=== PATIENT | female | born 1965 | race Caucasian/White ===

== ENCOUNTER 2018-12-17 00:48 | Inpatient (IN) | payer MEDICARE ==
[2018-12-17] MEDS ORDERED: LORazepam 2 MG/ML INJ IV STA (01:14)
[2018-12-17] MEDS ORDERED: SODIUM CHLORIDE 0.9% 500 ML 500 ML IV STA (01:14)
--- NOTE | 2018-12-17 01:30 | ED ---
Nausea/Vomiting/Diarrhea HPI - General Source: EMS Mode of arrival: EMS Limitations: no limitations <Miladis Herrera - Last Filed: 12/17/18 02:39> <Jocelyn Choudhury - Last Filed: 12/17/18 05:53> - General Chief complaint: Nausea/Vomiting/Diarrhea Stated complaint: vomiting Time Seen by Provider: 12/17/18 00:51 - History of Present Illness Initial comments: 52-year-old female patient with past medical history significant for epilepsy, Jimmy-Danlos syndrome - vascular type, hypertension presents to the emergency department for evaluation of vomiting, abdominal pain, chest pain, and progressive weakness. Patient states that she had extensive vascular grafting at the beginning of October. States that she felt quite well for a short time, then started to decline. Patient states that she has been feeling weak. States she has been having pain and chest in her abdomen for the last couple of weeks. States today she is unable to stop vomiting. States it has been more than 15 episodes. She denies any hematochezia, melena, or hematemesis. She states she has been clammy and chilled. Denies any shortness of breath. Patient denies any recent rash, shortness breath, back pain, numbness, tingling, dizziness, w eakness, hematuria, dysuria, urinary urgency, urinary frequency, headache, visual changes, or any other complaints. (Miladis Herrera) - Related Data Allergies Allergy/AdvReac Type Severity Reaction Status Date / Time No Known Allergies Allergy Verified 12/17/18 01:02 Review of Systems ROS Other: All systems not noted in ROS Statement are negative. <Miladis Herrera - Last Filed: 12/17/18 02:39> ROS Other: All systems not noted in ROS Statement are negative. <Jocelyn Choudhury - Last Filed: 12/17/18 05:53> ROS Statement: Those systems with pertinent positive or pertinent negative responses have been documented in the HPI. Past Medical History Past Medical History: Hypertension, Seizure Disorder Additional Past Medical History / Comment(s): adrenal insufficiency; Jimmy Danlos Syndrome - Vascular Type History of Any Multi-Drug Resistant Organisms: None Reported Additional Past Surgical History / Comment(s): abdominal sugery; Aortic grafting Past Psychological History: No Psychological Hx Reported Smoking Status: Current every day smoker Past Alcohol Use History: None Reported Past Drug Use History: Marijuana <Miladis Herrera M - Last Filed: 12/17/18 02:39> General Exam Limitations: no limitations General appearance: alert, in no apparent distress, other (This is a well-develo ped, well-nourished adult female patient in no acute distress. Vital signs upon presentation are temperature 98.9F, pulse 91, respirations 20, blood pressure 175/120, pulse ox 96% on room air.) Eye exam: Present: normal appearance, PERRL, EOMI. Absent: scleral icterus, co njunctival injection, periorbital swelling ENT exam: Present: normal exam, normal oropharynx, mucous membranes moist Respiratory exam: Present: normal lung sounds bilaterally. Absent: respiratory distress, wheezes, rales, rhonchi, stridor Cardiovascular Exam: Present: regular rate, normal rhythm, normal heart sounds. Absent: systolic murmur, diastolic murmur, rubs, gallop, clicks GI/Abdominal exam: Present: soft, tenderness (Epigastric), normal bowel sounds. Absent: distended, guarding, rebound, rigid Neurological exam: Present: alert, oriented X3, CN II-XII intact Psychiatric exam: Present: normal affect, normal mood Skin exam: Present: warm, dry, intact, normal color. Absent: rash <Miladis Herrera M - Last Filed: 12/17/18 02:39> Course Vital Signs 12/17/18 12/17/18 12/17/18 00:58 02:38 03:10 Temperature 98.9 F Pulse Rate 91 86 96 Respiratory 20 20 24 Rate Blood Pressure 175/120 177/117 175/113 O2 Sat by Pulse 96 90 L 81 L Oximetry 12/17/18 12/17/18 12/17/18 03:21 04:10 04:22 Temperature Pulse Rate 101 H 101 H Respiratory 26 H 28 H Rate Blood Pressure 157/100 160/107 O2 Sat by Pulse 94 L 98 98 Oximetry 12/17/18 04:50 Temperature Pulse Rate 96 Respiratory 26 H Rate Blood Pressure 154/97 O2 Sat by Pulse 98 Oximetry Medical Decision Making - Lab Data Result diagrams: 12/17/18 01:30 12/17/18 01:30 - EKG Data -: EKG Interpreted by Me - Radiology Data Radiology results: report reviewed, image reviewed <Miladis Herrera - Last Filed: 12/17/18 02:39> - Lab Data Result diagrams: 12/17/18 01:30 12/17/18 01:30 <Jocelyn Choudhury - Last Filed: 12/17/18 05:53> - Medical Decision Making 52-year-old female patient presents to the emergency department today for evalua tion of progressive weakness, vomiting, chest pain, and abdominal pain. Physical examination does reveal generalized abdominal tenderness. Pressure is elevated. Labs reviewed and did reveal hemoglobin 10.8, BUN 25, creatinine 1.63. Troponin 0.368. Patient's EKG shows normal sinus rhythm with no evidence for ST elevation or depression. CT chest, abdomen, pelvis was obtained without contrast which showed a 5 cm thoracic aortic aneurysm which has been stented. There is also low density lesion on her pancreas. I did discuss findings and results with the patient. I discussed case with Dr. Choudhury. We will start heparin, perform serial troponins, and admit to Dr. Rondon. (Miladis Herrera) I personally saw and evaluated the patient who is having moderate respiratory distress, CXR concerning for pulmonary edema, patient also hypertensive and hypoxic declining BiPap. Decision was made to place patient on Nitro gtt fro BP management and treatment of apparent heart failure. Admitting physician at bedside agrees with plans for admission, requests upgrade to ICU. Patient care discussed with Dr. Lamas who agrees with admission to ICU. (Jocelyn Choudhury) - Lab Data Lab Results 12/17/18 12/17/18 12/17/18 Range/Units 01:30 01:30 01:30 WBC 12.6 H (3.8-10.6) k/uL RBC 3.68 L (3.80-5.40) m/uL Hgb 10.8 L (11.4-16.0) gm/dL Hct 35.2 (34.0-46.0) % MCV 95.6 (80.0-100.0) fL MCH 29.4 (25.0-35.0) pg MCHC 30.7 L (31.0-37.0) g/dL RDW 18.0 H (11.5-15.5) % Plt Count 442 (150-450) k/uL Neutrophils % 68 % Lymphocytes % 26 % Monocytes % 4 % Eosinophils % 1 % Basophils % 1 % Neutrophils # 8.6 H (1.3-7.7) k/uL Lymphocytes # 3.2 (1.0-4.8) k/uL Monocytes # 0.5 (0-1.0) k/uL Eosinophils # 0.1 (0-0.7) k/uL Basophils # 0.1 (0-0.2) k/uL Hypochromasia Slight Anisocytosis Slight Macrocytosis Slight PT (9.0-12.0) sec INR (<1.2) APTT (22.0-30.0) sec Sodium 138 (137-145) mmol/L Potassium 3.6 (3.5-5.1) mmol/L Chloride 102 (98-107) mmol/L Carbon Dioxide 26 (22-30) mmol/L Anion Gap 10 mmol/L BUN 25 H (7-17) mg/dL Creatinine 1.63 H (0.52-1.04) mg/dL Est GFR (CKD-EPI)AfAm 41 (>60 ml/min/1.73 sqM) Est GFR (CKD-EPI)NonAf 36 (>60 ml/min/1.73 sqM) Glucose 115 H (74-99) mg/dL Calcium 9.8 (8.4-10.2) mg/dL Magnesium (1.6-2.3) mg/dL Total Bilirubin 0.3 (0.2-1.3) mg/dL AST 17 (14-36) U/L ALT 6 L (9-52) U/L Alkaline Phosphatase 147 H (38-126) U/L Troponin I 0.368 H* (0.000-0.034) ng/mL NT-Pro-B Natriuret Pep pg/mL Total Protein 6.6 (6.3-8.2) g/dL Albumin 3.3 L (3.5-5.0) g/dL Amylase 84 (30-110) U/L Lipase 52 (23-300) U/L 12/17/18 12/17/18 12/17/18 Range/Units 01:30 01:30 01:30 WBC (3.8-10.6) k/uL RBC (3.80-5.40) m/uL Hgb (11.4-16.0) gm/dL Hct (34.0-46.0) % MCV (80.0-100.0) fL MCH (25.0-35.0) pg MCHC (31.0-37.0) g/dL RDW (11.5-15.5) % Plt Count (150-450) k/uL Neutrophils % % Lymphocytes % % Monocytes % % Eosinophils % % Basophils % % Neutrophils # (1.3-7.7) k/uL Lymphocytes # (1.0-4.8) k/uL Monocytes # (0-1.0) k/uL Eosinophils # (0-0.7) k/uL Basophils # (0-0.2) k/uL Hypochromasia Anisocytosis Macrocytosis PT 9.9 (9.0-12.0) sec INR 0.9 (<1.2) APTT 25.5 (22.0-30.0) sec Sodium (137-145) mmol/L Potassium (3.5-5.1) mmol/L Chloride (98-107) mmol/L Carbon Dioxide (22-30) mmol/L Anion Gap mmol/L BUN (7-17) mg/dL Creatinine (0.52-1.04) mg/dL Est GFR (CKD-EPI)AfAm (>60 ml/min/1.73 sqM) Est GFR (CKD-EPI)NonAf (>60 ml/min/1.73 sqM) Glucose (74-99) mg/dL Calcium (8.4-10.2) mg/dL Magnesium 2.1 (1.6-2.3) mg/dL Total Bilirubin (0.2-1.3) mg/dL AST (14-36) U/L ALT (9-52) U/L Alkaline Phosphatase (38-126) U/L Troponin I (0.000-0.034) ng/mL NT-Pro-B Natriuret Pep 85774 pg/mL Total Protein (6.3-8.2) g/dL Albumin (3.5-5.0) g/dL Amylase (30-110) U/L Lipase (23-300) U/L - EKG Data EKG Comments: EKG obtained at 0124 shows normal sinus rhythm with a ventricular rate of 87, LA interval 144, QRS duration 86, QT 368, QTC 442. No evidence of ST elevation or depression. (Miladis Herrera) - Radiology Data CT chest, abdomen, pelvis was obtained without contrast. Report was reviewed in its entirety. Impression by Dr. Hernandez shows thoracic aortic aneurysm with underlying stent. 4.9 cm pancreatic tail low density mass. Left kidney demonstrates tiny high density lesions possibly proteinaceous/hemorrhagic cyst, incompletely characterized without contrast. No aortic aneurysm or intramural hematoma. (Miladis Herrera) Critical Care Time Critical Care Time: Yes Total Critical Care Time: 45 <Jocelyn Choudhury - Last Filed: 12/17/18 05:53> Critical Care Time: Critical Care Time Critical care time was exclusive of separately billable procedures and treating other patients and teaching time. Critical care was necessary to treat or prevent imminent or life-threatening deterioration. Given the critical condition in which the patient arrived, the patient was immediately assessed by myself and the nurse, and cardiac monitoring initiated due to the potential for rapid decompensation of the patient's clinical condition. During the course of the patients stay, I spent a considerable amount of time at the bedside performing serial re-evaluations of the patient's hemodynamic and clinical status because of the recognized potential threat to life or limb in this condition. I then had a chance to review not only all of the available current laboratory and radiographic studies obtained today, but I also reviewed old records available to me at the time. Additionally, any ancillary information available including comparative sociology professor records were reviewed. Sequential vital signs were obtained. (Jocelyn Choudhury) Disposition Decision to Admit Reason: Admit from EC Decision Date: 12/17/18 Decision Time: 02:42 <Miladis Herrera - Last Filed: 12/17/18 02:39> <Jocelyn Choudhury - Last Filed: 12/17/18 05:53> Clinical Impression: Chest pain, Abdominal pain, Vomiting Disposition: ADMITTED IP TO THIS [facility] Condition: Serious
[2018-12-17 01:36] LABS: Anisocytosis Slight; Basophils # (A) 0.1 k/uL (0-0.2); Basophils % (A) 1 %; Eosinophils # (A) 0.1 k/uL (0-0.7); Eosinophils % (A) 1 %; HCT 35.2 % (34.0-46.0); HGB 10.8 gm/dL (11.4-16.0); Hypochromasia Slight; Lymphocytes # (A) 3.2 k/uL (1.0-4.8); Lymphocytes % (A) 26 %; MCH 29.4 pg (25.0-35.0); MCHC 30.7 g/dL (31.0-37.0); MCV 95.6 fL (80.0-100.0); Macrocytosis Slight; Mean Platelet Volume 7.2; Monocytes # (A) 0.5 k/uL (0-1.0); Monocytes % (A) 4 %; Neutrophils # (A) 8.6 k/uL (1.3-7.7); Neutrophils % (A) 68 %; Platelet Count 442 k/uL (150-450); RBC 3.68 m/uL (3.80-5.40); WBC 12.6 k/uL (3.8-10.6)
[2018-12-17 01:45] LABS: Albumin 3.3 g/dL (3.5-5.0); Calcium 9.8 mg/dL (8.4-10.2); Potassium 3.6 mmol/L (3.5-5.1); Total Bilirubin 0.3 mg/dL (0.2-1.3); Total Protein 6.6 g/dL (6.3-8.2)
--- NOTE | 2018-12-17 02:29 | CT ---
EXAM: CT Chest Without Intravenous Contrast CLINICAL HISTORY: ITS.REASON CT Reason: Chest/abdomen pain hx of elher's danlos - vascular TECHNIQUE: Axial computed tomography images of the chest without intravenous contrast. CTDI is 7 mGy and DLP is 502 mGy-cm. This CT exam was performed using one or more of the following dose reduction techniques: automated exposure control, adjustment of the mA and/or kV according to patient size, and/or use of iterative reconstruction technique. COMPARISON: No relevant prior studies available. FINDINGS: Lungs: No mass. Interlobular septal thickening and some areas of groundglass opacities. Pleural space: No pneumothorax. Mild left greater than right pleural effusions. Heart: Enlarged heart size. No pericardial effusion. Bones/joints: No acute fracture. Chronic 80% height loss wedging of T7 with mild kyphotic deformity. Soft tissues: Unremarkable. Vasculature: Thoracic aortic aneurysm measuring approximately 5 cm in the descending portion. No intramural hematoma is identified. Lymph nodes: No enlarged lymph nodes. Upper abdomen: Unremarkable. IMPRESSION: 1. Thoracic aortic aneurysm with underlying stent. 2. Cardiomegaly, mild pleural effusions, and mild pulmonary edema. EXAM: CT Abdomen and Pelvis Without Intravenous Contrast CLINICAL HISTORY: ITS.REASON CT Reason: Chest/abdomen pain hx of elher's danlos - vascular TECHNIQUE: Axial computed tomography images of the abdomen and pelvis without intravenous contrast. CTDI is 7 mGy and DLP is 502 mGy-cm. This CT exam was performed using one or more of the following dose reduction techniques: automated exposure control, adjustment of the mA and/or kV according to patient size, and/or use of iterative reconstruction technique. COMPARISON: No relevant prior studies available. FINDINGS: Lung bases: No mass. No consolidation. ABDOMEN: Liver: Unremarkable. Gallbladder and bile ducts: Unremarkable. Pancreas: 4.9 cm low-density mass in the pancreatic tail. Spleen: Unremarkable. Adrenals: Unremarkable. Kidneys and ureters: No obstructing stones. No hydronephrosis. Atrophic right kidney. Left kidney demonstrates tiny high-density lesions. Stomach and bowel: No bowel obstruction. No bowel wall thickening. PELVIS: Appendix: No evidence of appendicitis. Bladder: No stones. Reproductive: Unremarkable. ABDOMEN and PELVIS: Intraperitoneal space: Unremarkable. Bones/joints: No acute fractures. Soft tissues: Unremarkable. Vasculature: No abdominal aortic aneurysm. Lymph nodes: No enlarged lymph nodes. IMPRESSION: 4.9 cm pancreatic tail low-density mass. Recommend pancreatic CT or MRI for further characterization. Left kidney demonstrates tiny high-density lesions possibly proteinaceous/hemorrhagic cysts, incompletely characterized without contrast. No aortic aneurysm or intramural hematoma.
[2018-12-17] MEDS ORDERED: NALOXONE 0.4 MG/ML 1 ML VIAL IV PRN (02:34)
[2018-12-17] MEDS ORDERED: HEPARIN SODIUM,PORCINE 5,000 UNIT/ML 1 ML VIAL IV ONE (02:38)
[2018-12-17] MEDS ORDERED: HEPARIN SODIUM,PORCINE 5,000 UNIT/ML 1 ML VIAL IV PRN (02:38)
[2018-12-17] MEDS ORDERED: SODIUM CHLORIDE 0.9% 1,000 ML IV SCH (02:45)
[2018-12-17] MEDS ORDERED: HEPARIN SOD,PORK IN 0.45% NACL 25,000 UNIT in 0.45% NACL 1 250ML.BAG IV SCH (02:45)
[2018-12-17] MEDS: ONDANSETRON 4 MG/2 ML VIAL IVP PRN (02:47)
[2018-12-17] MEDS: MORPHINE SULFATE 4 MG/ML SYRINGE IV PRN ×2 (02:48→06:50)
[2018-12-17] MEDS: NITROGLYCERIN SL TABS 0.4 MG TAB SUBLINGUAL PRN ×2 (03:06→03:18)
[2018-12-17] MEDS ORDERED: hydrALAZINE HCL 20 MG/ML 1 ML VIAL IVP STA (03:32)
[2018-12-17] MEDS ORDERED: NITROGLYCERIN-D5W PMX 50 MG in DEXTROSE/WATER 1 250ML.BAG IV STA (03:50)
[2018-12-17 03:55] LABS: Glucose,Whole Blood 130 mg/dL (75-99)
[2018-12-17] MEDS: LORazepam 2 MG/ML INJ IV PRN (04:06)
[2018-12-17] MEDS ORDERED: ACETAMINOPHEN TAB 325 MG TAB PO STA (04:12)
[2018-12-17 04:16] LABS: INR 0.9 (<1.2); Partial Thromboplastin Time 25.5 sec (22.0-30.0); Prothrombin Time 9.9 sec (9.0-12.0)
[2018-12-17 04:23] LABS: ABG Base Excess 0.1 mmol/L; ABG HCO3 25 mmol/L (21-25); ABG Oxygen Saturation 96.9 % (94-97); ABG PCO2 43 mmHg (35-45); ABG PH 7.37 (7.35-7.45); ABG PO2 118 mmHg (83-108); ABG TCO2 27 mmol/L (19-24); Allen Test Performed? Yes
[2018-12-17] MEDS ORDERED: FUROSEMIDE 10 MG/ML 4 ML VIAL IV STA (04:23)
--- NOTE | 2018-12-17 04:33 | XR ---
EXAM: XR Chest, 1 View CLINICAL HISTORY: ITS.REASON XR Reason: Shortness of breath TECHNIQUE: Frontal view of the chest. COMPARISON: No relevant prior studies available. IMPRESSION: Cardiomegaly. Pulmonary edema. Mild left pleural effusion. Dilated aorta with stent.
[2018-12-17 05:05] LABS: Appearance,Urine Clear (Clear); Bilirubin,Urine Negative (Negative); Blood,Urine Negative (Negative); Color,Urine Yellow; Glucose,Urine (UA) Negative (Negative); Hyaline Casts,Urine 3 /lpf (0-2); Ketones,Urine Negative (Negative); Leukocyte Esterase,Urine Trace (Negative); Mucus,Urine Rare /hpf; Nitrite,Urine Negative (Negative); Protein,Urine 1+ (Negative); RBC,Urine 2 /hpf (0-5); Specific Gravity,Urine 1.015 (1.001-1.035); Squamous Epithelial Cell,Urine <1 /hpf (0-4); Urobilinogen,Urine <2.0 mg/dL (<2.0); WBC,Urine 11 /hpf (0-5)
[2018-12-17 05:23] LABS: Glucose,Whole Blood 131 mg/dL (75-99)
[2018-12-17] MEDS ORDERED: MELATONIN 3 MG TABLET PO PRN (05:56)
[2018-12-17 06:02] LABS: Anisocytosis Slight; Basophils # (A) 0.1 k/uL (0-0.2); Basophils % (A) 0 %; Eosinophils # (A) 0.1 k/uL (0-0.7); Eosinophils % (A) 1 %; HCT 36.6 % (34.0-46.0); HGB 11.3 gm/dL (11.4-16.0); Hypochromasia Slight; Lymphocytes # (A) 2.2 k/uL (1.0-4.8); Lymphocytes % (A) 14 %; MCHC 30.9 g/dL (31.0-37.0); MCV 97.2 fL (80.0-100.0); Macrocytosis Slight; Mean Platelet Volume 7.1; Monocytes # (A) 0.5 k/uL (0-1.0); Monocytes % (A) 3 %; Neutrophils # (A) 12.8 k/uL (1.3-7.7); Neutrophils % (A) 81 %; Platelet Count 497 k/uL (150-450); RBC 3.77 m/uL (3.80-5.40); RDW 18.3 % (11.5-15.5); WBC 15.8 k/uL (3.8-10.6)
--- NOTE | 2018-12-17 06:20 | P.HPIM ---
History of Present Illness H&P Date: 12/17/18 Chief Complaint: nausea or vomiting 52-year-old female with past medical history of Ehler Danlos syndrome vascular type, history of seizures, hypertension, adrenal insufficiency, pituitary neoplasm, coronary artery disease. Patient presented initially for evaluation of abdominal discomfort and vomiting with overall getting progressively weak.patient does have history of adrenal insufficiency and on hydrocortisone. She reports history of pituitary neoplasm which resulted in hypothyroidism and adrenal insufficiency. She also reports that 2 months ago she had some kind of surgery involving her aorta where she had to have open heart surgery at [facility] she reports that she got discharged from the hospital around 6 weeks ago and was sent home. She felt okay initially and then she started to get progressively weak and tired. Then patient admitted that she was having chest pain for the last week along with abdominal pain, patient is not going over thorough details as she was having some trouble breathing during the time of interview due to respiratory distress. However she did mention some repeated vomiting multiple episodes today which made her come to the hospital she denies being on any blood thinners denies any GI bleeding or hematemesis or melena. While in the ED she became hypoxic diaphoretic and clammy shortness of breath got worse for which she was placed on high flow oxygen nasal cannula as she was not tolerating BiPAP. ABG was done and reviewed while on the supplemental oxygen showed pH of 7.37. O2 of 118 and pCO2 in the 40s. Her hemoglobin on the ABG was 11.2. Patient had CT of the chest and abdomen without contrast due to elevated creatinine. Chest x-ray showed diffuse pulmonary edema with some pleural effusions and enla rged heart. Patient was given medications to lower blood pressure without much improvement eventually she was started on nitro drip. Review of Systems patient was unable to provide full review of systems due to respiratory distress at time of interview Past Medical History Past Medical History: Hypertension, Seizure Disorder Additional Past Medical History / Comment(s): adrenal insufficiency; Jimmy Danl os Syndrome - Vascular Type History of Any Multi-Drug Resistant Organisms: None Reported Additional Past Surgical History / Comment(s): abdominal sugery; Aortic grafting Past Psychological History: No Psychological Hx Reported Smoking Status: Current every day smoker Past Alcohol Use History: None Reported Past Drug Use History: Marijuana - Past Family History family Family Medical History: Unable to Obtain Medications and Allergies Home Medications Medication Instructions Recorded Confirmed Type Acetaminophen [Tylenol] 650 mg PO Q6H PRN 12/17/18 12/17/18 History Amiodarone HCl [Pacerone] 200 mg PO DAILY 12/17/18 12/17/18 History Carvedilol [Coreg] 3.125 mg PO BID 12/17/18 12/17/18 History Cholecalciferol (Vitamin D3) 10,000 unit PO 12/17/18 History [Vitamin D3] Hydrocortisone 5 mg PO DAILY 12/17/18 12/17/18 History Hydrocortisone 10 mg PO DAILY 12/17/18 12/17/18 History Levothyroxine Sodium 150 mg PO DAILY 12/17/18 12/17/18 History Melatonin 3 mg PO HS PRN 12/17/18 12/17/18 History PARoxetine HCL 20 mg PO DAILY 12/17/18 12/17/18 History Simethicone [Gas-X] 125 mg PO PRN 12/17/18 History Allergies Allergy/AdvReac Type Severity Reaction Status Date / Time No Known Allergies Allergy Verified 12/17/18 01:02 Physical Exam Vitals: Vital Signs Temp Pulse Resp BP Pulse Ox 12/17/18 04:50 96 26 H 154/97 98 12/17/18 04:22 101 H 28 H 160/107 98 12/17/18 04:10 101 H 26 H 157/100 98 12/17/18 03:21 94 L 12/17/18 03:10 96 24 175/113 81 L 12/17/18 02:38 86 20 177/117 90 L 12/17/18 00:58 98.9 F 91 20 175/120 96 Intake and Output 12/16/18 12/16/18 12/17/18 14:59 22:59 06:59 Intake Total 0.725 Output Total 400 Balance -399.275 Intake: Intake, IV Titration 0.725 Amount Nitroglycerin-D5w Pmx 50 0.725 mg In Dextrose/Water 1 250ml.bag @ 5 MCG/MIN 1.5 mls/hr IV .Q24H STA Rx#: [id number] Output: Urine 400 Uretheral (Monzon) 400 Other: Voiding Method Toilet Weight 61.689 kg Constitutional: patient is currently in respiratory distress using accessory muscles of respiration currently on high flow nasal cannula Eyes: Anicteric sclerae, moist conjunctiva, Pupils equal round reactive to light ENMT: NC/AT Oropharynx clear, no erythema, exudates Neck: Supple, FROM, no masses, or JVD No carotid bruits No thyromegaly Lungs: decreased breath sounds throughout with basal rales Clear to percussion accessory muscles of respiration Cardiovascular: Heart tachycardic No murmurs, gallops, or rubs No peripheral edema Abdominal: Soft Nontender, no guarding, rebound or rigidity Abdomen moving with respiration Normoactive bowel sounds No hepatomegaly, No splenomegaly No palpable mass No abdominal wall hernia noted Skin: open-heart surgery scar is healing well no drainage no open wounds Normal temperature, tone, texture, turgor No induration No subcutaneous nodules No rash, lesions No ulcers Extremities: No digital cyanosis No clubbing Pedal pulses intact and symmetrical Radial pulses intact and symmetrical No calf tenderness Psychiatric: Alert and oriented to person, place and time Patient looks anxious fair judgment Neuro Muscles Strength 4/5 in all 4 extremities Sensation to light touch grossly present throughout Cranial nerves II-XII grossly intact No focal sensory deficits Lymphatics: no palpable cervical or supraclavicular , or inguinal lymph nodes Results CBC & Chem 7: 12/17/18 01:30 12/17/18 01:30 Labs: Abnormal Lab Results - Last 24 Hours (Table) 12/17/18 12/17/18 12/17/18 Range/Units 01:30 01:30 01:30 WBC 12.6 H (3.8-10.6) k/uL RBC 3.68 L (3.80-5.40) m/uL Hgb 10.8 L (11.4-16.0) gm/dL MCHC 30.7 L (31.0-37.0) g/dL RDW 18.0 H (11.5-15.5) % Neutrophils # 8.6 H (1.3-7.7) k/uL ABG pO2 (83-108) mmHg ABG Total CO2 (19-24) mmol/L BUN 25 H (7-17) mg/dL Creatinine 1.63 H (0.52-1.04) mg/dL Glucose 115 H (74-99) mg/dL POC Glucose (mg/dL) (75-99) mg/dL ALT 6 L (9-52) U/L Alkaline Phosphatase 147 H (38-126) U/L Troponin I 0.368 H* (0.000-0.034) ng/mL Albumin 3.3 L (3.5-5.0) g/dL Urine Protein (Negative) Ur Leukocyte Esterase (Negative) Urine WBC (0-5) /hpf Hyaline Casts (0-2) /lpf Urine Mucus (None) /hpf 12/17/18 12/17/18 12/17/18 Range/Units 03:44 04:20 04:45 WBC (3.8-10.6) k/uL RBC (3.80-5.40) m/uL Hgb (11.4-16.0) gm/dL MCHC (31.0-37.0) g/dL RDW (11.5-15.5) % Neutrophils # (1.3-7.7) k/uL ABG pO2 118 H (83-108) mmHg ABG Total CO2 27 H (19-24) mmol/L BUN (7-17) mg/dL Creatinine (0.52-1.04) mg/dL Glucose (74-99) mg/dL POC Glucose (mg/dL) 130 H (75-99) mg/dL ALT (9-52) U/L Alkaline Phosphatase (38-126) U/L Troponin I (0.000-0.034) ng/mL Albumin (3.5-5.0) g/dL Urine Protein 1+ H (Negative) Ur Leukocyte Esterase Trace H (Negative) Urine WBC 11 H (0-5) /hpf Hyaline Casts 3 H (0-2) /lpf Urine Mucus Rare H (None) /hpf 12/17/18 Range/Units 05:20 WBC (3.8-10.6) k/uL RBC (3.80-5.40) m/uL Hgb (11.4-16.0) gm/dL MCHC (31.0-37.0) g/dL RDW (11.5-15.5) % Neutrophils # (1.3-7.7) k/uL ABG pO2 (83-108) mmHg ABG Total CO2 (19-24) mmol/L BUN (7-17) mg/dL Creatinine (0.52-1.04) mg/dL Glucose (74-99) mg/dL POC Glucose (mg/dL) 131 H (75-99) mg/dL ALT (9-52) U/L Alkaline Phosphatase (38-126) U/L Troponin I (0.000-0.034) ng/mL Albumin (3.5-5.0) g/dL Urine Protein (Negative) Ur Leukocyte Esterase (Negative) Urine WBC (0-5) /hpf Hyaline Casts (0-2) /lpf Urine Mucus (None) /hpf Assessment and Plan Assessment: 52-year-old female with past medical history of Ehler Danlos syndrome vascular type, history of seizures, hypertension, adrenal insufficiency, pituitary neoplasm, coronary artery disease.admitted as inpatient with anticipated length of stay more than 2 midnight due to malignant hypertension with acute flash pulmonary edema and acute hypoxic respiratory failure. Patient will be admitted to the ICU currently on nitro drip. computed tomography scan of the abdomen and chest was done showed thoracic a ortic aneurysm 5 cm which was stented also low-density pancreatic tail lesion left kidney also showed possible proteinaceous/hemorrhagic cyst Plan: acute hypoxic respiratory failure with respiratory distress Flash pulmonary edema Malignant hypertension elevated troponins and chest pain Patient was started on nitro drip, supplemental oxygen, will be admitted to the ICU IV Lasix X-rays showed pulmonary edema with pleural effusion Computed tomography scan showed thoracic aortic aneurysm 5 cm which was stented Patient was started on heparin drip due to elevated troponins and chest pain Check echocardiogram Cardiology consult ICU care EKG showed no acute ST changes Adrenal insufficiency Patient will be started on stress dose of hydrocortisone History of pituitary neoplasm History of epilepsy Resume home meds pancreatic tail lesion low-density of 4.9 cm left kidney also showed possible proteinaceous/hemorrhagic cyst recent hospitalization at [facility] where she had open heart surgery for stenting of her thoracic aortic aneurysm patient does not know details about what exactly was done CODE STATUS:full code Discussed with: Patient, ER, RN Anticipated length of stay more than [address]: pending clinical course A total of 70 minutes was spent on the care of this complex patient more than 50% of the time was spent in counseling and care coordination.
[2018-12-17 06:32] VITALS: BMI 22.1
[2018-12-17] MEDS: HYDROCORTISONE SUCCINATE 100 MG/2 ML VIAL IV SCH ×3 (07:19→17:43)
[2018-12-17] MEDS: LEVOTHYROXINE 50 MCG TAB PO SCH (07:23)
[2018-12-17] MEDS ORDERED: CARVEDILOL 3.125 MG TAB PO SCH (07:30)
[2018-12-17] MEDS ORDERED: HYDROCORTISONE 10 MG TAB PO SCH ×2 (09:00→12:00)
[2018-12-17] MEDS ORDERED: FUROSEMIDE 10 MG/ML 4 ML VIAL IV SCH (09:00)
[2018-12-17] MEDS: FUROSEMIDE 100 MG in SODIUM CHLORIDE 0.9% 90 ML IV SCH (09:10)
[2018-12-17] MEDS: HYDROmorphone 0.5 MG/0.5 ML SYRINGE IVP PRN ×4 (09:49→21:50)
[2018-12-17] MEDS: PARoxetine 20 MG TAB PO SCH (09:50)
[2018-12-17] MEDS: ALPRAZolam 0.5 MG TAB PO SCH ×2 (09:50→17:52)
[2018-12-17] MEDS: PANTOPRAZOLE 40 MG TABLET PO SCH (09:50)
[2018-12-17] MEDS: AMIODARONE 200 MG TAB PO SCH (09:50)
[2018-12-17 10:14] LABS: Calcium 9.4 mg/dL (8.4-10.2); Potassium 3.6 mmol/L (3.5-5.1)
[2018-12-17 10:20] LABS: INR 0.9 (<1.2); Partial Thromboplastin Time 31.9 sec (22.0-30.0); Prothrombin Time 9.7 sec (9.0-12.0)
--- NOTE | 2018-12-17 10:23 | CONS ---
CONSULTATION Mrs. Mcneil is a 52-year-old female who is seen for the cardiac evaluation. Patient's emergency room records were reviewed. This patient has a past history of epilepsy as well as Ehler-Danlos syndrome and history of hypertension. Patient had probably a leak or dissection of thoracic aortic aneurysm when she was in the [facility] in October and subsequently patient was transferred to [facility] where she underwent a stent placement. Patient was doing well for some time, then she started to decline. She is progressively feeling weak and patient has been having some chest pain in the left upper part of the abdomen and lower part of the chest. Apparently patient did not have any coronary artery bypass surgery and I presume that probably patient did not have any significant coronary artery disease when she had surgery. Patient usually says that her blood pressure runs low because of adrenal insufficiency. Patient had several episodes of vomiting yesterday 10-15 episodes associated with some headaches. She did not have any nausea, vomiting, or sweating and she did not have any blood in the stool or hematemesis. PAST MEDICAL HISTORY: Includes history of hypertension, seizure disorder, adrenal insufficiency, Jimmy- Danlos syndrome and history of stent placement. Patient's home medications included Tylenol, hydrocortisone, amiodarone 200 mg daily, Coreg 3.125 mg b.i.d. and Synthroid 150 mcg daily. In the emergency room, patient's blood pressure was significantly elevated in the range of 175/120 mmHg. The patient was started on nitroglycerin drip and got some treatment and now her blood pressure is down to 145/93 mmHg. Patient was in heart failure. Chest x-ray was suggestive of heart failure. HEENT: Examination is negative. Neck: Supple. There is no increase in jugular venous pressure. Both the carotid pulses are felt, there is no bruit. CHEST: Symmetrical. HEART: The PMI is not felt. First and second heart sounds are normal. There is a grade 2/6 ejection systolic murmur noted at the aortic area. LUNGS: Reveal bilateral few basal rales. ABDOMEN: Soft. There is a tenderness present in the left upper quadrant. EXTREMITIES: Peripheral pulsations are 2+. Patient's EKG shows normal sinus rhythm without any acute ischemic changes. Patient's hemoglobin is 11.3. Arterial blood gases shows pH of 7.37, pCO2 was 43, PO2 is 118. The patient's 2 sets of troponins are 0.368 and 0.395. FINAL IMPRESSION: 1. This patient is admitted with hypertensive urgency. Her blood pressure was severely elevated in the emergency room. It is getting under control. Exact etiology of patient's nausea or vomiting is unclear. However, any kind of intracranial pathology also of needs to be ruled out. 2. Patient's chest pains are atypical. The EKG does not show any acute ischemic changes. Two sets of troponin are almost identical without any significant rise and fall and it is not suggestive of acute coronary syndrome. EKG does not show any acute ischemic changes. Patient's CT scan of the abdomen and chest shows thoracic aortic aneurysm with underlying stent. Patient has a cardiomegaly with a mild pleural effusion. Chest x-ray is suggestive of congestive cardiac failure. RECOMMENDATIONS: In view of this patient's persistent headache, will wean her off the nitroglycerin drip, increase the Coreg to 6.25 mg b.i.d. and will give her 1 dose of amlodipine 5 mg daily. At present, patient is getting the Lasix drip, she diuresed about 1900 mL of the urine. We will repeat the chest x-ray and review the patient's echocardiogram. MMODL / IJN: [id number] /
--- NOTE | 2018-12-17 10:30 | ECHOF ---
Referral Reason:flash pulmonary edema MEASUREMENTS -------- HEIGHT: 172.7 cm WEIGHT: 61.7 kg BP: 154/97 RVIDd: 3.8 cm (< 3.3) IVSd: 1.3 cm (0.6 - 1.1) LVIDd: 4.0 cm (3.9 - 5.3) LVPWd: 1.3 cm (0.6 - 1.1) IVSs: 1.3 cm LVIDs: 3.5 cm LVPWs: 1.9 cm LAESV Index (A-L): 48.60 ml/m Ao Diam: 3.2 cm (2.0 - 3.7) AV Cusp: 1.7 cm (1.5 - 2.6) LA Diam: 3.1 cm (2.7 - 3.8) MV E Arian: 0.66 m/s MV DecT: 165 ms MV A Arian: 1.08 m/s MV E/A Ratio: 0.61 AR PHT: 715 ms RAP: 5.00 mmHg RVSP: 22.46 mmHg FINDINGS -------- Sinus rhythm. The left ventricular size is normal. There is mild concentric left ventricular hypertrophy. Overa ll left ventricular systolic function is moderately impaired with, an EF between 35 - 40 %. Mitral Doppler inflow pattern suggests diastolic filling abnormality. Septal wall motion is delayed and co nsistent with prior cardiac surgery. Basal inferoseptal LV wall motion is hypokinetic. Mid infer oseptal LV wall motion is hypokinetic. The right ventricle is moderately enlarged. Left atrium is severely dilated by volume. The right atrium is mildly enlarged. Interatrial and interventricular septum intact. The aortic valve was not well visualized. There is mild aortic regurgitation. There is no evidenc e of aortic stenosis. Mild mitral annular calcification present. [id number] mitral regurgitation is present. Mild tricuspid regurgitation present. There is no evidence of pulmonary hypertension. The right v entricular systolic pressure, as measured by Doppler, is 22.46mmHg. There is no pulmonic regurgitation present. The aortic root size is normal. Possible atherosclerotic plaque(s) located in the descending aorta V s. possible dissection seen in subcostal views. The inferior vena cava was not well visualized. There is no pericardial effusion. CONCLUSIONS -------- 1. Sinus rhythm. 2. The left ventricular size is normal. 3. There is mild concentric left ventricular hypertrophy. 4. Overall left ventricular systolic function is moderately impaired with, an EF between 35 - 40 %. 5. Mitral Doppler inflow pattern suggests diastolic filling abnormality. 6. Septal wall motion is delayed and consistent with prior cardiac surgery. 7. Basal inferoseptal LV wall motion is hypokinetic. 8. Mid inferoseptal LV wall motion is hypokinetic. 9. The right ventricle is moderately enlarged. 10. Left atrium is severely dilated by volume. 11. The right atrium is mildly enlarged. 12. Interatrial and interventricular septum intact. 13. The aortic valve was not well visualized. 14. There is mild aortic regurgitation. 15. There is no evidence of aortic stenosis. 16. Mild mitral annular calcification present. 17. Rorp-gc-oxwbgqcy mitral regurgitation is present. 18. Mild tricuspid regurgitation present. 19. There is no evidence of pulmonary hypertension. 20. The right ventricular systolic pressure, as measured by Doppler, is 22.46mmHg. 21. There is no pulmonic regurgitation present. 22. The aortic root size is normal. 23. Possible atherosclerotic plaque(s) located in the descending aorta vs possible dissection. 24. The inferior vena cava was not well visualized. 25. There is no pericardial effusion. FISH STRAIGHTENER: Kaylee Rojas RDCS
--- NOTE | 2018-12-17 10:46 | CT ---
EXAMINATION TYPE: CT brain wo con DATE OF EXAM: 12/17/2018 HISTORY: hypertensive emergency on heparin, seizure, bleed CT DLP: 1087.4 mGycm. Automated Exposure Control for Dose Reduction was Utilized. TECHNIQUE: CT scan of the head is performed without contrast. COMPARISON: MRI brain May 27, 2012. FINDINGS: There is no acute intracranial hemorrhage or midline shift identified. There is diffuse v entricular and sulcal prominence consistent over bilateral frontal lobes consistent with mild atrophy . Montague-white matter differentiation is fairly well preserved. The globes are intact and the visualiz ed sinuses are clear. IMPRESSION: No acute intracranial hemorrhage or midline shift. There is symmetric mild bilateral fr ontal lobe atrophy redemonstrated.
[2018-12-17] MEDS ORDERED: Potassium Replacement Protocol 1 EACH MISC MISCELLANE PRN (10:51)
--- NOTE | 2018-12-17 11:10 | P.CNPUL ---
History of Present Illness Consult date: 12/17/18 Requesting physician: Estela Rondon Reason for consult: dyspnea (Critical care management) Chief complaint: Chest pain, abdominal pain, weakness History of present illness: This is a very pleasant 52-year-old female patient who is currently being followed by visiting physicians. She has a history of hypertension, epilepsy, adrenal insufficiency, chronic and ongoing tobacco dependence, marijuana use, Jimmy-Danlos syndrome, vascular type. She had recently been at the [facility] subsequently transferred to [facility] and had undergone surgery for aortic aneurysm with stent placement and stomach surgery and had lost a kidney. This was performed on 10/04/2018. She had a prolonged recovery and was recently doing fairly well at home. However the past week she had developed increasing weakness and difficulty walking chest discomfort and abdominal pain. She presented here to the emergency room yesterday for the same. She was found to be in hypertensive emergency with pulmonary edema and acute hypoxic respiratory failure. Computed tomography scan of the chest abdomen pelvis revealed a thoracic aneurysm with underlying stent, no megaly with mild pleural effusions and mild pulmonary edema, there is a 4.9 cm pancreatic tail low density mass. There is tiny high density lesions possibly proteinaceous/hemorrhagic cysts of the left kidney. No aortic aneurysm or intramural hematoma. Arterial blood gases revealed a pO2 of 118, pCO2 43, pH of 7.37 on 60% FiO2. Initial troponin 0.395. Creatinine 1.43. Weight count 15.8. Hemoglobin 11.3. Echocardiogram reveals moderately impaired left ventricular systolic function with ejection fraction 35-40%. There is inferoseptal hypokinesia. Right ventricle is moderately enlarged. Left atrium is severely dilated. Cardiology is consulted. She is currently on a nitroglycerin drip at 5 mcg/m. Heparin drip. Lasix drip at 5 mg per hour. Her Solu-Cortef has been resumed. She is currently on AirVo high flow oxygen device at 50 L and 40% FiO2 and oxygen saturation in the 90s. The patient had questionable seizure activity this computed tomography scan of the brain and neuro consultation has been placed. Review of Systems REVIEW OF SYSTEMS: CONSTITUTIONAL: Positive for recent weight loss. EYES: Denies change in vision. EARS, NOSE, MOUTH, THROAT: Denies headaches, denies sore throat. CARDIOVASCULAR: Positive for pain, no palpitations or syncopal episodes. RESPIRATORY: Positive for shortness of breath, cough, congestion no hemoptysis. GASTROINTESTINAL: Abdominal pain and poor appetite GENITOURINARY: Denies hematuria, denies infections. MUSKULOSKELETAL: Denies pain, denies swelling. INTEGUMENTARY: Denies rash, denies eczema. NEUROLOGICAL: Denies recent memory loss, history of epilepsy. PSYCHIATRIC: A sitter for significant anxiety. HEMATOLOGIC/LYMPHATIC: Denies anemia, denies enlarged lymph nodes. Past Medical History Past Medical History: Hypertension, Seizure Disorder Additional Past Medical History / Comment(s): adrenal insufficiency; Jimmy Danlos Syndrome - Vascular Type History of Any Multi-Drug Resistant Organisms: None Reported Additional Past Surgical History / Comment(s): abdominal sugery; Aortic grafting Past Anesthesia/Blood Transfusion Reactions: No Reported Reaction Past Psychological History: No Psychological Hx Reported Smoking Status: Current every day smoker Past Alcohol Use History: None Reported Past Drug Use History: Marijuana - Past Family History Brother(s) Additional Family Medical History / Comment(s): She does have a brother with a history of aneurysm as well. History of skin cancer. Medications and Allergies Home Medications Medication Instructions Recorded Confirmed Type Acetaminophen [Tylenol] 650 mg PO Q6H PRN 12/17/18 12/17/18 History Amiodarone HCl [Pacerone] 200 mg PO DAILY 12/17/18 12/17/18 History Carvedilol [Coreg] 3.125 mg PO BID 12/17/18 12/17/18 History Cholecalciferol (Vitamin D3) 10,000 unit PO DAILY 12/17/18 12/17/18 History [Vitamin D3] Hydrocortisone 5 mg PO PC-LUNCH 12/17/18 12/17/18 History Hydrocortisone 10 mg PO QAM 12/17/18 12/17/18 History Levothyroxine Sodium 150 mg PO DAILY 12/17/18 12/17/18 History Melatonin 3 mg PO HS PRN 12/17/18 12/17/18 History PARoxetine HCL 20 mg PO DAILY 12/17/18 12/17/18 History Simethicone [Gas-X] 125 mg PO DAILY PRN 12/17/18 12/17/18 History Allergies Allergy/AdvReac Type Severity Reaction Status Date / Time No Known Allergies Allergy Verified 12/17/18 10:04 Physical Exam Vitals: Vital Signs Temp Pulse Resp BP Pulse Ox 12/17/18 10:00 73 24 144/82 98 12/17/18 09:09 98 12/17/18 09:00 79 12 145/93 98 12/17/18 08:00 97.8 F 84 27 H 136/101 96 12/17/18 07:44 99 12/17/18 07:00 88 18 150/93 97 12/17/18 06:00 89 14 150/97 98 12/17/18 05:50 98.7 F 12/17/18 05:00 98.7 F 92 18 154/97 98 12/17/18 04:50 96 26 H 154/97 98 12/17/18 04:22 101 H 28 H 160/107 98 12/17/18 04:10 101 H 26 H 157/100 98 12/17/18 03:21 94 L 12/17/18 03:10 96 24 175/113 81 L 12/17/18 02:38 86 20 177/117 90 L 12/17/18 01:00 175/120 93 L 12/17/18 00:58 98.9 F 91 20 175/120 96 12/17/18 00:55 175/120 95 Intake and Output 12/16/18 12/17/18 12/17/18 22:59 06:59 14:59 Intake Total 0.725 26.2 Output Total 1900 800 Balance -1899.275 -773.8 Intake: Intake, IV Titration 0.725 26.2 Amount Furosemide 100 mg In 10 Sodium Chloride 0.9% 90 ml @ 5 MG/HR 5 mls/hr IV .Q20H JORDAN Rx#:[id number] Nitroglycerin-D5w Pmx 50 0.725 16.2 mg In Dextrose/Water 1 250ml.bag @ 5 MCG/MIN 1.5 mls/hr IV .Q24H STA Rx#: [id number] Output: Urine 1900 800 Uretheral ([place]) 400 Other: Voiding Method Indwelling Catheter Weight 62.1 kg GENERAL EXAM: Alert, 52-year-old female patient, anxious, currently with abdominal discomfort. Dyspnea requiring AirVo high flow oxygen at 50 L and 40% FiO2. HEAD: Normocephalic. EYES: Normal reaction of pupils, equal size. NOSE: Clear with pink turbinates. THROAT: No erythema or exudates. NECK: No masses, no JVD. CHEST: No chest wall deformity. Surgical incision well-healed. LUNGS: Equal air entry with bilateral scattered rhonchi with crackles in the bases. CVS: S1 and S2 normal with an audible murmur, regular rhythm. ABDOMEN: No hepatosplenomegaly, normal bowel sounds, no guarding or rigidity. SPINE: No scoliosis or deformity SKIN: No rashes CENTRAL NERVOUS SYSTEM: No focal deficits, tone is normal in all 4 extremities. EXTREMITIES: There is no peripheral edema. No clubbing, no cyanosis. Peripher al pulses are intact. Results - Laboratory Findings CBC and BMP: 12/17/18 05:32 12/17/18 09:36 ABG ABG pH 7.37 (7.35-7.45) 12/17/18 04:20 ABG pCO2 43 mmHg (35-45) 12/17/18 04:20 ABG pO2 118 mmHg (83-108) H 12/17/18 04:20 ABG O2 Saturation 96.9 % (94-97) 12/17/18 04:20 PT/INR, D-dimer PT 9.7 sec (9.0-12.0) 12/17/18 09:36 INR 0.9 (<1.2) 12/17/18 09:36 Abnormal lab findings: Abnormal Labs 12/17/18 12/17/18 12/17/18 01:30 01:30 01:30 WBC 12.6 H RBC 3.68 L Hgb 10.8 L MCHC 30.7 L RDW 18.0 H Plt Count Neutrophils # 8.6 H APTT ABG pO2 ABG Total CO2 BUN 25 H Creatinine 1.63 H Glucose 115 H POC Glucose (mg/dL) ALT 6 L Alkaline Phosphatase 147 H Troponin I 0.368 H* Albumin 3.3 L Urine Protein Ur Leukocyte Esterase Urine WBC Hyaline Casts Urine Mucus 12/17/18 12/17/18 12/17/18 03:44 04:20 04:45 WBC RBC Hgb MCHC RDW Plt Count Neutrophils # APTT ABG pO2 118 H ABG Total CO2 27 H BUN Creatinine Glucose POC Glucose (mg/dL) 130 H ALT Alkaline Phosphatase Troponin I Albumin Urine Protein 1+ H Ur Leukocyte Esterase Trace H Urine WBC 11 H Hyaline Casts 3 H Urine Mucus Rare H 09/12/17/18 12/17/18 05:20 05:32 05:32 WBC 15.8 H RBC 3.77 L Hgb 11.3 L MCHC 30.9 L RDW 18.3 H Plt Count 497 H Neutrophils # 12.8 H APTT ABG pO2 ABG Total CO2 BUN Creatinine Glucose POC Glucose (mg/dL) 131 H ALT Alkaline Phosphatase Troponin I 0.395 H* Albumin Urine Protein Ur Leukocyte Esterase Urine WBC Hyaline Casts Urine Mucus 12/17/18 12/17/18 09:36 09:36 WBC RBC Hgb MCHC RDW Plt Count Neutrophils # APTT 31.9 H ABG pO2 ABG Total CO2 BUN 21 H Creatinine 1.43 H Glucose 125 H POC Glucose (mg/dL) ALT Alkaline Phosphatase Troponin I Albumin Urine Protein Ur Leukocyte Esterase Urine WBC Hyaline Casts Urine Mucus - Diagnostic Findings Chest x-ray: image reviewed CT scan - chest: image reviewed Assessment and Plan Assessment: Impression: #1 Hypertensive urgency, currently on nitroglycerin drip. #2 Nausea vomiting weakness of unclear etiology. #3 Chest pain without evidence of acute coronary syndrome. #4 Acute hypoxic respiratory failure secondary to limited edema and mild bilateral pleural effusions. #5 Recent thoracic aneurysm repair and stenting. The patient states she also had a stomach rupture and loss of her right kidney. Details are unavailable. #6 Jimmy-Danlos syndromevascular type. #7 History of epilepsy. #8 History of hypertension. #9 Acute renal insufficiency. 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 #11 Chronic and ongoing tobacco dependence. #12 Poor overall functional performance based on the above-mentioned multiple comorbidities. Plan: The patient was seen and evaluated by Dr. Pathak. Chest x-ray, CAT scan ABGs reviewed. She remains on the AirVo high flow oxygen device at 50 L and 40% FiO2 which will continue to titrate down. Initiated a Lasix drip at 5 mg per hour. Remains on nitroglycerin drip at 5 mcg/m. Continue close monitoring of the blood pressure. Computed tomography scan of the brain and neurologic consult for possible seizure activity. Cardiology is consulted as well. Her overall prognosis remains quite guarded. We'll continue to follow and make further recommendations based on her clinical status. The patient has been offered transfer back to a tertiary care center which she declines to do at this time. I, the cosigning physician, performed a history & physical examination of the patient. Lungs sounds with scattered rhonchi, crackles in the posterior bases. Maintaining good O2 saturations in the 90s on 40% FiO2 and 50 L on the AirVo device.. I discussed the assessment and plan of care with my nurse practitioner, Coco Lux. I attest to the above consultation as dictated by her. Time with Patient: Greater than 30
[2018-12-17] MEDS: amLODIPine 5 MG TAB PO SCH (11:35)
--- NOTE | 2018-12-17 13:24 | P.CNNES ---
History of Present Illness Consult date: 12/17/18 Reason for Consult: Increased seizure frequency Chief complaint: Chest pain History of Present Illness: REFERRING PHYSICIAN: Dr. Pathak HISTORY OF PRESENT ILLNESS: Thank you for allowing me to evaluate Mrs. Douglas Mcneil. Ms. 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 Patient states that for the last couple of weeks, she has been having issues with vomiting and decreased appetite, which has caused significant generalized weakness. During this eval, patient became very emotional, stating that other doctors have "given up" on her because she is a hassle. Patient states that her family also has told that she stop complaining and has provided good support. She became very teary, denies any homicidal suicidal ideation. Patient states that she was first diagnosed with seizures and Jimmy Danlos syndrome about 7-8 years ago. She has started having seizures also and was also told that patient may have had TIAs at the time where her L arm became weak and her L face became droopy. Patient reports that about 2 months ago, patient was bleeding into her stomach due to vascular reasons, where she open-heart surgery at [facility]. At that time, patient was told that she cannot live alone, she will need help with activities of daily living. Patient states that she had been on multiple seizure medications, which patient cannot remember, and none of them really worked for her. Patient knows that Xanax never helps her. Her seizures came under better control when she was started on Keppra, but patient was found with adrenal insufficiency, which point the decision was made to discontinue Keppra. Patient has been on CBD oil for many years, but she hasn't been able to get the supply and she's been off for the last 5 weeks. She states that since then, she has been having seizures about 3-4 times a day. PAST MEDICAL HISTORY: Hypertension, seizure disorder, adrenal insufficiency, Jimmy Danlos syndrome, hypothyroidism PAST SURGICAL HISTORY: Abdominal surgery, aortic grafting HOME MEDICATIONS: Levothyroxine, Coreg, amiodarone, paroxetine, hydrocortisone, melatonin, vitamin D ALLERGIES: No known ALLERGIES SOCIAL HISTORY: Current every day smoker. Endorses marijuana use FAMILY HISTORY: Brother with Jimmy-Danlos syndrome PHYSICAL EXAMINATION: VITAL SIGNS: T 90 7.8HR 84 RR 27 blood pressure 136/101 O2 saturation 96% on high flow cannula at 50% FiO2 GEN.: NAD, emotional but cooperative HEENT: NCAT, sclera without icterus NECK: Supple SKIN AND EXTREMITIES: Warm to touch, no edema NEURO: MENTAL STATUS: Patient alert and oriented to self, place, time. Able to name the current president. Speech fluent, able to name and repeat, following all commands readily. No right and left disorientation, neglect. CRANIAL NERVES II THROUGH XII: II: Pupils are equal and reactive to light symmetrically. No afferent pupillary defect. Left peripheral vision decreased III, IV, : No ptosis. Extraocular movements full. No nystagmus. V: Facial sensation intact from V1-3. VII. No clear facial asymmetry. VIII: Hearing intact to finger rub bilaterally. IX, X: Symmetric palate elevation. XI: Shoulder shrug intact. XII: Tongue midline without fasciculation or atrophy. MOTOR: Normal bulk/tone. No pronator drift or tremor. Strength is 4-/5 in all 4 extremities SENSORY: Intact to light touch in all 4 extremities. REFLEXES: 2+ throughout. Left toe upgoing COORDINATION: Finger to nose intact very slow due to weakness in bilateral upper extremities. No dysmetria. GAIT: Deferred DIAGNOSTIC TESTING: LABORATORY: WBC 15.8 hemoglobin 11.3 platelet 497 PT 9.7 INR 0.9 APTT 31.9 sodium 138 potassium 3.6 chloride 100 bicarb 25 BUN 21 creatinine 1.43 glucose 125 troponin 0.395 urinalysis trace leuk esterase 11 WBC IMAGING: CT head without contrast 12/17/2018: No acute intracranial hemorrhage or midline shift. There is symmetric mild bilateral frontal lobe atrophy redemonstrated (compared to MRI brain from 05/27/2012) Transthoracic echocardiogram 12/17/2018: Sinus rhythm. LV size is normal. EF between 35-40%. RV is moderately enlarged. LA is severely dilated by volume. RA is mildly enlarged. EKG 12/17/2018: Sinus rhythm. ASSESSMENT: Ms. Mcneil is a 51-year-old woman with past medical history of Hypertension, seizure disorder, adrenal insufficiency, Jimmy Danlos syndrome complicated by v ascular compromise for which patient was in [place] recently for surgery, hypothyroidism, presenting to [facility] for evaluation of abdominal discomfort and vomiting, consulting neurology for her episodes seizures while inpatient. It's difficult to get accurate history from patient about her history of seizure medication use, but what worked was Keppra. Patient mentions that Keppra was discontinued because she was found with adrenal insufficiency and since discontinuing Keppra, patient has been taking CBD oil which has helped her significantly. Unfortunately, she ran out of CBD oil about 5 weeks ago and she has not been getting any seizure treatment. I did some literature search a bout adrenal insufficiency and Keppra, and there is no paper or case report I can find about it. We can start with very low dose of Keppra 250mg qday for several days for any adverse effect as patient having multiple seizure episodes everyday and needs treatment for it. RECOMMENDATIONS: 1. Will start Keppra 250mg qday dosing. However, would like for the launderette attendant to be aware before we place the order. 2. Ativan 2mg IV PRN for seizures lasting more than 3-4 minutes 3. Consult Social Work. Patient with children who she trusts. Discussed with patient about the possibility of asking her children to get her supply of CBD oil 4. Feel free to Perfect[employer] message me over the weekend if you have any questions or concerns. Neurology will continue to follow. Past Medical History Past Medical History: Hypertension, Seizure Disorder Additional Past Medical History / Comment(s): adrenal insufficiency; Jimmy Danlos Syndrome - Vascular Type History of Any Multi-Drug Resistant Organisms: None Reported Additional Past Surgical History / Comment(s): abdominal sugery; Aortic grafting Past Anesthesia/Blood Transfusion Reactions: No Reported Reaction Past Psychological History: No Psychological Hx Reported Smoking Status: Current every day smoker Past Alcohol Use History: None Reported Past Drug Use History: Marijuana - Past Family History family Family Medical History: Unable to Obtain Brother(s) Additional Family Medical History / Comment(s): She does have a brother with a history of aneurysm as well. History of skin cancer. Medications and Allergies Home Medications Medication Instructions Recorded Confirmed Type Acetaminophen [Tylenol] 650 mg PO Q6H PRN 12/17/18 12/17/18 History Amiodarone HCl [Pacerone] 200 mg PO DAILY 12/17/18 12/17/18 History Carvedilol [Coreg] 3.125 mg PO BID 12/17/18 12/17/18 History Cholecalciferol (Vitamin D3) 10,000 unit PO DAILY 12/17/18 12/17/18 History [Vitamin D3] Hydrocortisone 5 mg PO PC-LUNCH 12/17/18 12/17/18 History Hydrocortisone 10 mg PO QAM 12/17/18 12/17/18 History Levothyroxine Sodium 150 mg PO DAILY 12/17/18 12/17/18 History Melatonin 3 mg PO HS PRN 12/17/18 12/17/18 History PARoxetine HCL 20 mg PO DAILY 12/17/18 12/17/18 History Simethicone [Gas-X] 125 mg PO DAILY PRN 12/17/18 12/17/18 History Allergies Allergy/AdvReac Type Severity Reaction Status Date / Time No Known Allergies Allergy Verified 12/17/18 10:04 Physical Examination - Vital Signs Vital Signs: Vital Signs Temp Pulse Resp BP Pulse Ox 12/17/18 10:00 73 24 144/82 98 12/17/18 09:09 98 12/17/18 09:00 79 12 145/93 98 12/17/18 08:00 97.8 F 84 27 H 136/101 96 12/17/18 07:44 99 12/17/18 07:00 88 18 150/93 97 12/17/18 06:00 89 14 150/97 98 12/17/18 05:50 98.7 F 12/17/18 05:00 98.7 F 92 18 154/97 98 12/17/18 04:50 96 26 H 154/97 98 12/17/18 04:22 101 H 28 H 160/107 98 12/17/18 04:10 101 H 26 H 157/100 98 12/17/18 03:21 94 L 12/17/18 03:10 96 24 175/113 81 L 12/17/18 02:38 86 20 177/117 90 L 12/17/18 01:00 175/120 93 L 12/17/18 00:58 98.9 F 91 20 175/120 96 12/17/18 00:55 175/120 95 Intake and Output 12/16/18 12/17/18 12/17/18 22:59 06:59 14:59 Intake Total 0.725 26.2 Output Total 1900 800 Balance -1899.275 -773.8 Intake: Intake, IV Titration 0.725 26.2 Amount Furosemide 100 mg In 10 Sodium Chloride 0.9% 90 ml @ 5 MG/HR 5 mls/hr IV .Q20H [facility] Rx#:[id number] Nitroglycerin-D5w Pmx 50 0.725 16.2 mg In Dextrose/Water 1 250ml.bag @ 5 MCG/MIN 1.5 mls/hr IV .Q24H [facility] Rx#: [id number] Output: Urine 1900 800 Uretheral (Monzon) 400 Other: Voiding Method Indwelling Catheter Weight 62.1 kg Results - Laboratory Findings CBC and BMP: 12/17/18 05:32 12/17/18 09:36 Abnormal Lab Findings: Abnormal Labs 12/17/18 12/17/18 12/17/18 01:30 01:30 01:30 WBC 12.6 H RBC 3.68 L Hgb 10.8 L MCHC 30.7 L RDW 18.0 H Plt Count Neutrophils # 8.6 H APTT ABG pO2 ABG Total CO2 BUN 25 H Creatinine 1.63 H Glucose 115 H POC Glucose (mg/dL) ALT 6 L Alkaline Phosphatase 147 H Troponin I 0.368 H* Albumin 3.3 L Urine Protein Ur Leukocyte Esterase Urine WBC Hyaline Casts Urine Mucus 12/17/18 12/17/18 12/17/18 03:44 04:20 04:45 WBC RBC Hgb MCHC RDW Plt Count Neutrophils # APTT ABG pO2 118 H ABG Total CO2 27 H BUN Creatinine Glucose POC Glucose (mg/dL) 130 H ALT Alkaline Phosphatase Troponin I Albumin Urine Protein 1+ H Ur Leukocyte Esterase Trace H Urine WBC 11 H Hyaline Casts 3 H Urine Mucus Rare H 12/17/18 12/17/18 12/17/18 05:20 05:32 05:32 WBC 15.8 H RBC 3.77 L Hgb 11.3 L MCHC 30.9 L RDW 18.3 H Plt Count 497 H Neutrophils # 12.8 H APTT ABG pO2 ABG Total CO2 BUN Creatinine Glucose POC Glucose (mg/dL) 131 H ALT Alkaline Phosphatase Troponin I 0.395 H* Albumin Urine Protein Ur Leukocyte Esterase Urine WBC Hyaline Casts Urine Mucus 12/17/18 12/17/18 09:36 09:36 WBC RBC Hgb MCHC RDW Plt Count Neutrophils # APTT 31.9 H ABG pO2 ABG Total CO2 BUN 21 H Creatinine 1.43 H Glucose 125 H POC Glucose (mg/dL) ALT Alkaline Phosphatase Troponin I Albumin Urine Protein Ur Leukocyte Esterase Urine WBC Hyaline Casts Urine Mucus
[2018-12-17] MEDS: CARVEDILOL 6.25 MG TAB PO SCH (17:43)
[2018-12-17] MEDS ORDERED: POTASSIUM CHLORIDE ER 20 MEQ TAB.ER PO SCH (21:00)
[2018-12-17] MEDS: levETIRAcetam 250 MG TAB PO SCH (21:47)
[2018-12-18] MEDS: FUROSEMIDE 100 MG in SODIUM CHLORIDE 0.9% 90 ML IV SCH ×2
[2018-12-18] MEDS: HYDROCORTISONE SUCCINATE 100 MG/2 ML VIAL IV SCH ×3 (00:49→16:29)
[2018-12-18] MEDS: HYDROmorphone 0.5 MG/0.5 ML SYRINGE IVP PRN ×4 (03:24→21:47)
[2018-12-18] MEDS: ALPRAZolam 0.5 MG TAB PO SCH (03:25)
[2018-12-18 05:38] LABS: Anisocytosis Slight; Basophils % (A) 0 %; Eosinophils # (A) 0.1 k/uL (0-0.7); Eosinophils % (A) 1 %; HCT 31.9 % (34.0-46.0); HGB 9.9 gm/dL (11.4-16.0); Hypochromasia Slight; Lymphocytes # (A) 1.3 k/uL (1.0-4.8); Lymphocytes % (A) 11 %; MCH 29.9 pg (25.0-35.0); MCHC 31.2 g/dL (31.0-37.0); Macrocytosis Slight; Mean Platelet Volume 7.6; Monocytes # (A) 0.6 k/uL (0-1.0); Monocytes % (A) 5 %; Neutrophils # (A) 10.1 k/uL (1.3-7.7); Neutrophils % (A) 83 %; Platelet Count 328 k/uL (150-450); RBC 3.32 m/uL (3.80-5.40); RDW 17.7 % (11.5-15.5); WBC 12.2 k/uL (3.8-10.6)
[2018-12-18 05:41] LABS: Calcium 9.3 mg/dL (8.4-10.2); Potassium 3.9 mmol/L (3.5-5.1)
[2018-12-18] MEDS: PANTOPRAZOLE 40 MG TABLET PO SCH (06:48)
[2018-12-18] MEDS: CARVEDILOL 6.25 MG TAB PO SCH ×2 (06:48→17:55)
[2018-12-18] MEDS: LEVOTHYROXINE 50 MCG TAB PO SCH (06:48)
[2018-12-18] MEDS ORDERED: POTASSIUM CHLORIDE ER 20 MEQ TAB.ER PO SCH (07:00)
--- NOTE | 2018-12-18 07:59 | XR ---
EXAMINATION TYPE: XR chest 1V portable DATE OF EXAM: 12/18/2018 HISTORY: eval of fluid overload. REFERENCE: Previous study dated 12/17/2018. FINDINGS: There has been a midline sternotomy. There has been placement of an aortic stent graft. The re are surgical sutures projecting over the right upper lobe. The heart is mildly enlarged. There is left basilar airspace disease. There is a small left effusion. IMPRESSION: 1. LEFT BASILAR AIRSPACE DISEASE. 2. SMALL LEFT EFFUSION. 3. POSTSURGICAL CHANGE.
[2018-12-18] MEDS: AMIODARONE 200 MG TAB PO SCH (08:21)
[2018-12-18] MEDS: PARoxetine 20 MG TAB PO SCH (08:21)
[2018-12-18] MEDS: levETIRAcetam 250 MG TAB PO SCH (08:21)
[2018-12-18] MEDS: amLODIPine 5 MG TAB PO SCH (10:06)
--- NOTE | 2018-12-18 10:11 | P.PN ---
Subjective Progress Note Date: 12/18/18 52-year-old female with PMH of her atenolol syndrome vascular type, history of seizures, hypertension, adrenal insufficiency, pituitary neoplasm and coronary artery disease initially presented to the ED for abdominal discomfort, nausea and vomiting and progressive weakness. She also reported surgery for aortic aneurysm with stent placement 2 months prior that [facility] and [facility]. She was discharged 6 weeks ago and has since then progressively started to feel weak and tired. Patient also reported having chest pain in the ED. CT chest abdomen and pelvis was performed which showed a 4.9 cm pancreatic tail low-density mass and thoracic aneurysm with stent. While in the ED, patient became acutely hypoxic and diaphoretic along with shortness of breath for which she was placed on high flow nasal cannula as she was not able to tolerate BiPAP. Chest x-ray showed acute pulmonary edema. Her blood pressure in the ED was 175/120. ABG was done which showed pH 7.37, pCO2 43, pO2 118 and HCO3 of 25. Patient was given a dose of Lasix and placed on a nitro drip for blood pressure management and admitted to ICU for further management and treatment. Patient was seen and examined. No acute events overnight. Patient appears extremely emotional, complaining about issues going on with the relationship of her and sons. She also complains of left-sided back pain, 8-9 out of 10 in severity. Pain is worsened with movement. Pain occasionally radiates from the left side at the back to the left upper quadrant. Patient also reports dysuria prior to admission. Complains of nausea but no vomiting. She denies any chest pain. Complains of extreme anxiety and palpitations, previously controlled with Valium. Objective - Vital Signs Vital signs: Vital Signs Temp 98 F 12/18/18 08:00 Pulse 55 L 12/18/18 09:00 Resp 12 12/18/18 09:00 BP 134/74 12/18/18 09:00 Pulse Ox 96 12/18/18 09:00 Intake & Output 12/17/18 12/18/18 12/18/18 18:59 06:59 18:59 Intake Total 884.308 144.167 20 Output Total 1455 710 390 Balance -570.692 -565.833 -370 Weight 66.2 kg Intake: IV 45 65 20 .9 45 65 10 Furosemide 100 mg In 10 Sodium Chloride 0.9% 90 ml @ 5 MG/HR 5 mls/hr IV .Q20H [facility] Rx#:[id number] Intake, IV Titration 119.308 79.167 Amount Furosemide 100 mg In 50 79.167 Sodium Chloride 0.9% 90 ml @ 5 MG/HR 5 mls/hr IV .Q20H [facility] Rx#:[id number] Heparin Sod,Pork in 0.45% 48.983 NaCl 25,000 unit In 0.45 % NaCl 1 250ml.bag @ 12 UNITS/KG/HR 7.403 mls/hr IV .Q24H [facility] Rx#: [id number] Nitroglycerin-D5w Pmx 50 20.325 mg In Dextrose/Water 1 250ml.bag @ 5 MCG/MIN 1.5 mls/hr IV .Q24H [facility] Rx#: [id number] Oral 720 Output: Urine 1455 710 390 Other: Voiding Method Indwelling Catheter Indwelling Catheter - Exam General: [non toxic], [on high flow NC], [appears at stated age] Derm: [warm], [dry] Head: [atraumatic], [normocephalic], [symmetric] Eyes: [EOMI], [no lid lag], [anicteric sclera] Mouth: [no lip lesion], [mucus membranes moist] Cardiovascular: [S1S2 reg], [no murmur], [positive DP pulse bilateral] Lungs: [Decreased breath sounds bilateral], [no rhonchi, no rales] , [no accessory muscle use] Abdominal: [soft], [ nontender to palpation], [no guarding], [no appreciable organomegaly] Ext: [no gross muscle atrophy], [no edema], [no contractures], [positive left CVA tenderness] Neuro: , [no focal neuro deficits] Psych: [Alert], [oriented], [emotionally labile, tearful] - Labs CBC & Chem 7: 12/18/18 04:48 12/18/18 04:48 Labs: Abnormal Lab Results - Last 24 Hours (Table) 12/17/18 12/17/18 12/17/18 Range/Units 09:36 09:36 09:36 WBC (3.8-10.6) k/uL RBC (3.80-5.40) m/uL Hgb (11.4-16.0) gm/dL Hct (34.0-46.0) % RDW (11.5-15.5) % Neutrophils # (1.3-7.7) k/uL APTT 31.9 H (22.0-30.0) sec Sodium (137-145) mmol/L Chloride (98-107) mmol/L BUN 21 H (7-17) mg/dL Creatinine 1.43 H (0.52-1.04) mg/dL Glucose 125 H (74-99) mg/dL Troponin I 0.398 H* (0.000-0.034) ng/mL 12/18/18 12/18/18 Range/Units 04:48 04:48 WBC 12.2 H (3.8-10.6) k/uL RBC 3.32 L (3.80-5.40) m/uL Hgb 9.9 L (11.4-16.0) gm/dL Hct 31.9 L (34.0-46.0) % RDW 17.7 H (11.5-15.5) % Neutrophils # 10.1 H (1.3-7.7) k/uL APTT (22.0-30.0) sec Sodium 136 L (137-145) mmol/L Chloride 96 L (98-107) mmol/L BUN 24 H (7-17) mg/dL Creatinine 1.61 H (0.52-1.04) mg/dL Glucose (74-99) mg/dL Troponin I (0.000-0.034) ng/mL Assessment and Plan Assessment: Acute hypoxic respiratory failure from flash pulmonary edema from malignant hypertension and systolic CHF exacerbation Hypertensive urgency, improved Acute on chronic systolic and diastolic CHF exacerbation with EF between 35 and 40% Troponin elevation likely demand from hypertensive urgency Left-sided flank pain Anxiety and sadness Acute kidney injury on possible chronic kidney disease? Anemia, normocytic Leukocytosis Adrenal insufficiency History of seizures Hypothyroidism Pancreatic mass Kidney cyst, proteinaceous/hemorrhagic Chest x-ray showing flash pulmonary edema. ABG was within normal limits, pH 7.37, pCO2 43, HCO3 25. BP was 175/120 on admission. Plans: Improved. Diuresis with Lasix drip. Blood pressure control per cardiology recommendations. O2 per high flow NC to maintain O2 saturation greater than 92%. Follow pulmonology recommendations. BP 134/74. Nitroglycerin drip discontinued. Plans: Continue amlodipine and Coreg. Monitor vitals, adjust medications as necessary. BNP 61,100. Echocardiogram shows EF 35-40% with mild concentric LVH. Plans: Diuresis with Lasix drip. Resume beta oneal. Would benefit from PETTY inhibitor when renal function improves. Strict intake and output. Daily weights. Telemetry monitoring. Follow cardiology recommendations. Troponin 0.368, 0.395, 0.398 with EKG showing normal sinus rhythm and nonspecific T-wave changes. Likely demand from hypertensive urgency and CHF exacerbation. Plans: ACS ruled out. Heparin drip discontinued. Follow cardiology recommendations. Appears musculoskeletal. Patient with urinary symptoms with trace leukocyte esterase on UA. Plans: Obtain renal ultrasound. Follow urine culture. Start Rocephin 1 g IV daily. Start Percocet to complement Dilaudid as needed. Patient is quite emotional during the encounter. Plans: Start Valium and discontinue Xanax for anxiety. Follow psychiatry consultation. Creatinine worsening from 1.43-1.61. Likely due to forced diuresis. Plans: Avoid nephrotoxins. Monitor urine output. Daily BMP. Hemoglobin 10.8 to 11.3-9.9. Likely dilutional. CT chest abdomen and pelvis showing no signs of bleeding. Plans: Daily CBC. Transfuse if hemoglobin less than 7. Leukocytosis of 12.6-15.8-12.2. Unknown etiology. Patient afebrile with no signs of infection. Urinalysis was positive leukocyte esterase but patient asymptomatic. Plans: Daily CBC. Continue to monitor. Blood pressure is stable, electrolytes within normal limits. Plans: Continue hydrocortisone 100 mg IV every 8 hours. Continue to monitor. Plans: Ativan as needed for seizures. Seizure precautions. Evaluated by neurology, resume Keppra 250 mg by mouth daily. Plans: Resume Synthroid. Plans: We'll need adequate outpatient follow-up. Plans: We'll need adequate outpatient follow-up. Follow kidney ultrasound. [Patient admitted for hypertensive urgency and flash pulmonary edema, CHF exacerbation. She is on Lasix drip pending clinical improvement. Prognosis is guarded.]
[2018-12-18] MEDS: DIAZEPAM 5 MG TAB PO PRN ×2 (11:14→20:53)
[2018-12-18] MEDS ORDERED: amLODIPine 5 MG TAB PO STA (11:39)
--- NOTE | 2018-12-18 12:01 | US ---
EXAMINATION TYPE: US kidneys/renal and bladder DATE OF EXAM: 12/18/2018 COMPARISON: NONE CLINICAL HISTORY: flank pain dysuria. Flank pain CKD right kidney not functioning per patient. EXAM MEASUREMENTS: Right Kidney: 6.5 x 3.0 x 2.2 cm Left Kidney: 10.7 x 5.2 x 4.6 cm Right Kidney: Atrophic Left Kidney: Hypoechoic area mid pole measuring 1.5 x 1.3 x 1.8cm. Bladder: Catheter in place. Bilateral Jets seen: No Both kidneys are small in size. There is a left middle pole cyst. There is a Monzon catheter within th e bladder. IMPRESSION: NO EVIDENCE OF HYDRONEPHROSIS AT THIS TIME.
--- NOTE | 2018-12-18 12:54 | P.PN ---
Subjective Progress Note Date: 12/18/18 Principal diagnosis: Acute hypoxic respiratory failure secondary to acute and LV dysfunction systolic congestive heart failure This is a very pleasant 52-year-old female patient who is currently being followed by visiting physicians. She has a history of hypertension, epilepsy, adrenal insufficiency, chronic and ongoing tobacco dependence, marijuana use, Jimmy-Danlos syndrome, vascular type. She had recently been at the [facility] subsequently transferred to [facility] and had undergone surgery for aortic aneurysm with stent placement and stomach surgery and had lost a kidney. This was performed on 10/04/2018. She had a prolonged recovery and was recently doing fairly well at home. However the past week she had developed increasing weakness and difficulty walking chest discomfort and abdominal pain. She presented here to the emergency room yesterday for the same. She was found to be in hypertensive emergency with pulmonary edema and acute hypoxic respiratory failure. Computed tomography scan of the chest abdomen pelvis revealed a thoracic aneurysm with underlying stent, no megaly with mild pleural effusions and mild pulmonary edema, there is a 4.9 cm pancreatic tail low density mass. There is tiny high density lesions possibly p roteinaceous/hemorrhagic cysts of the left kidney. No aortic aneurysm or intramural hematoma. Arterial blood gases revealed a pO2 of 118, pCO2 43, pH of 7.37 on 60% FiO2. Initial troponin 0.395. Creatinine 1.43. Weight count 15.8. Hemoglobin 11.3. Echocardiogram reveals moderately impaired left ventricular systolic function with ejection fraction 35-40%. There is inferoseptal hypokinesia. Right ventricle is moderately enlarged. Left atrium is severely dilated. Cardiology is consulted. She is currently on a nitroglycerin drip at 5 mcg/m. Heparin drip. Lasix drip at 5 mg per hour. Her Solu-Cortef has been resumed. She is currently on AirVo high flow oxygen device at 50 L and 40% FiO2 and oxygen saturation in the 90s. The patient had questionable seizure activity this computed tomography scan of the brain and neuro consultation has been placed. Patient was reevaluated today on 12/18/2018, patient is feeling much better today, she responded extremely well to the Lasix drip which was given at 5 mg per hour, and significant urine output and negative balance was noted. Patient is now over 3 L negative in the last 24 hours, hence I will discontinue her Lasix drip, and recommend oral Lasix. She'll be placed on 40 mg by mouth twice a day. Her echocardiogram did show evidence of LV dysfunction with ejection fraction in the 35 40% range. Chest x-ray is significantly improved, continues to have some left retrocardiac opacity could be atelectasis or pneumonia or could be related to her residual pulmonary edema. Clinically the patient is better. And we have been titrating her FiO2 down, I plan to switch her to a high flow nasal cannula this morning. Her WBC count is down to 12.2 hemoglobin is 9.9 electrolytes are normal BUN is 24 creatinine is 1.61, it was 1.63 on admission. Troponins are noted to be elevated being addressed by cardiology on the case. Nitroglycerin drip has been discontinued. Solu-Cortef will resume however the dose will be lowered. Objective - Vital Signs Vital signs: Vital Signs Temp 98.3 F 12/18/18 12:00 Pulse 76 12/18/18 12:00 Resp 12 12/18/18 12:00 BP 144/122 12/18/18 12:00 Pulse Ox 99 12/18/18 12:00 Intake & Output 12/17/18 12/18/18 12/18/18 18:59 06:59 18:59 Intake Total 884.308 144.167 520 Output Total 1455 710 790 Balance -570.692 -565.833 -270 Weight 66.2 kg Intake: IV 45 65 40 .9 45 65 20 Furosemide 100 mg In 20 Sodium Chloride 0.9% 90 ml @ 5 MG/HR 5 mls/hr IV .Q20H [facility] Rx#:[id number] Intake, IV Titration 119.308 79.167 Amount Furosemide 100 mg In 50 79.167 Sodium Chloride 0.9% 90 ml @ 5 MG/HR 5 mls/hr IV .Q20H [facility] Rx#:[id number] Heparin Sod,Pork in 0.45% 48.983 NaCl 25,000 unit In 0.45 % NaCl 1 250ml.bag @ 12 UNITS/KG/HR 7.403 mls/hr IV .Q24H [facility] Rx#: [id number] Nitroglycerin-D5w Pmx 50 20.325 mg In Dextrose/Water 1 250ml.bag @ 5 MCG/MIN 1.5 mls/hr IV .Q24H [facility] Rx#: [id number] Oral 720 480 Output: Urine 1455 710 790 Other: Voiding Method Indwelling Catheter Indwelling Catheter - Exam GENERAL EXAM: Alert, 52-year-old female patient, in no distress at present flor ins on airvo, high flow. HEENT: PERRLA, EOMI, moist mucous membranes. No neck masses, no JVD. Lungs: Symmetrical chest expansion, diminished breath sounds at the bases no crackles or rhonchi or wheezes more diminished at the left base. Cardiac: Normal S1 and S2 normal wi2/6 systolic murmur thought the precordium. Abdomen: Soft nontender no megaly no rebound no guarding positive bowel sounds. SPINE: No scoliosis or deformity SKIN: No rashes CENTRAL NERVOUS SYSTEM: No focal deficits, tone is normal in all 4 extremities. EXTREMITIES: There is no peripheral edema. No clubbing, no cyanosis. P eripheral pulses are intact. Lymphatics: No lymphadenopathy. psychiatric: Anxious mood, blunt affect, normal mental status. - Labs CBC & Chem 7: 12/18/18 04:48 12/18/18 04:48 Labs: Abnormal Lab Results - Last 24 Hours (Table) 12/18/18 12/18/18 Range/Units 04:48 04:48 WBC 12.2 H (3.8-10.6) k/uL RBC 3.32 L (3.80-5.40) m/uL Hgb 9.9 L (11.4-16.0) gm/dL Hct 31.9 L (34.0-46.0) % RDW 17.7 H (11.5-15.5) % Neutrophils # 10.1 H (1.3-7.7) k/uL Sodium 136 L (137-145) mmol/L Chloride 96 L (98-107) mmol/L BUN 24 H (7-17) mg/dL Creatinine 1.61 H (0.52-1.04) mg/dL Assessment and Plan Assessment: #1 acute congestive heart failure secondary to systolic dysfunction and hypertensive urgency. Requiring nitroglycerin drip initially on admission and Lasix drip. #2 Nausea vomiting weakness of unclear etiology. #3 Chest pain without evidence of acute coronary syndrome. #4 Acute hypoxic respiratory failure secondary to acute systolic congestive heart failure and LV dysfunction as noted on the echocardiogram. #5 Recent thoracic aneurysm repair and stenting. The patient states she also had a stomach rupture and loss of her right kidney. Details are unavailable. #6 Jimmy-Danlos syndromevascular type. #7 History of epilepsy. #8 History of hypertension. #9 Acute renal insufficiency. 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 #11 Chronic and ongoing tobacco dependence. #12 Poor overall functional performance based on the above-mentioned multiple comorbidities. Recommendation: Continue present medications including high flow O2, patient could be switched to a high flow nasal cannula, continue pain meds, continue Las ix but orally instead of IV drip, continue to control blood pressure closely, continue seizure medications as ordered by neurology on the case, patient's echocardiogram was reviewed, I plan to transfer the patient today to a monitor bed on the cardiac floor. Will follow. Long-term prognosis remains extremely poor and guarded considering her multiple comorbidities. Time with Patient: Less than 30
[2018-12-18] MEDS: oxyCODONE-APAP 5-325MG 1 EACH TAB PO PRN (16:28)
[2018-12-18] MEDS: FUROSEMIDE 40 MG TAB PO SCH (16:29)
--- NOTE | 2018-12-18 18:22 | PN ---
PROGRESS NOTE Malena Mcneil is a 52-year-old lady that has recently undergone surgery for dissecting aortic aneurysm at [facility] and subsequently had a stent at [facility]. Came in yesterday complaining of feeling weak and shortness of breath. Cardiology had been consulted because of hypertensive urgency and pulmonary edema. She was treated with Lasix drip with resolution of her pulmonary edema and this morning her blood pressure is poorly controlled, but otherwise she is doing better. On exam, heart rate is 70 beats per minute, blood pressure is 156/98, respiratory rate is 18. Chest exam reveals good air entry bilaterally. I do not hear any crackles or rhonchi. Heart exam reveals first and second heart sounds. No gallop. Has an ejection systolic murmur in the aortic area. Exam of extremities did not reveal any edema. Peripheral pulses are felt. She is on Coreg 6.25 b.i.d., Lasix 40 b.i.d. and Norvasc 10 mg daily along with amiodarone 200 mg daily. The patient was on amlodipine 5 mg and I increased the dose to 10 and give her a dose of amlodipine this morning. ASSESSMENT: 1. Acute pulmonary edema secondary to severe uncontrolled hypertension. 2. Ischemic cardiomyopathy with moderate to severe left ventricular systolic dysfunction. 3. Uncontrolled hypertension. PLAN: We will increase the dose of Norvasc and will adjust therapies as needed. MMODL / IJN: [id number] /
[2018-12-18 20:44] LABS: Glucose,Whole Blood 191 mg/dL (75-99)
[2018-12-19] MEDS: HYDROCORTISONE SUCCINATE 100 MG/2 ML VIAL IV SCH ×3 (00:24→16:13)
[2018-12-19] MEDS: oxyCODONE-APAP 5-325MG 1 EACH TAB PO PRN ×4 (00:24→21:42)
[2018-12-19] MEDS: HYDROmorphone 0.5 MG/0.5 ML SYRINGE IVP PRN ×5 (00:27→20:14)
[2018-12-19 05:48] LABS: Anisocytosis Slight; Basophils % (A) 0 %; Eosinophils % (A) 0 %; HCT 29.9 % (34.0-46.0); HGB 9.4 gm/dL (11.4-16.0); Hypochromasia Slight; Lymphocytes # (A) 1.2 k/uL (1.0-4.8); Lymphocytes % (A) 10 %; MCH 30.1 pg (25.0-35.0); MCHC 31.4 g/dL (31.0-37.0); MCV 95.8 fL (80.0-100.0); Macrocytosis Slight; Mean Platelet Volume 7.5; Monocytes # (A) 0.5 k/uL (0-1.0); Monocytes % (A) 4 %; Neutrophils # (A) 9.7 k/uL (1.3-7.7); Neutrophils % (A) 84 %; Platelet Count 345 k/uL (150-450); RBC 3.12 m/uL (3.80-5.40); RDW 17.8 % (11.5-15.5); WBC 11.5 k/uL (3.8-10.6)
[2018-12-19 06:04] LABS: Calcium 9.5 mg/dL (8.4-10.2); Potassium 3.7 mmol/L (3.5-5.1)
[2018-12-19] MEDS: CARVEDILOL 6.25 MG TAB PO SCH ×2 (06:40→17:12)
[2018-12-19] MEDS: PANTOPRAZOLE 40 MG TABLET PO SCH (06:40)
[2018-12-19] MEDS: LEVOTHYROXINE 50 MCG TAB PO SCH (06:40)
[2018-12-19] MEDS ORDERED: POTASSIUM CHLORIDE ER 20 MEQ TAB.ER PO SCH (08:00)
[2018-12-19] MEDS: AMIODARONE 200 MG TAB PO SCH (08:54)
[2018-12-19] MEDS: FUROSEMIDE 40 MG TAB PO SCH ×2 (08:54→16:13)
[2018-12-19] MEDS: amLODIPine 10 MG TAB PO SCH (08:54)
[2018-12-19] MEDS: PARoxetine 20 MG TAB PO SCH (08:54)
[2018-12-19] MEDS: DIAZEPAM 5 MG TAB PO PRN ×2 (08:55→20:13)
[2018-12-19] MEDS: levETIRAcetam 250 MG TAB PO SCH ×2 (08:56→20:13)
--- NOTE | 2018-12-19 10:53 | P.PN ---
Subjective Progress Note Date: 12/19/18 Principal diagnosis: Acute hypoxic respiratory failure secondary to acute and LV dysfunction systolic congestive heart failure This is a very pleasant 52-year-old female patient who is currently being followed by visiting physicians. She has a history of hypertension, epilepsy, adrenal insufficiency, chronic and ongoing tobacco dependence, marijuana use, Jimmy-Danlos syndrome, vascular type. She had recently been at the [facility] subsequently transferred to [facility] and had undergone surgery for aortic aneurysm with stent placement and stomach surgery and had lost a kidney. This was performed on 10/04/2018. She had a prolonged recovery and was recently doing fairly well at home. However the past week she had developed increasing weakness and difficulty walking chest discomfort and abdominal pain. She presented here to the emergency room yesterday for the same. She was found to be in hypertensive emergency with pulmonary edema and acute hypoxic respiratory failure. Computed tomography scan of the chest abdomen pelvis revealed a thoracic aneurysm with underlying stent, no megaly with mild pleural effusions and mild pulmonary edema, there is a 4.9 cm pancreatic tail low density mass. There is tiny high density lesions possibly p roteinaceous/hemorrhagic cysts of the left kidney. No aortic aneurysm or intramural hematoma. Arterial blood gases revealed a pO2 of 118, pCO2 43, pH of 7.37 on 60% FiO2. Initial troponin 0.395. Creatinine 1.43. Weight count 15.8. Hemoglobin 11.3. Echocardiogram reveals moderately impaired left ventricular systolic function with ejection fraction 35-40%. There is inferoseptal hypokinesia. Right ventricle is moderately enlarged. Left atrium is severely dilated. Cardiology is consulted. She is currently on a nitroglycerin drip at 5 mcg/m. Heparin drip. Lasix drip at 5 mg per hour. Her Solu-Cortef has been resumed. She is currently on AirVo high flow oxygen device at 50 L and 40% FiO2 and oxygen saturation in the 90s. The patient had questionable seizure activity this computed tomography scan of the brain and neuro consultation has been placed. Patient was reevaluated today on 12/18/2018, patient is feeling much better today, she responded extremely well to the Lasix drip which was given at 5 mg per hour, and significant urine output and negative balance was noted. Patient is now over 3 L negative in the last 24 hours, hence I will discontinue her Lasix drip, and recommend oral Lasix. She'll be placed on 40 mg by mouth twice a day. Her echocardiogram did show evidence of LV dysfunction with ejection fraction in the 35 40% range. Chest x-ray is significantly improved, continues to have some left retrocardiac opacity could be atelectasis or pneumonia or could be related to her residual pulmonary edema. Clinically the patient is better. And we have been titrating her FiO2 down, I plan to switch her to a high flow nasal cannula this morning. Her WBC count is down to 12.2 hemoglobin is 9.9 electrolytes are normal BUN is 24 creatinine is 1.61, it was 1.63 on admission. Troponins are noted to be elevated being addressed by cardiology on the case. Nitroglycerin drip has been discontinued. Solu-Cortef will resume however the dose will be lowered. Reevaluated today on 12/19/2018, patient remains in the ICU as an overflow, feeling much better, breathing a lot easier, she is presently on oral Lasix, and the Lasix drip has been discontinued. Her pulmonary status is significantly improved, she is presently on room air, asymptomatic. Continues to have her usual aches and pains. No chest x-ray was done, but we'll recommend having one tomorrow. CBC is relatively normal electrolytes are normal BUN is 29 creatinine is improving 1.52 today compared to 1.61 yesterday. Her last troponin was 0.398, patient is being followed by cardiology. Objective - Vital Signs Vital signs: Vital Signs Temp 98 F 12/19/18 08:00 Pulse 73 12/19/18 08:00 Resp 16 12/19/18 08:00 BP 128/99 12/19/18 08:00 Pulse Ox 97 12/19/18 08:00 Intake & Output 12/18/18 12/19/18 12/19/18 18:59 06:59 18:59 Intake Total 1050 480 Output Total 1010 480 225 Balance 40 -480 255 Weight 67.1 kg Intake: IV 90 .9 20 Furosemide 100 mg In 20 Sodium Chloride 0.9% 90 ml @ 5 MG/HR 5 mls/hr IV .Q20H [facility] Rx#:[id number] cefTRIAXone 1 gm In 50 Sodium Chloride 0.9% 50 ml @ 100 mls/hr IVPB Q24HR [facility] Rx#:[id number] Oral 960 480 Output: Urine 1010 480 225 Other: Voiding Method Indwelling Catheter Indwelling Catheter - Exam GENERAL EXAM: Alert, 52-year-old female patient, on room air. HEENT: PERRLA, EOMI, moist mucous membranes. No neck masses, no JVD. Lungs: Symmetrical chest expansion, diminished breath sounds at the bases no crackles or rhonchi or wheezes Cardiac: Normal S1 and S2 normal wi2/6 systolic murmur thought the precordium. Abdomen: Soft nontender no megaly no rebound no guarding positive bowel sounds. SPINE: No scoliosis or deformity SKIN: No rashes CENTRAL NERVOUS SYSTEM: No focal deficits, tone is normal in all 4 extremities. EXTREMITIES: There is no peripheral edema. No clubbing, no cyanosis. Peripheral pulses are intact. Lymphatics: No lymphadenopathy. psychiatric: Normal mood, blunt affect, normal mental status. - Labs CBC & Chem 7: 12/19/18 05:03 12/19/18 05:03 Labs: Abnormal Lab Results - Last 24 Hours (Table) 12/18/18 12/19/18 12/19/18 Range/Units 20:42 05:03 05:03 WBC 11.5 H (3.8-10.6) k/uL RBC 3.12 L (3.80-5.40) m/uL Hgb 9.4 L (11.4-16.0) gm/dL Hct 29.9 L (34.0-46.0) % RDW 17.8 H (11.5-15.5) % Neutrophils # 9.7 H (1.3-7.7) k/uL Sodium 136 L (137-145) mmol/L Chloride 96 L (98-107) mmol/L Carbon Dioxide 34 H (22-30) mmol/L BUN 29 H (7-17) mg/dL Creatinine 1.52 H (0.52-1.04) mg/dL Glucose 120 H (74-99) mg/dL POC Glucose (mg/dL) 191 H (75-99) mg/dL Microbiology - Last 24 Hours (Table) 12/18/18 11:25 Urine Culture - Preliminary Urine,Catheterized Assessment and Plan Assessment: #1 acute congestive heart failure secondary to systolic dysfunction and hypertensive urgency. Requiring nitroglycerin drip initially on admission and Lasix drip. Significant improvement noted within 24 hours especially with the Lasix drip and better control of her blood pressure. #2 Nausea vomiting weakness of unclear etiology. #3 Chest pain without evidence of acute coronary syndrome. Positive troponins, being addressed by cardiology. #4 Acute hypoxic respiratory failure secondary to acute systolic congestive heart failure and LV dysfunction as noted on the echocardiogram. #5 Recent thoracic aneurysm repair and stenting. The patient states she also had a stomach rupture and loss of her right kidney. Details are unavailable. #6 Jimmy-Danlos syndromevascular type. #7 History of epilepsy. #8 History of hypertension. #9 Acute renal insufficiency. 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 #11 Chronic and ongoing tobacco dependence. #12 Poor overall functional performance based on the above-mentioned multiple comorbidities. Recommendation: Continue Lasix orally Continue pain meds Continue tight control of her blood pressure Continue seizure medications/Keppra as per neurology recommendation. Continue GI and DVT prophylaxis Plan to transfer the patient today to a monitor bed on selective. We'll continue to follow. Prognosis remains guarded. Time with Patient: Less than 30
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
--- NOTE | 2018-12-19 19:25 | PN ---
PROGRESS NOTE Malena is a 52-year-old patient who underwent surgery for dissecting aortic aneurysm, had also had a stent; admitted to hospital with hypertensive emergency and pulmonary edema due to inability to take medications. Her blood pressure is very well controlled this morning and her symptoms have resolved. EXAM: Comfortable at rest. Vital signs are stable. Chest exam reveals good air entry bilaterally. Heart exam reveals first and second heart sounds. Grade 4/6 ejection systolic murmur. Exam of the extremities did not reveal any edema. Peripheral pulses are felt. ASSESSMENT: Acute pulmonary edema secondary to uncontrolled hypertension. Blood pressures are well controlled. Stable for transfer out of ICU. MMODL / IJN: [id number] /
--- NOTE | 2018-12-19 20:02 | P.PN ---
Subjective Progress Note Date: 12/19/18 Principal diagnosis: Seizure disorder Anxiety Adrenal insufficiency c/o SOB that is new. According to patient earlier today she "froze" for several seconds that she characterizes as a "silent seizure." Per [employer] she has not had seizures for at least 2 days. Her typical seizure would involve some type of post-ictal phase, which was not observed today. Patient states she once took "around 900mg of Keppra a day" and that the main reason she stopped the medicine was because she has to pay for her meds [id number] and she did not have transportation to even go to the pharmacy. Objective - Vital Signs Vital signs: Vital Signs Temp 97.9 F 12/19/18 16:00 Pulse 64 12/19/18 16:00 Resp 14 12/19/18 16:00 BP 142/80 12/19/18 16:00 Pulse Ox 93 L 12/19/18 16:00 Intake & Output 12/19/18 12/19/18 12/20/18 06:59 18:59 06:59 Intake Total 1490 Output Total 480 625 Balance -480 865 Weight 67.1 kg Intake: IV 50 cefTRIAXone 1 gm In 50 Sodium Chloride 0.9% 50 ml @ 100 mls/hr IVPB Q24HR [facility] Rx#:[id number] Oral 1440 Output: Urine 480 625 Other: Voiding Method Indwelling Catheter Indwelling Catheter - Exam Gen Anxious o/w NAD MS A+Ox4 Normal fluency and comprehension CN II-XII grossly intact no nystagmus Motor Normal bulk/tone No tremors CRUM x4 Sens Intact to LT x4 Coord/DTRs Not tested Gait Deferred - Labs CBC & Chem 7: 12/19/18 05:03 12/19/18 05:03 Labs: Abnormal Lab Results - Last 24 Hours (Table) 12/18/18 12/19/18 12/19/18 Range/Units 20:42 05:03 05:03 WBC 11.5 H (3.8-10.6) k/uL RBC 3.12 L (3.80-5.40) m/uL Hgb 9.4 L (11.4-16.0) gm/dL Hct 29.9 L (34.0-46.0) % RDW 17.8 H (11.5-15.5) % Neutrophils # 9.7 H (1.3-7.7) k/uL Sodium 136 L (137-145) mmol/L Chloride 96 L (98-107) mmol/L Carbon Dioxide 34 H (22-30) mmol/L BUN 29 H (7-17) mg/dL Creatinine 1.52 H (0.52-1.04) mg/dL Glucose 120 H (74-99) mg/dL POC Glucose (mg/dL) 191 H (75-99) mg/dL Microbiology - Last 24 Hours (Table) 12/18/18 11:25 Urine Culture - Final Urine,Catheterized Assessment and Plan Assessment: Seizure disorder- event described today sounds more like anxiety Adrenal insufficiency Plan: -Based on her CrCl that is 45 today, she should have room to go up on her Keppra up to max of 750mg po bid. -So, I am increasing her dose to 250mg po q12h to give her better coverage -After discussion with patient, she agrees to the dose increase -Follow CrCl -Seizure precautions -Treat anxiety -SW to improve medication compliance. Discussed GoodRx program with patient -Please call with ? Thank you again for this consultation. Time with Patient: Less than 30 (Time spent in direct patient care, greater than 50% of which was spent in [id number] counseling and coordination of care: 25 minutes)
--- NOTE | 2018-12-19 21:04 | CONS ---
CONSULTATION DATE OF SERVICE: 12/19/2018 IDENTIFYING DATA: This patient is a 52-year-old female who was admitted to the medical floor in respiratory distress with flash pulmonary edema. We are asked to consult regarding depression, anxiety symptoms. HISTORY OF PRESENT ILLNESS: The patient states that she does not have a history of major depressive episodes, but her mood has been sad. She states that 2 weeks ago her and her significant other split after 9 years due to a deterioration in the relationship. She found that he was on the Internet trying to establish relationships with other women. She states that she then started residing with her son Kehinde and that has been very uncomfortable as they do not get along. She states that he has been verbally aggressive and she would like to find alternative housing. She has been overwhelmed with physical comorbidities as well. She presented to the hospital with acute respiratory failure secondary to pulmonary edema with malignant hypertension as part of a systolic congestive heart failure exacerbation. She is feeling better physically today. Breathing is better. She recently was hospitalized at [facility] and underwent repair of a thoracic aortic aneurysm this past October. She states that she lost her kidney due to complications. She described a variety of endocrinologic disorders as well. She states that primarily she is more anxious. She endorses a known history of generalized anxiety disorder. She finds that she has excessive anxiety on a regular basis. She endorses tearfulness and feelings of sadness, but endorses no episode where she had significant mood symptoms for 2 weeks or more. She is reporting no suicidal ideation, intent, or plan. No homicidal ideation, intent, or plan. She reports no auditory or visual hallucinations or any specific delusions. She reports feelings that her son Kehinde could get mad enough to hurt her, but describes that he spent 12 years in the service, suffered many losses and likely has PTSD. She reports no actual acts of violence from him against her. She endorses no history of hypomanic or manic episodes. She will experience panic attacks at times, but they are not usually frequent. PAST PSYCHIATRIC HISTORY: One prior inpatient psychiatric admission 15 years ago. No history of suicide attempts. Most recently, she is prescribed Paxil 20 mg daily. She had been placed on Valium 5 mg up to 3 times daily as needed. Previously she has been on Prozac, Effexor, Zoloft, Celexa, Lexapro, and other psychotropics. She does not currently work with an outpatient therapist. She has been part of [facility] in the past when she was in [place]. PAST MEDICAL HISTORY: As noted above. ALLERGIES: No known drug allergies. CHEMICAL DEPENDENCY HISTORY: She reports no use of alcohol or illicit drugs. She states that she will use marijuana for seizure control and sometimes pain when it is available, but this is not a daily occurrence. She has never been placed in residential treatment for chemical dependency reasons. FAMILY PSYCHIATRIC HISTORY: She states that several individuals in the family have bipolar disorder and anxiety. No suicides in the family. LEGAL HISTORY: None. SOCIAL HISTORY: The patient is 52 years old. She is . She had been with her boyfriend for 9 years. They broke up 2 weeks ago. She has 2 sons and a daughter. She is residing with her 2 sons and their families. She is no longer working. She is on disability income. She was previously employed doing customs work for 9 years. No history of service. She graduated high school and earned an Associate's Degree. MENTAL STATUS EXAM: The patient is a female appearing older than her stated age. She has short graying hair. Eye contact is appropriate. She is dressed in hospital gowns. She reports her mood is depressed and anxious. She focuses primarily on anxiety. She reports no acute suicidal ideation, intent, or plan. No homicidal ideation, intent, or plan. She is endorsing no auditory or visual hallucinations or any specific delusions. There is no observed evidence of psychosis. She can be circumstantial at times, but for the most part was linear. She demonstrates no tangential thinking, loose associations or flight of ideas. She does not appear hypomanic or manic. She was easily directed during the session. She remained cooperative and pleasant throughout the interaction. She demonstrates no verbal or physical aggressiveness, no involuntary or repetitive movements. She indicates she was experiencing tremor of her hands before but since using the Valium that has improved. She is oriented to person, place, and date. She is able to name the days of the week backwards. IMPRESSIONS: 1. Depression, unspecified, rule out major depressive disorder, generalized anxiety disorder. 2. Several significant contributing medical comorbidities. 3. Relationship discord in the home, recent loss of relationship with boyfriend. PLAN OF TREATMENT: The patient will be continued on the Paxil. We will titrate this to 30 mg daily. She may continue using the Valium as needed for acute anxiety. Caution should be exercised in using that with any opiate analgesics. She has felt that the Paxil has provided some benefit since she has been on it for the last 2 months. She does feel that her anxiety and mood symptoms are significantly exacerbated by her most recent medical condition, discord with her son and the recent termination of relationship with her boyfriend of 9 years. She does not require inpatient psychiatric hospitalization. She would benefit from individual psychotherapy once discharged. She is concerned about where she will reside upon discharge from the hospital. If medically appropriate, she would benefit from the planned physical rehabilitation for few weeks which would also allow her time to establish another residence possibly with her other son. We will continue to follow her while medically admitted. PAUL / MARIAN: [id number] /
[2018-12-20] MEDS: HYDROCORTISONE SUCCINATE 100 MG/2 ML VIAL IV SCH ×4 (00:16→23:23)
[2018-12-20] MEDS: HYDROmorphone 0.5 MG/0.5 ML SYRINGE IVP PRN ×4 (00:17→21:41)
[2018-12-20] MEDS: oxyCODONE-APAP 5-325MG 1 EACH TAB PO PRN ×4 (03:23→23:23)
[2018-12-20 04:41] LABS: Anisocytosis Slight; Basophils # (A) 0.1 k/uL (0-0.2); Basophils % (A) 1 %; Eosinophils # (A) 0.2 k/uL (0-0.7); Eosinophils % (A) 1 %; HCT 34.6 % (34.0-46.0); HGB 10.9 gm/dL (11.4-16.0); Hypochromasia Slight; Lymphocytes # (A) 1.2 k/uL (1.0-4.8); Lymphocytes % (A) 8 %; MCH 29.9 pg (25.0-35.0); MCHC 31.4 g/dL (31.0-37.0); MCV 95.3 fL (80.0-100.0); Macrocytosis Slight; Mean Platelet Volume 7.3; Monocytes # (A) 0.6 k/uL (0-1.0); Monocytes % (A) 4 %; Neutrophils # (A) 12.9 k/uL (1.3-7.7); Neutrophils % (A) 85 %; Platelet Count 383 k/uL (150-450); RBC 3.63 m/uL (3.80-5.40); RDW 17.8 % (11.5-15.5); WBC 15.1 k/uL (3.8-10.6)
[2018-12-20 04:48] LABS: Calcium 9.6 mg/dL (8.4-10.2); Potassium 3.3 mmol/L (3.5-5.1)
[2018-12-20] MEDS: POTASSIUM CHLORIDE ER 20 MEQ TAB.ER PO SCH ×2 (06:06→08:12)
[2018-12-20] MEDS: PANTOPRAZOLE 40 MG TABLET PO SCH (06:06)
[2018-12-20] MEDS: CARVEDILOL 6.25 MG TAB PO SCH ×2 (06:06→17:25)
[2018-12-20] MEDS: LEVOTHYROXINE 50 MCG TAB PO SCH (06:06)
--- NOTE | 2018-12-20 08:00 | XR ---
EXAMINATION TYPE: XR chest 1V portable DATE OF EXAM: 12/20/2018 COMPARISON: Prior chest x-ray 12/18/2018 HISTORY: Fluid overload, abnormal chest x-ray TECHNIQUE: Single frontal view of the chest is obtained. FINDINGS: Patient is post median sternotomy. There is an aortic stent graft present. Thoracic aortic aneurysm changes are again seen. No evident pneumothorax. Surgical clips over the right upper chest. Patchy basilar density noted on the left. Heart is enlarged. Postop changes noted to the aortic root . IMPRESSION: Thoracic aortic aneurysm. Left lower lobe atelectasis versus pneumonia versus atelectasi s and associated effusion, postop changes.
[2018-12-20] MEDS: PARoxetine 10 MG TAB PO SCH (08:12)
[2018-12-20] MEDS: AMIODARONE 200 MG TAB PO SCH (08:12)
[2018-12-20] MEDS: levETIRAcetam 250 MG TAB PO SCH ×2 (08:12→21:40)
[2018-12-20] MEDS: amLODIPine 10 MG TAB PO SCH (08:12)
[2018-12-20] MEDS: FUROSEMIDE 40 MG TAB PO SCH ×2 (08:12→17:25)
[2018-12-20] MEDS: DIAZEPAM 5 MG TAB PO PRN (08:25)
--- NOTE | 2018-12-20 09:22 | P.PN ---
Subjective Progress Note Date: 12/20/18 This is a 51-year-old female with history of thoracic aortic aneurysm for which she had stent placement, was admitted to the hospital with abdominal pain and also uncontrolled hypertension. Patient also has some psychiatric issues and seen by psychiatrist. Patient is complaining of left lower abdominal pain which is well localized. Patient had computed tomography scan and also ultrasound of the abdomen. At the time of my examination, patient was comfortable. She denies any chest pain, shortness of breath. Doesn't appear to be any significant shortness of breath or orthopnea. Chest x-ray showed some atelectasis and pleural effusion. Overall patient clinical status from Cardec standpoint seemed to be stable. The abdominal pain is being investigated Objective - Vital Signs Vital signs: Vital Signs Temp 97.9 F 12/20/18 08:00 Pulse 58 L 12/20/18 08:00 Resp 16 12/20/18 08:00 BP 135/81 12/20/18 08:00 Pulse Ox 95 12/20/18 08:00 Intake & Output 12/19/18 12/20/18 12/20/18 18:59 06:59 18:59 Intake Total 1490 275 Output Total 625 935 Balance 865 -660 Weight 63.2 kg Intake: IV 50 cefTRIAXone 1 gm In 50 Sodium Chloride 0.9% 50 ml @ 100 mls/hr IVPB Q24HR [facility] Rx#:[id number] Oral 1440 275 Output: Urine 625 935 Other: Voiding Method Indwelling Catheter Indwelling Catheter - Exam GENERAL EXAM: Patient is alert and oriented and doesn't appear to be in any acute distress HEENT: Normocephalic. Normal reaction of pupils, equal size, normal range of extraocular motion. No erythema or exudates in the throat. NECK: No masses, no nuchal rigidity. CHEST: No chest wall deformity. LUNGS: Diminished breath sounds at bases HEART: S1 and S2 normal w ABDOMEN: Soft CENTRAL NERVOUS SYSTEM: No focal deficits. EXTREMITIES: No cyanosis, clubbing or edema. - Labs CBC & Chem 7: 12/20/18 04:22 12/20/18 04:26 Labs: Abnormal Lab Results - Last 24 Hours (Table) 12/20/18 12/20/18 Range/Units 04:22 04:26 WBC 15.1 H (3.8-10.6) k/uL RBC 3.63 L (3.80-5.40) m/uL Hgb 10.9 L (11.4-16.0) gm/dL RDW 17.8 H (11.5-15.5) % Neutrophils # 12.9 H (1.3-7.7) k/uL Potassium 3.3 L (3.5-5.1) mmol/L Chloride 93 L (98-107) mmol/L Carbon Dioxide 36 H (22-30) mmol/L BUN 28 H (7-17) mg/dL Creatinine 1.40 H (0.52-1.04) mg/dL Glucose 127 H (74-99) mg/dL Microbiology - Last 24 Hours (Table) 12/18/18 11:25 Urine Culture - Final Urine,Catheterized Assessment and Plan (1) History of thoracic aortic aneurysm repair Current Visit: Yes Status: Acute Code(s): Z98.890 - OTHER SPECIFIED POSTPROCEDURAL STATES; Z86.79 - PERSONAL HISTORY OF OTHER DISEASES OF THE CIRCULATORY SYSTEM SNOMED Code(s): 082580721102696 (2) Abdominal pain Current Visit: Yes Status: Acute Code(s): R10.9 - UNSPECIFIED ABDOMINAL PAIN SNOMED Code(s): 87700340 (3) Chest pain Current Visit: Yes Status: Acute Code(s): R07.9 - CHEST PAIN, UNSPECIFIED SNOMED Code(s): 65014475 Plan: Continue current medical therapy. Blood pressure is well controlled. Abdominal pain is being investigated
--- NOTE | 2018-12-20 11:53 | CT ---
EXAMINATION TYPE: CT pancreas biphase DATE OF EXAM: 12/20/2018 HISTORY: abnormal prior ct. epigastric pain CT DLP: 536.6mGycm Automated Exposure Control for Dose Reduction was Utilized. CONTRAST: CT scan of the abdomen is performed without oral but with IV Contrast, patient injected with 80 mL of Isovue 300. COMPARISON: Prior CT without contrast 3 days earlier FINDINGS: LUNG BASES: Persistent small left pleural effusion is slightly larger versus prior with adjacent comp ressive atelectasis.Partial visualization of overlying sternal wires. LIVER/GB: Reflux of contrast into IVC and hepatic veins suggesting degree of right heart failure. PANCREAS: Heterogeneous lobulated hypodense mass in the pancreatic tail measuring 5.8 x 5.3 cm and wh ich primary neoplasm cannot be excluded. There is some encasement of smaller arterial branch vessels felt Present. SPLEEN: New periSplenic ascites left aspect. ADRENALS: Stable slight thickening to left adrenal gland. KIDNEYS: Asymmetric atrophy to right kidney. BOWEL: Debris-filled stomach. No suspicious small or large bowel dilatation. Focal narrowing suspecte d spasm proximal to mid transverse colon axial image 81 as is new from prior recent CT. LYMPH NODES: No greater than 1cm abdominal lymph nodes are appreciated. OSSEOUS STRUCTURES: Postsurgical change with posterior screws lumbosacral junction is present. OTHER: There is partial visualization of aortic dissection with large false lumen occupying majority of the aorta above the diaphragm, there is filling of the celiac artery, SMA, left renal artery throu gh the true lumen and filling of the right renal artery through the false lumen. Patent ANA through t he lumen is seen. Dissection extends into bilateral common iliac arteries. IMPRESSION: 1. Redemonstration of suspicious lobulated probable mass pancreatic tail in which neoplasm cannot be excluded. 2. There is partial visualization of aortic dissection from visualized portion of descending thoracic aorta extending into common iliac arteries bilaterally. Results of aortic dissection discussed with patient's ICU nurse at time of dictation. Dissection is k nown.
--- NOTE | 2018-12-20 12:05 | PN ---
PROGRESS NOTE DATE OF SERVICE: December 20, 2018 This is a 52-year-old female who was admitted back on December 17 with weakness, shortness of breath, and chest pain. She also was complaining of abdominal discomfort. She came in with a diagnosis of acute congestive heart failure, secondary to systolic dysfunction and hypertensive urgency. She was initially placed on IV nitroglycerin as well as an IV Lasix drip. She improved dramatically in the first 24 hours. In addition, she complains of nausea, vomiting, weakness and abdominal pain, chest pain, without evidence of acute coronary syndrome, acute hypoxemic respiratory failure, recent thoracic aneurysm repair and stenting, Jimmy-Danlos syndrome, epilepsy, hypertension, adrenal insufficiency, pituitary neoplasm, ongoing tobacco dependence, and general medical debility. Currently, the patient is not receiving any supplemental oxygen. She is not receiving IV fluids. She is sort of an overflow patient. A previous a CT scan of the abdomen and pelvis revealed a pancreatic mass. We will go ahead and order a pancreatic CT as recommended by Radiology. She currently is on Keppra for her apparent seizure issue. She has been seen by Neurology. She is clinically stable. Hemodynamically, there are no issues. Respiratory status is stable and she is not requiring any supplemental oxygen. Her major complaint is the abdominal discomfort at this time. The patient did have a chest x-ray on the , which showed the thoracic aortic aneurysm. It also showed some left lower lobe atelectasis versus small effusion. PHYSICAL EXAMINATION: VITAL SIGNS: Current vital signs include a temperature 97.9, heart rate 58, respiratory rate 16, blood pressure 135/81, mean 99, room air saturation 95%. GENERAL: She appears in no distress. HEENT: Examination is grossly unremarkable. NECK: Supple. Full range of motion. No adenopathy. Neck veins are flat. CARDIOVASCULAR: Examination reveals regular rhythm and rate. S1, S2 normal. No S3, S4, or murmur. LUNGS: Are clear. Breath sounds are equal. ABDOMEN: Soft. EXTREMITIES: Are intact. No cyanosis, clubbing, or edema. SKIN: Without rash. NEUROLOGIC: Examination is nonfocal. LABS: Labs are reviewed. White count 15.1, hemoglobin 10.9, hematocrit 34.6, platelet count 383 1000. Sodium 138, potassium 3.3, chloride 93, CO2 of 36. Anion gap is 9. BUN and creatinine were 28 and 1.40. Microbiologic studies are negative. X-ray has been reviewed. MEDICATIONS: Medications are reviewed. Her medications appear to be appropriate. She is currently on Cordarone, amlodipine, Coreg, Valium, Lasix, Solu-Cortef, Dilaudid, Keppra, Synthroid, Ativan, melatonin, morphine sulfate p.r.n., Narcan, nitroglycerin, Zofran, Percocet, Protonix, Paxil, potassium replacement, and Bactrim. ASSESSMENT: 1. Acute congestive heart failure, secondary to systolic dysfunction and hypertensive urgency, formally on nitroglycerin drip and IV Lasix. 2. Nausea, vomiting, weakness and abdominal discomfort of unclear etiology, may be related to the patient's history of adrenal insufficiency. 3. Acute hypoxemic respiratory failure, improved. 4. Status post recent thoracic aneurysm repair and stenting. 5. Jimmy-Danlos syndrome. 6. History of epilepsy. 7. History of hypertension. 8. Pituitary neoplasm. 9. Chronic and ongoing tobacco dependence. 10.General medical debility. 11.History of anxiety. PLAN: Medications are reviewed. They can be pared down. Her antibiotic has been switched to oral Bactrim. Will discontinue the IV ceftriaxone. No additional recommendations are made. The patient could be transferred out to the general medical floor. We did order the CT of the pancreas as recommended by Radiology to evaluate a possible mass in the tail of the pancreas. MMCAROL / IJN: [id number] /
--- NOTE | 2018-12-20 12:26 | P.PN ---
Subjective Progress Note Date: 12/20/18 Principal diagnosis: Seizure disorder Anxiety Adrenal insufficiency No clinical seizure. c/o "lots of auras" and pain that can cause her to go into a seizure, but she has not been observed to have any actual clinical seizures for days. Her Keppra was increased from 250mg po qd to 250mg po bid. No side effects. No other neuro c/o. Objective - Vital Signs Vital signs: Vital Signs Temp 97.9 F 12/20/18 08:00 Pulse 58 L 12/20/18 08:00 Resp 16 12/20/18 08:00 BP 135/81 12/20/18 08:00 Pulse Ox 95 12/20/18 08:00 Intake & Output 12/19/18 12/20/18 12/20/18 18:59 06:59 18:59 Intake Total 1490 275 50 Output Total 625 935 90 Balance 865 -660 -40 Weight 63.2 kg Intake: IV 50 cefTRIAXone 1 gm In 50 Sodium Chloride 0.9% 50 ml @ 100 mls/hr IVPB Q24HR [facility] Rx#:[id number] Intake, IV Titration 50 Amount cefTRIAXone 1 gm In 50 Sodium Chloride 0.9% 50 ml @ 100 mls/hr IVPB Q24HR [facility] Rx#:[id number] Oral 1440 275 Output: Urine 625 935 90 Other: Voiding Method Indwelling Catheter Indwelling Catheter Indwelling Catheter - Exam Gen NAD pleasant and cooperative MS A+Ox4 Normal fluency and comprehension CN II-XII grossly intact no nystagmus Motor Normal bulk/tone No tremors CRUM x4 Sens Intact to LT x4 Coord Not tested DTRs 2+/4 sym throughout Gait Deferred - Labs CBC & Chem 7: 12/20/18 04:22 12/20/18 10:44 Labs: Abnormal Lab Results - Last 24 Hours (Table) 12/20/18 12/20/18 Range/Units 04:22 04:26 WBC 15.1 H (3.8-10.6) k/uL RBC 3.63 L (3.80-5.40) m/uL Hgb 10.9 L (11.4-16.0) gm/dL RDW 17.8 H (11.5-15.5) % Neutrophils # 12.9 H (1.3-7.7) k/uL Potassium 3.3 L (3.5-5.1) mmol/L Chloride 93 L (98-107) mmol/L Carbon Dioxide 36 H (22-30) mmol/L BUN 28 H (7-17) mg/dL Creatinine 1.40 H (0.52-1.04) mg/dL Glucose 127 H (74-99) mg/dL Microbiology - Last 24 Hours (Table) 12/18/18 11:25 Urine Culture - Final Urine,Catheterized Assessment and Plan Assessment: Seizure disorder- stable Adrenal insufficiency Plan: -Her CrCl is stable in the 40s, typical recommended dosing range of Keppra is 250-750mg po q12h -Continue Keppra 250mg po q12h -Follow renal functions -Seizure precautions -Treat anxiety; I do think a lot of what describes as "seizure" has significant psych overlay -No further inpatient neuro recs at this time. Will revisit patient prn. Please call with any ?. Thank you again for this consultation. Time with Patient: Less than 30 (Time spent in direct patient care, greater than 50% of which was spent in [id number] counseling and coordination of care: 25 minutes)
[2018-12-20] MEDS ORDERED: LABETALOL 200 MG in SODIUM CHLORIDE 0.9% 160 ML IV SCH (17:00)
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
[2018-12-20] MEDS: CLEVIDIPINE BUTYRATE 25 MG in EMPTY BAG 1 BAG IV SCH ×2 (18:11→23:29)
[2018-12-20] MEDS ORDERED: SULFAMETHOX-TMP 800-160MG 1 EACH TAB PO SCH (21:00)
[2018-12-20] MEDS: ONDANSETRON 4 MG/2 ML VIAL IVP PRN (21:47)
[2018-12-20] MEDS: LORazepam 2 MG/ML INJ IV PRN (22:26)
--- NOTE | 2018-12-20 23:59 | CONS ---
CONSULTATION DATE OF DICTATION: December 20, 2018. REQUESTING PHYSICIAN: . REASON FOR CONSULTATION: Pancreatic tail mass. HISTORY OF PRESENT ILLNESS: The patient is a 52-year-old pleasant white female with history of syndrome, who was admitted to hospital with lower abdominal pain associated with nausea, vomiting, and progressively getting weak for the last several days duration. She was admitted to [facility] first week of October. She underwent surgery for aortic aneurysm and according the patient, she was hospitalized for almost 3 weeks. She was discharged home towards end of October and she states that she was gradually recovering at home. Three days ago she started developing severe lower abdominal pain associated with some nausea, vomiting, and some shortness of breath. She came to the emergency room and had a CT of the abdomen and pelvis done that showed thoracic aortic aneurysm with underlying stent and there was a mention of about 4.9 cm pancreatic tail low-density mass and hence we are consulted in regard to this issue. The patient denies any history of pancreatitis in the past. No history of alcohol abuse. She does not recall ever being told about the pancreatic lesion while she was at [facility]. She however does complain of left-sided abdominal pain since this hospitalization. She denies any fever, chills, or night sweats. PAST MEDICAL HISTORY: Significant for hypertension, seizure disorder, syndrome, adrenal insufficiency. PAST SURGICAL HISTORY: Thoracic aneurysm status post aortic grafting. SOCIAL HISTORY: Chronic smoker. No alcohol use. FAMILY HISTORY: Unremarkable. MEDICATIONS: At home include paroxetine, melatonin, levothyroxine, hydrocortisone, cholecalciferol, Coreg, Pacerone, and Tylenol. ALLERGIES: None. REVIEW OF SYSTEMS: Cardiopulmonary: No chest pain, shortness of breath. : No dysuria or hematuria. Musculoskeletal unremarkable. Skin unremarkable. Endocrine unremarkable. Psychiatric unremarkable. Neurology unremarkable. ENT/vision unremarkable. CONSTITUTIONAL: Weight loss of 10 pounds. No fevers, chills or night sweats. PHYSICAL EXAMINATION: Blood pressure 154/83, pulse rate 71, temperature 97.9. HEENT examination unremarkable. Conjunctivae pink. Sclerae anicteric. Oral cavity no lesions. NECK: No JVD or lymph node enlargement. CHEST: Clear to auscultation. HEART: Regular rate and rhythm. ABDOMEN: Soft. There is mild tenderness in the left lower quadrant area, left upper quadrant area as well as in the epigastric area. At this time, the abdomen had mild diffuse tenderness. No rebound or rigidity. EXTREMITIES: No pedal edema. SKIN: No rashes. NEUROLOGIC: Alert and oriented x3. No focal deficits. LABS: WBC 15.1, hemoglobin 10.9, platelets normal. Basic metabolic panel showed a BUN of 28, creatinine 1.4. Rest of the labs are within normal limits. CT of the abdomen that was done at the time of admission to the hospital on December 17 showed a 4.9, pancreatic tail low-density mass and a CT or MRI was recommended to further characterize the mass. IMPRESSION: 1. Abdominal pain, left-sided abdominal pain for the last [address] of the abdomen showed a 4.9 cm hyperdense mass in the tail of the pancreas. The patient never had a prior history of chronic pancreatitis. No history of alcohol abuse. 2. History of thoracic aortic aneurysm repair at [facility] 2 months ago. 3. Chest pain, shortness of breath/congestive heart failure. Cardiology following the patient closely. RECOMMENDATIONS: We will review the CT of the abdomen and pelvis findings with the radiologist. In the meantime, I have also requested for all her records from [facility] during her past hospitalization 3 months ago. We will compare the CT scan findings from the previous studies and also review if she had any workup done for the pancreatic lesion at [facility]. Further recommendations will follow. Thank you for this consultation. MMODL / GREGORION: [id number] /
[2018-12-21] MEDS: HYDROmorphone 0.5 MG/0.5 ML SYRINGE IVP PRN ×2 (01:22→14:36)
[2018-12-21] MEDS: LORazepam 2 MG/ML INJ IV PRN ×2 (02:34→06:33)
[2018-12-21 04:41] LABS: Anisocytosis Slight; Basophils # (A) 0.1 k/uL (0-0.2); Basophils % (A) 1 %; Eosinophils # (A) 0.1 k/uL (0-0.7); Eosinophils % (A) 0 %; HCT 36.4 % (34.0-46.0); HGB 11.4 gm/dL (11.4-16.0); Hypochromasia Moderate; Lymphocytes # (A) 1.2 k/uL (1.0-4.8); Lymphocytes % (A) 8 %; MCH 30.1 pg (25.0-35.0); MCHC 31.3 g/dL (31.0-37.0); MCV 96.1 fL (80.0-100.0); Macrocytosis Slight; Mean Platelet Volume 7.5; Monocytes # (A) 0.6 k/uL (0-1.0); Monocytes % (A) 4 %; Neutrophils # (A) 12.7 k/uL (1.3-7.7); Neutrophils % (A) 86 %; Platelet Count 421 k/uL (150-450); RBC 3.79 m/uL (3.80-5.40); RDW 17.9 % (11.5-15.5); WBC 14.7 k/uL (3.8-10.6)
[2018-12-21 04:52] LABS: Calcium 10.1 mg/dL (8.4-10.2); Potassium 3.6 mmol/L (3.5-5.1)
[2018-12-21] MEDS: oxyCODONE-APAP 5-325MG 1 EACH TAB PO PRN ×2 (05:34→17:56)
[2018-12-21] MEDS: LEVOTHYROXINE 50 MCG TAB PO SCH (05:34)
[2018-12-21] MEDS: CLEVIDIPINE BUTYRATE 25 MG in EMPTY BAG 1 BAG IV SCH ×7 (05:36→17:55)
[2018-12-21] MEDS: PANTOPRAZOLE 40 MG TABLET PO SCH (06:34)
[2018-12-21] MEDS: CARVEDILOL 6.25 MG TAB PO SCH ×2 (06:34→17:05)
[2018-12-21] MEDS: PARoxetine 10 MG TAB PO SCH (07:40)
[2018-12-21] MEDS: HYDROCORTISONE SUCCINATE 100 MG/2 ML VIAL IV SCH ×2 (07:40→17:05)
[2018-12-21] MEDS: levETIRAcetam 250 MG TAB PO SCH (07:41)
[2018-12-21] MEDS: AMIODARONE 200 MG TAB PO SCH (07:41)
[2018-12-21] MEDS: FUROSEMIDE 40 MG TAB PO SCH ×2 (07:41→17:05)
[2018-12-21] MEDS ORDERED: POTASSIUM CHLORIDE ER 20 MEQ TAB.ER PO SCH (08:00)
--- NOTE | 2018-12-21 08:16 | XR ---
EXAMINATION TYPE: XR chest 1V portable DATE OF EXAM: 12/21/2018 Comparison: 12/20/2018 Clinical History: 52-year-old female ICU management Findings: Median sternotomy wires and upper descending aortic endovascular stent graft are redemonstrated. Wors ening aeration at the left base with retrocardiac opacity and now small left effusion. Heart remains mildly enlarged. Impression: 1. Stable mild cardiomegaly. 2. Worsening aeration at the left base now with a small left effusion and prominent left basilar/retr ocardiac atelectasis and/or consolidation. 3. Ectatic/aneurysmal thoracic aorta with upper descending thoracic aortic endovascular stent graft r edemonstrated.
[2018-12-21] MEDS ORDERED: amLODIPine 5 MG TAB PO SCH (09:00)
--- NOTE | 2018-12-21 09:18 | P.PN ---
Subjective Progress Note Date: 12/21/18 This is a 51-year-old female with history of thoracic aortic aneurysm for which she had stent placement, was admitted to the hospital with abdominal pain and also uncontrolled hypertension. Patient also has some psychiatric issues and seen by psychiatrist. Patient is complaining of left lower abdominal pain which is well localized. Patient had computed tomography scan and also ultrasound of the abdomen. At the time of my examination, patient was comfortable. She denies any chest pain, shortness of breath. Doesn't appear to be any significant shortness of breath or orthopnea. Chest x-ray showed some atelectasis and pleural effusion. Overall patient clinical status from Cardec standpoint seemed to be stable. The abdominal pain is being investigated. 12/21/2018: The patient has still complaints of abdominal pain and seemed to be shaky. Her blood pressure went up last night and patient was started on cleveflex. I'm going to start her back on by mouth amiodarone. CT scan of the abdomen showed evidence of possible mass in the pancreas. This is being evaluated by GI department. She denies any chest pain. We'll continue current medical therapy except adding amiodarone and adjusting the dose. Further recommendations depend upon clinical course Objective - Vital Signs Vital signs: Vital Signs Temp 98.1 F 12/21/18 08:00 Pulse 66 12/21/18 09:00 Resp 16 12/21/18 09:00 BP 137/116 12/21/18 09:00 Pulse Ox 97 12/21/18 09:00 Intake & Output 12/20/18 12/21/18 12/21/18 18:59 06:59 18:59 Intake Total 68.800 342.566 87.0 Output Total 1190 535 55 Balance -1121.200 -192.434 32.0 Weight 68.855 kg Intake: IV 10 120 30 .9 10 120 30 Intake, IV Titration 58.800 112.566 57.0 Amount Clevidipine Butyrate 25 8.800 112.566 57.0 mg In Empty Bag 1 bag @ 1 MG/HR 2 mls/hr IV .Q24H [facility] Rx#:[id number] cefTRIAXone 1 gm In 50 Sodium Chloride 0.9% 50 ml @ 100 mls/hr IVPB Q24HR [facility] Rx#:[id number] Oral 110 Output: Urine 1190 535 55 Other: Voiding Method Indwelling Catheter Indwelling Catheter Indwelling Catheter - Exam GENERAL EXAM: Patient is alert and oriented and doesn't appear to be in any acute distress HEENT: Normocephalic. Normal reaction of pupils, equal size, normal range of extraocular motion. No erythema or exudates in the throat. NECK: No masses, no nuchal rigidity. CHEST: No chest wall deformity. LUNGS: Diminished breath sounds at bases HEART: S1 and S2 normal w ABDOMEN: Soft CENTRAL NERVOUS SYSTEM: No focal deficits. EXTREMITIES: No cyanosis, clubbing or edema. - Labs CBC & Chem 7: 12/21/18 04:16 12/21/18 04:11 Labs: Abnormal Lab Results - Last 24 Hours (Table) 12/21/18 12/21/18 Range/Units 04:11 04:16 WBC 14.7 H (3.8-10.6) k/uL RBC 3.79 L (3.80-5.40) m/uL RDW 17.9 H (11.5-15.5) % Neutrophils # 12.7 H (1.3-7.7) k/uL Chloride 92 L (98-107) mmol/L Carbon Dioxide 34 H (22-30) mmol/L BUN 28 H (7-17) mg/dL Creatinine 1.45 H (0.52-1.04) mg/dL Glucose 174 H (74-99) mg/dL Assessment and Plan (1) History of thoracic aortic aneurysm repair Current Visit: Yes Status: Acute Code(s): Z98.890 - OTHER SPECIFIED POSTPROCEDURAL STATES; Z86.79 - PERSONAL HISTORY OF OTHER DISEASES OF THE CIRCULATORY SYSTEM SNOMED Code(s): 286544963993566 (2) Abdominal pain Current Visit: Yes Status: Acute Code(s): R10.9 - UNSPECIFIED ABDOMINAL PAIN SNOMED Code(s): 06273290 (3) Chest pain Current Visit: Yes Status: Acute Code(s): R07.9 - CHEST PAIN, UNSPECIFIED SNOMED Code(s): 38892415 Plan: Add Norvasc for blood pressure control. Further recommendations depend upon clinical course
[2018-12-21] MEDS ORDERED: DIAZEPAM 5 MG TAB PO PRN (10:00)
[2018-12-21] MEDS ORDERED: LISINOPRIL 10 MG TAB PO SCH (10:43)
--- NOTE | 2018-12-21 10:53 | CDI ---
Documentation Clarification Form Date: 12/21/2018 10:41:51 AM From: Liliam ChGermainOBEY, CCDS Admit Date: 12/17/2018 3:04:00 AM Patient Name: Malena Mcneil Visit Number: [id number] Discharge Date: ATTENTION: The Clinical Documentation Specialists (CDI) and [facility] Coding Staff appreciate your assistance in clarifying documentation. Please respond to the clarification below the line at the bottom and electronically sign. The CDI & [facility] Coding staff will review the response and follow-up if needed. Please note: Queries are made part of the Legal Health Record. If you have any questions, please contact the author of this message via ITS. Dr. Valente Ardon: Per the attending progress notes: "Troponin 0.368, 0.395, 0.398 with EKG showing normal sinus rhythm and nonspecific T-wave changes. Likely demand from hypertensive urgency and CHF exacerbation. Plans: ACS ruled out. Heparin drip discontinued. Follow cardiology recommendations." Patient presented with left flank pain & abdominal pain with nausea & vomiting. Recently hospitalized at [facility] for vascular grafting. Admitted with Acute hypoxic respiratory failure with flash pulmonary edema, malignant hypertension, elevated troponins & chest pain. Per Cardiology: admitted with hypertensive urgency, BP severely elevated in ER. Chest pains are atypical, no acute ischemic changes, no ACS. History/Risk Factors: Ehler Danos syndrome vascular type, Seizures, Hypertension, Adrenal insufficiency, Pituitary neoplasm, CAD and current smoker. In your professional opinion, please clarify the specificity of the demand ischemia from hypertensive urgency: Type 2 CA (due to demand ischemia or secondary to ischemic imbalance) Other type of CA, (please clarify): Other, (please specify) Unknown Clinically unable to determine (Last Revision: January 2017) type 2 MTDD
--- NOTE | 2018-12-21 11:03 | PN ---
PROGRESS NOTE DATE OF SERVICE: 12/21/2018 This is a 52-year-old female who was admitted back on December 17 with weakness, shortness of breath, chest pain. She has been complaining also of abdominal discomfort. She has a diagnosis of acute congestive heart failure, secondary to systolic dysfunction and hypertensive urgency. Initially, she was placed on IV nitroglycerin as well as IV Lasix drip. She has improved dramatically. In addition, she complains of nausea, vomiting, weakness and abdominal pain. She has a history of acute coronary syndrome, hypoxemic respiratory failure, recent thoracic aneurysm repair, Jimmy-Danlos syndrome, epilepsy, hypertension, adrenal insufficiency, pituitary neoplasm, ongoing tobacco dependence, general medical debility, and chronic severe anxiety. She apparently takes diazepam or Valium 5 mg 2-3 times a day at home. Currently, she is on 2 L nasal cannula. Her IV is 0.9 at 10 mL an hour. She is getting Cleviprex at 14 mg an hour. We will have Cardiology see her about the giving her additional blood pressure medications will be to wean her off the Cleviprex. Finally, we will find out whether not she was truly on Valium 5 mg 3 times a day and if so, replace it for her. She is somewhat angry this morning. She has no complaints today. Finally, a CT scan of the abdomen did reveal a mass in the tail of the pancreas, which will have to be worked up. Current vital signs are reviewed, temperature is 98.1, heart rate 66, respiratory rate 16, blood pressure 137/84 mean 95, saturations are 97% on a couple L. Appears in no acute distress/ HEENT examination is grossly unremarkable. Nasal O2 noted. No oral lesions. Mucous membranes are moist. NECK: Supple. Full range of motion. No adenopathy, thyromegaly or neck vein distention. CARDIOVASCULAR: Examination reveals regular rhythm and rate. Heart rate 66. S1, S2 normal. No S3, S4, or murmur. LUNGS: Reveal mostly clear breath sounds. A few scattered rhonchi and crackles are appreciated. No wheezes. Breath sounds equal bilaterally. ABDOMEN: Soft bowel sounds are heard. EXTREMITIES: Intact. No cyanosis, clubbing, or edema. SKIN: Without rash. NEUROLOGIC: Examination is brief but nonfocal. LABS: Reviewed. White count 14.7, hemoglobin 11.4, hematocrit 36.4, platelet count 441,000. Sodium 137, potassium 3.6, chloride 92 CO2 34 anion gap is 11, BUN and creatinine were 28 and 1.45. A chest x-ray done today shows evidence of mild cardiomegaly. There is worsening aeration at the left lung base. There is a small left-sided pleural effusion and/or atelectasis. Microbiology is thus far negative. Medications are reviewed. ASSESSMENT: 1. Acute congestive heart failure, secondary to systolic dysfunction and hypertensive urgency, previously on nitroglycerin drip and IV Lasix, improved. 2. Nausea, vomiting, weakness and abdominal discomfort, of unclear etiology. This may relate to the patient's history of adrenal insufficiency, this is improved also. 3. Acute hypoxemic respiratory failure, resolved. 4. Status post recent thoracic aneurysm repair and stenting. 5. History of Jimmy-Danlos syndrome. 6. History of seizure disorder. 7. History of hypertension. 8. Pituitary neoplasm. 9. Chronic and ongoing tobacco dependence. 10.General medical debility. 11.History of chronic anxiety. PLAN: The patient's Cleviprex will hopefully be weaned off today. Additional of supple supplemental blood pressure medications. The patient will have her Valium added back to 5 mg 3 times a day. Additional recommendations and suggestions forthcoming. Prognosis is guarded. The patient could be transferred out to the general medical floor. She will have to have the pancreatic tail mass evaluated at some point. Additional recommendations and suggestions are forthcoming. Prognosis is guarded. MMODL / IJN: [id number] /
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
--- NOTE | 2018-12-21 14:06 | P.PN ---
Subjective Progress Note Date: 12/21/18 Principal diagnosis: L sided abdominal pain Patient was seen and examined. No acute events overnight. Patient reports considerable improvement in breathing since admission. She continues to complain of left flank pain and discomfort where her bladder is, along with left lower quadrant pain. Pain medication was discontinued yesterday, and she rates the pain 10/10 in severity. She denies any chest pain, shortness of breath or palpitations. No nausea or vomiting. No fever or chills. Objective - Vital Signs Vital signs: Vital Signs Temp 98.1 F 12/21/18 08:00 Pulse 64 12/21/18 10:30 Resp 16 12/21/18 10:30 BP 141/74 12/21/18 10:30 Pulse Ox 94 L 12/21/18 10:30 Intake & Output 12/20/18 12/21/18 12/21/18 18:59 06:59 18:59 Intake Total 68.800 342.566 157.0 Output Total 1190 535 105 Balance -1121.200 -192.434 52.0 Weight 68.855 kg Intake: IV 10 120 50 .9 10 120 50 Intake, IV Titration 58.800 112.566 107.0 Amount Clevidipine Butyrate 25 8.800 112.566 107.0 mg In Empty Bag 1 bag @ 1 MG/HR 2 mls/hr IV .Q24H JORDAN Rx#:[id number] cefTRIAXone 1 gm In 50 Sodium Chloride 0.9% 50 ml @ 100 mls/hr IVPB Q24HR JORDAN Rx#:[id number] Oral 110 Output: Urine 1190 535 105 Other: Voiding Method Indwelling Catheter Indwelling Catheter Indwelling Catheter - Exam General: [non toxic], [94% on room air], [appears at stated age] Derm: [warm], [dry] Head: [atraumatic], [normocephalic], [symmetric] Eyes: [EOMI], [no lid lag], [anicteric sclera] Mouth: [no lip lesion], [mucus membranes moist] Cardiovascular: [S1S2 reg], [systolic murmur], [positive DP pulse bilateral] Lungs: [Clear to auscultation bilateral], [no rhonchi, no rales] , [no accessory muscle use] Abdominal: [soft], [ nontender to palpation], [no guarding], [no appreciable organomegaly], [suprapubic tenderness] Ext: [no gross muscle atrophy], [no edema], [no contractures], [positive left CVA tenderness] Neuro: , [no focal neuro deficits] Psych: [Alert], [oriented], [improved mood] - Labs CBC & Chem 7: 12/21/18 04:16 12/21/18 04:11 Labs: Abnormal Lab Results - Last 24 Hours (Table) 12/21/18 12/21/18 Range/Units 04:11 04:16 WBC 14.7 H (3.8-10.6) k/uL RBC 3.79 L (3.80-5.40) m/uL RDW 17.9 H (11.5-15.5) % Neutrophils # 12.7 H (1.3-7.7) k/uL Chloride 92 L (98-107) mmol/L Carbon Dioxide 34 H (22-30) mmol/L BUN 28 H (7-17) mg/dL Creatinine 1.45 H (0.52-1.04) mg/dL Glucose 174 H (74-99) mg/dL Assessment and Plan Assessment: Aortic dissection Hypertension Acute on chronic systolic and diastolic CHF exacerbation with EF between 35 and 40% Troponin elevation likely demand from hypertensive urgency Left-sided flank pain Anxiety and sadness Acute kidney injury on possible chronic kidney disease? Leukocytosis Adrenal insufficiency History of seizures Hypothyroidism Pancreatic mass Kidney cyst, proteinaceous/hemorrhagic Resolved: Acute hypoxic respiratory failure, pulmonary edema, hypertensive urgency, anemia As seen on CT chest. Plans: Started on clevidipine drip to maintain SBP < 130. Follow Vascular Surgery recommendations. BP 141/74. Nitroglycerin drip discontinued. Plans: Continue amlodipine and Coreg. Continue clevidipine drip. Monitor vitals, adjust medications as necessary. BNP 61,100. Echocardiogram shows EF 35-40% with mild concentric LVH. Plans: Diuresis with Lasix by mouth. Resume beta oneal. Would benefit from PETTY inhibitor when renal function improves. Strict intake and output. Daily weights. Telemetry monitoring. Follow cardiology recommendations. Troponin 0.368, 0.395, 0.398 with EKG showing normal sinus rhythm and nonspecific T-wave changes. Likely demand from hypertensive urgency and CHF exacerbation. Plans: ACS ruled out. Heparin drip discontinued. Follow cardiology recommendations. Patient with urinary symptoms with trace leukocyte esterase on UA. Kidney ultrasound shows no hydronephrosis. Urine culture negative. Possibly related to aortic dissection or pancreatic mass? Plans: Patient received 3 days of Rocephin, treatment completed. Restart Percocet to complement Dilaudid as needed. Patient is quite emotional during the encounter. Plans: Continue Valium for anxiety. Follow psychiatry consultation. Creatinine improving from 1.43 on admission to 1.45. Likely due to forced diuresis. Plans: Avoid nephrotoxins. Monitor urine output. Daily BMP. Leukocytosis of 14.7. Patient is on steroids. Patient afebrile with no signs of infection. Urinalysis was positive leukocyte esterase, urine culture negative, complete a course of Rocephin. Plans: Daily CBC. Continue to monitor. Blood pressure is stable, electrolytes within normal limits. Plans: Continue hydrocortisone but decrease from 100 to 50 mg IV every 8 hours. Continue to monitor. Plans: Ativan as needed for seizures. Seizure precautions. Evaluated by neurology, Keppra increased to 250 mg by mouth twice a day. Plans: Resume Synthroid. CT shows suspicious lobulated probable mass in the pancreatic tail, neoplasm cannot be excluded. Plans: Discussed with Dr. Yates, needs endoscopic US in the outpatient setting. Recommends getting records from [facility]. Follow GI recommendations. Plans: We'll need adequate outpatient follow-up. [Patient's breathing is considerably improved since admission. Lasix transitioned from drip to oral. GI consulted for pancreatic mass, need to ob tain records from [facility]. 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 ]
[2018-12-21 14:10] VITALS: TEMP 98.5
--- NOTE | 2018-12-21 15:49 | P.GSCN ---
History of Present Illness Consult date: 12/21/18 History of present illness: The patient is a 52-year-old female with a recent history of a thoracoabdominal dissection requiring treatment at [facility]. Upon further discussion with the patient she relates that during the stent placement procedure they did end up needing to open her chest for an additional portion of the procedure. That was done in late September, early October. She states she went home from that episode to her sister's house. Since then she's been having more chest and abdominal pain. This is been going on for the past week or more with worsening. She was unable to make her follow-up appointment at [facility]. Upon my evaluation in the ICU, she is curled over in pain although does somewhat ease with distraction. It is hard to get a true history from her though at this point Review of Systems ROS unobtainable: due to mental status Past Medical History Past Medical History: Atrial Fibrillation, Hypertension, Seizure Disorder Additional Past Medical History / Comment(s): adrenal insufficiency; Jimmy Danlos Syndrome - Vascular Type, recent afib 2019, shingles History of Any Multi-Drug Resistant Organisms: None Reported Additional Past Surgical History / Comment(s): abdominal sugery; Aortic grafting Past Anesthesia/Blood Transfusion Reactions: No Reported Reaction Past Psychological History: No Psychological Hx Reported Additional Psychological History / Comment(s): Generalized anxiety disorder Smoking Status: Current every day smoker Past Alcohol Use History: None Reported Past Drug Use History: Marijuana - Past Family History Brother(s) Additional Family Medical History / Comment(s): She does have a brother with a history of aneurysm as well. History of skin cancer. family Family Medical History: Unable to Obtain Medications and Allergies Home Medications Medication Instructions Recorded Confirmed Type Acetaminophen [Tylenol] 650 mg PO Q6H PRN 12/17/18 12/17/18 History Amiodarone HCl [Pacerone] 200 mg PO DAILY 12/17/18 12/17/18 History Carvedilol [Coreg] 3.125 mg PO BID 12/17/18 12/17/18 History Cholecalciferol (Vitamin D3) 10,000 unit PO DAILY 12/17/18 12/17/18 History [Vitamin D3] Hydrocortisone 5 mg PO PC-LUNCH 12/17/18 12/17/18 History Hydrocortisone 10 mg PO QAM 12/17/18 12/17/18 History Levothyroxine Sodium 150 mg PO DAILY 12/17/18 12/17/18 History Melatonin 3 mg PO HS PRN 12/17/18 12/17/18 History PARoxetine HCL 20 mg PO DAILY 12/17/18 12/17/18 History Simethicone [Gas-X] 125 mg PO DAILY PRN 12/17/18 12/17/18 History Allergies Allergy/AdvReac Type Severity Reaction Status Date / Time No Known Allergies Allergy Verified 12/17/18 10:04 Surgical - Exam Vital Signs BP Pulse Ox 175/120 95 12/17/18 00:55 12/17/18 00:55 Patient is laying in bed, curled over complaining of severe pain in her abdomen. Upon further evaluation and discussion she does relax somewhat. She is alert and oriented. HEENT is no cephalic, atraumatic, excellent motion intact. Heart is regular with a grade 4 systolic ejection murmur. Lungs with decreased breath sounds bilaterally. Abdomen, after patient is somewhat more relaxed and legs were straightened is soft, nontender. No involuntary guarding or rebound during conversational exam. Palpable radial, femoral and dorsalis pedis pulses bilaterally. Abnormal, flattened affect. Skin no rashes. Results - Labs 12/21/18 04:16 12/21/18 04:11 Abnormal Lab Results - Last 24 Hours (Table) 12/21/18 12/21/18 Range/Units 04:11 04:16 WBC 14.7 H (3.8-10.6) k/uL RBC 3.79 L (3.80-5.40) m/uL RDW 17.9 H (11.5-15.5) % Neutrophils # 12.7 H (1.3-7.7) k/uL Chloride 92 L (98-107) mmol/L Carbon Dioxide 34 H (22-30) mmol/L BUN 28 H (7-17) mg/dL Creatinine 1.45 H (0.52-1.04) mg/dL Glucose 174 H (74-99) mg/dL Diabetes panel 12/21/18 Range/Units 04:11 Sodium 137 (137-145) mmol/L Potassium 3.6 (3.5-5.1) mmol/L Chloride 92 L (98-107) mmol/L Carbon Dioxide 34 H (22-30) mmol/L BUN 28 H (7-17) mg/dL Creatinine 1.45 H (0.52-1.04) mg/dL Glucose 174 H (74-99) mg/dL Calcium 10.1 (8.4-10.2) mg/dL Calcium panel 12/21/18 Range/Units 04:11 Calcium 10.1 (8.4-10.2) mg/dL Pituitary panel 12/21/18 Range/Units 04:11 Sodium 137 (137-145) mmol/L Potassium 3.6 (3.5-5.1) mmol/L Chloride 92 L (98-107) mmol/L Carbon Dioxide 34 H (22-30) mmol/L BUN 28 H (7-17) mg/dL Creatinine 1.45 H (0.52-1.04) mg/dL Glucose 174 H (74-99) mg/dL Calcium 10.1 (8.4-10.2) mg/dL Adrenal panel 12/21/18 Range/Units 04:11 Sodium 137 (137-145) mmol/L Potassium 3.6 (3.5-5.1) mmol/L Chloride 92 L (98-107) mmol/L Carbon Dioxide 34 H (22-30) mmol/L BUN 28 H (7-17) mg/dL Creatinine 1.45 H (0.52-1.04) mg/dL Glucose 174 H (74-99) mg/dL Calcium 10.1 (8.4-10.2) mg/dL Assessment and Plan Assessment: Chest and abdominal pain, worsened Hypertension Recent type a aortic dissection repair with sternotomy and endovascular stent graft Patient noncompliance and failure to keep postoperative appointment Plan: At this point given the patient's exam findings, it is uncertain whether this is acute worsening of her previous dissection given her hypertension. She is very difficult to get a true exam from due to her anxiety and psychiatric component. She is recent from a sternotomy and type a aortic dissection repair with an endovascular stent graft. Given the complexity of her dissection, we would recommend transfer back to [facility] for evaluation and treatment. At this time should have an elevated white count and acute kidney injury although no evidence of bowel ischemia. She maintains palpable pedal pulses. Continue type blood pressure control. Arrange transfer.
--- NOTE | 2018-12-21 16:43 | P.DS ---
Providers Date of admission: 12/17/18 03:04 Expected date of discharge: 12/21/18 Attending physician: Estela Rondon MD Consults: 12/17/18 03:24 Consult Physician Stat Consulting Provider: [facility] Consult Reason/Comments: Chest Pain; SOB; Elevated trop Do you want consulting provider notified?: Yes 12/17/18 04:12 Consult Physician Stat Consulting Provider: Alphonso Pathak Consult Reason/Comments: Critical Care management Do you want consulting provider notified?: Already Contacted 12/17/18 10:16 Consult Physician Stat Consulting Provider: Michelle Funez Consult Reason/Comments: epilepsy, increase in seizures, depression Do you want consulting provider notified?: Yes 12/18/18 10:09 Consult Physician Stat Consulting Provider: Vamsi Holly Consult Reason/Comments: Anxiety and depression Do you want consulting provider notified?: Already Contacted 12/20/18 12:06 Consult Physician Routine Consulting Provider: Hong Solitario Consult Reason/Comments: thoracic aneurysm Do you want consulting provider notified?: Yes 12/20/18 12:28 Consult Physician Stat Consulting Provider: Aliya Yates Consult Reason/Comments: Pancreatic mass Do you want consulting provider notified?: Yes Primary care physician: Physician Nonstaff Hospital Course: 52-year-old female with PMH of her atenolol syndrome vascular type, history of seizures, hypertension, adrenal insufficiency, pituitary neoplasm and coronary artery disease initially presented to the ED for abdominal discomfort, nausea and vomiting and progressive weakness. She also reported surgery for aortic aneurysm with stent placement 2 months prior that [facility] and [facility]. She was discharged 6 weeks ago and has since then progressively started to feel weak and tired. Patient also reported having chest pain in the ED. CT chest abdomen and pelvis was performed which showed a 4.9 cm pancreatic tail low-density mass and thoracic aneurysm with stent. While in the ED, patient became acutely hypoxic and diaphoretic along with shortness of breath for which she was placed on high flow nasal cannula as she was not able to tolerate BiPAP. Chest x-ray showed acute pulmonary edema. Her blood pressure in the ED was 175/120. ABG was done which showed pH 7.37, pCO2 43, pO2 118 and HCO3 of 25. Patient was given a dose of Lasix and placed on a nitro drip for blood pressure management and admitted to ICU for further management and treatment. With regard to her acute hypoxic respiratory failure, this was thought to be secondary to flash pulmonary edema from hypertensive urgency and systolic CHF exacerbation. Nitroglycerin drip was discontinued and patient was started on a Lasix drip as per cardiology recommendations. Her BNP was 61,100. Echocardiogram was ordered which showed EF 35-40% with mild concentric LVH. Her pulmonary edema progressively improved and she was transitioned to Lasix by mouth on 12/18/2018. She was also resumed on carvedilol for her CHF. Patient was noted to have elevated troponins of 0.368, 0.395, 0.398 with EKG showing normal sinus rhythm and nonspecific T-wave changes. Patient was initially started on heparin drip. This was thought to be demand ischemia from hypertensive urgency and CHF exacerbation. Acute coronary syndrome was ruled out and heparin drip was discontinued. Patient complained of excruciating left-sided abdominal pain, flank pain since admission. Urinalysis was ordered which showed trace leukocyte esterase. Renal ultrasound was obtained which was within normal limits. She was started on Roce phin 1 g IV daily for presumptive UTI. Urine cultures were negative and patient completed a 3 day course of Rocephin. She was given Percocet and Dilaudid for pain control. Initially, there was thought that her abdominal pain could be related to pancreatic mass. Gastroenterology was consulted for this mass and recommended obtaining records from [facility]. GI also recommended that patient would require an outpatient workup with endoscopic ultrasound. When her pain did not improve, CT of the pancreas was done. CT of the pancreas redemonstrated the mass at the tail of the pancreas with neoplasm cannot be excluded. There was also visualization of the aortic dissection of the descending thoracic aorta extending into the common iliac arteries bilaterally. With the findings on CT, patient was started on clevidipine drip and vascular surgery was consulted. Vascular surgery recommended that patient be transferred to [facility] where she had her surgery for type a aortic dissection 8 weeks prior. I was able to call the transfer center and discussed the case with the transfer team. Dr. Palacios was contacted by the transfer team and agreed to transfer the patient to [facility] pending bed availability. Vascular surgery was notified of this phone call. Patient was agreeable to the transfer. Otherwise, patient was given hydrocortisone IV for her history of adrenal insufficiency. There is also some concerns that she may have had a seizure, though questionable. Her home medication of Keppra 250 mg by mouth daily was resumed and neurology was consulted, recommended increasing her Keppra to twice a day dosing. CT of the head was also obtained which was within normal limits. Psychiatry was consulted because the patient appeared emotional. Psychiatry recommended restarting the patient on Paxil 30 mg by mouth daily. Aortic dissection Hypertension Acute on chronic systolic and diastolic CHF exacerbation with EF between 35 and 40% Troponin elevation likely demand from hypertensive urgency Left-sided flank pain Anxiety and sadness Acute kidney injury on possible chronic kidney disease? Leukocytosis Adrenal insufficiency History of seizures Hypothyroidism Pancreatic mass Kidney cyst, proteinaceous/hemorrhagic Resolved: Acute hypoxic respiratory failure, pulmonary edema, hypertensive urgency, anemia This complex discharge took about 1 hour to complete. Pertinent Studies: CT chest abdomen and pelvis, chest x-ray, echocardiogram, brain CT, ultrasound of the abdomen and bladder, pancreatic CT Patient Condition at Discharge: Stable Plan - Discharge Summary Discharge Rx Participant: Yes New Discharge Prescriptions: No Action Levothyroxine Sodium 150 mg PO DAILY Carvedilol [Coreg] 3.125 mg PO BID Amiodarone HCl [Pacerone] 200 mg PO DAILY PARoxetine HCL 20 mg PO DAILY Hydrocortisone 10 mg PO QAM Acetaminophen [Tylenol] 650 mg PO Q6H PRN PRN Reason: Pain Melatonin 3 mg PO HS PRN PRN Reason: Insomnia Hydrocortisone 5 mg PO PC-LUNCH Cholecalciferol (Vitamin D3) [Vitamin D3] 10,000 unit PO DAILY Simethicone [Gas-X] 125 mg PO DAILY PRN PRN Reason: gas Discharge Medication List Acetaminophen [Tylenol] 650 mg PO Q6H PRN 12/17/18 [History] Amiodarone HCl [Pacerone] 200 mg PO DAILY 12/17/18 [History] Carvedilol [Coreg] 3.125 mg PO BID 12/17/18 [History] Cholecalciferol (Vitamin D3) [Vitamin D3] 10,000 unit PO DAILY 12/17/18 [History] Hydrocortisone 5 mg PO PC-LUNCH 12/17/18 [History] Hydrocortisone 10 mg PO QAM 12/17/18 [History] Levothyroxine Sodium 150 mg PO DAILY 12/17/18 [History] Melatonin 3 mg PO HS PRN 12/17/18 [History] PARoxetine HCL 20 mg PO DAILY 12/17/18 [History] Simethicone [Gas-X] 125 mg PO DAILY PRN 12/17/18 [History] Follow up Appointment(s)/Referral(s): Nonstaff,Physician [Primary Care Provider] - 1-2 days
[2018-12-21 17:04] VITALS: BP 143/81; PULSE 66; RESP 13
--- NOTE | 2018-12-21 18:42 | PN ---
PROGRESS NOTE DATE OF DICTATION: December 21, 2018 The patient is a 52-year-old pleasant white female with history of Jimmy-Danlos syndrome who recently underwent surgery for thoracoabdominal dissection at [facility] 2 months ago at which time she had a graft procedure followed by open surgery. She was recuperating at home after a prolonged hospitalization of almost 3 weeks. She came to the emergency room complaining of chest pain, diffuse abdominal pain associated with nausea, vomiting. She had a CT of the abdomen and pelvis done here with a 4 cm lesion in the tail of the pancreas and hence we are consulted in regard to this issue. The patient has no prior history of pancreatitis. Does not recall ever having any pancreatic lesion on prior imaging studies. She continues to complain of diffuse abdominal pain. She was evaluated by thoracic surgery and had recommended transfer to [facility] and arrangements are being made. PHYSICAL EXAMINATION: She appears comfortable, in some distress because of the pain. VITAL SIGNS: Stable. Blood pressure is 129/78, pulse rate 63, temperature 98.1. HEENT examination unremarkable. Conjunctivae pink. Sclerae anicteric. Oral cavity no lesions. NECK: No JVD or lymph node enlargement. CHEST: Clear to auscultation. HEART: Regular rate and rhythm. ABDOMEN is diffusely tender, more predominant in the left upper quadrant area in the epigastric area. EXTREMITIES: No pedal edema. SKIN no rashes. NEUROLOGIC: Alert and oriented x3. No focal deficits. LABS: Done today WBC is 14.7, hemoglobin 11.7, platelets normal. BUN 28, creatinine 1.45. IMPRESSION: 1. Thoracoabdominal aortic aneurysm/dissection being followed by vascular surgery. The patient is status post vascular graft surgery at [facility] 2 months ago. 2. 5 cm lesion in the tail of the pancreas which is lobulated, heterogeneous and hypodense and possibility of pancreatic neoplasm could not be excluded. No imaging studies from the last 2 months available for comparison. The patient is unclear whether she had any workup done for the pancreatic lesion. RECOMMENDATIONS: The patient is being transferred to [facility] today or tomorrow. At this time, we will recommend further management and decisions regarding the endoscopic ultrasound of the pancreas by the Gastroenterology team at [facility]. Thank you for this consultation. MMODL / IJN: [id number] /
== END 2018-12-21 18:00 | disposition short-term general hospital (02) | DRG 280 ==
LOC: EC 00:48 → 3SCARD 03:04 → OBSVTOIN 03:04 → 2SICU 04:14
PROVIDERS: ADMIT Internal Medicine; ATTEND Internal Medicine
PROC: 5A09357 Assistance with Respiratory Ventilation, Less than 24 Consecutive Hours, Continuous Positive Airway Pressure (ICD-10-PCS; principal; 2018-12-17)
DX: I13.0 Hypertensive heart and chronic kidney disease with heart failure and stage 1 through stage 4 chronic kidney disease, or unspecified chronic kidney disease (principal); I50.43 Acute on chronic combined systolic (congestive) and diastolic (congestive) heart failure; I21.A1 Myocardial infarction type 2; J96.01 Acute respiratory failure with hypoxia; I71.01 Dissection of thoracic aorta; N17.9 Acute kidney failure, unspecified; E27.40 Unspecified adrenocortical insufficiency; Q79.6 Ehlers-Danlos syndromes; I16.1 Hypertensive emergency; N39.0 Urinary tract infection, site not specified; N28.1 Cyst of kidney, acquired; I16.0 Hypertensive urgency; N18.9 Chronic kidney disease, unspecified; D49.7 Neoplasm of unspecified behavior of endocrine glands and other parts of nervous system; D64.9 Anemia, unspecified; E03.9 Hypothyroidism, unspecified; F17.200 Nicotine dependence, unspecified, uncomplicated; F32.9 Major depressive disorder, single episode, unspecified; F41.0 Panic disorder [episodic paroxysmal anxiety]; F41.1 Generalized anxiety disorder; F43.10 Post-traumatic stress disorder, unspecified; G40.909 Epilepsy, unspecified, not intractable, without status epilepticus; G89.29 Other chronic pain; I25.10 Atherosclerotic heart disease of native coronary artery without angina pectoris; I25.5 Ischemic cardiomyopathy; I48.91 Unspecified atrial fibrillation; K86.9 Disease of pancreas, unspecified; M54.5 Low back pain; R01.1 Cardiac murmur, unspecified; M54.9 Dorsalgia, unspecified; R11.2 Nausea with vomiting, unspecified; Z79.890 Hormone replacement therapy; Z79.899 Other long term (current) drug therapy; Z86.79 Personal history of other diseases of the circulatory system; Z91.19 Patient's noncompliance with other medical treatment and regimen; Z81.8 Family history of other mental and behavioral disorders; Z84.89 Family history of other specified conditions
CPT/HCPCS: 36415; 36600; 51702; 70450; 71045; 71250; 74160; 74176; 76770; 80048; 80053; 81001; 82150; 82805; 83690; 83735; 83880; 84132; 84484; 85025; 85610; 85730; 87086; 93005; 93306; 96365; 96366; 96368; 96375; 96376; 99291

== ENCOUNTER 2019-10-03 19:19 | Inpatient (IN) | payer MEDICARE ==
[2019-10-03] MEDS ORDERED: ONDANSETRON 4 MG/2 ML VIAL IVP STA (19:40)
[2019-10-03] MEDS ORDERED: SODIUM CHLORIDE 0.9% 1,000 ML IV STA (19:40)
[2019-10-03] MEDS ORDERED: LORazepam 2 MG/ML INJ IV STA (19:41)
--- NOTE | 2019-10-03 19:48 | ED ---
General Adult HPI - General Source: patient, RN notes reviewed, old records reviewed <Abhijit Cano - Last Filed: 10/03/19 19:48> <Juancarlos Welsh - Last Filed: 10/03/19 23:42> - General Chief complaint: Nausea/Vomiting/Diarrhea Stated complaint: Abdominal Pain Time Seen by Provider: 10/03/19 19:30 - History of Present Illness Initial comments: This a 53-year-old female with a past medical history significant for aortic dissection with repair. 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 Patient comes in today because she is experiencing right-sided abdominal pain and a little epigastric abdominal pain. Patient states she's been vomiting for a month and she cannot stop. Patient denies any bloody emesis. Patient denies any black or bloody stool. Patient denies any lower abdominal pain. Patient denies chest pain difficulty breathing or shortness of breath. Patient denies any radiation of the pain to the back. Patient denies any dysuria hematuria urinary frequency. Patient denies any lightheadedness or dizziness. Patient also states she has some sort of pancreatic mass and when she was at [facility] for the aortic dissection surgery she states they never told her what was going on with a mass in her pancreas. (Abhijit Cano) - Related Data Home Medications Medication Instructions Recorded Confirmed Acetaminophen [Tylenol] 650 mg PO Q6H PRN 12/17/18 12/17/18 Amiodarone HCl [Pacerone] 200 mg PO DAILY 12/17/18 12/17/18 Carvedilol [Coreg] 3.125 mg PO BID 12/17/18 12/17/18 Cholecalciferol (Vitamin D3) 10,000 unit PO DAILY 12/17/18 12/17/18 [Vitamin D3] Hydrocortisone 5 mg PO PC-LUNCH 12/17/18 12/17/18 Hydrocortisone 10 mg PO QAM 12/17/18 12/17/18 Levothyroxine Sodium 150 mg PO DAILY 12/17/18 12/17/18 Melatonin 3 mg PO HS PRN 12/17/18 12/17/18 PARoxetine HCL 20 mg PO DAILY 12/17/18 12/17/18 Simethicone [Gas-X] 125 mg PO DAILY PRN 12/17/18 12/17/18 Allergies Allergy/AdvReac Type Severity Reaction Status Date / Time No Known Allergies Allergy Verified 10/03/19 23:28 Review of Systems ROS Other: All systems not noted in ROS Statement are negative. <Abhijit Cano - Last Filed: 10/03/19 19:48> ROS Other: All systems not noted in ROS Statement are negative. <Juancarlos Welsh - Last Filed: 10/03/19 23:42> ROS Statement: Those systems with pertinent positive or pertinent negative responses have been documented in the HPI. Past Medical History Past Medical History: Atrial Fibrillation, Hypertension, Seizure Disorder Additional Past Medical History / Comment(s): adrenal insufficiency; Jimmy Danlos Syndrome - Vascular Type, recent afib 2019, shingles History of Any Multi-Drug Resistant Organisms: None Reported Additional Past Surgical History / Comment(s): abdominal sugery; Aortic grafting, pt stated she was told she had a mass on her pancreas Past Anesthesia/Blood Transfusion Reactions: No Reported Reaction Past Psychological History: Anxiety, Panic Disorder Smoking Status: Current every day smoker Past Alcohol Use History: None Reported Past Drug Use History: Marijuana - Past Family History Brother(s) Additional Family Medical History / Comment(s): She does have a brother with a history of aneurysm as well. History of skin cancer. family Family Medical History: Unable to Obtain <Abhijit Cano - Last Filed: 10/03/19 19:48> General Exam <Abhijit Cano - Last Filed: 10/03/19 19:48> - General Exam Comments Initial Comments: GENERAL: Patient is well-developed and well-nourished. Patient is nontoxic and well- hydrated and is in mild distress. ENT: Neck is soft and supple. No significant lymphadenopathy is noted. Oropharynx is clear. Moist mucous membranes. Neck has full range of motion without eliciting any pain. EYES: The sclera were anicteric and conjunctiva were pink and moist. Extraocular movements were intact and pupils were equal round and reactive to light. Eyelids were unremarkable. PULMONARY: Unlabored respirations. Good breath sounds bilaterally. No audible rales rhonchi or wheezing was noted. CARDIOVASCULAR: There is a regular rate and rhythm without any murmurs gallops or rubs. ABDOMEN: Slight epigastric abdominal pain SKIN: Skin is clear with no lesions or rashes and otherwise unremarkable. NEUROLOGIC: Patient is alert and oriented x3. Cranial nerves II through XII are grossly intact. Motor and sensory are also intact. Normal speech, volume and content. Symmetrical smile. MUSCULOSKELETAL: Normal extremities with adequate strength and full range of motion. LYMPHATICS: No significant lymphadenopathy is noted PSYCHIATRIC: Patient is very anxious. (Abhijit Cano) Course <Juancarlos Welsh - Last Filed: 10/03/19 23:42> Vital Signs 10/03/19 10/03/19 10/03/19 19:27 20:19 23:00 Temperature 97.8 F 98.6 F Pulse Rate 71 96 95 Respiratory 18 17 17 Rate Blood Pressure 167/98 170/91 178/90 O2 Sat by Pulse 97 97 96 Oximetry - Reevaluation(s) Reevaluation #1: 10/03/19 23:41 Patient was endorsed me at our shift change pending labs patient did have a CAT scan the abdomen pelvis also done showing no definite evidence of acute findings. Patient still has a lot of abdominal pain below her vomiting is s omewhat better. Discussed the case with Dr. Silvestre patient will be admitted with consultation by GI (Juancarlos Weslh) Medical Decision Making <Abhijit Cano - Last Filed: 10/03/19 19:48> - Lab Data Result diagrams: 10/03/19 20:24 10/03/19 19:41 - Radiology Data Radiology results: report reviewed (I did review the imaging and report no apparent acute findings please see the complete report), image reviewed <Juancarlos Welsh - Last Filed: 10/03/19 23:42> - Medical Decision Making EKG shows normal sinus rhythm at 96 bpm [place] interval is 134 QRS is 78 QT interval 362 QTC is 457. Patient's EKG shows no ST segment elevation or depression. Dr. Welsh be taking over the care of this patient at 8:00 (Abhijit Cano) - Lab Data Lab Results 10/03/19 10/03/19 10/03/19 Range/Units 19:41 19:41 19:41 WBC (3.8-10.6) k/uL RBC (3.80-5.40) m/uL Hgb (11.4-16.0) gm/dL Hct (34.0-46.0) % MCV (80.0-100.0) fL MCH (25.0-35.0) pg MCHC (31.0-37.0) g/dL RDW (11.5-15.5) % Plt Count (150-450) k/uL Neutrophils % % Lymphocytes % % Monocytes % % Eosinophils % % Basophils % % Neutrophils # (1.3-7.7) k/uL Lymphocytes # (1.0-4.8) k/uL Monocytes # (0-1.0) k/uL Eosinophils # (0-0.7) k/uL Basophils # (0-0.2) k/uL Hypochromasia Sodium 139 (137-145) mmol/L Potassium 4.0 (3.5-5.1) mmol/L Chloride 109 H (98-107) mmol/L Carbon Dioxide 22 (22-30) mmol/L Anion Gap 8 mmol/L BUN 18 H (7-17) mg/dL Creatinine 1.09 H (0.52-1.04) mg/dL Est GFR (CKD-EPI)AfAm 67 (>60 ml/min/1.73 sqM) Est GFR (CKD-EPI)NonAf 58 (>60 ml/min/1.73 sqM) Glucose 100 H (74-99) mg/dL Plasma Lactic Acid Kennedy 0.8 (0.7-2.0) mmol/L Calcium 9.8 (8.4-10.2) mg/dL Total Bilirubin 0.4 (0.2-1.3) mg/dL AST 19 (14-36) U/L ALT 9 (4-34) U/L Alkaline Phosphatase 147 H (38-126) U/L Troponin I (0.000-0.034) ng/mL Total Protein 6.7 (6.3-8.2) g/dL Albumin 3.5 (3.5-5.0) g/dL Amylase 48 (30-110) U/L Lipase 53 (23-300) U/L Urine Color Yellow Urine Appearance Clear (Clear) Urine pH 6.0 (5.0-8.0) Ur Specific [place] 1.027 (1.001-1.035) Urine Protein 1+ H (Negative) Urine Glucose (UA) Negative (Negative) Urine Ketones Trace H (Negative) Urine Blood Negative (Negative) Urine Nitrite Negative (Negative) Urine Bilirubin Negative (Negative) Urine Urobilinogen 2.0 (<2.0) mg/dL Ur Leukocyte Esterase Trace H (Negative) Urine RBC 12 H (0-5) /hpf Urine WBC 3 (0-5) /hpf Ur Squamous Epith Cells 2 (0-4) /hpf Hyaline Casts 4 H (0-2) /lpf Urine Mucus Few H (None) /hpf 10/03/19 10/03/19 Range/Units 19:41 20:24 WBC 10.6 (3.8-10.6) k/uL RBC 3.83 (3.80-5.40) m/uL Hgb 11.9 (11.4-16.0) gm/dL Hct 37.5 (34.0-46.0) % MCV 97.9 (80.0-100.0) fL MCH 31.1 (25.0-35.0) pg MCHC 31.8 (31.0-37.0) g/dL RDW 14.1 (11.5-15.5) % Plt Count 325 (150-450) k/uL Neutrophils % 74 % Lymphocytes % 15 % Monocytes % 8 % Eosinophils % 1 % Basophils % 0 % Neutrophils # 7.9 H (1.3-7.7) k/uL Lymphocytes # 1.6 (1.0-4.8) k/uL Monocytes # 0.9 (0-1.0) k/uL Eosinophils # 0.1 (0-0.7) k/uL Basophils # 0.0 (0-0.2) k/uL Hypochromasia Moderate Sodium (137-145) mmol/L Potassium (3.5-5.1) mmol/L Chloride (98-107) mmol/L Carbon Dioxide (22-30) mmol/L Anion Gap mmol/L BUN (7-17) mg/dL Creatinine (0.52-1.04) mg/dL Est GFR (CKD-EPI)AfAm (>60 ml/min/1.73 sqM) Est GFR (CKD-EPI)NonAf (>60 ml/min/1.73 sqM) Glucose (74-99) mg/dL Plasma Lactic Acid Kennedy (0.7-2.0) mmol/L Calcium (8.4-10.2) mg/dL Total Bilirubin (0.2-1.3) mg/dL AST (14-36) U/L ALT (4-34) U/L Alkaline Phosphatase (38-126) U/L Troponin I 0.018 (0.000-0.034) ng/mL Total Protein (6.3-8.2) g/dL Albumin (3.5-5.0) g/dL Amylase (30-110) U/L Lipase (23-300) U/L Urine Color Urine Appearance (Clear) Urine pH (5.0-8.0) Ur Specific [place] (1.001-1.035) Urine Protein (Negative) Urine Glucose (UA) (Negative) Urine Ketones (Negative) Urine Blood (Negative) Urine Nitrite (Negative) Urine Bilirubin (Negative) Urine Urobilinogen (<2.0) mg/dL Ur Leukocyte Esterase (Negative) Urine RBC (0-5) /hpf Urine WBC (0-5) /hpf Ur Squamous Epith Cells (0-4) /hpf Hyaline Casts (0-2) /lpf Urine Mucus (None) /hpf Disposition <Abhijit Cano - Last Filed: 10/03/19 19:48> <Juancarlos Welsh - Last Filed: 10/03/19 23:42> Clinical Impression: Abdominal pain, Vomiting Disposition: ADMITTED IP TO THIS HOSP Condition: Fair Referrals: Delmer Lott MD [Primary Care Provider] - 1-2 days
[2019-10-03 20:49] LABS: Albumin 3.5 g/dL (3.5-5.0); Calcium 9.8 mg/dL (8.4-10.2); Total Bilirubin 0.4 mg/dL (0.2-1.3); Total Protein 6.7 g/dL (6.3-8.2)
[2019-10-03 20:53] LABS: Basophils % (A) 0 %; Eosinophils # (A) 0.1 k/uL (0-0.7); Eosinophils % (A) 1 %; HCT 37.5 % (34.0-46.0); HGB 11.9 gm/dL (11.4-16.0); Hypochromasia Moderate; Lymphocytes # (A) 1.6 k/uL (1.0-4.8); Lymphocytes % (A) 15 %; MCH 31.1 pg (25.0-35.0); MCHC 31.8 g/dL (31.0-37.0); MCV 97.9 fL (80.0-100.0); Mean Platelet Volume 7.4; Monocytes # (A) 0.9 k/uL (0-1.0); Monocytes % (A) 8 %; Neutrophils # (A) 7.9 k/uL (1.3-7.7); Neutrophils % (A) 74 %; Platelet Count 325 k/uL (150-450); RBC 3.83 m/uL (3.80-5.40); RDW 14.1 % (11.5-15.5); WBC 10.6 k/uL (3.8-10.6)
[2019-10-03 20:53] LABS: Appearance,Urine Clear (Clear); Bilirubin,Urine Negative (Negative); Blood,Urine Negative (Negative); Color,Urine Yellow; Glucose,Urine (UA) Negative (Negative); Hyaline Casts,Urine 4 /lpf (0-2); Ketones,Urine Trace (Negative); Leukocyte Esterase,Urine Trace (Negative); Mucus,Urine Few /hpf; Nitrite,Urine Negative (Negative); Protein,Urine 1+ (Negative); RBC,Urine 12 /hpf (0-5); Specific Gravity,Urine 1.027 (1.001-1.035); Squamous Epithelial Cell,Urine 2 /hpf (0-4); WBC,Urine 3 /hpf (0-5)
[2019-10-03] MEDS ORDERED: fentaNYL (PF) 50 MCG/ML 2 ML AMP IV STA (22:30)
--- NOTE | 2019-10-03 23:11 | CT ---
EXAMINATION TYPE: CT abdomen pelvis w con DATE OF EXAM: 10/03/2019 COMPARISON: 12/17/2018 HISTORY: RLQ pain, flank pain CT DLP: 572.8 mGycm Automated exposure control for dose reduction was used. CONTRAST: Performed with IV Contrast, patient injected with 100 mL of Isovue 300. Images were obtained from the diaphragm to the floor the pelvis with IV contrast. Lung bases are clear of consolidation. There is no pleural effusion. There is no pericardial effusion . 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 Aneurysm measures up to 4 cm. T here is aortic dissection extending into the common iliac arteries. There is equal enhancement of the true lumen and false lumen of the lower abdominal aorta. There is patency of the celiac artery and s uperior mesenteric artery. There is patency of the renal arteries and the iliac and femoral arteries. I see no evidence of hemodynamic stenosis. I see no contrast extravasation. Liver is intact. Gallbladder appears normal. Spleen is intact. There are multiple cysts at the tail o f the pancreas that measure up to 2.5 cm. The body and head of the pancreas appear normal. There is no adrenal mass. There is small right kidney and compensatory hypertrophy of the left kidney . There is no hydronephrosis. Ureters are not dilated. There is no retroperitoneal adenopathy. Bladde r distends smoothly. There is no inguinal hernia. There is no evidence of a bowel obstruction. There is no mesenteric edema. There is no ascites or free air. Appendix is not seen with certainty. There i s no sign of thickened appendix. The bony pelvis appears intact. There is L4 15% compression fracture that appears old. IMPRESSION: There is chronic thoracic and abdominal aortic dissection also demonstrated on CT scan of 12/20/2018. 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 There is multiple cysts at the tail of the pancreas that would be consistent with pseudocysts and marcelle ear much improved compared to 12/20/2018 CT scan. There is clearing of the left pleural effusion and p erisplenic fluid compared to old exam. There is 3 cm cystic area superior and anterior to the spleen also consistent with a pseudocyst. There is right renal atrophy that has progressed compared to old exam. This is suggestive of chronic ischemia. No hydronephrosis. No evidence of a bowel obstruction.
[2019-10-03] MEDS ORDERED: HYDROmorphone 1 MG/ML 1 ML SYRINGE IVP STA (23:40)
[2019-10-03] MEDS ORDERED: NALOXONE 0.4 MG/ML 1 ML VIAL IV PRN (23:42)
[2019-10-03] MEDS ORDERED: MELATONIN 3 MG TABLET PO PRN (23:44)
[2019-10-03] MEDS ORDERED: SIMETHICONE 80 MG CHEWABLE PO PRN (23:44)
[2019-10-03] MEDS ORDERED: SODIUM CHLORIDE 0.9% 500 ML 500 ML IV ONE (23:59)
[2019-10-04] MEDS ORDERED: hydrALAZINE HCL 20 MG/ML 1 ML VIAL IVP STA
[2019-10-04] MEDS: SODIUM CHLORIDE 0.9% 1,000 ML IV SCH ×3 (00:05→22:39)
[2019-10-04] MEDS: HYDROmorphone 1 MG/ML 1 ML SYRINGE IVP PRN ×6 (03:00→22:39)
[2019-10-04] MEDS ORDERED: cloNIDine 0.1 MG/24HR PATCH TRANSDERM SCH (03:30)
[2019-10-04] MEDS: diazePAM 5 MG TAB PO PRN ×3 (03:32→21:03)
[2019-10-04] MEDS: ONDANSETRON 4 MG/2 ML VIAL IVP PRN ×2 (03:43→20:07)
[2019-10-04] MEDS ORDERED: LEVOTHYROXINE 100 MCG TAB PO SCH ×2 (06:30)
[2019-10-04] MEDS ORDERED: carvediloL 6.25 MG TAB PO SCH (07:30)
[2019-10-04] MEDS ORDERED: METOCLOPRAMIDE 5 MG/ML 2 ML VIAL IVP STA (07:35)
[2019-10-04] MEDS: PANTOPRAZOLE 40 MG/10 ML VIAL IV SCH (08:56)
[2019-10-04] MEDS: hydrALAZINE HCL 50 MG TAB PO SCH ×3 (08:56→21:03)
[2019-10-04] MEDS: ASPIRIN 81 MG PO SCH (08:56)
[2019-10-04] MEDS: lisinopriL 20 MG TAB PO SCH (08:56)
[2019-10-04] MEDS: PARoxetine 20 MG TAB PO SCH (08:56)
[2019-10-04] MEDS ORDERED: carvediloL 3.125 MG TAB PO SCH (09:00)
[2019-10-04] MEDS ORDERED: AMIODARONE 200 MG TAB PO SCH (09:00)
[2019-10-04] MEDS: CHOLECALCIFEROL 1,000 UNIT TAB PO SCH (09:21)
[2019-10-04] MEDS ORDERED: ACETAMINOPHEN TAB 325 MG TAB PO PRN ×2 (09:28→09:46)
[2019-10-04 10:42] LABS: Basophils % (A) 0 %; Eosinophils # (A) 0.1 k/uL (0-0.7); Eosinophils % (A) 1 %; HCT 33.3 % (34.0-46.0); HGB 10.3 gm/dL (11.4-16.0); Hypochromasia Marked; Lymphocytes # (A) 1.7 k/uL (1.0-4.8); Lymphocytes % (A) 19 %; MCH 30.7 pg (25.0-35.0); MCHC 30.9 g/dL (31.0-37.0); MCV 99.1 fL (80.0-100.0); Mean Platelet Volume 7.5; Monocytes % (A) 11 %; Neutrophils # (A) 5.9 k/uL (1.3-7.7); Neutrophils % (A) 66 %; Platelet Count 251 k/uL (150-450); RBC 3.36 m/uL (3.80-5.40); RDW 14.4 % (11.5-15.5); WBC 9.1 k/uL (3.8-10.6)
[2019-10-04 10:49] LABS: Calcium 9.3 mg/dL (8.4-10.2); Potassium 4.1 mmol/L (3.5-5.1); Total Bilirubin 0.3 mg/dL (0.2-1.3); Total Protein 5.9 g/dL (6.3-8.2)
--- NOTE | 2019-10-04 12:23 | P.GSCN ---
History of Present Illness Consult date: 10/04/19 Reason for Consult: Abdominal pain History of present illness: This 53-year-old female who is admitted through the emergency room with complain t of abdominal pain. Patient states her pain is mainly right-sided. Patient states that she doesn't the gallbladder. Her CAT scan is reviewed she doesn't evidence of pancreas pseudocyst. Patient denies drinking. Past Medical History Past Medical History: Atrial Fibrillation, Hypertension, Seizure Disorder Additional Past Medical History / Comment(s): adrenal insufficiency; Jimmy Danlos Syndrome - Vascular Type, recent afib 2018, shingles november 2018, blood clots october 2018, seizure current- left temporal lobe seizure, atonic seizures. Has some left sided weakness from surgery last october. History of Any Multi-Drug Resistant Organisms: None Reported Past Surgical History: Hysterectomy Additional Past Surgical History / Comment(s): abdominal sugery; Aortic grafting, pt stated she was told she had a mass on her pancreas, ets ventrical repair- october 2018, 7 arm surgeries for cysts carpal tunnel, broken bones. Past Anesthesia/Blood Transfusion Reactions: No Reported Reaction Past Psychological History: Anxiety, Panic Disorder Additional Psychological History / Comment(s): Generalized anxiety disorder Smoking Status: Current every day smoker Past Alcohol Use History: None Reported Past Drug Use History: Marijuana Additional Drug Use History / Comment(s): Smokes marijuana nightly, smoke 1-2 cigarrettes a day. - Past Family History Brother(s) Additional Family Medical History / Comment(s): She does have a brother with a history of aneurysm as well. History of skin cancer. family Family Medical History: Unable to Obtain Medications and Allergies Home Medications Medication Instructions Recorded Confirmed Type Acetaminophen [Tylenol] 650 mg PO Q6H PRN 12/17/18 10/04/19 History Cholecalciferol (Vitamin D3) 10,000 unit PO DAILY 12/17/18 10/04/19 History [Vitamin D3] Melatonin 3 mg PO HS PRN 12/17/18 10/04/19 History PARoxetine HCL 20 mg PO HS 12/17/18 10/04/19 History Aspirin [Adult Low Dose Aspirin EC] 81 mg PO DAILY 10/04/19 10/04/19 History Atorvastatin Calcium [Lipitor] 20 mg PO HS 10/04/19 10/04/19 History Carvedilol [Coreg] 25 mg PO BID 10/04/19 10/04/19 History Diazepam [Valium] 5 mg PO TID PRN 10/04/19 10/04/19 History Levothyroxine Sodium [Synthroid] 66.7 mcg PO DAILY 10/04/19 10/04/19 History Lisinopril 20 mg PO DAILY 10/04/19 10/04/19 History Ondansetron HCl [Zofran] 4 mg PO Q8H PRN 10/04/19 10/04/19 History hydrALAZINE HCL [Apresoline] 100 mg PO TID 10/04/19 10/04/19 History Allergies Allergy/AdvReac Type Severity Reaction Status Date / Time adhesive Allergy Itching Verified 10/04/19 02:34 Surgical - Exam Vital Signs Temp Pulse Resp BP Pulse Ox 97.8 F 71 18 167/98 97 10/03/19 19:27 10/03/19 19:27 10/03/19 19:27 10/03/19 19:27 10/03/19 19:27 - General well developed, no distress - Eyes PERRL - ENT normal pinna - Neck no masses - Respiratory normal expansion - Cardiovascular Rhythm: regular - Abdomen Mild right-sided tenderness Abdomen: soft Results - Labs 10/04/19 10:05 10/04/19 10:05 Abnormal Lab Results - Last 24 Hours (Table) 10/03/19 10/03/19 10/03/19 Range/Units 19:41 19:41 20:24 RBC (3.80-5.40) m/uL Hgb (11.4-16.0) gm/dL Hct (34.0-46.0) % MCHC (31.0-37.0) g/dL Neutrophils # 7.9 H (1.3-7.7) k/uL Sodium (137-145) mmol/L Chloride 109 H (98-107) mmol/L BUN 18 H (7-17) mg/dL Creatinine 1.09 H (0.52-1.04) mg/dL Glucose 100 H (74-99) mg/dL Alkaline Phosphatase 147 H (38-126) U/L Total Protein (6.3-8.2) g/dL Albumin (3.5-5.0) g/dL Urine Protein 1+ H (Negative) Urine Ketones Trace H (Negative) Ur Leukocyte Esterase Trace H (Negative) Urine RBC 12 H (0-5) /hpf Hyaline Casts 4 H (0-2) /lpf Urine Mucus Few H (None) /hpf 10/04/19 10/04/19 Range/Units 10:05 10:05 RBC 3.36 L (3.80-5.40) m/uL Hgb 10.3 L (11.4-16.0) gm/dL Hct 33.3 L (34.0-46.0) % MCHC 30.9 L (31.0-37.0) g/dL Neutrophils # (1.3-7.7) k/uL Sodium 135 L (137-145) mmol/L Chloride (98-107) mmol/L BUN (7-17) mg/dL Creatinine (0.52-1.04) mg/dL Glucose 108 H (74-99) mg/dL Alkaline Phosphatase (38-126) U/L Total Protein 5.9 L (6.3-8.2) g/dL Albumin 3.0 L (3.5-5.0) g/dL Urine Protein (Negative) Urine Ketones (Negative) Ur Leukocyte Esterase (Negative) Urine RBC (0-5) /hpf Hyaline Casts (0-2) /lpf Urine Mucus (None) /hpf Diabetes panel 10/03/19 10/04/19 Range/Units 19:41 10:05 Sodium 139 135 L (137-145) mmol/L Potassium 4.0 4.1 (3.5-5.1) mmol/L Chloride 109 H 106 (98-107) mmol/L Carbon Dioxide 22 22 (22-30) mmol/L BUN 18 H 14 (7-17) mg/dL Creatinine 1.09 H 0.99 (0.52-1.04) mg/dL Glucose 100 H 108 H (74-99) mg/dL Calcium 9.8 9.3 (8.4-10.2) mg/dL AST 19 17 (14-36) U/L ALT 9 7 (4-34) U/L Alkaline Phosphatase 147 H 122 (38-126) U/L Total Protein 6.7 5.9 L (6.3-8.2) g/dL Albumin 3.5 3.0 L (3.5-5.0) g/dL Calcium panel 10/03/19 10/04/19 Range/Units 19:41 10:05 Calcium 9.8 9.3 (8.4-10.2) mg/dL Albumin 3.5 3.0 L (3.5-5.0) g/dL Pituitary panel 10/03/19 10/04/19 Range/Units 19:41 10:05 Sodium 139 135 L (137-145) mmol/L Potassium 4.0 4.1 (3.5-5.1) mmol/L Chloride 109 H 106 (98-107) mmol/L Carbon Dioxide 22 22 (22-30) mmol/L BUN 18 H 14 (7-17) mg/dL Creatinine 1.09 H 0.99 (0.52-1.04) mg/dL Glucose 100 H 108 H (74-99) mg/dL Calcium 9.8 9.3 (8.4-10.2) mg/dL Adrenal panel 10/03/19 10/04/19 Range/Units 19:41 10:05 Sodium 139 135 L (137-145) mmol/L Potassium 4.0 4.1 (3.5-5.1) mmol/L Chloride 109 H 106 (98-107) mmol/L Carbon Dioxide 22 22 (22-30) mmol/L BUN 18 H 14 (7-17) mg/dL Creatinine 1.09 H 0.99 (0.52-1.04) mg/dL Glucose 100 H 108 H (74-99) mg/dL Calcium 9.8 9.3 (8.4-10.2) mg/dL Total Bilirubin 0.4 0.3 (0.2-1.3) mg/dL AST 19 17 (14-36) U/L ALT 9 7 (4-34) U/L Alkaline Phosphatase 147 H 122 (38-126) U/L Total Protein 6.7 5.9 L (6.3-8.2) g/dL Albumin 3.5 3.0 L (3.5-5.0) g/dL - Imaging CT scan - abdomen: report reviewed (Multiple pancreatic pseudocyst with a 3 cm pseudocyst near the spleen.) Assessment and Plan Assessment: Abdominal pain History of pancreatic pseudocyst Patient's pain is mainly right-sided. She is scheduled for ultrasound of the abdomen today. We will evaluate her gallbladder after the ultrasound performed.
[2019-10-04 12:25] VITALS: BMI 20.1
[2019-10-04] MEDS: ENOXAPARIN 40 MG/0.4 ML SYRINGE SQ SCH (13:20)
--- NOTE | 2019-10-04 16:54 | US ---
EXAMINATION TYPE: US abdomen complete DATE OF EXAM: 10/04/2019 COMPARISON: NONE CLINICAL HISTORY: upper/RUQ acute pain with fever. EXAM MEASUREMENTS: Liver Length: 17.6 cm Gallbladder Wall: 0.4 cm CBD: 0.6 cm Spleen: 9.3 cm Right Kidney: 6.7 x 2.2 x 2.0 cm Left Kidney: 10.5 x 5.6 x 4.9 cm Midline bowel gas obscuring midline structures. Pancreas: Partially obscured by bowel gas, pseudocysts seen on CT not visualized Liver: 2 hyperechoic areas seen anterior to portal vein measuring 1.3 x 1.1 x 1.9 cm and 1.3 x 1.1 x 1.4cm, upper limits of normal in size Gallbladder: wnl Evidence for sonographic Bui's sign: no CBD: wnl Spleen: wnl Right Kidney: atrophied Left Kidney: wnl Upper IVC: wnl Abd Aorta: dissection seen on CT seen proximally on today's ultrasound, distal and bifurcation obscu red by overlying bowel gas IMPRESSION: Small hyperechoic liver foci are probably hemangiomas. No gallstones or dilated ducts. No free fluid.
[2019-10-04] MEDS: carvediloL 12.5 MG TAB PO SCH (21:03)
[2019-10-04] MEDS ORDERED: PIPERACILLIN-TAZOBACTAM 3.375 GM in SODIUM CHLORIDE 0.9% 100 ML IVPB SCH (22:51)
--- NOTE | 2019-10-04 22:51 | P.HPIM ---
History of Present Illness H&P Date: 10/04/19 Chief Complaint: Abdominal pain History of presenting complaint: This is a pleasant 53-year-old patient who follows with visiting physicians Dr. Lott. Chronic stable medical conditions include atrial fibrillation, hypertension, seizure disorder, adrenal insufficiency off medications, other than the syndrome, vascular type, blood clots in October 2018, left temporal lobe seizure, denies anxiety disorder. Patient presents with multiple episodes of vomiting since yesterday. No blood in the same. Having increasing upper abdominal and right upper quadrant pain. Also some fever. Patient only to baseline is has about 4 bowel movements a day somewhat mushy. Noted to have some low-grade fever here. Patient is very anxious. Review of systems: GEN.: Tired EYES: None HEENT: None NECK: None RESPIRATORY: None CARDIOVASCULAR: None GASTROINTESTINAL: As above GENITOURINARY: None MUSCULOSKELETAL: None LYMPHATICS: None HEMATOLOGICAL: None PSYCHIATRY: [Very anxious NEUROLOGICAL: None Past medical history to include: A total hip revision, hypertension, adrenal insufficiency normal medications, other than the syndrome, vascular type, shingles, blood clots in 2019, left temporal lobe seizure, atonic seizure, anxiety disorder and panic disorder Social history: Smokes occasionally. Lives with her son and grandson. Smokes marijuana at night. No alcohol. Physical examination: VITAL SIGNS: 101.5, 90, 16, 160-76, 97% on 1 L GENERAL: BMI 20.1, laying in bed, slightly uncomfortable. EYES: Pupils equal. Conjunctiva normal. HEENT: External appearance of nose and ears normal, oral cavity grossly normal. NECK: JVD not raised; masses not palpable. HEART: First and second heart sounds are normal; no edema. LUNGS: Respiratory rate normal; clear to auscultation. ABDOMEN: Soft, upper abdominal tenderness, no obvious guarding or rigidity, liver spleen not palpable, no masses palpable. PSYCH: Alert and oriented x3; mood and affect very anxiousl. NEUROLOGICAL: Cranial nerves grossly intact; no facial asymmetry, power and sensation grossly intact. LYMPHATICS: No lymph nodes palpable in the axilla and neck INVESTIGATIONS, reviewed in the clinical context: White count 10.6 hemoglobin 11.9 potassium 4 bun 18 and creatinine 1.0 UA positive for trace leukoesterase, 12 RBC, COVID 19 ECF-not detected Computed tomography scan of the abdomen and pelvis shows chronic thoracic and abdominal aortic dissection also shoulder 2019, 4 cm aneurysm of the lower thoracic aorta, multiple cyst in the tail of the pancreas, right renal atrophy Assessment: -Patient presents with acute abdominal pain of one-day duration with some fever and nausea vomiting. 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 After discussing at length she's agreed to the same. Given IV fluids. Initially blood pressure was running high hence was given a Catapres patch. We will put the patient empirically grossly on Zosyn. Care was discussed in length with the patient. Questions were answered. Home medications resumed. Past Medical History Past Medical History: Atrial Fibrillation, Hypertension, Seizure Disorder Additional Past Medical History / Comment(s): adrenal insufficiency; Jimmy Danlos Syndrome - Vascular Type, recent afib 2018, shingles november 2018, blood clots october 2018, seizure current- left temporal lobe seizure, atonic seizures. Has some left sided weakness from surgery last october. History of Any Multi-Drug Resistant Organisms: None Reported Past Surgical History: Hysterectomy Additional Past Surgical History / Comment(s): abdominal sugery; Aortic grafting, pt stated she was told she had a mass on her pancreas, ets ventrical repair- october 2018, 7 arm surgeries for cysts carpal tunnel, broken bones. Past Anesthesia/Blood Transfusion Reactions: No Reported Reaction Past Psychological History: Anxiety, Panic Disorder Additional Psychological History / Comment(s): Generalized anxiety disorder Smoking Status: Current every day smoker Past Alcohol Use History: None Reported Past Drug Use History: Marijuana Additional Drug Use History / Comment(s): Smokes marijuana nightly, smoke 1-2 cigarrettes a day. - Past Family History Brother(s) Additional Family Medical History / Comment(s): She does have a brother with a history of aneurysm as well. History of skin cancer. family Family Medical History: Unable to Obtain Medications and Allergies Home Medications Medication Instructions Recorded Confirmed Type Acetaminophen [Tylenol] 650 mg PO Q6H PRN 12/17/18 10/04/19 History Cholecalciferol (Vitamin D3) 10,000 unit PO DAILY 12/17/18 10/04/19 History [Vitamin D3] Melatonin 3 mg PO HS PRN 12/17/18 10/04/19 History PARoxetine HCL 20 mg PO HS 12/17/18 10/04/19 History Aspirin [Adult Low Dose Aspirin EC] 81 mg PO DAILY 10/04/19 10/04/19 History Atorvastatin Calcium [Lipitor] 20 mg PO HS 10/04/19 10/04/19 History Carvedilol [Coreg] 25 mg PO BID 10/04/19 10/04/19 History Diazepam [Valium] 5 mg PO TID PRN 10/04/19 10/04/19 History Levothyroxine Sodium [Synthroid] 150 mcg PO DAILY 10/04/19 10/04/19 History Lisinopril 20 mg PO DAILY 10/04/19 10/04/19 History Ondansetron HCl [Zofran] 4 mg PO Q8H PRN 10/04/19 10/04/19 History hydrALAZINE HCL [Apresoline] 100 mg PO TID 10/04/19 10/04/19 History Allergies Allergy/AdvReac Type Severity Reaction Status Date / Time adhesive Allergy Itching Verified 10/04/19 02:34 Physical Exam Vitals: Vital Signs Temp Pulse Pulse Resp BP BP Pulse Ox 10/04/19 08:09 101.5 F H 90 16 162/76 97 10/04/19 08:00 20 10/04/19 06:00 155/78 10/04/19 05:30 181/94 10/04/19 05:00 178/90 10/04/19 04:30 161/81 10/04/19 03:45 20 167/75 94 L 10/04/19 03:09 107 H 20 189/101 94 L 10/04/19 03:06 189/101 10/04/19 02:55 182/97 10/04/19 02:45 177/96 10/04/19 02:25 183/94 10/04/19 02:10 99 199/97 10/04/19 01:55 212/109 10/04/19 01:50 202/94 10/04/19 01:45 107 H 189/84 10/04/19 01:40 197/94 10/04/19 01:30 98.8 F 105 H 20 188/87 97 10/04/19 01:02 85 16 175/96 97 10/03/19 23:00 98.6 F 95 17 178/90 96 10/03/19 20:19 96 17 170/91 97 10/03/19 19:27 97.8 F 71 18 167/98 97 Intake and Output 10/03/19 10/04/19 10/04/19 22:59 06:59 14:59 Intake Total 820 Balance 820 Intake: Oral 820 Other: # Voids 1 # Emeses 1 Weight 63.503 kg 63.503 kg Results CBC & Chem 7: 10/04/19 10:05 10/04/19 10:05 Labs: Abnormal Lab Results - Last 24 Hours (Table) 10/03/19 10/03/19 10/03/19 Range/Units 19:41 19:41 20:24 Neutrophils # 7.9 H (1.3-7.7) k/uL Chloride 109 H (98-107) mmol/L BUN 18 H (7-17) mg/dL Creatinine 1.09 H (0.52-1.04) mg/dL Glucose 100 H (74-99) mg/dL Alkaline Phosphatase 147 H (38-126) U/L Urine Protein 1+ H (Negative) Urine Ketones Trace H (Negative) Ur Leukocyte Esterase Trace H (Negative) Urine RBC 12 H (0-5) /hpf Hyaline Casts 4 H (0-2) /lpf Urine Mucus Few H (None) /hpf Thrombosis Risk Factor Assmnt - Choose All That Apply Any of the Below Risk Factors Present?: Yes Each Factor Represents 1 point: Age 41-60 years Other Risk Factors: No Other congenital or acquired thrombophilia - If yes, enter type in comment: Yes Thrombosis Risk Factor Assessment Total Risk Factor Score: 1 Thrombosis Risk Factor Assessment Level: Low Risk
[2019-10-05] MEDS: HYDROmorphone 1 MG/ML 1 ML SYRINGE IVP PRN ×5 (01:48→20:36)
--- NOTE | 2019-10-05 03:40 | P.CONS ---
History of Present Illness - Reason for Consult Consult date: 10/04/19 Abdominal pain, nausea, vomiting, diarrhea Requesting physician: Mckinley Silvestre - Chief Complaint Abdominal pain, nausea, vomiting, diarrhea - History of Present Illness 53-year-old female with multiple medical comorbidities including adrenal insufficiency, seizure disorder, anxiety disorder, atrial fibrillation and hypertension who presented to the hospital with reports of abdominal pain, nausea and vomiting and some loose bowel movements. The patient reports that raudel whittaker was in contact with her grandson who had similar symptoms. She reports multiple episodes of loose nonbloody bowel movements. She also reports associated nausea and vomiting without any evidence of coffee-ground emesis. Patient was previously noted to have multiple pancreatic cysts on computed t omography scan of the abdomen with recommendation for endoscopic ultrasound which she refused. Currently she is seen lying in bed reporting symptoms have improved including lower abdominal cramping which was present prior to presentation. Laboratory evaluation significant for amylase 48, lipase 53, WBC 9.1, hemoglobin 10.3, platelet count 251,000, total bilirubin 0.4, alkaline phosphatase 247, AST 19 and ALT 9. Ultrasound abdomen negative for any abnormal hepatobiliary pathology. Computed tomography scan of the abdomen showed improved pancreatic cysts and other findings. . Review of Systems REVIEW OF SYSTEMS: CONSTITUTIONAL: Denies any fevers, chills, weight change or fatigue. CARDIOVASCULAR: Denies any chest pain, palpitations high or low blood pressures RESPIRATORY: Denies any shortness of breath, hemoptysis or cough. GENITOURINARY: No dysuria or hematuria. MUSCULOSKELETAL: No weakness reported. SKIN: Denies any new rashes or lesions, jaundice or pallor. PSYCHIATRIC: Denies any depression or anxiety. NEUROLOGY: Denies headache, denies any new focal deficits. EARS/NOSE/THROAT: No recent hearing change, congestion, nasal discharge or sore throat. EYES: No pain in eyes, discharge or change in vision. GASTROINTESTINAL: As per HPI. Past Medical History Past Medical History: Atrial Fibrillation, Hypertension, Seizure Disorder Additional Past Medical History / Comment(s): adrenal insufficiency; Jimmy Danlos Syndrome - Vascular Type, recent afib 2018, shingles november 2018, blood clots october 2018, seizure current- left temporal lobe seizure, atonic seizures. Has some left sided weakness from surgery last october. History of Any Multi-Drug Resistant Organisms: None Reported Past Surgical History: Hysterectomy Additional Past Surgical History / Comment(s): abdominal sugery; Aortic grafting, pt stated she was told she had a mass on her pancreas, ets ventrical repair- october 2018, 7 arm surgeries for cysts carpal tunnel, broken bones. Past Anesthesia/Blood Transfusion Reactions: No Reported Reaction Past Psychological History: Anxiety, Panic Disorder Additional Psychological History / Comment(s): Generalized anxiety disorder Smoking Status: Current every day smoker Past Alcohol Use History: None Reported Past Drug Use History: Marijuana Additional Drug Use History / Comment(s): Smokes marijuana nightly, smoke 1-2 cigarrettes a day. - Past Family History Brother(s) Additional Family Medical History / Comment(s): She does have a brother with a history of aneurysm as well. History of skin cancer. family Family Medical History: Unable to Obtain Medications and Allergies Home Medications Medication Instructions Recorded Confirmed Type Acetaminophen [Tylenol] 650 mg PO Q6H PRN 12/17/18 10/04/19 History Cholecalciferol (Vitamin D3) 10,000 unit PO DAILY 12/17/18 10/04/19 History [Vitamin D3] Melatonin 3 mg PO HS PRN 12/17/18 10/04/19 History PARoxetine HCL 20 mg PO HS 12/17/18 10/04/19 History Aspirin [Adult Low Dose Aspirin EC] 81 mg PO DAILY 10/04/19 10/04/19 History Atorvastatin Calcium [Lipitor] 20 mg PO HS 10/04/19 10/04/19 History Carvedilol [Coreg] 25 mg PO BID 10/04/19 10/04/19 History Diazepam [Valium] 5 mg PO TID PRN 10/04/19 10/04/19 History Levothyroxine Sodium [Synthroid] 150 mcg PO DAILY 10/04/19 10/04/19 History Lisinopril 20 mg PO DAILY 10/04/19 10/04/19 History Ondansetron HCl [Zofran] 4 mg PO Q8H PRN 10/04/19 10/04/19 History hydrALAZINE HCL [Apresoline] 100 mg PO TID 10/04/19 10/04/19 History Allergies Allergy/AdvReac Type Severity Reaction Status Date / Time adhesive Allergy Itching Verified 10/04/19 02:34 Physical Exam Vitals: Vital Signs Temp Pulse Pulse Resp BP BP Pulse Ox 10/04/19 12:15 98.7 F 89 16 157/77 95 10/04/19 10:45 98.0 F 10/04/19 08:09 101.5 F H 90 16 162/76 97 10/04/19 08:00 20 10/04/19 06:00 155/78 10/04/19 05:30 181/94 10/04/19 05:00 178/90 10/04/19 04:30 161/81 10/04/19 03:45 20 167/75 94 L 10/04/19 03:09 107 H 20 189/101 94 L 10/04/19 03:06 189/101 10/04/19 02:55 182/97 10/04/19 02:45 177/96 10/04/19 02:25 183/94 10/04/19 02:10 99 199/97 10/04/19 01:55 212/109 10/04/19 01:50 202/94 10/04/19 01:45 107 H 189/84 10/04/19 01:40 197/94 10/04/19 01:30 98.8 F 105 H 20 188/87 97 10/04/19 01:02 85 16 175/96 97 10/03/19 23:00 98.6 F 95 17 178/90 96 10/03/19 20:19 96 17 170/91 97 10/03/19 19:27 97.8 F 71 18 167/98 97 Intake and Output 10/03/19 10/04/19 10/04/19 22:59 06:59 14:59 Intake Total 820 Balance 820 Intake: Oral 820 Other: # Voids 1 # Emeses 1 Weight 63.503 kg 63.503 kg 61.8 kg On physical examination, patient appears comfortable in no apparent distress. HEAD: Normocephalic, atraumatic. EYES: No scleral icterus. No conjunctival injection. MOUTH: No lesions, tongue midline. NECK: Trachea midline, no gross abnormalities. CHEST: Clear to auscultation with no wheezing or rhonchi appreciated. HEART: Regular rate and rhythm. ABDOMEN: Soft, obese. Bowel sounds are positive. No organomegaly. No guarding or rigidity. EXTREMITIES: No pedal edema. SKIN: No rashes, no jaundice. NEUROLOGIC: Alert and oriented x3. No focal deficits. Results CBC & Chem 7: 10/04/19 10:05 10/04/19 10:05 Labs: Abnormal Lab Results - Last 24 Hours (Table) 10/03/19 10/03/19 10/03/19 Range/Units 19:41 19:41 20:24 RBC (3.80-5.40) m/uL Hgb (11.4-16.0) gm/dL Hct (34.0-46.0) % MCHC (31.0-37.0) g/dL Neutrophils # 7.9 H (1.3-7.7) k/uL Sodium (137-145) mmol/L Chloride 109 H (98-107) mmol/L BUN 18 H (7-17) mg/dL Creatinine 1.09 H (0.52-1.04) mg/dL Glucose 100 H (74-99) mg/dL Alkaline Phosphatase 147 H (38-126) U/L Total Protein (6.3-8.2) g/dL Albumin (3.5-5.0) g/dL Urine Protein 1+ H (Negative) Urine Ketones Trace H (Negative) Ur Leukocyte Esterase Trace H (Negative) Urine RBC 12 H (0-5) /hpf Hyaline Casts 4 H (0-2) /lpf Urine Mucus Few H (None) /hpf 10/04/19 10/04/19 Range/Units 10:05 10:05 RBC 3.36 L (3.80-5.40) m/uL Hgb 10.3 L (11.4-16.0) gm/dL Hct 33.3 L (34.0-46.0) % MCHC 30.9 L (31.0-37.0) g/dL Neutrophils # (1.3-7.7) k/uL Sodium 135 L (137-145) mmol/L Chloride (98-107) mmol/L BUN (7-17) mg/dL Creatinine (0.52-1.04) mg/dL Glucose 108 H (74-99) mg/dL Alkaline Phosphatase (38-126) U/L Total Protein 5.9 L (6.3-8.2) g/dL Albumin 3.0 L (3.5-5.0) g/dL Urine Protein (Negative) Urine Ketones (Negative) Ur Leukocyte Esterase (Negative) Urine RBC (0-5) /hpf Hyaline Casts (0-2) /lpf Urine Mucus (None) /hpf US - abdomen: report reviewed (Ultrasound of the abdomen with no cholelithiasis, cholecystitis noted with some liver cysts likely representing hemangioma seen.) Assessment and Plan (1) Abdominal pain Narrative/Plan: 53-year-old female presenting to the hospital with complaints of abdominal pain, nausea and vomiting and a few loose bowel movements. Symptoms occurred suddenly and she did have a grandson with similar symptoms. Computed tomography scan of the abdomen negative for any acute intra-abdominal process. Ultrasound of the abdomen showing likely hemangiomas in the liver with no cholelithiasis or cholecystitis noted. Symptoms currently improved. Current Visit: Yes Status: Acute Code(s): R10.9 - UNSPECIFIED ABDOMINAL PAIN SNOMED Code(s): 23322994 (2) Vomiting Current Visit: Yes Status: Acute Code(s): R11.10 - VOMITING, UNSPECIFIED SNOMED Code(s): 686910927 Plan: Supportive care Okay for diet as tolerated Continue current medical management Ultrasound of the abdomen reviewed Appreciate recommendations from surgical service Thank you for allowing us to participate in the care of the patient
[2019-10-05] MEDS: diazePAM 5 MG TAB PO PRN ×3 (05:36→22:37)
[2019-10-05] MEDS: LEVOTHYROXINE 75 MCG TAB PO SCH (05:36)
[2019-10-05] MEDS: SODIUM CHLORIDE 0.9% 1,000 ML IV SCH ×3 (07:02→18:19)
[2019-10-05] MEDS: PIPERACILLIN-TAZOBACTAM 3.375 GM in SODIUM CHLORIDE 0.9% 100 ML IVPB SCH ×2 (09:22→17:50)
[2019-10-05] MEDS: ASPIRIN 81 MG PO SCH (09:24)
[2019-10-05] MEDS: carvediloL 12.5 MG TAB PO SCH ×2 (09:25→21:18)
[2019-10-05] MEDS: CHOLECALCIFEROL 1,000 UNIT TAB PO SCH (09:26)
[2019-10-05] MEDS: ENOXAPARIN 40 MG/0.4 ML SYRINGE SQ SCH (09:26)
[2019-10-05] MEDS: hydrALAZINE HCL 50 MG TAB PO SCH ×3 (09:27→21:18)
[2019-10-05] MEDS: lisinopriL 20 MG TAB PO SCH (09:27)
[2019-10-05] MEDS: PARoxetine 20 MG TAB PO SCH (09:28)
[2019-10-05] MEDS: PANTOPRAZOLE 40 MG/10 ML VIAL IV SCH (09:28)
[2019-10-05] MEDS: ONDANSETRON 4 MG/2 ML VIAL IVP PRN (09:29)
--- NOTE | 2019-10-05 09:29 | P.PN ---
Progress Note - Text Progress Note Date: 10/05/19 Patient still has complaints of right-sided abdominal pain. Her ultrasound of the gallbladder is negative. On exam vital signs show. Abdomen soft. Patient be scheduled for HIDA scan to that for biliary dysfunction.
--- NOTE | 2019-10-05 17:51 | NM ---
EXAMINATION TYPE: NM hepatobiliary w CCK DATE OF EXAM: 10/05/2019 COMPARISON: NONE HISTORY: Abdominal pain TECHNIQUE: After the intravenous administration of 4.48 mCi Tc 99m Mebrofenin hepatobiliary scintigra phy is performed. Immediate images post injection. FINDINGS: There is satisfactory initial accumulation of tracer by the liver. The gallbladder is visualized wit hin 15 minutes. The small bowel activity is noted within 30 minutes. At one hour CCK was administer ed, patient was injected with 1.2 mcg of Kinevac, and gallbladder ejection fraction is calculated at 26 %, there is no focal liver defect. IMPRESSION: There is hypokinetic abnormal gallbladder ejection fraction of 26% with the CCK stimulati on. No cystic duct or common bile duct obstruction.
[2019-10-05] MEDS ORDERED: PROCHLORPERAZINE 5 MG TAB PO PRN (17:53)
--- NOTE | 2019-10-05 20:52 | P.PN ---
Progress Note - Text Progress Note Date: 10/05/19 Chief Complaint: Abdominal pain History of presenting complaint: This is a pleasant 53-year-old patient who follows with visiting physicians Dr. Lott. Chronic stable medical conditions include atrial fibrillation, hypertension, seizure disorder, adrenal insufficiency off medications, other than the syndrome, vascular type, blood clots in October 2018, left temporal lobe seizure, denies anxiety disorder. Patient presents with multiple episodes of vomiting since yesterday. No blood in the same. Having increasing upper abdominal and right upper quadrant pain. Also some fever. Patient only to baseline is has about 4 bowel movements a day somewhat mushy. Noted to have some low-grade fever here. Patient is very anxious. Today-decreased nausea. No vomiting. Upper abdominal pain still present. Review of systems: Was done for constitutional, cardiovascular, GI, pulmonary. relevant finding as above Active Medications Acetaminophen (Tylenol Tab) 650 mg PO Q6HR PRN PRN Reason: Fever and/ or Pain Last Admin: 10/04/19 20:02 Dose: 650 mg Documented by: Aspirin (Aspirin) 81 mg PO DAILY [facility] Last Admin: 10/05/19 09:24 Dose: 81 mg Documented by: Carvedilol (Coreg) 25 mg PO BID [facility] Last Admin: 10/05/19 09:25 Dose: 25 mg Documented by: Cholecalciferol (Vitamin D3 (25 Mcg = 1000 Iu)) 10,000 unit PO DAILY [facility] Last Admin: 10/05/19 09:26 Dose: Not Given Documented by: Clonidine HCl (Catapres-Tts 0.1mg Patch) 1 patch TRANSDERM Q7D [facility] Last Admin: 10/04/19 03:33 Dose: 1 patch Documented by: Diazepam (Valium) 5 mg PO TID PRN PRN Reason: Anxiety Last Admin: 10/05/19 13:30 Dose: 5 mg Documented by: Enoxaparin Sodium (Lovenox) 40 mg SQ DAILY [facility] Last Admin: 10/05/19 09:26 Dose: 40 mg Documented by: Hydralazine HCl (Apresoline) 100 mg PO TID [facility] Last Admin: 10/05/19 17:49 Dose: 100 mg Documented by: Hydromorphone HCl (Dilaudid) 1 mg IVP Q3HR PRN PRN Reason: Severe Pain Last Admin: 10/05/19 20:36 Dose: 1 mg Documented by: Sodium Chloride (Saline 0.9%) 1,000 mls @ 100 mls/hr IV .Q10H [facility] Last Admin: 10/05/19 18:19 Dose: 100 mls/hr Documented by: Piperacillin Sod/Tazobactam (Sod 3.375 gm/ Sodium Chloride) 100 mls @ 25 mls/hr IVPB Q8HR [facility] Last Admin: 10/05/19 17:50 Dose: 25 mls/hr Documented by: Levothyroxine Sodium (Synthroid) 150 mcg PO DAILY@0630 [facility] Last Admin: 10/05/19 05:36 Dose: 150 mcg Documented by: Lisinopril (Zestril) 20 mg PO DAILY [facility] Last Admin: 10/05/19 09:27 Dose: 20 mg Documented by: Melatonin (Melatonin) 3 mg PO HS PRN PRN Reason: Insomnia Last Admin: 10/04/19 21:03 Dose: 3 mg Documented by: Naloxone HCl (Narcan) 0.2 mg IV Q2M PRN PRN Reason: Opioid Reversal Pantoprazole Sodium (Protonix) 40 mg IV DAILY [facility] Last Admin: 10/05/19 09:28 Dose: 40 mg Documented by: Paroxetine HCl (Paxil) 20 mg PO DAILY [facility] Last Admin: 10/05/19 09:28 Dose: 20 mg Documented by: Prochlorperazine Maleate (Compazine) 5 mg PO Q6HR PRN PRN Reason: Nausea And Vomiting Last Admin: 10/05/19 18:38 Dose: 5 mg Documented by: Simethicone (Mylicon Chew) 120 mg PO DAILY PRN PRN Reason: gas Last Admin: 10/05/19 09:29 Dose: 120 mg Documented by: Physical examination: VITAL SIGNS: T-max 100.4, 78, 18, 136/71, 96% room air GENERAL:, laying in bed, uncomfortable. EYES: Pupils equal. Conjunctiva normal. HEENT: External appearance of nose and ears normal, oral cavity grossly normal. NECK: JVD not raised; masses not palpable. HEART: First and second heart sounds are normal; no edema. LUNGS: Respiratory rate normal; clear to auscultation. ABDOMEN: Soft, upper abdominal tenderness, no obvious guarding or rigidity, liver spleen not palpable, no masses palpable. PSYCH: Alert and oriented x3; mood and affect very anxious. INVESTIGATIONS, reviewed in the clinical context: HIDA scan-hypokinetic abnormal gallbladder with EF 20% with CCK stimulation. Abdominal ultrasound-unremarkable Previous testing White count 10.6 hemoglobin 11.9 potassium 4 bun 18 and creatinine 1.0 UA positive for trace leukoesterase, 12 RBC, COVID 19 ECF-not detected Computed tomography scan of the abdomen and pelvis shows chronic thoracic and abdominal aortic dissection also shoulder 2019, 4 cm aneurysm of the lower thoracic aorta, multiple cyst in the tail of the pancreas, right renal atrophy Assessment: -Patient presents with acute abdominal pain of one-day duration with some fever and nausea vomiting. 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 Follow with general surgery. Continue with IV fluids. Patient on IV fluids. Also in IV Zosyn.
[2019-10-06] MEDS: PIPERACILLIN-TAZOBACTAM 3.375 GM in SODIUM CHLORIDE 0.9% 100 ML IVPB SCH ×2 (01:01→07:50)
[2019-10-06] MEDS: HYDROmorphone 1 MG/ML 1 ML SYRINGE IVP PRN ×4 (01:04→11:28)
[2019-10-06 01:18] VITALS: RESP 16
--- NOTE | 2019-10-06 01:23 | P.PN ---
Subjective Progress Note Date: 10/05/19 Principal diagnosis: Abdominal pain, nausea Patient is seen lying in bed still having some abdominal pain as her narcotic therapy is being held for HIDA scan. Objective - Vital Signs Vital signs: Vital Signs Temp 99.3 F 10/06/19 01:00 Pulse 76 10/06/19 01:00 Resp 16 10/06/19 01:00 BP 131/66 10/06/19 01:00 Pulse Ox 95 10/06/19 01:00 Intake & Output 10/05/19 10/05/19 10/06/19 06:59 18:59 06:59 Intake Total 1400 240 Output Total 100 Balance 1300 240 Intake: Oral 1400 240 Output: Urine 100 Other: # Voids 1 1 # Bowel Movements 1 - Exam On physical examination, patient appears comfortable in no apparent distress. HEAD: Normocephalic, atraumatic. EYES: No scleral icterus. No conjunctival injection. MOUTH: No lesions, tongue midline. NECK: Trachea midline, no gross abnormalities. ABDOMEN: Soft, obese, moderately tender to palpation. Bowel sounds are positive. No organomegaly. No guarding or rigidity. EXTREMITIES: No pedal edema. SKIN: No rashes, no jaundice. NEUROLOGIC: Alert and oriented x3. No focal deficits. - Labs CBC & Chem 7: 10/04/19 10:05 10/04/19 10:05 Labs: Microbiology - Last 24 Hours (Table) 10/04/19 10:20 Urine Culture - Final Urine,Clean Catch 10/04/19 10:06 Blood Culture - Preliminary Blood No Growth after 24 hours 10/04/19 10:19 Blood Culture - Preliminary Blood No Growth after 24 hours Assessment and Plan (1) Abdominal pain Narrative/Plan: 53-year-old female presenting to the hospital with complaints of abdominal pain, nausea and vomiting and a few loose bowel movements. Symptoms occurred suddenly and she did have a grandson with similar symptoms. Computed tomography scan of the abdomen negative for any acute intra-abdominal process. Ultrasound of the abdomen showing likely hemangiomas in the liver with no cholelithiasis or cholecystitis noted. Ultrasound negative, however HIDA scan today did show dyskinesia. Current Visit: Yes Status: Acute Code(s): R10.9 - UNSPECIFIED ABDOMINAL PAIN SNOMED Code(s): 34999227 (2) Vomiting Current Visit: Yes Status: Acute Code(s): R11.10 - VOMITING, UNSPECIFIED SNOMED Code(s): 930864802 Plan: Supportive care Okay for diet as tolerated Continue current medical management Ultrasound of the abdomen reviewed, HIDA scan today did show dyskinesia, we'll defer further management the surgical service Thank you for allowing us to participate in the care of the patient, the GI service will stand by, please call us back with any questions or concerns
[2019-10-06] MEDS: SODIUM CHLORIDE 0.9% 1,000 ML IV SCH (03:30)
[2019-10-06] MEDS: LEVOTHYROXINE 75 MCG TAB PO SCH (06:00)
[2019-10-06 07:25] LABS: Basophils % (A) 0 %; Eosinophils # (A) 0.1 k/uL (0-0.7); Eosinophils % (A) 2 %; HGB 9.6 gm/dL (11.4-16.0); Hypochromasia Marked; Lymphocytes # (A) 1.2 k/uL (1.0-4.8); Lymphocytes % (A) 22 %; MCH 30.8 pg (25.0-35.0); MCHC 30.8 g/dL (31.0-37.0); MCV 99.8 fL (80.0-100.0); Mean Platelet Volume 7.5; Monocytes # (A) 0.5 k/uL (0-1.0); Monocytes % (A) 8 %; Neutrophils # (A) 3.6 k/uL (1.3-7.7); Neutrophils % (A) 65 %; Platelet Count 261 k/uL (150-450); RBC 3.11 m/uL (3.80-5.40); RDW 13.8 % (11.5-15.5); WBC 5.6 k/uL (3.8-10.6)
[2019-10-06 07:35] LABS: Albumin 2.6 g/dL (3.5-5.0); Calcium 9.4 mg/dL (8.4-10.2); Potassium 3.6 mmol/L (3.5-5.1); Total Bilirubin 0.3 mg/dL (0.2-1.3); Total Protein 5.3 g/dL (6.3-8.2)
[2019-10-06] MEDS: PANTOPRAZOLE 40 MG/10 ML VIAL IV SCH (07:50)
[2019-10-06] MEDS: CHOLECALCIFEROL 1,000 UNIT TAB PO SCH (07:50)
[2019-10-06] MEDS: ASPIRIN 81 MG PO SCH (07:51)
[2019-10-06] MEDS: lisinopriL 20 MG TAB PO SCH (07:51)
[2019-10-06] MEDS: ENOXAPARIN 40 MG/0.4 ML SYRINGE SQ SCH (08:02)
[2019-10-06] MEDS ORDERED: cloNIDine HCL 0.1 MG TAB PO SCH (10:15)
[2019-10-06] MEDS: hydrALAZINE HCL 50 MG TAB PO SCH (10:19)
[2019-10-06] MEDS: carvediloL 12.5 MG TAB PO SCH (10:19)
[2019-10-06] MEDS: PARoxetine 20 MG TAB PO SCH (10:19)
--- NOTE | 2019-10-06 10:19 | P.PN ---
Progress Note - Text Progress Note Date: 10/06/19 The patient's found have biliary dysfunction on her HIDA scan. She has a diminished ejection fraction. I explained this to the patient. She'll be scheduled for outpatient laparoscopically cholecystectomy on Thursday. The patient stable for discharge today. She will be on a low-fat diet over the weekend.
[2019-10-06 10:33] VITALS: BP 117/61; PULSE 69; TEMP 98.6
--- NOTE | 2019-10-06 23:16 | P.DS ---
Providers Date of admission: 10/05/19 15:02 Expected date of discharge: 10/06/19 Attending physician: Mckinley Silvestre Consults: 10/04/19 07:38 Consult Physician Routine Consulting Provider: Dao Jones Consult Reason/Comments: abdominal pain Do you want consulting provider notified?: Yes Primary care physician: [facility] Course: Chief Complaint: Abdominal pain History of presenting complaint: This is a pleasant 53-year-old patient who follows with visiting physicians Dr. Lott. Chronic stable medical conditions include atrial fibrillation, hypertension, seizure disorder, adrenal insufficiency off medications, other than the syndrome, vascular type, blood clots in October 2018, left temporal lobe seizure, denies anxiety disorder. Patient presents with multiple episodes of vomiting since yesterday. No blood in the same. Having increasing upper abdominal and right upper quadrant pain. Also some fever. Patient only to baseline is has about 4 bowel movements a day somewhat mushy. Noted to have some low-grade fever here. Patient is very anxious. Patient HIDA scan did come back showing a low ejection fraction. Suggestive for for dyskinetic gallbladder. Today-feeling a bit better today. Seen by Dr. Jones. Labs the patient return on Thursday for surgery. Discussed with the patient. Patient still a full liquid diet. Patient be sent home on Augmentin. Discussion and discharge planning more than 35 minutes Consultation: Dr. Jones from surgery Physical examination: VITAL SIGNS: 98.5, 74, 18, 117/61, GENERAL:, laying in bed, looking better EYES: Pupils equal. Conjunctiva normal. HEENT: External appearance of nose and ears normal, oral cavity grossly normal. NECK: JVD not raised; masses not palpable. HEART: First and second heart sounds are normal; no edema. LUNGS: Respiratory rate normal; clear to auscultation. ABDOMEN: Soft, upper abdominal tenderness, no obvious guarding or rigidity, liver spleen not palpable, no masses palpable. PSYCH: Alert and oriented x3; mood and affect very anxious. INVESTIGATIONS, reviewed in the clinical context: White count 5.6 hemoglobin 9.6 potassium 3.6 creatinine 0.99 Previous testing White count 10.6 hemoglobin 11.9 potassium 4 bun 18 and creatinine 1.0 UA positive for trace leukoesterase, 12 RBC, COVID 19 ECF-not detected Computed tomography scan of the abdomen and pelvis shows chronic thoracic and abdominal aortic dissection also shoulder 2019, 4 cm aneurysm of the lower thoracic aorta, multiple cyst in the tail of the pancreas, right renal atrophy HIDA scan-hypokinetic abnormal gallbladder with EF 20% with CCK stimulation. 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 -Generalized anxiety and panic disorder -Chronic nicotine dependence patient cigarette smoker Disposition: Home Patient Condition at Discharge: Stable Plan - Discharge Summary Discharge Rx Participant: Yes New Discharge Prescriptions: New Amoxicillin/Potassium Clav [Augmentin 875-125 Tablet] 1 tab PO Q12HR #14 tab cloNIDine HCL [Catapres] 0.1 mg PO BID #60 tab Continue PARoxetine HCL 20 mg PO HS Acetaminophen [Tylenol] 650 mg PO Q6H PRN PRN Reason: Pain Melatonin 3 mg PO HS PRN PRN Reason: Insomnia Cholecalciferol (Vitamin D3) [Vitamin D3] 10,000 unit PO DAILY Lisinopril 20 mg PO DAILY Diazepam [Valium] 5 mg PO TID PRN PRN Reason: Anxiety hydrALAZINE HCL [Apresoline] 100 mg PO TID Aspirin [Adult Low Dose Aspirin EC] 81 mg PO DAILY Ondansetron HCl [Zofran] 4 mg PO Q8H PRN PRN Reason: Nausea And Vomiting Carvedilol [Coreg] 25 mg PO BID Atorvastatin Calcium [Lipitor] 20 mg PO HS Levothyroxine Sodium [Synthroid] 150 mcg PO DAILY Discharge Medication List Acetaminophen [Tylenol] 650 mg PO Q6H PRN 12/17/18 [History] Cholecalciferol (Vitamin D3) [Vitamin D3] 10,000 unit PO DAILY 12/17/18 [History] Melatonin 3 mg PO HS PRN 12/17/18 [History] PARoxetine HCL 20 mg PO HS 12/17/18 [History] Aspirin [Adult Low Dose Aspirin EC] 81 mg PO DAILY 10/04/19 [History] Atorvastatin Calcium [Lipitor] 20 mg PO HS 10/04/19 [History] Carvedilol [Coreg] 25 mg PO BID 10/04/19 [History] Diazepam [Valium] 5 mg PO TID PRN 10/04/19 [History] Levothyroxine Sodium [Synthroid] 150 mcg PO DAILY 10/04/19 [History] Lisinopril 20 mg PO DAILY 10/04/19 [History] Ondansetron HCl [Zofran] 4 mg PO Q8H PRN 10/04/19 [History] hydrALAZINE HCL [Apresoline] 100 mg PO TID 10/04/19 [History] Amoxicillin/Potassium Clav [Augmentin 875-125 Tablet] 1 tab PO Q12HR #14 tab 10/06/19 [Rx] cloNIDine HCL [Catapres] 0.1 mg PO BID #60 tab 10/06/19 [Rx] Follow up Appointment(s)/Referral(s): [facility], [NON-STAFF] - 1-2 Days Delmer Lott MD [Primary Care Provider] - 1-2 days Dao Jones MD [STAFF PHYSICIAN] - 10/10/19 Patient Instructions/Handouts: Pain Management (GEN), Laparoscopic Cholecystectomy (GEN) Activity/Diet/Wound Care/Special Instructions: possible indigent funds needed at discharge, contact Case management if needed full liquid diet You are scheduled to have your gallbladder removed on Thursday, October 10, 2019. The surgical scheduling office will call you tomorrow to get you registered. [facility] is going to contact you to help with nursing services that may be needed at home. Good hand washing by all family members. No Driving. Activity as tolerated, rest as needed. Keep safety in mind at home when getting up out of bed, getting up from a chair, walking, and climbing stairs. Discharge Disposition: HOME SELF-CARE
== END 2019-10-06 13:55 | disposition home health service (06) | DRG 444 ==
LOC: EC 19:19 → 6PED 23:44 → OBSVTOIN 10-05 15:02
PROVIDERS: ADMIT Hospitalist; ATTEND Hospitalist
DX: K81.2 Acute cholecystitis with chronic cholecystitis (principal); I71.01 Dissection of thoracic aorta; I71.02 Dissection of abdominal aorta; E27.40 Unspecified adrenocortical insufficiency; Q79.60 Ehlers-Danlos syndrome, unspecified; K86.3 Pseudocyst of pancreas; Z11.59 Encounter for screening for other viral diseases; I48.91 Unspecified atrial fibrillation; G40.409 Other generalized epilepsy and epileptic syndromes, not intractable, without status epilepticus; I71.2 Thoracic aortic aneurysm, without rupture; F41.0 Panic disorder [episodic paroxysmal anxiety]; F41.1 Generalized anxiety disorder; I10 Essential (primary) hypertension; F17.210 Nicotine dependence, cigarettes, uncomplicated; B02.9 Zoster without complications; N26.1 Atrophy of kidney (terminal); R53.1 Weakness; D18.03 Hemangioma of intra-abdominal structures; Z79.899 Other long term (current) drug therapy; Z79.82 Long term (current) use of aspirin; Z79.890 Hormone replacement therapy; Z86.718 Personal history of other venous thrombosis and embolism; Z86.79 Personal history of other diseases of the circulatory system; Z98.890 Other specified postprocedural states; Z90.710 Acquired absence of both cervix and uterus; Z80.8 Family history of malignant neoplasm of other organs or systems; Z82.49 Family history of ischemic heart disease and other diseases of the circulatory system
CPT/HCPCS: 36415; 74177; 76700; 78227; 80053; 81001; 82150; 83605; 83690; 84484; 85025; 87040; 87086; 96361; 96374; 96375; 99285

== ENCOUNTER → 2019-10-14 | Day surgery (SDC) | payer MEDICARE ==
[~2019-10-14] MED LIST: ACETAMINOPHEN TAB 500 MG TAB PO ONE; DEXAMETHASONE SOD PHOSPHATE 10 MG/ML 1 ML VIAL IV ONE; HEPARIN SODIUM,PORCINE 5,000 UNIT/ML 1 ML VIAL SQ ONE; HYDROmorphone 0.5 MG/0.5 ML SYRINGE IVP PRN; LACTATED RINGERS 1,000 ML IV SCH; LIDOCAINE 1% (10MG/ML) FOR IV START INTRADERMA PRN; MIDAZOLAM 2 MG/2 ML VIAL IV PRN; ONDANSETRON 4 MG/2 ML VIAL IVP ONE; SODIUM CHLORIDE 0.9% 500 ML IV ONE; fentaNYL (PF) 50 MCG/ML 2 ML AMP IV PRN
[2019-10-14 09:57] VITALS: BP 133/63; PULSE 89; RESP 18; TEMP 97.9; BMI 20.7
== END ==
LOC: OR 06:21
PROVIDERS: ATTEND Surgery
DX: K40.10 Bilateral inguinal hernia, with gangrene, not specified as recurrent (principal); Z53.29 Procedure and treatment not carried out because of patient's decision for other reasons; Z88.6 Allergy status to analgesic agent; I11.0 Hypertensive heart disease with heart failure; I50.9 Heart failure, unspecified; N28.9 Disorder of kidney and ureter, unspecified; I49.9 Cardiac arrhythmia, unspecified; Z86.718 Personal history of other venous thrombosis and embolism; J45.909 Unspecified asthma, uncomplicated; E07.9 Disorder of thyroid, unspecified; R56.9 Unspecified convulsions; Z79.891 Long term (current) use of opiate analgesic; Z79.899 Other long term (current) drug therapy; Z79.890 Hormone replacement therapy; Z79.2 Long term (current) use of antibiotics

== ENCOUNTER 2020-01-03 13:18 | Inpatient (IN) | payer MEDICARE ==
[2020-01-03] MEDS ORDERED: SODIUM CHLORIDE 0.9% 500 ML 500 ML IV STA (13:56)
--- NOTE | 2020-01-03 14:17 | ED ---
Seizure HPI - General Chief Complaint: Seizure Stated Complaint: abd pain Time Seen by Provider: 01/03/20 13:26 Source: patient, EMS Mode of arrival: EMS Limitations: no limitations - History of Present Illness Initial Comments: Patient is a 54-year-old female with history of epilepsy, anxiety, heart failure, aortic aneurysm, Charleston's disease, chronic kidney disease presenting to the emergency department with chief complaint of seizures. Patient states she's had about 30 seizures over the last 4 days. Patient states she has been having tonic-clonic seizures throughout the night. Per EPS report, patient appeared to be anxious when she was first evaluated and then appeared to have a tonic-clonic seizure enamels. She was administered 10 mg of Versed IM. EMS states the patient immediately returned back to baseline. Patient states she has been going through some deaths in the family recently and is causing her more mental hardship. Patient states that all of her health conditions are "flaring up" and is causing her to have more seizures. Patient did admit to having a marijuana edible prior to calling the EMS. - Related Data Home Medications Medication Instructions Recorded Confirmed Aspirin [Adult Low Dose Aspirin EC] 162 mg PO TID PRN 10/04/19 01/03/20 Carvedilol [Coreg] 25 mg PO BID 10/04/19 01/03/20 Diazepam [Valium] 5 mg PO TID 10/04/19 01/03/20 hydrALAZINE HCL [Apresoline] 100 mg PO TID 10/04/19 01/03/20 lisinopriL 20 mg PO BID 10/04/19 01/03/20 Hydrocortisone 30 mg PO DAILY 10/13/19 01/03/20 Acetaminophen [Tylenol Arthritis] 1,300 mg PO Q8H PRN 01/03/20 01/03/20 Ergocalciferol [Vitamin D2 50,000 unit PO MO 01/03/20 01/03/20 (DRISDOL)] Hydrocortisone [Cortef] 5 - 10 mg PO DAILY PRN 01/03/20 01/03/20 Ibuprofen [Motrin Ib] 600 mg PO Q8H PRN 01/03/20 01/03/20 Levothyroxine Sodium [Synthroid] 150 mcg PO DAILY 01/03/20 01/03/20 Melatonin 6 mg PO HS PRN 01/03/20 01/03/20 diphenhydrAMINE HCL [Benadryl] 25 - 50 mg PO Q6H PRN 01/03/20 01/03/20 Previous Rx's Medication Instructions Recorded cloNIDine HCL [Catapres] 0.1 mg PO BID #60 tab 10/06/19 Allergies Allergy/AdvReac Type Severity Reaction Status Date / Time adhesive Allergy Itching Verified 01/03/20 16:50 ibuprofen [From Motrin] Allergy doesnt Verified 01/03/20 16:50 take d/t kidney issues Review of Systems ROS Statement: Those systems with pertinent positive or pertinent negative responses have been documented in the HPI. ROS Other: All systems not noted in ROS Statement are negative. Past Medical History Past Medical History: Atrial Fibrillation, Deep Vein Thrombosis (DVT), Hypertension, Neurologic Disorder, Pneumonia, Renal Disease, Seizure Disorder, Thyroid Disorder Additional Past Medical History / Comment(s): adrenal insufficiency; Jimmy Danlos Syndrome - Vascular Type, ACTH,recent afib 2018, shingles november 2018, blood clots october 2018, seizures- left temporal lobe atonic seizures. Has some left sided weakness from surgery last october, stage 3 kidney failure, 3 blood clots, groin,arm and leg History of Any Multi-Drug Resistant Organisms: None Reported Past Surgical History: Back Surgery, Hysterectomy Additional Past Surgical History / Comment(s): abdominal sugery; Aortic g rafting, pt stated she was told she had a mass on her pancreas, ets ventrical repair- october 2018, 7 arm surgeries for cysts carpal tunnel, broken bones. Past Anesthesia/Blood Transfusion Reactions: Previous Problems w/ Anesthesia, Family History of Problems w/ Anesthesia Additional Past Anesthesia/Blood Transfusion Reaction / Comment(s): pt states d /t severe adrenal insufficency, ACTH and EDS vascular must receive steroids prior to anesthesia, during october 2018 surgery at [facility] needed to be resusciated twice d/t "blood pressure tanking" was in a coma for 2 weeks and remained on life support for 1 week coma, wakes up combative. mom doesn't come out of anesthesia well. son comes out combative Past Psychological History: Anxiety, Panic Disorder Smoking Status: Former smoker Past Alcohol Use History: None Reported Past Drug Use History: Marijuana - Past Family History Brother(s) Family Medical History: Cancer Additional Family Medical History / Comment(s): She does have a brother with a history of aneurysm as well. History of skin cancer. - brain aneursym Mother Family Medical History: Blood Disorder Additional Family Medical History / Comment(s): factor V Father Additional Family Medical History / Comment(s): lungs filled with cyst and tumors- family Family Medical History: Unable to Obtain General Exam Limitations: no limitations General appearance: alert, in no apparent distress Head exam: Present: atraumatic, normocephalic, normal inspection Eye exam: Present: normal appearance, PERRL, EOMI Pupils: Present: normal accommodation ENT exam: Present: normal exam, normal oropharynx, mucous membranes moist, TM's normal bilaterally, normal external ear exam Neck exam: Present: normal inspection, full ROM. Absent: tenderness Respiratory exam: Present: normal lung sounds bilaterally. Absent: respiratory distress, wheezes, rales, rhonchi, stridor Cardiovascular Exam: Present: regular rate, normal rhythm, systolic murmur GI/Abdominal exam: Present: soft. Absent: distended, tenderness, guarding Extremities exam: Present: normal inspection, full ROM, normal capillary refill. Absent: tenderness Back exam: Present: normal inspection, full ROM. Absent: tenderness, CVA tenderness (R), CVA tenderness (L) Neurological exam: Present: alert, oriented X3 Psychiatric exam: Present: normal affect, normal mood Skin exam: Present: warm, dry, intact, normal color. Absent: rash Course Vital Signs 01/03/20 01/03/20 01/03/20 13:34 15:58 17:14 Temperature 99.5 F Pulse Rate 70 69 66 Respiratory 20 16 16 Rate Blood Pressure 121/71 144/97 206/105 O2 Sat by Pulse 99 99 99 Oximetry Medical Decision Making - Medical Decision Making Patient is a 54-year-old female with complex medical history presenting to the emergency department chief complaint of seizures. Patient brought to the ED via EMS. Physical examination is relatively unremarkable. She does appear slightly pale. She is otherwise resting comfortably. She was given 10 of IM Versed in the ambulance for an apparent seizure. Lactic acid obtained in the ED and it was within normal limits. I suspect pseudoseizures. CBC reveals anemia with hemoglobin of 8. This appears to have decreased from the most recent laboratory work. Initial troponin is negative. BNP is in the 500s. Chest x-ray is unremarkable. Brain CT unremarkable. Low she does have history of Charleston's and hypoparathyroidism. Her calcium level is 6.3. She also has hypomagnesemia and hypokalemia with levels of 1.4 and 3.3, respectively. Hypocalcemia could be secondary to low PTH levels. Calcium gluconate, IV potassium and magnesium started. EKG shows sinus rhythm with no QT prolongation. Patient will be admitted for further medical management. Case discussed with . Dr Vasquez requested occult stool. Patient declined. Admitting is Dr. Vasquez Neurology consulted - Lab Data Result diagrams: 01/03/20 14:50 01/03/20 14:50 Lab Results 01/03/20 01/03/20 01/03/20 Range/Units 14:45 14:50 14:50 WBC 7.8 (3.8-10.6) k/uL RBC 2.73 L (3.80-5.40) m/uL Hgb 8.0 L (11.4-16.0) gm/dL Hct 26.7 L (34.0-46.0) % MCV 98.1 (80.0-100.0) fL MCH 29.3 (25.0-35.0) pg MCHC 29.8 L (31.0-37.0) g/dL RDW 16.3 H (11.5-15.5) % Plt Count 211 (150-450) k/uL Neutrophils % 90 % Lymphocytes % 7 % Monocytes % 2 % Eosinophils % 0 % Basophils % 0 % Neutrophils # 7.0 (1.3-7.7) k/uL Lymphocytes # 0.5 L (1.0-4.8) k/uL Monocytes # 0.2 (0-1.0) k/uL Eosinophils # 0.0 (0-0.7) k/uL Basophils # 0.0 (0-0.2) k/uL Hypochromasia Marked Anisocytosis Slight Macrocytosis Slight Sodium 142 (137-145) mmol/L Potassium 3.3 L (3.5-5.1) mmol/L Chloride 121 H (98-107) mmol/L Carbon Dioxide 20 L (22-30) mmol/L Anion Gap 1 mmol/L BUN 16 (7-17) mg/dL Creatinine 0.71 (0.52-1.04) mg/dL Est GFR (CKD-EPI)AfAm >90 (>60 ml/min/1.73 sqM) Est GFR (CKD-EPI)NonAf >90 (>60 ml/min/1.73 sqM) Glucose 83 (74-99) mg/dL POC Glucose (mg/dL) 91 (75-99) mg/dL POC Glu [employer] Radha Walters Plasma Lactic Acid Kennedy (0.7-2.0) mmol/L Calcium 6.3 L* (8.4-10.2) mg/dL Magnesium 1.4 L (1.6-2.3) mg/dL Total Bilirubin 0.2 (0.2-1.3) mg/dL AST 11 L (14-36) U/L ALT 7 (4-34) U/L Alkaline Phosphatase 71 (38-126) U/L Troponin I (0.000-0.034) ng/mL NT-Pro-B Natriuret Pep pg/mL Total Protein 4.3 L (6.3-8.2) g/dL Albumin 2.2 L (3.5-5.0) g/dL 01/03/20 01/03/20 01/03/20 Range/Units 14:50 14:50 14:50 WBC (3.8-10.6) k/uL RBC (3.80-5.40) m/uL Hgb (11.4-16.0) gm/dL Hct (34.0-46.0) % MCV (80.0-100.0) fL MCH (25.0-35.0) pg MCHC (31.0-37.0) g/dL RDW (11.5-15.5) % Plt Count (150-450) k/uL Neutrophils % % Lymphocytes % % Monocytes % % Eosinophils % % Basophils % % Neutrophils # (1.3-7.7) k/uL Lymphocytes # (1.0-4.8) k/uL Monocytes # (0-1.0) k/uL Eosinophils # (0-0.7) k/uL Basophils # (0-0.2) k/uL Hypochromasia Anisocytosis Macrocytosis Sodium (137-145) mmol/L Potassium (3.5-5.1) mmol/L Chloride (98-107) mmol/L Carbon Dioxide (22-30) mmol/L Anion Gap mmol/L BUN (7-17) mg/dL Creatinine (0.52-1.04) mg/dL Est GFR (CKD-EPI)AfAm (>60 ml/min/1.73 sqM) Est GFR (CKD-EPI)NonAf (>60 ml/min/1.73 sqM) Glucose (74-99) mg/dL POC Glucose (mg/dL) (75-99) mg/dL POC Glu [employer] ID Plasma Lactic Acid Kennedy 0.8 (0.7-2.0) mmol/L Calcium (8.4-10.2) mg/dL Magnesium (1.6-2.3) mg/dL Total Bilirubin (0.2-1.3) mg/dL AST (14-36) U/L ALT (4-34) U/L Alkaline Phosphatase (38-126) U/L Troponin I <0.012 (0.000-0.034) ng/mL NT-Pro-B Natriuret Pep 564 pg/mL Total Protein (6.3-8.2) g/dL Albumin (3.5-5.0) g/dL - EKG Data EKG Comments: Sinus rhythm Ventricular rate 64, ME 142, QRS 78, QTC 410. Disposition Clinical Impression: Hypocalcemia, Hypomagnesemia, Hypokalemia, Seizure Disposition: ADMITTED IP TO THIS HOSP Condition: Fair Is patient prescribed a controlled substance at d/c from ED?: No Time of Disposition: 17:00
[2020-01-03 14:46] LABS: Glucose,Whole Blood 91 mg/dL (75-99)
[2020-01-03 15:04] LABS: Anisocytosis Slight; Basophils % (A) 0 %; Eosinophils % (A) 0 %; HCT 26.7 % (34.0-46.0); Hypochromasia Marked; Lymphocytes # (A) 0.5 k/uL (1.0-4.8); Lymphocytes % (A) 7 %; MCH 29.3 pg (25.0-35.0); MCHC 29.8 g/dL (31.0-37.0); MCV 98.1 fL (80.0-100.0); Macrocytosis Slight; Mean Platelet Volume 7.4; Monocytes # (A) 0.2 k/uL (0-1.0); Monocytes % (A) 2 %; Neutrophils % (A) 90 %; Platelet Count 211 k/uL (150-450); RBC 2.73 m/uL (3.80-5.40); RDW 16.3 % (11.5-15.5); WBC 7.8 k/uL (3.8-10.6)
[2020-01-03 15:13] LABS: ALT 7 U/L (4-34); AST 11 U/L (14-36); African American GFR (CKD) >90 (>60 ml/min/1.73 sqM); Albumin 2.2 g/dL (3.5-5.0); Alkaline Phosphatase 71 U/L (38-126); Anion Gap 1 mmol/L; Blood Urea Nitrogen 16 mg/dL (7-17); Carbon Dioxide 20 mmol/L (22-30); Chloride 121 mmol/L (98-107); Glucose 83 mg/dL (74-99); Magnesium 1.4 mg/dL (1.6-2.3); Non-African American GFR(CKD) >90 (>60 ml/min/1.73 sqM); Potassium 3.3 mmol/L (3.5-5.1); Sodium 142 mmol/L (137-145); Total Bilirubin 0.2 mg/dL (0.2-1.3); Total Protein 4.3 g/dL (6.3-8.2)
--- NOTE | 2020-01-03 15:36 | CT ---
EXAMINATION TYPE: CT brain wo con DATE OF EXAM: 01/03/2020 COMPARISON: 12/17/2018 INDICATION: Seizure today, history of epilepsy DLP: 1091.4 mGycm, Automated exposure control for dose reduction was used. CONTRAST: None CT of the brain is performed utilizing 3 mm thick sections through the posterior fossa and 3 mm thick sections through the remaining calvarium. Study is performed within 24 hours of arrival to the hosp ital. No abnormal hyperdensity is present to suggest an acute intracranial hemorrhage. No mass lesion is evident. No acute infarcts are evident. There is some mild periventricular white matter hypodensity in the par ietal-occipital regions is nonspecific but can be related to microvascular ischemic change. This pres ent previously. No significant interval changes are evident. Ventricles and sulci are appropriate for the patient age. Paranasal sinuses and mastoid air cells within the [id number] are clear. IMPRESSIONS: 1. Mild chronic appearing white matter ischemic changes. 2. No acute intracranial process.
[2020-01-03 15:37] LABS: Calcium 6.3 mg/dL (8.4-10.2)
--- NOTE | 2020-01-03 15:37 | XR ---
EXAMINATION TYPE: XR chest 2V DATE OF EXAM: 01/03/2020 COMPARISON: 12/21/2018 INDICATION: Heart failure TECHNIQUE: Frontal and lateral views of the chest are obtained. FINDINGS: The heart size is normal. The pulmonary vasculature is normal. The lungs are clear. Sternotomy wires are present from prior cardiac surgery. Stent is within the aorta. IMPRESSION: 1. No acute pulmonary process.
[2020-01-03] MEDS ORDERED: POTASSIUM CHLORIDE 10 MEQ in WATER FOR INJECTION 1 100ML.BAG IVPB STA (16:01)
[2020-01-03] MEDS ORDERED: POTASSIUM CHLORIDE 20 MEQ in WATER FOR INJECTION 1 100ML.BAG IVPB STA (16:04)
[2020-01-03] MEDS ORDERED: CALCIUM GLUCONATE 2 GM in SODIUM CHLORIDE 0.9% 100 ML IVPB ONE (16:15)
[2020-01-03] MEDS ORDERED: LORazepam 2 MG/ML INJ IV PRN (16:29)
[2020-01-03] MEDS ORDERED: NALOXONE 0.4 MG/ML 1 ML VIAL IV PRN (16:29)
[2020-01-03] MEDS ORDERED: ACETAMINOPHEN TAB 325 MG TAB PO PRN ×2 (16:29→18:15)
[2020-01-03] MEDS ORDERED: HYDROmorphone 0.5 MG/0.5 ML SYRINGE IVP STA (16:52)
[2020-01-03] MEDS ORDERED: POTASSIUM CHLORIDE 20 MEQ in WATER FOR INJECTION 1 100ML.BAG IVPB ONE (17:30)
[2020-01-03 17:32] LABS: Appearance,Urine Clear (Clear); Bilirubin,Urine Negative (Negative); Blood,Urine Negative (Negative); Color,Urine Yellow; Glucose,Urine (UA) Negative (Negative); Hyaline Casts,Urine 1 /lpf (0-2); Ketones,Urine Negative (Negative); Leukocyte Esterase,Urine Small (Negative); Nitrite,Urine Negative (Negative); PH, Urine 6.5 (5.0-8.0); Protein,Urine Trace (Negative); RBC,Urine 2 /hpf (0-5); Specific Gravity,Urine 1.021 (1.001-1.035); Squamous Epithelial Cell,Urine 3 /hpf (0-4); Urobilinogen,Urine <2.0 mg/dL (<2.0); WBC,Urine <1 /hpf (0-5)
[2020-01-03] MEDS ORDERED: ACETAMINOPHEN TAB 500 MG TAB PO PRN (18:02)
[2020-01-03] MEDS ORDERED: MELATONIN 3 MG TABLET PO PRN (18:02)
[2020-01-03] MEDS: MAGNESIUM SULFATE-D5W PMX 1 GM in DEXTROSE/WATER 1 100ML.BAG IVPB SCH ×3 (18:10→21:35)
[2020-01-03] MEDS: SODIUM CHLORIDE 0.9% 1,000 ML IV SCH (18:10)
[2020-01-03] MEDS ORDERED: ONDANSETRON 4 MG/2 ML VIAL IVP PRN (18:16)
--- NOTE | 2020-01-03 18:28 | P.HPIM ---
History of Present Illness H&P Date: 01/03/20 Chief Complaint: Abdominal pain Patient is a 54-year-old female who has a history of epilepsy, anxiety, adrenal insufficiency, hypertension, hypothyroidism, and aortic aneurysm who presents to the ED via EMS with chief complaint of seizures. Patient states that she's had about 40 seizures in the last 5 days. Patient states prior to this she was seizure free for several years. Patient states that there is a lot of stress in her life where she was lost multiple family members. Patient states that the stress is the cause for her seizures. Per EMS report patient had seizure-like activity for which she was given 10 mg Versed IM after which patient returned back to baseline. Patient states that she uses marijuana to prevent seizures and is not on any antiepileptic medications. Patient states that currently she is not following up with a neurologist. Patient is also complaining of acute on chronic abdominal pain that has been worsening over the past 3 days. Patient states that she has chronic nausea. Patient is requesting something for her pain medication while she is in the hospital. Patient understands that we will not be able to discharge her with any controlled substances. While in the ED patient became stiff and was not able to speak. This lasted for about a minute after which patient was back to her baseline. Patient states that this is how her seizures are. In the ED patient had a CT of her head that was unremarkable. Her calcium was 6.3. Patient states that she stopped taking her vitamin D pills. Patient's hemoglobin was 8.0. Patient denies any signs of overt bleeding. Review of Systems 10 ROS reviewed and are negative except as noted in HPI Past Medical History Past Medical History: Atrial Fibrillation, Deep Vein Thrombosis (DVT), Hypertension, Neurologic Disorder, Pneumonia, Renal Disease, Seizure Disorder, Thyroid Disorder Additional Past Medical History / Comment(s): adrenal insufficiency; Jimmy Danlos Syndrome - Vascular Type, ACTH,recent afib 2018, shingles november 2018, blood clots october 2018, seizures- left temporal lobe atonic seizures. Has some left sided weakness from surgery last october, stage 3 kidney failure, 3 blood clots, groin,arm and leg History of Any Multi-Drug Resistant Organisms: None Reported Past Surgical History: Back Surgery, Hysterectomy Additional Past Surgical History / Comment(s): abdominal sugery; Aortic grafting, pt stated she was told she had a mass on her pancreas, ets ventrical repair- october 2018, 7 arm surgeries for cysts carpal tunnel, broken bones. Past Anesthesia/Blood Transfusion Reactions: Previous Problems w/ Anesthesia, Family History of Problems w/ Anesthesia Additional Past Anesthesia/Blood Transfusion Reaction / Comment(s): pt states d/t severe adrenal insufficency, ACTH and EDS vascular must receive steroids prior to anesthesia, during october 2018 surgery at [facility] needed to be resusciated twice d/t "blood pressure tanking" was in a coma for 2 weeks and remained on life support for 1 week coma, wakes up combative. mom doesn't come out of anesthesia well. son comes out combative Past Psychological History: Anxiety, Panic Disorder Smoking Status: Former smoker Past Alcohol Use History: None Reported Past Drug Use History: Marijuana - Past Family History Brother(s) Family Medical History: Cancer Additional Family Medical History / Comment(s): She does have a brother with a history of aneurysm as well. History of skin cancer. - brain aneursym Mother Family Medical History: Blood Disorder Additional Family Medical History / Comment(s): factor V Father Additional Family Medical History / Comment(s): lungs filled with cyst and tumors- family Family Medical History: Unable to Obtain Medications and Allergies Home Medications Medication Instructions Recorded Confirmed Type Aspirin [Adult Low Dose Aspirin EC] 162 mg PO TID PRN 10/04/19 01/03/20 History Carvedilol [Coreg] 25 mg PO BID 10/04/19 01/03/20 History Diazepam [Valium] 5 mg PO TID 10/04/19 01/03/20 History hydrALAZINE HCL [Apresoline] 100 mg PO TID 10/04/19 01/03/20 History lisinopriL 20 mg PO BID 10/04/19 01/03/20 History cloNIDine HCL [Catapres] 0.1 mg PO BID #60 tab 10/06/19 01/03/20 Rx Hydrocortisone 30 mg PO DAILY 10/13/19 01/03/20 History Acetaminophen [Tylenol Arthritis] 1,300 mg PO Q8H PRN 01/03/20 01/03/20 History Ergocalciferol [Vitamin D2 50,000 unit PO MO 01/03/20 01/03/20 History (DRISDOL)] Hydrocortisone [Cortef] 5 - 10 mg PO DAILY PRN 01/03/20 01/03/20 History Ibuprofen [Motrin Ib] 600 mg PO Q8H PRN 01/03/20 01/03/20 History Levothyroxine Sodium [Synthroid] 150 mcg PO DAILY 01/03/20 01/03/20 History Melatonin 6 mg PO HS PRN 01/03/20 01/03/20 History diphenhydrAMINE HCL [Benadryl] 25 - 50 mg PO Q6H PRN 01/03/20 01/03/20 History Allergies Allergy/AdvReac Type Severity Reaction Status Date / Time adhesive Allergy Itching Verified 01/03/20 16:50 ibuprofen [From Motrin] Allergy doesnt Verified 01/03/20 16:50 take d/t kidney issues Physical Exam Osteopathic Statement: *. No significant issues noted on an osteopathic structural exam other than those noted in the History and Physical/Consult. Vitals: Vital Signs Temp Pulse Resp BP Pulse Ox 01/03/20 18:13 64 18 165/92 99 01/03/20 17:14 66 16 206/105 99 01/03/20 15:58 69 16 144/97 99 01/03/20 13:34 99.5 F 70 20 121/71 99 Intake and Output 01/03/20 01/03/20 01/03/20 06:59 14:59 22:59 Other: Weight 62.596 kg General: [Alert and oriented, well nourished, no acute distress]. Eye: [PERRL, EOMI, normal conjunctiva]. HENT: [Normocephalic, clear tympanic membranes, normal hearing, moist oral mucosa, no scleral icterus, no sinus tenderness]. Neck: [Supple, non-tender, no carotid bruits, no JVD, no lymphadenopathy]. Lungs: [Clear to auscultation and percussion, non-labored respiration]. Heart: [Normal rate, regular rhythm, no murmur, gallop or edema]. Abdomen: [Soft, diffuse tenderness to palpate, non-distended, normal bowel sounds, no masses]. Musculoskeletal: [Normal range of motion and strength, no tenderness or sw elling]. Skin: [Skin is warm, dry and pink, no rashes or lesions]. Neurologic: [Awake, alert, and oriented X3, CN II-XII intact]. Psychiatric: [Emotional]. Results CBC & Chem 7: 01/03/20 14:50 01/03/20 14:50 Labs: Abnormal Lab Results - Last 24 Hours (Table) 01/03/20 01/03/20 01/03/20 Range/Units 14:50 14:50 17:12 RBC 2.73 L (3.80-5.40) m/uL Hgb 8.0 L (11.4-16.0) gm/dL Hct 26.7 L (34.0-46.0) % MCHC 29.8 L (31.0-37.0) g/dL RDW 16.3 H (11.5-15.5) % Lymphocytes # 0.5 L (1.0-4.8) k/uL Potassium 3.3 L (3.5-5.1) mmol/L Chloride 121 H (98-107) mmol/L Carbon Dioxide 20 L (22-30) mmol/L Calcium 6.3 L* (8.4-10.2) mg/dL Magnesium 1.4 L (1.6-2.3) mg/dL AST 11 L (14-36) U/L Total Protein 4.3 L (6.3-8.2) g/dL Albumin 2.2 L (3.5-5.0) g/dL Urine Protein Trace H (Negative) Ur Leukocyte Esterase Small H (Negative) Assessment and Plan Assessment: #Seizure-like activity likely due to pseudoseizures: Consult neurology. Consult psychiatry. IV Ativan when necessary. CT head was negative. Check EEG. #Acute on chronic abdominal pain: Check CT abdomen. IV Zofran and IV morphine as needed. Check UA. #Hypocalcemia: Check PTH, vitamin D, ionized calcium. We will resume patient's vitamin D supplementation and will add calcitriol. We'll also give the patient IV calcium gluconate as needed. #Anemia: Unclear etiology. Patient's baseline hemoglobin is around 11. Check iron panel, B12, folate. Patient is refusing stool occult. #Hypertension: Uncontrolled likely due to medication noncompliance. Resume home meds #Anxiety: Resume home meds #Hypothyroidism: Resume Synthroid #History of aortic aneurysm: Check computed tomography scan of abdomen. Full code Patient does not have a DPOA but would like her son to make decisions for her if she lacks capacity. CODE STATUS:full code DVT prophylaxis: mechanical, avoid anticoagulation due anemia Discussed with: Patient, ER, rn Anticipated length of stay < than [address]: home A total of 75 minutes was spent on the care of this complex patient more than 50% of the time was spent in counseling and care coordination.
[2020-01-03] MEDS: MORPHINE SULFATE 4 MG/ML SYRINGE IV PRN (20:12)
[2020-01-03] MEDS: diazePAM 5 MG TAB PO SCH ×2 (20:15→21:15)
[2020-01-03] MEDS: carvediloL 12.5 MG TAB PO SCH (20:16)
[2020-01-03] MEDS: hydrALAZINE HCL 50 MG TAB PO SCH (21:35)
[2020-01-03] MEDS: lisinopriL 20 MG TAB PO SCH (21:35)
[2020-01-03] MEDS: cloNIDine HCL 0.1 MG TAB PO SCH (21:35)
[2020-01-04] MEDS: MORPHINE SULFATE 4 MG/ML SYRINGE IV PRN ×3 (03:58→20:09)
[2020-01-04] MEDS: LEVOTHYROXINE 75 MCG TAB PO SCH (06:03)
[2020-01-04] MEDS: SODIUM CHLORIDE 0.9% 1,000 ML IV SCH ×2 (06:06→18:09)
[2020-01-04 06:59] LABS: Anisocytosis Slight; HCT 40.7 % (34.0-46.0); Hypochromasia Moderate; MCH 29.4 pg (25.0-35.0); MCHC 30.4 g/dL (31.0-37.0); MCV 96.9 fL (80.0-100.0); Mean Platelet Volume 7.1; Platelet Count 327 k/uL (150-450); RDW 16.1 % (11.5-15.5); WBC 15.1 k/uL (3.8-10.6)
[2020-01-04 07:12] LABS: Ionized Calcium 5.8 mg/dL (4.5-5.3)
[2020-01-04 07:37] LABS: HGB 12.4 gm/dL (11.4-16.0)
--- NOTE | 2020-01-04 09:24 | P.CNNES ---
History of Present Illness Consult date: 01/04/20 Requesting physician: Bassam Dorantes Reason for Consult: seizure History of Present Illness: This is a 54-year-old right-handed woman with medical history of epilepsy, anxiety, adrenal insufficiency, hypoparathyroidism, atrial fibrillation, hypertension, hyperthyroidism and aortic aneurysm who presented to the emergency department on 01/03/2020 for numerous episodes of seizure. Patient stated she had about 40 seizures in last 5 days. Prior to that she was seizure-free for years. Patient stated that she is under a lot stress and that provokes her seizures. She said that the she had a generalized tonic-clonic seizure throughout the night and that's what brought her to the hospital. She was given 10 mg of IM Versed in the ambulance for apparent seizure. Upon presented to the hospital she appeared anxious. In the emergency department the patient had an episode where she became stiff was not able to speak. The episode lasted for about a minute and then the patient was back to her baseline. For her seizures as she uses marijuana. Patient is not on any antiepileptic medication. She is not following up with a neurologist regarding her seizures. Per the patient nurse the patient has been notifying the nurse that she wants the to leave the hospital. Workup in the ED consisted of: Initial vital signs as a blood pressure of 121/71, heart rate of 70, temperature of 99.5 Fahrenheit oral, respiratory of 20 and pulse ox of 99% at room air. CT of the head which was reported as mild chronic-appearing white matter ischemic changes. No acute intracranial process. I personally reviewed the CT of the head and there is no acute ischemia or hemorrhage or any encephalomalacia that was appreciable. She does have bilateral frontal atrophy that is mild to somewhat moderate atrophy. EKG was reported as normal sinus rhythm. Ventricular rate of 64. Minimal voltage criteria for left ventricular hypertrophy may be normal variant. Labs show a calcium of 6.3, magnesium of 1.4.The potassium level was 3.3. Patient was given calcium gluconate, IV potassium and magnesium was started in the ED. Next day Ionized calcium is 5.8. Lactic acid was done and was normal UA was positive for leukocyte Estrace which was small Blood cell was 2 nitrate was negative. Patient was seen by neuro hospitalist at [facility] on 12/17/2018 for a seizure episode and it was recommended for the patient dad to be started on Keppra 250 mg daily. At that time she reported that she was on CBD oil. The patient she had seizure as a child having staring episodes. She said that she was diagnosed with seizure at the age of 8 while she was in the [place]. She had a epilepsy monitoring unit and was told she had the left temporal epilepsy. She also had workup at [facility] and she said she also was an epilepsy monitoring unit and she was told that focus of seizures are coming from different regions of the brain. She describes her seizures as the she gets an aura where she feels dizzy or she has difficulty getting her words out or stumbling her words then she stiffens up . The episode last for 1-2 minutes. She doesn't lose consciousness. She also gets episodes of atonic the seizures also lasting 1-2 minutes. Lastly she said that she gets that the generalized tonic-clonic seizures. She loses consciousness There is episode that she lost urinary bowel incontinence. There is also time that she bit her tongue. She was on the Keppra 500 mg 2 tablets in the morning and 2 tablets at night. She was notified by [facility] last year to be on it. But she said that that she's not taking it because of the side effects makes her more kebede. She said that she was on 3 different antiepileptic drugs but she could not name him for me. And cannot tell me if she had any side effects with them or not. She said that she takes the cannabinoids edible which helps with her seizures. She feels like her anxiety provokes her seizure as well as her medical condition (adrenal insufficiency). Regarding her history she said was normal, term, vaginal, and there is no complication. Review of Systems Review of system: The 12 point system was reviewed and apparent positive and negative per HPI. Past Medical History Past Medical History: Atrial Fibrillation, Deep Vein Thrombosis (DVT), Hypertension, Neurologic Disorder, Pneumonia, Renal Disease, Seizure Disorder, Thyroid Disorder Additional Past Medical History / Comment(s): adrenal insufficiency; Jimmy Danlos Syndrome - Vascular Type, ACTH,recent afib 2018, shingles november 2018, blood clots october 2018, seizures- left temporal lobe atonic seizures. Has some left sided weakness from surgery last october, stage 3 kidney failure, 3 blood clots, groin,arm and leg History of Any Multi-Drug Resistant Organisms: None Reported Past Surgical History: Back Surgery, Hysterectomy Additional Past Surgical History / Comment(s): abdominal sugery; Aortic grafting, pt stated she was told she had a mass on her pancreas, ets ventrical repair- october 2018, 7 arm surgeries for cysts carpal tunnel, broken bones. Past Anesthesia/Blood Transfusion Reactions: Previous Problems w/ Anesthesia, Family History of Problems w/ Anesthesia Additional Past Anesthesia/Blood Transfusion Reaction / Comment(s): pt states d/t severe adrenal insufficency, ACTH and EDS vascular must receive steroids prior to anesthesia, [facility] be [facility]iated [facility] d/t "blood pressure tanking" was in a coma for 2 weeks and remained on life support for 1 week coma, wakes up combative. mom doesn't come out of anesthesia well. son comes out combative Past Psychological History: Anxiety, Panic Disorder Additional Psychological History / Comment(s): Generalized anxiety disorder Smoking Status: Former smoker Past Alcohol Use History: None Reported Additional Past Alcohol Use History / Comment(s): smoker for 5 years 1 cig/d Past Drug Use History: Marijuana Additional Drug Use History / Comment(s): Smokes marijuana nightly - Past Family History Brother(s) Family Medical History: Cancer Additional Family Medical History / Comment(s): She does have a brother with a history of aneurysm as well. History of skin cancer. - brain aneursym Mother Family Medical History: Blood Disorder Additional Family Medical History / Comment(s): factor V Father Additional Family Medical History / Comment(s): lungs filled with cyst and tumors- family Family Medical History: Unable to Obtain Medications and Allergies Home Medications Medication Instructions Recorded Confirmed Type Aspirin [Adult Low Dose Aspirin EC] 162 mg PO TID PRN 10/04/19 01/03/20 History Carvedilol [Coreg] 25 mg PO BID 10/04/19 01/03/20 History Diazepam [Valium] 5 mg PO TID 10/04/19 01/03/20 History hydrALAZINE HCL [Apresoline] 100 mg PO TID 10/04/19 01/03/20 History lisinopriL 20 mg PO BID 10/04/19 01/03/20 History cloNIDine HCL [Catapres] 0.1 mg PO BID #60 tab 10/06/19 01/03/20 Rx Hydrocortisone 30 mg PO DAILY 10/13/19 01/03/20 History Acetaminophen [Tylenol Arthritis] 1,300 mg PO Q8H PRN 01/03/20 01/03/20 History Ergocalciferol [Vitamin D2 50,000 unit PO MO 01/03/20 01/03/20 History (DRISDOL)] Hydrocortisone [Cortef] 5 - 10 mg PO DAILY PRN 01/03/20 01/03/20 History Ibuprofen [Motrin Ib] 600 mg PO Q8H PRN 01/03/20 01/03/20 History Levothyroxine Sodium [Synthroid] 150 mcg PO DAILY 01/03/20 01/03/20 History Melatonin 6 mg PO HS PRN 01/03/20 01/03/20 History diphenhydrAMINE HCL [Benadryl] 25 - 50 mg PO Q6H PRN 01/03/20 01/03/20 History Allergies Allergy/AdvReac Type Severity Reaction Status Date / Time adhesive Allergy Itching Verified 01/03/20 16:50 ibuprofen [From Motrin] Allergy doesnt Verified 01/03/20 16:50 take d/t kidney issues Physical Examination - Vital Signs Vital Signs: Vital Signs Temp Pulse Pulse Resp BP BP Pulse Ox 01/04/20 07:00 98.2 F 55 L 17 133/70 95 01/04/20 02:45 97.6 F 164/80 92 L 01/04/20 00:15 18 01/03/20 21:45 98.2 F 71 18 217/96 100 01/03/20 20:45 67 18 194/105 99 01/03/20 18:13 64 18 165/92 99 01/03/20 17:14 66 16 206/105 99 01/03/20 15:58 69 16 144/97 99 01/03/20 13:34 99.5 F 70 20 121/71 99 Intake and Output 01/03/20 01/04/20 01/04/20 22:59 06:59 14:59 Other: # Voids 1 Weight 62.596 kg GENERAL: The patient is lying in bed and is not in acute distress. CHEST: The heart rate is regular rate rhythm. No murmurs to auscultation. LUNG: Clear to auscultation bilaterally no wheezing noted throughout. Not labored breathing. ABDOMEN/GI: Bowel sounds present in all 4 quadrants. No tenderness to palpation throughout. NEUROLOGICAL: Higher mental function: The patient is awake, alert, oriented to self, place and time. Patient is following commands. No aphasia and no neglect. Cranial nerves: The pupils are round, equal and reactive to light and accommodation. Visual valentine are full to confrontation throughout. Extraocular movement is intact no nystagmus is noted. Facial sensation is normal to touch throughout. The facial strength is normal throughout. Hearing is normal bilaterally to hand rub. Tongue is midline and moved [id number] without any difficulty. No dysarthria is noted. Shoulder shrug is normal bilaterally. Motor: Gait is normal. The strength is 5 over 5 throughout except left upper extremity was limited because of pain she has (chronic). Normal tone and bulk. Cerebellum: Normal finger to nose heel to chin bilaterally. Sensation: Sensation is normal to touch throughout. Reflexes (right/left): 2+ throughout Plantars are downgoing bilaterally. Results - Laboratory Findings CBC and BMP: 01/04/20 06:08 01/04/20 06:08 Abnormal Lab Findings: Abnormal Labs 01/03/20 01/03/20 01/03/20 14:50 14:50 17:12 WBC RBC 2.73 L Hgb 8.0 L Hct 26.7 L MCHC 29.8 L RDW 16.3 H Lymphocytes # 0.5 L Potassium 3.3 L Chloride 121 H Carbon Dioxide 20 L Calcium 6.3 L* Ionized Calcium Ro Magnesium 1.4 L AST 11 L Total Protein 4.3 L Albumin 2.2 L Urine Protein Trace H Ur Leukocyte Esterase Small H 01/04/20 01/04/20 06:08 06:08 WBC 15.1 H RBC Hgb Hct MCHC 30.4 L RDW 16.1 H Lymphocytes # Potassium Chloride Carbon Dioxide Calcium Ionized Calcium Ro 5.8 H Magnesium AST Total Protein Albumin Urine Protein Ur Leukocyte Esterase Assessment and Plan Assessment: Provoke seizure because of electrolyte imbalance Hx of Epilepsy Hypocalcemia Hypomagnesemia History of hypoparathyroidism Adrenal insufficiency Anxiety History of Jimmy Danlos syndrome Plan: Routine EEG was ordered and is pending--was notified by technologist that she refused it. I would assume her lactic acid to be elevated she was having recurrent seizures and especially recent acute seizures but her lactic acid the during the hospital has been normal. If EEG is normal and patient continues to have these episodes I recommend long-t erm EEG as an outpatient to actually capture whether these episodes are truly seizure in nature. She did state that she had epilepsy monitoring unit in the past and she was told that she had temporal lobe epilepsy as well as the she had different focus of seizure coming from different regions of the brain. I notified her that I'll place her on the local so might 50 mg twice a day. The patient was securing then she said she doesn't want to be on any medications. SHe is currently on Valium 5 mg 3 times a day, she is also on Ativan 0.5 mg every 6 hours when necessary for anxiety. Also she is on morphine 4 mg IV every 4 hours as needed for severe pain. Upon discharge the patient's needs to follow-up with a neurologist as an outpatient. I notified her that she needs to follow up with a neurologist at [facility] especially since the patient is known to them clinic to her. She was notified that that she cannot drive for 6 months unless seizure free according to [facility] law. She is to avoid any heights, avoids and any unattended swimming and avoid heavy machinery. Thank you for the consultation. Pete Laws MD Neuro-Hospitalist Time with Patient: Greater than 30
[2020-01-04] MEDS: carvediloL 12.5 MG TAB PO SCH ×2 (09:27→16:43)
[2020-01-04] MEDS: lisinopriL 20 MG TAB PO SCH ×2 (09:27→22:24)
[2020-01-04] MEDS: hydrALAZINE HCL 50 MG TAB PO SCH ×2 (09:27→16:42)
[2020-01-04] MEDS: ASPIRIN 81 MG PO SCH (09:27)
[2020-01-04] MEDS: cloNIDine HCL 0.1 MG TAB PO SCH ×2 (09:27→22:24)
[2020-01-04] MEDS: HYDROCORTISONE 10 MG TAB PO SCH (09:27)
[2020-01-04] MEDS: IOPAMIDOL CONTRAST (ORAL USE) VIAL PO PRN ×2 (09:28→10:42)
[2020-01-04] MEDS: diazePAM 5 MG TAB PO SCH ×3 (09:28→22:31)
--- NOTE | 2020-01-04 11:24 | CT ---
EXAMINATION TYPE: CT abdomen pelvis wo/w con DATE OF EXAM: 01/04/2020 HISTORY: Abd pain not further specified. CT DLP: 1044.9mGycm Automated Exposure Control for Dose Reduction was Utilized. CONTRAST: CT scan of the abdomen and pelvis is performed with oral and without and with IV Contrast, patient in jected with 100 mL of Isovue 300. COMPARISON: CT abdomen and pelvis October 03, 2019 FINDINGS: LUNG BASES: No significant abnormality is appreciated. LIVER/GB: Occasional punctate hypodense lesions scattered throughout the liver too small to further c haracterize presumed benign. PANCREAS: No significant abnormality is seen. SPLEEN: New or larger 2.9 cm thin-walled cyst in region of splenic hilum favoring pancreatic pseudocy st with adjacent smaller thin-walled cysts or cystic lesions inferiorly image 20 redemonstrated, thes e are stable. Correlate clinically. ADRENALS: No significant abnormality is seen. KIDNEYS: Asymmetric diminished size and atrophied right kidney redemonstrated. Delayed excretion smal ler right kidney. BOWEL: Oral contrast reaches level of the right colon near hepatic flexure. No suspicious small or la rge bowel dilatation. Patient has little intra-abdominal fat. UTERUS/ADNEXA: Uterus surgically absent or markedly atrophic. LYMPH NODES: No greater than 1cm abdominal or pelvic lymph nodes are appreciated. OSSEOUS STRUCTURES: Mild height loss or compression involving superior L4 endplate redemonstrated. Mo derate disc space narrowing lumbosacral junction redemonstrated. Postsurgical change with interpedicu lar screws at this level redemonstrated. Osseous structures are demineralized. Sclerotic focus right proximal humerus favors benign bone island. OTHER: Redemonstration of significant aortic dissection that has filling of the false and true lumens . Stable aneurysmal change in the visualized proximal descending thoracic aorta. Dissection extends i nto the bilateral common iliac arteries similar to prior. False lumen suspected left side filling the celiac artery, SMA, and left renal artery. No significant change from prior. IMPRESSION: Increasing cystic change in region of pancreatic tail suggests new pseudocyst or walled o ff necrosis. Correlate clinically. No new or acute finding otherwise identified.
[2020-01-04 11:41] LABS: Folate, Serum 4.5 ng/mL
[2020-01-04 13:13] LABS: % Iron Saturation 18.84 (12.00-45.00); African American GFR (CKD) 58.9 (60.0-200.0); Albumin/Globulin Ratio 2.22 (1.60-3.17); BUN/Creat Ratio 16.67 Ratio (12.00-20.00); Calcium 10.3 mg/dL (8.7-10.3); Globulin 1.8 g/dL (1.6-3.3); Magnesium 2.3 mg/dL (1.5-2.4); Non-African American GFR(CKD) 50.8 (60.0-200.0); Potassium 4.6 mmol/L (3.5-5.5); Total Bilirubin 0.3 mg/dL (0.2-1.2); Total Protein 5.8 g/dL (6.2-8.2)
[2020-01-04 13:21] LABS: Anion Gap 9.6 mmol/L (4.00-12.00); Carbon Dioxide 25.4 mmol/L (21.6-31.8)
[2020-01-04] MEDS: LACOSAMIDE 50 MG TABLET PO SCH ×2 (13:25→22:31)
--- NOTE | 2020-01-04 13:27 | P.CN ---
Psychiatric Consult - . Consult date: 01/04/20 Consult:: 01/04/20 13:07 IDENTIFYING DATA: This patient is [id number], female with significant history of epilepsy, anxiety, adrenal insufficiency, hypoparathyroidism, it to fibrillation, hypertension, hypothyroidism,aortic aneurysm, and Ehrlos Danlos Syndromethe consultation for pseudoseizures. HISTORY OF PRESENT ILLNESS: The patient presented to the hospital on 01/03/2020 with a chief complaint of seizures. patient reports that prior to this admission, she has had about 30 seizures over the last 4 days. She attributes this to her Valium being tapered. furthermore she reports multiple deaths in her family including her brother as well as the ailing health of her mother as contributing to her ongoing stress and exacerbating her health issues. At this time patient denies any suicidal or homicidal ideations, intent or plan. She reports that she has been refusing the EEG because she feels that it is unnecessary and that is physicians "we should be treating the patient and not the problems." She has been refusing vimpat and demanding valium. She reports increased depression and elevated anxiety but is denying any suicidal or homicidal ideation, intention, and/or plan. She also expresses that she's had significant difficulty with finances as she could not afford her medications. She states that she has qualified for Medicaid but is uncertain of how to sign up. Patient refuses a thorough psychiatric evaluation at this time. During the evaluation, patient appeared to be stiff and unable to speak. The episode lasted for about 1-2 minutes and then the patient was back to her baseline. Vitals were obtained right after and were stable aside from mild hypertenson with 140s/80s. Patient denies any auditory, visual hallucinations and denies any paranoia or delusions. Patients admits to using marijuana to manage her seizures. PAST PSYCHIATRIC HISTORY: Patient reports having a history of depression and anxiety. She reports previously being on Valium for her seizure disorder. Patient denies any previous psychiatric hospitalizations. Patient denies any psychiatric outpatient follow-up. [Patient denies any history of suicide attempts in the past. PAST MEDICAL HISTORY: atrial fibrillation, DVT, hypertension, pneumonia, renal disease, seizure disorder, thyroid disorder, Jimmy Danlos syndrome,ACTH, recent atrial fibrillation in 2019 ALLERGIES: as per EMR. CHEMICAL DEPENDENCY HISTORY: as per HPI. FAMILY PSYCHIATRIC/SUBSTANCE USE HISTORY: unable to obtain SOCIAL HISTORY: Patient reports multiple deaths in her family as well as her mother being significantly ill. She refused to share any more information with this provider. MENTAL STATUS EXAM: General Appearance: Patient appears to be stated age is alert, irritable, and uncooperative. Patient appears to have fair hygiene and grooming wearing hospital gown with intermittent eye contact. Behavior: [Patient is calmly lying in bed without any agitated behavior. She appeared to have a "seizure-like" episode but returned to baseline in 1-2 min utes. Speech: Patient's speech is fluent and nonpressured. Mood/Affect: Patient reports their mood is "depressed and anxious", affect is irritable, expansive, tearful Suicidality/Homicidality: Patient denies having any suicidal or homicidal ideation intent or plan. Perceptions: Patient denies any visual hallucinations and denies any auditory hallucinations Though content/process: There is no evidence of any delusional thought content and thought process is linear and goal-directed. Memory and concentration: AOX3, grossly intact for the purposes of this session. Judgment and insight: poor IMPRESSIONS: Bereavement vs Acute Stress Disorder Unspecified Personality Disorder Depression, by history Anxiety, by history PLAN: -At this time patient DOES NOT meet criteria for inpatient psychiatric admission. -Delirium precautions recommended with patient including - avoiding/minimizing use of narcotics and [employer] PLAYER sedatives, limit anticholinergic medications when possible, frequent re-orientation, minimize use of restraints, open window shades during the day and close them at night -No medication changes at this time. Patient is refusing to start medications aside from valium. -Recommend Food And Nutrition Professor Consult to help enroll in Medicaid and transportation issues. -Recommend outpatient psychiatry / psychotherapy follow-up for further evaluation and management of chronic psychiatric pathology. -Psychiatry will sign off at this point, please contact with any questions. 01/04/20 13:26
--- NOTE | 2020-01-04 14:07 | P.PN ---
Subjective Progress Note Date: 01/04/20 Principal diagnosis: CC: Abdominal pain and pseudoseizure No states that the patient last night wanted to leave AGAINST MEDICAL ADVICE however ended up staying in the hospital because she did not have a ride home. Patient is also refusing to get a CT abdomen and pelvis. This morning I spoke with the patient and she is now amenable to getting a computed tomography scan abdomen and pelvis. This morning patient appeared calm. She is playing a video game on her phone which she states helps with her stress. Patient was denying any acute complaints. In the day when patient was seen by psychiatry she had an episode of a pseudoseizure. She also had a CT abdomen pelvis completed which showed a new pseudocyst. I placed a consult for GI. Patient's labs this morning are unremarkable except for leukocytosis. No states that patient is now refusing EEG. Objective - Vital Signs Vital signs: Vital Signs Temp 98.4 F 01/04/20 13:12 Pulse 61 01/04/20 13:12 Resp 18 01/04/20 13:12 BP 143/78 01/04/20 13:12 Pulse Ox 100 01/04/20 13:12 Intake & Output 01/03/20 01/04/20 01/04/20 18:59 06:59 18:59 Weight 62.596 kg 62.596 kg Other: Voiding Method Toilet # Voids 1 - Exam General examination - Alert and Oriented 3 in NAD Heart - + S1S2 no murmurs Lungs - Clear to auscultation Abdomen soft NT ND +ve BS Extremities - No edema [employer] - Moving all 4 extremities spontaneously Psych - Calm and cooperative - Labs CBC & Chem 7: 01/04/20 06:08 01/04/20 06:08 Labs: Abnormal Lab Results - Last 24 Hours (Table) 01/03/20 01/03/20 01/03/20 Range/Units 14:50 14:50 17:12 WBC (3.8-10.6) k/uL RBC 2.73 L (3.80-5.40) m/uL Hgb 8.0 L (11.4-16.0) gm/dL Hct 26.7 L (34.0-46.0) % MCHC 29.8 L (31.0-37.0) g/dL RDW 16.3 H (11.5-15.5) % Lymphocytes # 0.5 L (1.0-4.8) k/uL Potassium 3.3 L (3.5-5.1) mmol/L Chloride 121 H (98-107) mmol/L Carbon Dioxide 20 L (22-30) mmol/L Est GFR (CKD-EPI)AfAm (60.0-200.0) Est GFR (CKD-EPI)NonAf (60.0-200.0) Glucose (70-110) mg/dL Calcium 6.3 L* (8.4-10.2) mg/dL Ionized Calcium Ro (4.5-5.3) mg/dL Magnesium 1.4 L (1.6-2.3) mg/dL AST 11 L (14-36) U/L Total Protein 4.3 L (6.3-8.2) g/dL Albumin 2.2 L (3.5-5.0) g/dL Urine Protein Trace H (Negative) Ur Leukocyte Esterase Small H (Negative) 01/04/20 01/04/20 Range/Units 06:08 06:08 WBC 15.1 H (3.8-10.6) k/uL RBC (3.80-5.40) m/uL Hgb (11.4-16.0) gm/dL Hct (34.0-46.0) % MCHC 30.4 L (31.0-37.0) g/dL RDW 16.1 H (11.5-15.5) % Lymphocytes # (1.0-4.8) k/uL Potassium (3.5-5.1) mmol/L Chloride (98-107) mmol/L Carbon Dioxide (22-30) mmol/L Est GFR (CKD-EPI)AfAm 58.9 L (60.0-200.0) Est GFR (CKD-EPI)NonAf 50.8 L (60.0-200.0) Glucose 118 H (70-110) mg/dL Calcium (8.4-10.2) mg/dL Ionized Calcium Ro 5.8 H (4.5-5.3) mg/dL Magnesium (1.6-2.3) mg/dL AST (14-36) U/L Total Protein 5.8 L (6.3-8.2) g/dL Albumin (3.5-5.0) g/dL Urine Protein (Negative) Ur Leukocyte Esterase (Negative) Assessment and Plan Assessment: #Seizure-like activity likely due to pseudoseizures: IV Ativan when necessary. CT head was negative. Per psychiatry patient does not meet inpatient psychiatric admission. Patient started on Vimpat by neurology. Per neurology if EEG is negative then patient should have a prolonged EEG done as outpatient. However patient currently is refusing EEG. She continues to have pseudoseizure- like activity. #Acute on chronic abdominal pain possibly due to pseudocyst?: IV Zofran and IV morphine as needed. UA is negative. Consult GI. Check tumor markers CEA, CA 19-9 and ALP. #Leukocytosis: Likely reactive. No signs or symptoms of infection. Continue to monitor CBC. Of note patient states that she is on hydrocortisone. If she was noncompliant with her medication this could also explain the leukocytosis when we restarted in the hospital. #Hypocalcemia: Resolved. PTH, vitamin D, ionized calcium are all within normal limits. We will resume patient's vitamin D supplementation and IV calcium g luconate as needed. #Anemia: Unclear etiology. Patient's baseline hemoglobin is around 11. Check iron panel, B12, folate. Patient is refusing stool occult. Hgb improved this morning. Will continue to trend CBC. Patient denies any overt signs of bleeding. #Hypertension: Uncontrolled likely due to medication noncompliance. Patient blood pressure better controlled on current regimen #Anxiety: Resume home meds #Hypothyroidism: Resume Synthroid #Adrenal insufficiency: Resume hydrocortisone #History of aortic aneurysm: CT abdomen shows stable aneurysm Full code Patient does not have a DPOA but would like her son to make decisions for her if she lacks capacity. CODE STATUS:full code DVT prophylaxis: mechanical, avoid anticoagulation due anemia
[2020-01-05] MEDS: MORPHINE SULFATE 4 MG/ML SYRINGE IV PRN ×3 (00:21→09:39)
[2020-01-05] MEDS: hydrALAZINE HCL 50 MG TAB PO SCH ×3 (00:26→16:47)
[2020-01-05] MEDS ORDERED: NALOXONE 0.4 MG/ML 1 ML VIAL IV PRN (01:49)
[2020-01-05] MEDS ORDERED: ONDANSETRON 4 MG/2 ML VIAL IVP PRN (01:49)
[2020-01-05] MEDS: LEVOTHYROXINE 75 MCG TAB PO SCH (04:54)
--- NOTE | 2020-01-05 05:37 | CONS ---
CONSULTATION DATE OF DICTATION: 01/04/2020 REASON FOR CONSULTATION: Abdominal pain, pancreatic cyst. HISTORY OF PRESENT ILLNESS: The patient is a 54-year-old pleasant white female with history of hypertension, hypothyroidism, anxiety and severe adrenal insufficiency came to the emergency room after having multiple seizures for the last 5 days duration. He also was complaining of severe abdominal pain mostly in the left upper quadrant area on and off for the last 2 years duration. She has been complaining of intermittent nausea, vomiting. She did have a CT of the abdomen and pelvis done in the emergency room that showed a cystic lesion in the tail of the pancreas measuring 2.9 cm close to the splenic hilum suspicious for a pancreatic pseudocyst. consulted in regards to this issue. The patient states that she was diagnosed with lesion in the pancreas in December of 2018 and on review of her records, a CT abdomen on December 20, 2018 showed a 5.8 x 5.3 cm heterogeneous lobulated hyperdense lesion in the pancreatic tail. She recalls undergoing investigations, but does not recall any details. During her last hospitalization in September of 2019, a CAT scan done at that time showed multiple cysts in the tail of the pancreas. The largest of which measured about 2.5 cm in size. Body and head of the pancreas appeared normal. The patient states that she was diagnosed with thoracic aortic aneurysm and underwent surgery at [facility] approximately 3 years ago, at which time she had a prolonged hospitalization and at that time, she was noted to have a cyst in the tail of the pancreas which was investigated with endoscopic ultrasound. No records available at the time of this dictation. No prior history of pancreatitis. Denies any alcohol use. PAST MEDICAL HISTORY: Significant for seizure disorder, adrenal insufficiency, Jimmy-Danlos syndrome, hypertension. PAST SURGICAL HISTORY: Surgery for thoracic aortic aneurysm with grafting done at [facility] in 2019, ventral hernia repair, carpal tunnel surgery. FAMILY HISTORY: Brother has skin cancer. Mother has Factor V Leiden deficiency. SOCIAL HISTORY: Former smoker. No alcohol use. MEDICATIONS: Medications at home include lisinopril, Hydrocortisone, Tylenol Arthritis, Drisdol, Cortef, Synthroid, Bentyl, melatonin, Motrin, aspirin, Coreg, Valium, hydralazine. ALLERGIES: ADHESIVE TAPE and MOTRIN. REVIEW OF SYSTEMS: CARDIOPULMONARY: She denies any chest pain, but she does complain of shortness of breath. GENITOURINARY: No dysuria or hematuria. MUSCULOSKELETAL: Chronic back pain and left knee pain. NEUROLOGY: Unremarkable. PSYCHIATRIC: Unremarkable. ENT/VISION: Unremarkable. CONSTITUTIONAL: No recent weight loss. No fever, chills, night sweats. GI: As mentioned above. PHYSICAL EXAMINATION: She appears comfortable, in no apparent distress. Vital signs are stable. Blood pressure is 133/85, pulse rate 56, temperature 97.9. HEENT EXAMINATION: Unremarkable. Conjunctivae pink. Sclerae anicteric. Oral cavity, no lesions. NECK: No JVD or lymph node enlargement. CHEST: Clear to auscultation. HEART: Regular rate and rhythm. ABDOMEN: Soft. There was tenderness in the left upper quadrant area. Mild tenderness in the epigastric area. Bowel sounds are positive. No organomegaly. EXTREMITIES: No pedal edema. NEURO: She is alert and oriented x3. No focal deficits. LABS: WBC 15.1, hemoglobin 12.4, platelets normal. Basic metabolic panel is within normal limits. ALT, AST, T-bilirubin and alkaline phosphatase are normal. Amylase and lipase are 48 and 53, respectively. IMPRESSION: 1. 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 I reviewed medical records in the last 2 years. She had a CT scan in September of 2018 that showed a 5.8 cm hyperdense lesion in the tail of the pancreas and it appears that she was investigated with an endoscopic ultrasound at [facility] approximately 1 or 2 years ago. Details are not available at the time of this dictation, but repeat CT scan done in September of 2019 in this hospital once again showed a 2.5 cm cystic lesion in the tail of the pancreas. On comparison, the cystic lesion appears stable at the current time most likely dealing with a pancreatic pseudocyst. 2. Chronic abdominal pain. 3. History of seizure disorder. 4. Normocytic anemia. 5. History of adrenal insufficiency, remains on steroids. 6. History of Jimmy-Danlos syndrome. RECOMMENDATIONS: 1. Continue with Protonix daily. 2. Antiemetics as needed. 3. Pain medications as needed. 4. In regard to the pancreatic pseudocyst, which appears to be stable from the last 3 months duration, I do not see any need for endoscopic intervention or further evaluation. However, we will request all the records from [facility] that was done including endoscopic ultrasound of the pancreas that was done last year. Thank you for this consultation. We will follow with you closely. MMCAROL / IJN: [id number] /
[2020-01-05 07:44] LABS: Anisocytosis Slight; Basophils # (A) 0.1 k/uL (0-0.2); Basophils % (A) 1 %; Eosinophils # (A) 0.1 k/uL (0-0.7); Eosinophils % (A) 1 %; HCT 41.2 % (34.0-46.0); HGB 12.3 gm/dL (11.4-16.0); Hypochromasia Moderate; Lymphocytes % (A) 35 %; MCH 28.9 pg (25.0-35.0); MCV 96.3 fL (80.0-100.0); Mean Platelet Volume 7.3; Monocytes # (A) 0.6 k/uL (0-1.0); Monocytes % (A) 8 %; Neutrophils # (A) 4.6 k/uL (1.3-7.7); Neutrophils % (A) 55 %; Platelet Count 285 k/uL (150-450); RBC 4.27 m/uL (3.80-5.40); WBC 8.4 k/uL (3.8-10.6)
[2020-01-05 08:14] VITALS: RESP 15
[2020-01-05] MEDS: SODIUM CHLORIDE 0.9% 1,000 ML IV SCH (09:33)
[2020-01-05] MEDS: ASPIRIN 81 MG PO SCH (09:33)
[2020-01-05] MEDS: HYDROCORTISONE 10 MG TAB PO SCH (09:34)
[2020-01-05] MEDS: diazePAM 5 MG TAB PO SCH ×2 (09:34→16:47)
[2020-01-05] MEDS: lisinopriL 20 MG TAB PO SCH (09:35)
[2020-01-05] MEDS: carvediloL 12.5 MG TAB PO SCH (09:35)
[2020-01-05] MEDS: cloNIDine HCL 0.1 MG TAB PO SCH (09:35)
[2020-01-05] MEDS: LACOSAMIDE 50 MG TABLET PO SCH (09:36)
[2020-01-05 12:07] LABS: Alpha Fetoprotein, Tumor Mkr 7.6 ng/mL (0.0-7.9)
[2020-01-05 12:21] LABS: Carcinoembryonic Antigen 1.8 ng/mL (0.0-4.9)
[2020-01-05 12:37] LABS: Cancer Antigen 19-9 6.3 U/mL (0.0-34.9)
--- NOTE | 2020-01-05 12:41 | CDI ---
Documentation Clarification Form Date: 01/05/2020 12:26:54 PM From: Judie Mehta RN, CCDS Admit Date: 01/03/2020 04:28:00 PM Patient Name: Malena Pedroza Visit Number: [id number] ATTENTION: The Clinical Documentation Specialists (CDI) and [facility] Coding Staff appreciate your assistance in clarifying documentation. Please respond to the clarification below the line at the bottom and electronically sign. The CDI & [facility] Coding staff will review the response and follow-up if needed. Please note: Queries are made part of the Legal Health Record. If you have any questions, please contact the author of this message via ITS. Dr. Ester Patel Atrial Fibrillation is documented in the PMH and requires further specificity. History/Risk Factors: Atrial Fib, HTN, Renal Disease, Thyroid Disorder, Adrenal Insufficiency Clinical Indicators: 01/02 EKG/telemetry: NSR Treatment: ASA 162 mg PO QD Coreg 25 mg PO BID Catapress 0.1 mg PO BID Apresoline 100,g PO TID Zestril 20 mg PO BID Magnesium protocol replacement Avoid anticoagulation d/t anemia Consults: no Cardiology Consult In your professional opinion, can you please clarify the type of Atrial Fibrillation, if known? Chronic/Permanent XParoxysmal Persistent Other, please specify Unable to determine (Last Revision: July 2017) Paroxysmal MTDD
--- NOTE | 2020-01-05 13:44 | P.PN ---
Subjective Progress Note Date: 01/05/20 Patient was seen in her room and that she was lying in her bed. She said that she's doing better today compared to yesterday. She said that she is tolerating local some wide that really well and she doesn't have any side effects from it. Upon sitting to the patient's nurse she said that the patient did not have any further episodes of seizure-like activity. She said that the patient was initially refusing to take the local some idea but with encouragement she took it. Patient refused EEG yesterday. Objective - Vital Signs Vital signs: Vital Signs Temp 98.3 F 01/05/20 11:20 Pulse 59 L 01/05/20 07:23 Resp 15 01/05/20 07:23 BP 166/80 01/05/20 07:23 Pulse Ox 98 01/05/20 07:23 Intake & Output 01/04/20 01/05/20 01/05/20 18:59 06:59 18:59 Intake Total 360 Balance 360 Intake: Oral 360 Other: Voiding Method Toilet Toilet # Voids 6 2 1 - Exam GENERAL: The patient is lying in bed and is not in acute distress. CHEST: The heart rate is regular rate rhythm. No murmurs to auscultation. LUNG: Clear to auscultation bilaterally no wheezing noted throughout. Not labored breathing. ABDOMEN/GI: Bowel sounds present in all 4 quadrants. No tenderness to palpation throughout. NEUROLOGICAL: Higher mental function: The patient is awake, alert, oriented to self, place and time. Patient is following commands. No aphasia and no neglect. Cranial nerves: The pupils are round, equal and reactive to light and accommodation. Visual valentine are full to confrontation throughout. Extraocular movement is intact no nystagmus is noted. Facial sensation is normal to touch throughout. The facial strength is normal throughout. Hearing is normal bilaterally to hand rub. Tongue is midline and moved [id number] without any difficulty. No dysarthria is noted. Shoulder shrug is normal bilaterally. Motor: Gait is normal. The strength is 5 over 5 throughout except left upper extremity was limited because of pain she has (chronic). Normal tone and bulk. Cerebellum: Normal finger to nose and heel to haskins bilaterally. Sensation: Sensation is normal to touch throughout. Reflexes (right/left): 2+ throughout Plantars are downgoing bilaterally. 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 I would assume her lactic acid to be elevated she was having recurrent seizures and especially recent acute seizures but her lactic acid the during the hospital has been normal. I recommend long-term EEG as an outpatient to actually capture whether these episodes are truly seizure in nature. She did state that she [facility] past and she was told that she had temporal lobe epilepsy as well as the she had different focus of seizure coming from different regions of the brain. We don't have records of what she reports. I placed patient on low-dose MRI and 50 mg twice a day area and per the patient nurse she was trying to avoid taking the medication but with encouragement she she is taking the medication and the patient denies any side effects from the medication. I feel there is an pain seeking behavioral that the patient's having. Currently she is on morphine 4 mg every 4 hours as needed she is on Valium 5 mg 3 times a day. Upon discharge the patient's needs to follow-up with a neurologist as an outpatient. I notified her that she needs to follow up with a neurologist at [facility] especially since the patient is known to them clinic to her. She was notified that that she cannot drive for 6 months unless seizure free according to [facility] law. She is to avoid any heights, avoids and any unattended swimming and avoid heavy machinery. Plan was discussed with the patient and nurse. Pete Laws MD Neuro-Hospitalist Time with Patient: Greater than 30
[2020-01-05 15:45] VITALS: BP 136/81; PULSE 56; TEMP 98.7
--- NOTE | 2020-01-05 16:03 | P.PN ---
Subjective Progress Note Date: 01/05/20 Principal diagnosis: Abdominal pain, pancreatic cyst This is a 54-year-old pleasant white female with a history of hypertension, hypothyroidism, anxiety and severe adrenal insufficiency who came to the emergency room after having multiple seizures for the last 5 days duration. The patient is known by Dr. Rivera. She had been complaining of severe abdominal pain mostly in left upper quadrant area on and off for the last 2 years duration. She has intermittent nausea and vomiting she did have a CT of the abdomen and pelvis done in the emergency room that showed a cystic lesion in the tail of the pancreas measuring 2.9 cm close to the splenic hilum suspicious for a pancreatic pseudocyst. The patient has also been seen and followed through [facility] and has had a prior EUS. After Dr. Rivera reviewed prior images the pseudocyst has actually decreased in size. Today the patient states she does have pain that is all over her body. She still has some right upper quadrant pain. She states her pain medication is not working. She denies any nausea, vomiting, or diarrhea. She denies any fever or chills through the night. Objective - Vital Signs Vital signs: Vital Signs Temp 98.7 F 01/05/20 15:02 Pulse 56 L 01/05/20 15:02 Resp 15 01/05/20 15:02 BP 136/81 01/05/20 15:02 Pulse Ox 98 01/05/20 15:02 Intake & Output 01/04/20 01/05/20 01/05/20 18:59 06:59 18:59 Intake Total 360 Balance 360 Intake: Oral 360 Other: Voiding Method Toilet Toilet # Voids 6 2 1 - Exam General appearance: The patient is alert, oriented, in no acute distress. HET: Head is normocephalic and atraumatic. Conjunctiva pink. Sclera and icteric. Neck: Supple without lymphadenopathy. Trachea midline. Abdomen: Soft, diffuse abdominal tenderness, nondistended with bowel sounds. No palpable organomegaly. No guarding or rigidity. Extremities: Normal skin color and turgor. No pedal edema. Neurological: No focal deficits. Alert and oriented 3. - Labs CBC & Chem 7: 01/05/20 06:48 01/04/20 06:08 Labs: Abnormal Lab Results - Last 24 Hours (Table) 01/05/20 Range/Units 06:48 MCHC 30.0 L (31.0-37.0) g/dL RDW 16.0 H (11.5-15.5) % Assessment and Plan Assessment: 1. Pancreatic cyst in the tail of the pancreas noted on computed tomography scan that was done during this hospitalization yesterday. Dr. Yates had reviewed medical records in the last [address] had been done in September 2018 that showed a 5.8 cm hyperdense lesion in the tail the pancreas and it was investigated with an endoscopic ultrasound at the [facility] 1-2 years ago. Repeat computed tomography scan has shown that the cystic lesion has actually decreased in size from 2 years ago, and is stable from a recent computed tomography scan of September 2019 which again showed a 2.5 cm cystic lesion in the tail of the pancreas. At the current time most likely dealing with a pancreatic pseudocyst. 2. Chronic abdominal pain. 3. History of seizure disorder 4. Normocytic anemia 5. History of adrenal insufficiency, remains on steroids 6. History of Jimmy Danlos syndrome Plan: 1. Continue with Protonix daily 2. Antiemetics as needed 3. Pain medication as needed 4. In regard to the pancreatic pseudocyst which appears to be stable from the last 3 months duration there is no need for any endoscopic intervention or further evaluation. Records from [facility] have been requested 5. Diet as tolerated 6. Patient may be discharged home from a gastroenterology standpoint The impression and plan of care has been dictated as directed. Dr. Rory Yates I performed a history and examination of this patient, discussed the same with the dictator. I agree with the dictator's note ,documented as a scribe. Any additional findings or plans will be noted.
--- NOTE | 2020-01-07 21:16 | P.DS ---
Providers Date of admission: 01/03/20 16:28 Expected date of discharge: 01/05/20 Attending physician: Mckinley Silvestre Consults: 01/03/20 16:29 Consult Physician Stat Consulting Provider: Pete Laws Consult Reason/Comments: Epilepsy seizure, hypokalemia, hypomagnesemia, hypocalcemia Do you want consulting provider notified?: Yes 01/03/20 16:38 Consult Physician Stat Consulting Provider: Vamsi Holly Consult Reason/Comments: Pseudoseizure Do you want consulting provider notified?: Yes 01/04/20 13:55 Consult Physician Routine Consulting Provider: Aliya Yates Consult Reason/Comments: Pseudocyst Do you want consulting provider notified?: Yes [facility]: Chief Complaint: Abdominal pain History of presenting complaint: This is a pleasant 54-year-old patient who follows with visiting physicians Dr. Lott. Chronic stable medical conditions include atrial fibrillation, hypertension, , adrenal insufficiency off medications, Ehler Danlos syndrome, vascular type, blood clots in October 2018, left temporal lobe seizure, generalized anxiety disorder. Patient was here in October of this year. Abdominal pain. HIDA scan was done. [place] over dyskinetic gallbladder. Some supposed to have cholecystectomy with Dr. Jones. Did not get a chest to follow-up. Patient is also from her [facility] to [place]. For chronic abdominal pain. Known to have pancreatic pseudocyst. Did have endoscopic ultrasound. Patient now again presents with worsening abdominal pain. Computed tomography scan shows the pseudocyst again though small in size. Also had pseudo-seizures felt to be from electrolyte abnormalities. Patient refused EEG. Today-patient sitting up on the bed on the phone. Comfortable. Has been t olerating all diet. Getting IV Dilaudid. I discussed with Dr. Rory Yates. Patient is okay to go home. Discussed with the patient to follow-up with Dr. Jones. Patient advised not to drive for further notice until cleared by her neurologist. Discussed with patient. Okay for discharge. Patient also seen by psychiatry. [place] to have stress disorder. Consultation: Dr. Jones from surgery Dr. Laws from neurology Dr. Rory Yates from GI Dr. Goddard from psychiatry Physical examination: VITAL SIGNS: 98.7, 56, 15, 130 691, 98% room air GENERAL:, Sitting up, comfortable, on no foreign EYES: Pupils equal. Conjunctiva normal. HEENT: External appearance of nose and ears normal, oral cavity grossly normal. NECK: JVD not raised; masses not palpable. HEART: First and second heart sounds are normal; no edema. LUNGS: Respiratory rate normal; clear to auscultation. ABDOMEN: Soft, mild abdominal tenderness, no obvious guarding or rigidity, liver spleen not palpable, no masses palpable. PSYCH: Alert and oriented x3; mood and affect slightly anxious. 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 -acute on chronic abdominal pain dyskinetic gallbladder/ -Chronic thoracic and abdominal aortic dissection -Right kidney atrophy -Lower thoracic aortic aneurysm 4 [id number] outpatient -Essential hypertension -Ehler-Danlos syndrome vascular type -Left temporal lobe seizure -Generalized anxiety and panic disorder -Chronic nicotine dependence patient cigarette smoker Disposition: Home Patient Condition at Discharge: Stable Plan - Discharge Summary Discharge Rx Participant: Yes New Discharge Prescriptions: New Calcium Carbonate 500 mg PO BID #30 tablet Continue lisinopriL 20 mg PO BID Diazepam [Valium] 5 mg PO TID hydrALAZINE HCL [Apresoline] 100 mg PO TID Aspirin [Adult Low Dose Aspirin EC] 162 mg PO TID PRN PRN Reason: Pain Carvedilol [Coreg] 25 mg PO BID cloNIDine HCL [Catapres] 0.1 mg PO BID #60 tab Hydrocortisone 30 mg PO DAILY Melatonin 6 mg PO HS PRN PRN Reason: Insomnia Ibuprofen [Motrin Ib] 600 mg PO Q8H PRN PRN Reason: Pain Ergocalciferol [Vitamin D2 (DRISDOL)] 50,000 unit PO MO Hydrocortisone [Cortef] 5 - 10 mg PO DAILY PRN PRN Reason: stress diphenhydrAMINE HCL [Benadryl] 25 - 50 mg PO Q6H PRN PRN Reason: Allergy Symptoms Acetaminophen [Tylenol Arthritis] 1,300 mg PO Q8H PRN PRN Reason: Pain Levothyroxine Sodium [Synthroid] 150 mcg PO DAILY Discharge Medication List Aspirin [Adult Low Dose Aspirin EC] 162 mg PO TID PRN 10/04/19 [History] Carvedilol [Coreg] 25 mg PO BID 10/04/19 [History] Diazepam [Valium] 5 mg PO TID 10/04/19 [History] hydrALAZINE HCL [Apresoline] 100 mg PO TID 10/04/19 [History] lisinopriL 20 mg PO BID 10/04/19 [History] cloNIDine HCL [Catapres] 0.1 mg PO BID #60 tab 10/06/19 [Rx] Hydrocortisone 30 mg PO DAILY 10/13/19 [History] Acetaminophen [Tylenol Arthritis] 1,300 mg PO Q8H PRN 01/03/20 [History] Ergocalciferol [Vitamin D2 (DRISDOL)] 50,000 unit PO MO 01/03/20 [History] Hydrocortisone [Cortef] 5 - 10 mg PO DAILY PRN 01/03/20 [History] Ibuprofen [Motrin Ib] 600 mg PO Q8H PRN 01/03/20 [History] Levothyroxine Sodium [Synthroid] 150 mcg PO DAILY 01/03/20 [History] Melatonin 6 mg PO HS PRN 01/03/20 [History] diphenhydrAMINE HCL [Benadryl] 25 - 50 mg PO Q6H PRN 01/03/20 [History] Calcium Carbonate 500 mg PO BID #30 tablet 01/05/20 [Rx] Follow up Appointment(s)/Referral(s): neurologistdr [Other] - 1 Week Aliya Yates MD [STAFF PHYSICIAN] - 1 Week (Office closed. Please call Thursday to make your appointment. Thank you.) Delmer Lott MD [Primary Care Provider] - 01/09/20 3:00 pm (This will be a Tele/video visit. Call office prior to your appointment please. Thank you) Dao Jones MD [STAFF PHYSICIAN] - 01/12/20 3:30 pm Activity/Diet/Wound Care/Special Instructions: no driving till cleared by her own neurologist dc if ok with neurology/GI Discharge Disposition: HOME SELF-CARE
[2020-01-09] MEDS ORDERED: ERGOCALCIFEROL 50,000 UNIT CAP PO SCH (09:00)
== END 2020-01-05 18:03 | disposition home or self-care (01) | DRG 880 ==
LOC: EC 13:18 → 4SSUR 16:28
PROVIDERS: ADMIT Hospitalist; ATTEND Hospitalist
DX: F44.5 Conversion disorder with seizures or convulsions (principal); E27.1 Primary adrenocortical insufficiency; K86.3 Pseudocyst of pancreas; I13.0 Hypertensive heart and chronic kidney disease with heart failure and stage 1 through stage 4 chronic kidney disease, or unspecified chronic kidney disease; Q79.60 Ehlers-Danlos syndrome, unspecified; T42.76XA Underdosing of unspecified antiepileptic and sedative-hypnotic drugs, initial encounter; Z91.120 Patient's intentional underdosing of medication regimen due to financial hardship; D64.9 Anemia, unspecified; D72.829 Elevated white blood cell count, unspecified; E03.9 Hypothyroidism, unspecified; E20.9 Hypoparathyroidism, unspecified; F41.0 Panic disorder [episodic paroxysmal anxiety]; F41.1 Generalized anxiety disorder; T46.5X6A Underdosing of other antihypertensive drugs, initial encounter; G31.9 Degenerative disease of nervous system, unspecified; G89.29 Other chronic pain; I50.9 Heart failure, unspecified; I71.2 Thoracic aortic aneurysm, without rupture; N18.30 Chronic kidney disease, stage 3 unspecified; Z79.82 Long term (current) use of aspirin; Z79.890 Hormone replacement therapy; Z79.899 Other long term (current) drug therapy; Z80.8 Family history of malignant neoplasm of other organs or systems; Z86.79 Personal history of other diseases of the circulatory system; Z87.891 Personal history of nicotine dependence; Z90.710 Acquired absence of both cervix and uterus; F60.9 Personality disorder, unspecified; I48.0 Paroxysmal atrial fibrillation; Z87.01 Personal history of pneumonia (recurrent); Z86.19 Personal history of other infectious and parasitic diseases; Z83.2 Family history of diseases of the blood and blood-forming organs and certain disorders involving the immune mechanism; Z86.718 Personal history of other venous thrombosis and embolism; Z63.4 Disappearance and death of family member; Z86.74 Personal history of sudden cardiac arrest; Z88.6 Allergy status to analgesic agent; N26.1 Atrophy of kidney (terminal)
CPT/HCPCS: 36415; 70450; 71046; 74178; 80053; 81001; 82105; 82306; 82330; 82378; 82607; 82652; 82746; 83540; 83550; 83605; 83735; 83880; 83970; 84484; 85025; 85027; 86301; 93005; 96361; 96365; 96366; 96367; 96375; 99285

== ENCOUNTER 2020-12-02 15:41 | Inpatient (IN) | payer MEDICARE ==
--- NOTE | 2020-12-02 15:57 | ED ---
Chest Pain HPI - General Chief Complaint: Chest Pain Stated Complaint: Chest pain Time Seen by Provider: 12/02/20 15:48 Source: patient Mode of arrival: wheelchair Limitations: no limitations - History of Present Illness Initial Comments: Malena is a 54yo F with PMH of thoracic aortic dissection s/p grafting, known dissection to the iliacs. Patient presents to the ER today via worsening chest pain for 2 days. Patient reports pain began 2 days ago without provocation, pain has persisted and has been worsening. Pain is not associated with any diaphoresis lightheadedness or shortness of breath. Pain is in the central chest radiating to the back. Patient reports she's been compliant with her home medications for her blood pressure has been elevated. She took an extra hydralazine prior to arrival. - Related Data Home Medications Medication Instructions Recorded Confirmed Aspirin [Adult Low Dose Aspirin EC] 81 mg PO BID 10/04/19 12/02/20 Carvedilol [Coreg] 25 mg PO BID PRN 10/04/19 12/02/20 hydrALAZINE HCL [Apresoline] 100 mg PO TID PRN 10/04/19 12/02/20 Hydrocortisone 30 mg PO DAILY 10/13/19 12/02/20 Hydrocortisone [Cortef] 5 - 10 mg PO DAILY PRN 01/03/20 12/02/20 diphenhydrAMINE HCL [Benadryl] 25 - 50 mg PO Q6H PRN 01/03/20 12/02/20 Calcium Carbonate [Calcium] 600 mg PO DAILY 12/02/20 12/02/20 Cholecalciferol (Vitamin D3) 125 mcg PO BID 12/02/20 12/02/20 [Vitamin D3 (125 MCG = 5,000 IU)] Levothyroxine Sodium [Euthyrox] 175 mcg PO DAILY 12/02/20 12/02/20 Melatonin 10 mg PO HS PRN 12/02/20 12/02/20 amLODIPine [Norvasc] 10 mg PO BID 12/02/20 12/02/20 cloNIDine HCL [Catapres] 0.4 mg PO TID 12/02/20 12/02/20 Allergies Allergy/AdvReac Type Severity Reaction Status Date / Time adhesive Allergy Itching Verified 12/02/20 15:46 ibuprofen [From Motrin] Allergy doesnt Verified 08/29/21 15:46 take d/t kidney issues Review of Systems ROS Statement: Those systems with pertinent positive or pertinent negative responses have been documented in the HPI. ROS Other: All systems not noted in ROS Statement are negative. EKG Findings - EKG Comments: EKG Findings:: EKG was obtained at 1552 rate is 56 rhythm is sinus bradycardia left thorax is normal intervals T-wave inversions are noted and no ST elevations no evidence of acute infarction. Past Medical History Past Medical History: Atrial Fibrillation, Deep Vein Thrombosis (DVT), Hypertension, Neurologic Disorder, Pneumonia, Renal Disease, Seizure Disorder, Thyroid Disorder Additional Past Medical History / Comment(s): adrenal insufficiency; Jimmy Danlos Syndrome - Vascular Type, ACTH,recent afib 2018, shingles november 2018, blood clots october 2018, seizures- left temporal lobe atonic seizures. Has some left sided weakness from surgery last october, stage 3 kidney failure, 3 blood clots, groin,arm and leg History of Any Multi-Drug Resistant Organisms: None Reported Past Surgical History: Back Surgery, Hysterectomy Additional Past Surgical History / Comment(s): abdominal sugery; Aortic grafting, pt stated she was told she had a mass on her pancreas, ets ventrical repair- october 2018, 7 arm surgeries for cysts carpal tunnel, broken bones. Past Anesthesia/Blood Transfusion Reactions: Previous Problems w/ Anesthesia, Family History of Problems w/ Anesthesia Additional Past Anesthesia/Blood Transfusion Reaction / Comment(s): pt states d/t severe adrenal insufficency, ACTH and EDS vascular must receive steroids prior to anesthesia, during october 2018 surgery at [facility] needed to be resusciated twice d/t "blood pressure tanking" was in a coma for 2 weeks and remained on life support for 1 week coma, wakes up combative. mom doesn't come out of anesthesia well. son comes out combative Past Psychological History: Anxiety, Panic Disorder Smoking Status: Former smoker Past Alcohol Use History: None Reported Past Drug Use History: Marijuana - Past Family History Brother(s) Family Medical History: Cancer Additional Family Medical History / Comment(s): She does have a brother with a history of aneurysm as well. History of skin cancer. - brain aneursym Mother Family Medical History: Blood Disorder Additional Family Medical History / Comment(s): factor V Father Additional Family Medical History / Comment(s): lungs filled with cyst and tumors- family Family Medical History: Unable to Obtain General Exam - General Exam Comments Initial Comments: Physical Exam GENERAL: Patient is well-developed and well-nourished. Patient is nontoxic and well- hydrated and is in no distress. HENT: Normocephalic, Atraumatic. EYES: PERRL, EOMI PULMONARY: Unlabored respirations. No audible rales rhonchi or wheezing was noted. CARDIOVASCULAR: There is a regular rate and rhythm without any murmurs gallops or rubs. Strong radial pulses bilaterally Strong DP pulses bilaterally ABDOMEN: Soft and nontender with normal bowel sounds. SKIN: Skin is clear with no lesions or rashes and otherwise unremarkable. : Deferred NEUROLOGIC: Patient is alert and oriented x3. Moving all extremities spontaneously MUSCULOSKELETAL: Normal extremities with adequate strength and full range of motion. No lower extremity swelling or edema. No calf tenderness. PSYCHIATRIC: Normal psychiatric evaluation. Limitations: no limitations Course Vital Signs 12/02/20 12/02/20 12/02/20 15:42 17:45 18:36 Temperature 97.4 F L 98.1 F Pulse Rate 60 60 56 L Respiratory 20 18 18 Rate Blood Pressure 233/90 153/81 150/78 O2 Sat by Pulse 98 97 97 Oximetry 12/02/20 12/02/20 12/02/20 19:23 20:01 21:00 Temperature Pulse Rate 58 L 58 L 56 L Respiratory 18 18 20 Rate Blood Pressure 157/62 132/83 146/88 O2 Sat by Pulse 97 99 97 Oximetry Chest Pain MDM - MDM The patient was seen and evaluated immediately upon arrival in the emergency department, history is obtained from patient and review of medical record 54-year-old female with a known aortic dissection, status post grafting of the ascending aorta, chronic dissection of the remainder of the aorta into the iliacs Patient presented with chest pain and profound hypertension, labs, CTA, pain management and aggressive blood pressure management ordered Patient bradycardic so initial blood pressure managed with a nitro infusion well pharmacy prepared Cardene Due to the bradycardia is more is not indicated CT with no acute findings, no significant change from previous CT, chronic dissection noted Patient's labs with detectable troponin, not significantly elevated, elevated BNP indicating heart failure, elevated creatinine, this time patient will be admitted to the hospital for hypertensive emergency with end organ damage Patient care was discussed with her primary care provider Dr. Landaverde who accepts the admission, considering the patient is in a Cardene infusion she will go to the ICU. Patient care was discussed with Dr. Vera who accepts the patient to the ICU for hypertensive emergency. Patient's blood pressure improved significantly with Cardene infusion, nitro infusion was discontinued, esmolol was not initiated due to bradycardia, patient will be continued on Cardene and evaluated by primary care and cardiology. Critical Care Time Critical Care Time: Yes Total Critical Care Time: 30 Critical Care Time: Critical care time was exclusive of separately billable procedures and treating other patients and teaching time. Critical care was necessary to treat or prevent imminent or life-threatening deterioration. Given the critical condition in which the patient arrived, the patient was immediately assessed by myself and the nurse, and cardiac monitoring initiated due to the potential for rapid decompensation of the patient's clinical condition. During the course of the patients stay, I spent a considerable amount of time at the bedside performing serial re-evaluations of the patient's hemodynamic and clinical status because of the recognized potential threat to life or limb in this condition. I then had a chance to review not only all of the available current laboratory and radiographic studies obtained today, but I also reviewed old records available to me at the time. Additionally, any ancillary information available including medicare nurse records were reviewed. Sequential vital signs were obtained. Disposition Clinical Impression: History of thoracic aortic aneurysm repair, Chest pain, Hypertensive emergency Disposition: ADMITTED IP TO THIS [facility] Condition: Serious
[2020-12-02] MEDS ORDERED: NITROGLYCERIN-D5W PMX 50 MG in DEXTROSE/WATER 1 250ML.BAG IV ONE (16:11)
[2020-12-02] MEDS ORDERED: HYDROmorphone 1 MG/ML 1 ML SYRINGE IM PRN (16:11)
[2020-12-02] MEDS ORDERED: HYDROmorphone 1 MG/ML 1 ML SYRINGE IVP STA (16:18)
[2020-12-02 16:20] LABS: Basophils # (A) 0.1 k/uL (0-0.2); Basophils % (A) 0 %; Eosinophils # (A) 0.1 k/uL (0-0.7); Eosinophils % (A) 1 %; HCT 46.2 % (34.0-46.0); HGB 15.1 gm/dL (11.4-16.0); Lymphocytes # (A) 1.6 k/uL (1.0-4.8); Lymphocytes % (A) 14 %; MCH 31.3 pg (25.0-35.0); MCHC 32.8 g/dL (31.0-37.0); MCV 95.6 fL (80.0-100.0); Mean Platelet Volume 7.8; Monocytes # (A) 0.1 k/uL (0-1.0); Monocytes % (A) 1 %; Neutrophils # (A) 9.8 k/uL (1.3-7.7); Neutrophils % (A) 83 %; Platelet Count 321 k/uL (150-450); RBC 4.84 m/uL (3.80-5.40); RDW 13.5 % (11.5-15.5); WBC 11.8 k/uL (3.8-10.6)
[2020-12-02 16:26] LABS: Albumin 4.8 g/dL (3.5-5.0); Calcium 12.1 mg/dL (8.4-10.2); Potassium 4.6 mmol/L (3.5-5.1); Total Bilirubin 0.3 mg/dL (0.2-1.3); Total Protein 7.9 g/dL (6.3-8.2)
[2020-12-02 16:37] LABS: INR 0.8 (<1.2); Prothrombin Time 9.4 sec (9.0-12.0)
[2020-12-02] MEDS ORDERED: ESMOLOL IN SODIUM CHLORIDE PMX 2.5 GM in SALINE 1 250ML.BAG IV ONE (16:41)
[2020-12-02] MEDS: niCARdipine 20 MG in SODIUM CHLORIDE 0.9% 192 ML IV SCH ×2 (17:21→21:02)
--- NOTE | 2020-12-02 17:23 | CT ---
EXAMINATION TYPE: CT angio thor/abd pel aorta DATE OF EXAM: 12/02/2020 COMPARISON: None HISTORY: HTN and abdominal pain CT DLP: 1013.5 mGycm Automated exposure control for dose reduction was used. CONTRAST: Performed with IV Contrast, patient injected with 80 mL of Isovue 370. Images obtained from the thoracic inlet to the floor the pelvis with IV contrast. Additional images w ere obtained from the thoracic inlet to the diaphragm without contrast. There are 3-D post processed images. FINDINGS: There is normal contrast opacification of the pulmonary arteries. There are no filling defects. There is no mediastinal adenopathy. There are no hilar masses. There is a stent in the descending thoracic aorta. The ascending aorta measures up to 3.7 cm. There i s no dissection of the upper thoracic aorta. Heart size is normal. There is a dissection of the lower thoracic aorta extending into the abdominal aorta and the common iliac arteries. There is some contr ast in the false lumen which is on the right lateral aspect. The upper abdominal aorta measures up to 4.5 cm in diameter. The true lumen measures 1.4 cm. There is arterial flow in both renal arteries an d the celiac artery and superior mesenteric artery. There is significant narrowing at the origin of t he right renal artery due to mass effect from the dissection. The renal artery appears widely patent. Right kidney shows cortical thinning and significant atrophy. There is no retroperitoneal adenopathy . Bladder distends smoothly. There is no inguinal hernia. There is no mesenteric edema. There is no asc ites or free air. There is no bowel obstruction. The liver spleen stomach pancreas gallbladder appear intact. The bile ducts are not dilated. There is 15% depression superior endplate of L4 vertebra not changed compared to 01/04/2020 CT scan. There is 25% wedging of T9 vertebra. There is 70% wedging of T7 vertebra. There is 15% wedging of T5 vertebra. Fractures at T9 appears new compared to 12/17/2018 C T scan. Fracture T5 appears new compared to 12/17/2018 CT scan. IMPRESSION: There is dissection of the lower thoracic aorta and entire abdominal aorta extending into the common iliac arteries also evident on the old CT scan of 01/04/2020. Upper abdominal aortic aneurysm not fraga ged. No evidence of pulmonary embolism. Right renal atrophy.
[2020-12-02] MEDS: HYDROmorphone 1 MG/ML 1 ML SYRINGE IVP PRN ×2 (20:05→23:54)
[2020-12-02] MEDS: SODIUM CHLORIDE 0.9% 1,000 ML IV SCH (20:11)
[2020-12-02] MEDS ORDERED: MELATONIN 5 MG TABLET PO PRN (22:44)
[2020-12-02] MEDS ORDERED: hydrALAZINE HCL 50 MG TAB PO PRN (22:44)
[2020-12-02] MEDS ORDERED: diphenhydrAMINE 25 MG CAP PO PRN (22:44)
[2020-12-02] MEDS ORDERED: HYDROCORTISONE 10 MG TAB PO PRN (22:44)
[2020-12-02] MEDS ORDERED: NON FORMULARY DRUG (Carvedilol [Coreg] 25 MG Tablet) PO PRN (22:44)
[2020-12-03 04:09] LABS: Basophils # (A) 0.1 k/uL (0-0.2); Basophils % (A) 1 %; Eosinophils # (A) 0.1 k/uL (0-0.7); Eosinophils % (A) 1 %; HCT 44.4 % (34.0-46.0); HGB 14.4 gm/dL (11.4-16.0); Hypochromasia Slight; Lymphocytes # (A) 3.2 k/uL (1.0-4.8); Lymphocytes % (A) 28 %; MCH 31.8 pg (25.0-35.0); MCHC 32.4 g/dL (31.0-37.0); MCV 98.1 fL (80.0-100.0); Monocytes # (A) 0.9 k/uL (0-1.0); Monocytes % (A) 8 %; Neutrophils % (A) 60 %; Platelet Count 269 k/uL (150-450); RBC 4.53 m/uL (3.80-5.40); RDW 13.6 % (11.5-15.5); WBC 11.6 k/uL (3.8-10.6)
[2020-12-03 04:21] LABS: Albumin 4.1 g/dL (3.5-5.0); Calcium 10.7 mg/dL (8.4-10.2); Potassium 4.4 mmol/L (3.5-5.1); Total Bilirubin 0.3 mg/dL (0.2-1.3)
[2020-12-03] MEDS: HYDROmorphone 1 MG/ML 1 ML SYRINGE IVP PRN ×4 (04:50→22:17)
[2020-12-03] MEDS: niCARdipine 20 MG in SODIUM CHLORIDE 0.9% 192 ML IV SCH ×2 (06:56→07:10)
[2020-12-03] MEDS: LEVOTHYROXINE 88 MCG TAB PO SCH (06:58)
[2020-12-03] MEDS: amLODIPine 10 MG TAB PO SCH (08:45)
[2020-12-03] MEDS: hydrALAZINE HCL 50 MG TAB PO SCH ×3 (08:45→20:33)
[2020-12-03] MEDS: CHOLECALCIFEROL 25 MCG (1000 IU) TABLET PO SCH ×2 (08:45→20:32)
[2020-12-03] MEDS: ASPIRIN 325 MG TAB PO SCH (08:45)
[2020-12-03] MEDS: SPIRONOLACTONE 25 MG TAB PO SCH (08:45)
[2020-12-03] MEDS: CALCIUM CARBONATE 500 MG CHEWABLE PO SCH (08:45)
[2020-12-03] MEDS: HYDROCORTISONE 10 MG TAB PO SCH ×2 (08:46→21:19)
--- NOTE | 2020-12-03 08:46 | XR ---
EXAMINATION TYPE: XR chest 1V portable DATE OF EXAM: 12/03/2020 CLINICAL HISTORY: Hypertension urgency. TECHNIQUE: Single AP portable upright view of the chest is obtained. COMPARISON: Chest x-ray from January 03, 2020. CTA aorta from yesterday FINDINGS: Lungs remain clear. Overlying sternal wires redemonstrated. Heart size stable and upper li mits of normal with stent graft in the thoracic aorta that has ectatic course distally is redemonstra kalyan. Surgical clips right axillary region again seen. Osseous structures are intact. IMPRESSION: Chronic changes without acute pulmonary process.
[2020-12-03] MEDS: cloNIDine HCL 0.2 MG TAB PO SCH ×3 (08:47→20:33)
[2020-12-03] MEDS ORDERED: HYDROCORTISONE 10 MG TAB PO SCH (09:00)
[2020-12-03] MEDS ORDERED: amLODIPine 10 MG TAB PO SCH (09:00)
[2020-12-03] MEDS ORDERED: NON FORMULARY DRUG (Aspirin [Adult Low Dose Aspirin Ec] 81 MG Tablet.Dr) PO SCH (09:00)
--- NOTE | 2020-12-03 09:30 | P.CNPUL ---
History of Present Illness Consult date: 12/03/20 Requesting physician: Eleno Landaverde Reason for consult: other Chief complaint: Hypertensive urgency/hypertensive emergency. History of present illness: Pulmonary consult dated 12/03/2020. 54-year-old female with history of multiple medical problems including prior repair of aortic aneurysm, Jimmy-Danlos syndrome, chronic atrial fibrillation, epilepsy, hypothyroidism, hypertension, pituitary tumor, and adrenal insufficiency among other things. The patient was seen in the emergency department. She was admitted on December 02. She apparently came in with chest pain for 2 days prior to admission. She was thought to have hypertensive urgency/hypertensive emergency. For that reason she was admitted to the ICU on December 02. The patient currently is on room air. The patient is getting anais ardipine at 5 mg an hour. She is normally on a number of blood pressure medications including clonidine, amlodipine, hydralazine, and carvedilol. I've asked the nurse to restart those medications, and wean her off the nicardipine. The patient apparently sees Dr. Landaverde as a primary. She used to see visiting physicians. Currently, she is much more stable, and her systolic blood pressure is in mid 130s. White count 11.6, hemoglobin 14.4, hematocrit 44.4, and platelet count 269,000. Sodium 136, potassium 4.4, chlorides 104, CO2 24, anion gap 8, BUN 13, and creatinine 1.02. Troponins were 0.018, 0.025, and 0.020. N- terminal proBNP was 4540. Chest x-ray showed no acute pulmonary process. Computed tomography scan showed dissection of the lower thoracic aorta and entire abdominal aorta extending into the common iliac arteries, and is unchanged on the computed tomography scan done December 2019. Review of Systems REVIEW OF SYSTEMS: CONSTITUTIONAL: [Negative.] NEUROLOGIC: [ Negative.] HEENT: [ Negative.] CARDIAC: Chest pain for 2 days prior to admission. PULMONARY: [Negative.] GI: [Negative.] : [Negative.] RHEUMATOLOGIC: [ Negative.] IMMUNOLOGIC: [ Negative.] ENDOCRINE: [Negative. ] DERMATOLOGIC: [Negative.] Past Medical History Past Medical History: Atrial Fibrillation, Deep Vein Thrombosis (DVT), Hypertension, Neurologic Disorder, Pneumonia, Renal Disease, Seizure Disorder, Thyroid Disorder Additional Past Medical History / Comment(s): adrenal insufficiency; Jimmy Danlos Syndrome - Vascular Type, ACTH,recent afib 2018, shingles november 2018, blood clots october 2018, seizures- left temporal lobe atonic seizures. Has some left sided weakness from surgery last october, stage 3 kidney failure, 3 blood clots, groin,arm and leg History of Any Multi-Drug Resistant Organisms: None Reported Past Surgical History: Back Surgery, Hysterectomy Additional Past Surgical History / Comment(s): abdominal sugery; Aortic grafting, pt stated she was told she had a mass on her pancreas, ets ventrical repair- october 2018, 7 arm surgeries for cysts carpal tunnel, broken bones. Past Anesthesia/Blood Transfusion Reactions: Previous Problems w/ Anesthesia, Family History of Problems w/ Anesthesia Additional Past Anesthesia/Blood Transfusion Reaction / Comment(s): pt states d/t severe adrenal insufficency, ACTH and EDS vascular must receive steroids prior to anesthesia, during october 2018 surgery at [facility] needed to be resusciated twice d/t "blood pressure tanking" was in a coma for 2 weeks and remained on life support for 1 week coma, wakes up combative. mom doesn't come out of anesthesia well. son comes out combative Past Psychological History: Anxiety, Panic Disorder Smoking Status: Former smoker Past Alcohol Use History: None Reported Past Drug Use History: Marijuana - Past Family History Brother(s) Family Medical History: Cancer Additional Family Medical History / Comment(s): She does have a brother with a history of aneurysm as well. History of skin cancer. - brain aneursym Mother Family Medical History: Blood Disorder Additional Family Medical History / Comment(s): factor V Father Additional Family Medical History / Comment(s): lungs filled with cyst and tumors- family Family Medical History: Unable to Obtain Medications and Allergies Home Medications Medication Instructions Recorded Confirmed Type Aspirin [Adult Low Dose Aspirin EC] 81 mg PO BID 10/04/19 12/02/20 History Carvedilol [Coreg] 25 mg PO BID PRN 10/04/19 12/02/20 History hydrALAZINE HCL [Apresoline] 100 mg PO TID PRN 10/04/19 12/02/20 History Hydrocortisone 30 mg PO DAILY 10/13/19 12/02/20 History Hydrocortisone [Cortef] 5 - 10 mg PO DAILY PRN 01/03/20 12/02/20 History diphenhydrAMINE HCL [Benadryl] 25 - 50 mg PO Q6H PRN 01/03/20 12/02/20 History Calcium Carbonate [Calcium] 600 mg PO DAILY 12/02/20 12/02/20 History Cholecalciferol (Vitamin D3) 125 mcg PO BID 12/02/20 12/02/20 History [Vitamin D3 (125 MCG = 5,000 IU)] Levothyroxine Sodium [Euthyrox] 175 mcg PO DAILY 12/02/20 12/02/20 History Melatonin 10 mg PO HS PRN 12/02/20 12/02/20 History amLODIPine [Norvasc] 10 mg PO BID 12/02/20 12/02/20 History cloNIDine HCL [Catapres] 0.4 mg PO TID 12/02/20 12/02/20 History Allergies Allergy/AdvReac Type Severity Reaction Status Date / Time adhesive Allergy Itching Verified 12/02/20 15:46 ibuprofen [From Motrin] Allergy doesnt Verified 12/02/20 15:46 take d/t kidney issues Physical Exam Osteopathic Statement: *. No significant issues noted on an osteopathic stru ctural exam other than those noted in the History and Physical/Consult. Vitals: Vital Signs Temp Pulse Resp BP Pulse Ox 12/03/20 08:00 99.2 F 54 L 13 157/77 96 12/03/20 07:00 54 L 16 161/71 95 12/03/20 06:00 52 L 16 108/51 93 L 12/03/20 05:00 53 L 14 141/76 96 12/03/20 04:00 98 F 53 L 14 116/61 97 12/03/20 03:00 51 L 16 92/49 95 12/03/20 02:00 56 L 13 148/81 94 L 12/03/20 01:00 59 L 26 H 121/92 98 12/03/20 00:00 98.6 F 61 26 H 188/130 95 12/02/20 23:33 73 46 H 96 12/02/20 23:00 58 L 18 155/83 97 12/02/20 22:00 58 L 18 145/82 98 12/02/20 21:00 56 L 20 146/88 97 12/02/20 20:01 58 L 18 132/83 99 12/02/20 19:23 58 L 18 157/62 97 12/02/20 18:36 98.1 F 56 L 18 150/78 97 12/02/20 17:45 60 18 153/81 97 12/02/20 15:42 97.4 F L 60 20 233/90 98 Intake and Output 12/02/20 12/03/20 12/03/20 22:59 06:59 14:59 Intake Total 184.167 800 75 Output Total 700 Balance 184.167 100 75 Intake: IV 75 Sodium Chloride 0.9% 1, 75 000 ml @ 75 mls/hr IV . [id number] [facility] Rx#:[id number] Intake, IV Titration 184.167 800 Amount Sodium Chloride 0.9% 1, 600 000 ml @ 75 mls/hr IV . [id number] [facility] Rx#:[id number] niCARdipine 20 mg In 184.167 200 Sodium Chloride 0.9% 192 ml @ 5 MG/HR 50 mls/hr IV .Q4H [facility] Rx#:[id number] Output: Urine 700 Other: Weight 56.699 kg 57 kg No acute distress, oriented 3. Currently on room air. HEENT examination is grossly unremarkable. Neck supple. Full range of motion. No adenopathy thyromegaly or neck vein distention. Cardiovascular examination reveals regular rhythm rate. S1-S2 normal. No S3 or S4. No discernible murmur noted. Heart rate 54 bpm. Lungs reveal mostly clear breath sounds. Breathsounds are equal bilaterally. Mild scattered rhonchi are noted. I do not hear any wheezes, or crackles. Abdomen soft bowel sounds are heard. No masses or tenderness. Extremities are intact. No cyanosis clubbing or edema. Skin is without rash or lesion. Neurologic examination is brief but nonfocal. Results - Laboratory Findings CBC and BMP: 12/03/20 03:05 12/03/20 03:05 PT/INR, D-dimer PT 9.4 sec (9.0-12.0) 12/02/20 16:09 INR 0.8 (<1.2) 12/02/20 16:09 Abnormal lab findings: Abnormal Labs 12/02/20 12/02/20 12/03/20 16:09 16:09 03:05 WBC 11.8 H 11.6 H Hct 46.2 H Neutrophils # 9.8 H Sodium Creatinine 1.19 H Glucose 160 H Calcium 12.1 H Alkaline Phosphatase 178 H 12/03/20 03:05 WBC Hct Neutrophils # Sodium 136 L Creatinine Glucose 106 H Calcium 10.7 H Alkaline Phosphatase 128 H - Diagnostic Findings Chest x-ray: image reviewed CT scan - chest: image reviewed Assessment and Plan Assessment: Hypertensive urgency/hypertensive emergency, without obvious end organ involvement. History of aortic aneurysm, status post surgical repair. History of adrenal insufficiency. History of Jimmy-Danlos syndrome. History of atrial fibrillation. History of seizure disorder. History of hypertension. History of hypothyroidism. History of pituitary tumor. Plan: Plan dated 12/03/2020. The patient's blood pressure medications including Catapres, amlodipine, hydralazine, and Coreg, will be added back to the patient. In addition, we'll attempt to wean off the nicardipine. Also, the patient's hydrocortisone will be restarted as well. She apparently takes 15 mg twice a day. Suggestions are forthcoming. Prognosis is guarded. Once we get her off the nicardipine, and her blood pressure is stable, and chronic medications have been added back, the patient could be transferred out of the intensive care unit. Additional recommendations and suggestions are forthcoming. Prognosis is guarded. Time with Patient: Greater than 30
[2020-12-03] MEDS: carvediloL 12.5 MG TAB PO SCH ×2 (09:38→17:46)
[2020-12-03] MEDS: SODIUM CHLORIDE 0.9% 1,000 ML IV SCH (11:17)
--- NOTE | 2020-12-03 11:40 | P.CRDCN ---
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 She also states 16 years ago she had an myocardial infarction, however she was told her cardiac catheterization was normal, no stents placed per her knowledge. She follows at [facility] for all her care. We have been asked to see in consultation for hypertensive emergency. Patient is seen and examined in the intensive care unit. Patient was admitted on 12/02. She presented to the emergency department with complaints of midsternal chest pain and found to be hypertensive. Her chest pain started 4 days ago and worsening. It was non- radiating. She denies any aggravating or alleviating factors. She denies associated shortness of breath, lightheadedness, diaphoresis, nausea, or palpitations. She denies symptoms of orthopnea or PND. She states she was very anxious about her aortic dissection and decided to present to emergency department. She states she is compliant with all her medication at home and adheres to a healthy diet at home. She does smoke marijuana .She is a former cigarette smoker. Patient was bradycardic so initial blood pressure managed with a nitro infusion and then started on Cardene. She was admitted to the intensive care unit. Patient states her brother, sister and daughter all have similar medical problems as her, she is unsure of what she or they have been diagnosed with in terms of genetic illnesses. DIAGNOSTICS EKG reveals sinus bradycardia HR 56, LVH, nonspecific ST-T wave changes Telemetry tracings indicate sinus mechanism in the 60s Thoracic CT- dissection of the lower thoracic aorta and entire abdominal aorta extending into the common iliac arteries also evident on the old computed tomography scan of 01/04/2020. Upper abdominal aortic aneurysm not changed. No pulmonary embolism. A right renal atrophy Laboratory reviewed, WBC 11.6, hemoglobin 14.4, platelets 269, sodium 136, potassium 4.4, BUN 13, serum creatinine 1.02, alkaline phosphatase 128 troponin negative x 3. Current home cardiac medications include hydralazine 100 mg 3 times a day, hydrocortisone 30mg daily, carvedilol 25 mg twice a day, aspirin 81 mg, amlodipine 10 mg, clonidine 0.4 mg 3 times a day REVIEW OF SYSTEMS At the time of my exam: CONSTITUTIONAL: Denies fever or chills. CARDIOVASCULAR: + chest pain, Denies shortness of breath, orthopnea, PND or palpitations. RESPIRATORY: Denies cough. GASTROINTESTINAL: Denies abdominal pain, diarrhea, constipation, nausea or vomiting. MUSCULOSKELETAL: Denies myalgias. NEUROLOGIC: Denies numbness, tingling, headacbe or weakness. ENDOCRINE: Denies fatigue, weight change, polydipsia or polyurina. GENITOURINARY: Denies burning, hematuria or urgency with micturation. HEMATOLOGIC: Denies history of anemia or bleeding. PHYSICAL EXAMINATION Blood pressure 124/69 heart rate 58 afebrile and maintaining oxygen saturation 97% on room air. CONSTITUTIONAL: No apparent distress. HEENT: Head is normocephalic. Pupils are equal, round. Sclerae anicteric. Mucous membranes of the mouth are moist. No JVD. No carotid bruit. CHEST EXAMINATION: Lungs are clear to auscultation. No chest wall tenderness is noted on palpation or with deep breathing. HEART EXAMINATION: Regular rate and rhythm. S1, S2 heard. Systolic and Diastolic murmuc noted at apex and base. ABDOMEN: Soft, nontender. Positive bowel sounds. EXTREMITIES: 2+ peripheral pulses, no lower extremity edema and no calf tenderness. SKIN: intact. NEUROLOGIC EXAMINATION: Patient is awake, alert and oriented x3. 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 PLAN An acute coronary event has been ruled out with no EKG evidence of ischemia and negative cardiac enzymes. Obtain 2D echocardiogram and doppler study to assess cardiac structure and function. Start aldactone 25mg daily Stop Nicardipine drip Continue amlodipine 10 mg daily, carvedilol 25 mg BID , hydralazine 100 mg TID. Will obtain records from [facility] Further recommendations based on clinical course Thank you kindly for this consultation. Nurse Practitioner note has been reviewed, I agree with a documented findings and plan of care. Patient was seen and examined. Past Medical History Past Medical History: Atrial Fibrillation, Deep Vein Thrombosis (DVT), Hypertension, Neurologic Disorder, Pneumonia, Renal Disease, Seizure Disorder, Thyroid Disorder Additional Past Medical History / Comment(s): adrenal insufficiency; Jimmy Danlos Syndrome - Vascular Type, ACTH,recent afib 2018, shingles november 2018, blood clots october 2018, seizures- left temporal lobe atonic seizures. Has some left sided weakness from surgery last october, stage 3 kidney failure, 3 blood clots, groin,arm and leg History of Any Multi-Drug Resistant Organisms: None Reported Past Surgical History: Back Surgery, Hysterectomy Additional Past Surgical History / Comment(s): abdominal sugery; Aortic grafting, pt stated she was told she had a mass on her pancreas, ets ventrical repair- october 2018, 7 arm surgeries for cysts carpal tunnel, broken bones. Past Anesthesia/Blood Transfusion Reactions: Previous Problems w/ Anesthesia, F amily History of Problems w/ Anesthesia Additional Past Anesthesia/Blood Transfusion Reaction / Comment(s): pt states d/t severe adrenal insufficency, ACTH and EDS vascular must receive steroids prior to anesthesia, [facility] october [facility] to be resusciated twice d/t "blood pressure tanking" was in a coma for 2 weeks and remained on life support for 1 week coma, wakes up combative. mom doesn't come out of anesthesia well. son comes out combative Past Psychological History: Anxiety, Panic Disorder Smoking Status: Former smoker Past Alcohol Use History: None Reported Past Drug Use History: Marijuana - Past Family History Brother(s) Family Medical History: Cancer Additional Family Medical History / Comment(s): She does have a brother with a history of aneurysm as well. History of skin cancer. - brain aneursym Mother Family Medical History: Blood Disorder Additional Family Medical History / Comment(s): factor V Father Additional Family Medical History / Comment(s): lungs filled with cyst and tumors- family Family Medical History: Unable to Obtain Medications and Allergies Home Medications Medication Instructions Recorded Confirmed Type Aspirin [Adult Low Dose Aspirin EC] 81 mg PO BID 10/04/19 12/02/20 History Carvedilol [Coreg] 25 mg PO BID PRN 10/04/19 12/02/20 History hydrALAZINE HCL [Apresoline] 100 mg PO TID PRN 10/04/19 12/02/20 History Hydrocortisone 30 mg PO DAILY 10/13/19 12/02/20 History Hydrocortisone [Cortef] 5 - 10 mg PO DAILY PRN 01/03/20 12/02/20 History diphenhydrAMINE HCL [Benadryl] 25 - 50 mg PO Q6H PRN 01/03/20 12/02/20 History Calcium Carbonate [Calcium] 600 mg PO DAILY 12/02/20 12/02/20 History Cholecalciferol (Vitamin D3) 125 mcg PO BID 12/02/20 12/02/20 History [Vitamin D3 (125 MCG = 5,000 IU)] Levothyroxine Sodium [Euthyrox] 175 mcg PO DAILY 12/02/20 12/02/20 History Melatonin 10 mg PO HS PRN 12/02/20 12/02/20 History amLODIPine [Norvasc] 10 mg PO BID 12/02/20 12/02/20 History cloNIDine HCL [Catapres] 0.4 mg PO TID 12/02/20 12/02/20 History Allergies Allergy/AdvReac Type Severity Reaction Status Date / Time adhesive Allergy Itching Verified 12/02/20 15:46 ibuprofen [From Motrin] Allergy doesnt Verified 12/02/20 15:46 take d/t kidney issues Physical Exam Vitals: Vital Signs Temp Pulse Resp BP Pulse Ox 12/03/20 06:00 52 L 16 108/51 93 L 12/03/20 05:00 53 L 14 141/76 96 12/03/20 04:00 98 F 53 L 14 116/61 97 12/03/20 03:00 51 L 16 92/49 95 12/03/20 02:00 56 L 13 148/81 94 L 12/03/20 01:00 59 L 26 H 121/92 98 12/03/20 00:00 98.6 F 61 26 H 188/130 95 12/02/20 23:33 73 46 H 96 12/02/20 23:00 58 L 18 155/83 97 12/02/20 22:00 58 L 18 145/82 98 12/02/20 21:00 56 L 20 146/88 97 12/02/20 20:01 58 L 18 132/83 99 12/02/20 19:23 58 L 18 157/62 97 12/02/20 18:36 98.1 F 56 L 18 150/78 97 12/02/20 17:45 60 18 153/81 97 12/02/20 15:42 97.4 F L 60 20 233/90 98 Intake and Output 12/02/20 12/02/20 12/03/20 14:59 22:59 06:59 Intake Total 184.167 525 Output Total 700 Balance 184.167 -175 Intake: Intake, IV Titration 184.167 525 Amount Sodium Chloride 0.9% 1, 525 000 ml @ 75 mls/hr IV . [id number] [facility] Rx#:[id number] niCARdipine 20 mg In 184.167 Sodium Chloride 0.9% 192 ml @ 5 MG/HR 50 mls/hr IV .Q4H [facility] Rx#:[id number] Output: Urine 700 Other: Weight 56.699 kg 57 kg Results 12/03/20 03:05 12/03/20 03:05 Cardiac Enzymes 12/02/20 12/02/20 12/02/20 Range/Units 16:09 16:09 19:06 AST 26 (14-36) U/L Troponin I 0.018 0.025 (0.000-0.034) ng/mL 12/02/20 12/03/20 Range/Units 21:49 03:05 AST 23 (14-36) U/L Troponin I 0.020 (0.000-0.034) ng/mL Coagulation 12/02/20 Range/Units 16:09 PT 9.4 (9.0-12.0) sec APTT 22.0 (22.0-30.0) sec CBC 12/02/20 12/03/20 Range/Units 16:09 03:05 WBC 11.8 H 11.6 H (3.8-10.6) k/uL RBC 4.84 4.53 (3.80-5.40) m/uL Hgb 15.1 14.4 (11.4-16.0) gm/dL Hct 46.2 H 44.4 (34.0-46.0) % Plt Count 321 269 (150-450) k/uL Comprehensive Metabolic Panel 12/02/20 12/03/20 Range/Units 16:09 03:05 Sodium 139 136 L (137-145) mmol/L Potassium 4.6 4.4 (3.5-5.1) mmol/L Chloride 105 104 (98-107) mmol/L Carbon Dioxide 23 24 (22-30) mmol/L BUN 14 13 (7-17) mg/dL Creatinine 1.19 H 1.02 (0.52-1.04) mg/dL Glucose 160 H 106 H (74-99) mg/dL Calcium 12.1 H 10.7 H (8.4-10.2) mg/dL AST 26 23 (14-36) U/L ALT 15 12 (4-34) U/L Alkaline Phosphatase 178 H 128 H (38-126) U/L Total Protein 7.9 7.0 (6.3-8.2) g/dL Albumin 4.8 4.1 (3.5-5.0) g/dL Current Medications Generic Name Dose Route Start Last Admin Trade Name Freq PRN Reason Stop Dose Admin Aspirin 325 mg 12/03/20 09:00 Aspirin 325 Mg Tab PO DAILY [facility] Calcium Carbonate/Glycine 500 mg 12/03/20 09:00 Calcium Carbonate 500 Mg Chewable PO DAILY [facility] Cholecalciferol 125 mcg 12/03/20 09:00 Cholecalciferol 25 Mcg (1000 Iu) Tablet PO BID [facility] Clonidine 0.4 mg 12/03/20 09:00 Clonidine Hcl 0.2 Mg Tab PO TID [facility] Diphenhydramine HCl 25 mg 12/02/20 22:44 Diphenhydramine 25 Mg Cap PO Q6H PRN Allergy Symptoms Hydralazine HCl 100 mg 12/02/20 22:44 Hydralazine Hcl 50 Mg Tab PO TID PRN HIGH BLOOD PRESSURE Hydrocortisone 5 - 10 mg 12/02/20 22:44 Hydrocortisone 10 Mg Tab PO DAILY PRN stress Hydrocortisone 30 mg 12/03/20 09:00 Hydrocortisone 10 Mg Tab PO DAILY [facility] Hydromorphone HCl 1 mg 12/02/20 19:47 12/02/20 23:54 Hydromorphone 1 Mg/Ml 1 Ml Syringe IVP 1 mg Q3HR PRN Administration Pain Nicardipine HCl 20 mg/ Sodium 200 mls @ 50 mls/hr 12/02/20 16:45 12/02/20 21:02 Chloride IV 5 mg/hr .Q4H [facility] 50 mls/hr Administration Protocol 5 MG/HR Esmolol HCl/Sodium Chloride 2. 250 mls @ 17.01 mls/hr 12/02/20 16:41 12/02/20 19:29 5 gm/ IV Solution IV 12/03/20 07:22 Not Given .[id number] ONE Protocol 50 MCG/KG/MIN Sodium Chloride 1,000 mls @ 75 mls/hr 12/02/20 20:15 12/02/20 20:11 Saline 0.9% IV 75 mls/hr .[id number] [facility] Administration Levothyroxine Sodium 176 mcg 12/03/20 06:30 Levothyroxine 88 Mcg Tab PO DAILY@0630 [facility] Melatonin 10 mg 12/02/20 22:44 Melatonin 5 Mg Tablet PO HS PRN Insomnia Intake and Output 12/02/20 12/02/20 12/03/20 14:59 22:59 06:59 Intake Total 184.167 525 Output Total 700 Balance 184.167 -175 Intake: Intake, IV Titration 184.167 525 Amount Sodium Chloride 0.9% 1, 525 000 ml @ 75 mls/hr IV . [id number] [facility] Rx#:[id number] niCARdipine 20 mg In 184.167 Sodium Chloride 0.9% 192 ml @ 5 MG/HR 50 mls/hr IV .Q4H [facility] Rx#:[id number] Output: Urine 700 Other: Weight 56.699 kg 57 kg Patient Weight 12/03/20 06:59 Weight 57 kg 12/03/20 03:05 12/03/20 03:05
--- NOTE | 2020-12-03 13:00 | ECHOF ---
Referral Reason:LV function MEASUREMENTS -------- HEIGHT: 175.3 cm WEIGHT: 56.7 kg BP: 140/70 IVSd: 1.1 cm (0.6 - 1.1) LVIDd: 4.4 cm (3.9 - 5.3) LVPWd: 1.1 cm (0.6 - 1.1) EDV(Teich): 86 ml IVSs: 1.7 cm LVIDs: 2.8 cm LVPWs: 1.5 cm %IVS Thck: 58 % ESV(Teich): 30 ml EF(Teich): 65 % %FS: 35 % SV(Teich): 56 ml LA Diam: 3.1 cm (2.7 - 3.8) RVIDd: 3.2 cm (< 3.3) LALs A4C: 5.1 cm LAAs A4C: 18.8 cm LAESV A-L A4C: 59 ml LAESV MOD A4C: 54 ml LALs A2C: 5.1 cm LAAs A2C: 15.6 cm LAESV A-L A2C: 41 ml LAESV MOD A2C: 39 ml LAESV(A-L): 49 ml LAESV Index (A-L): 29.06 ml/m Ao Diam: 4.1 cm (2.0 - 3.7) AV Cusp: 2.3 cm (1.5 - 2.6) EPSS: 0.4 cm MV E Arian: 0.92 m/s MV DecT: 328 ms MV Dec Trigg: 2.8 m/s MV A Arian: 0.96 m/s MV E/A Ratio: 0.96 MV PHT: 95 ms AV Vmax: 1.76 m/s AV maxP.37 mmHg TR Vmax: 2.05 m/s TR maxP.84 mmHg MV EF SLOPE: 51.97 mm/s (70 - 150) MV EXCURSION: 15.62 mm (> 18.000) FINDINGS -------- Sinus rhythm. This was a technically adequate study. The left ventricular size is normal. There is borderline concentric left ventricular hypertrophy. Overall left ventricular systolic function is normal with, an EF between 60 - 65 %. The right ventricle is normal in size. The left atrium is normal in size. The right atrium is normal in size. Interatrial and interventricular septum intact. The aortic valve is trileaflet, and appears structurally normal. No aortic stenosis or regurgitation. History of AAA repair The mitral valve is normal. The tricuspid valve appears structurally normal. Trace/mild (physiologic) pulmonic regurgitation. The aortic root is dilated measuring 4.1cm. Normal inferior vena cava with normal inspiratory collapse consistent with estimated right atrial pre ssure of 5 mmHg. There is no pericardial effusion. CONCLUSIONS -------- 1. The left ventricular size is normal. 2. There is borderline concentric left ventricular hypertrophy. 3. Overall left ventricular systolic function is normal with, an EF between 60 - 65 %. 4. History of AAA repair 5. Trace/mild (physiologic) pulmonic regurgitation. 6. The aortic root is dilated measuring 4.1cm. 7. There is no pericardial effusion. ENROLLMENT ELIGIBILITY REPRESENTATIVE: Berkley Albert RDCS
--- NOTE | 2020-12-03 13:31 | P.HPIM ---
History of Present Illness H&P Date: 12/03/20 HISTORY OF PRESENT ILLNESS This is a 54-year-old female patient of Dr. 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 Patient states that she started having chest pain yesterday and she noted her blood pressure was high, she has been taking her medications as prescribed. Patient does receive much of her care at [facility]. She then started vomiting blood. She also relates that she had seizures while she was in the ER and one today will she was having her echocardiogram. She denies any chest pain at the time of evaluation. There've been no witnessed seizures by staff. Patient presented to [facility] emergency center. Patient presented with blood pressure 233/90, afebrile, heart rate in the 50s and 60s. Blood pressure has been as high as 183/122 this morning. EKG was sinus bradycardia, left ventricular hypertrophy and nonspecific ST-T wave changes. CT angiogram of the aorta revealed dissection of the lower thoracic aorta and entire abdominal aorta extending into the common iliac arteries also evident on old exam from December 2019. Upper abdominal aortic aneurysm unchanged. No evidence of pulmonary embolism. Right renal atrophy. Chest x-ray reveals chronic changes without acute pulmonary process. Patient was admitted into the intensive care unit and was started on nicardipine drip which has subsequently been weaned off. Consult in place with security supervisor and cardiology. REVIEW OF SYSTEMS Constitutional: No fever, no chills, no night sweats. No weight change. No weakness, fatigue or lethargy. No daytime sleepiness. EENT: No headache. No blurred vision or double vision, no loss of vision. No loss of Hearing, no ringing in the ears, no dizziness. No nasal drainage or congestion. No epistaxis. No sore throat. Lungs: No shortness of breath, cough, no sputum production. No wheezing. Cardiovascular: Resolved chest pain, no lower extremity edema. No palpitations. No paroxysmal nocturnal dyspnea. No orthopnea. No lightheadedness or dizziness. No syncopal episodes. Abdominal: No abdominal pain. No nausea, vomiting. No diarrhea. No constipation. No bloody or tarry stools.. No loss of appetite. Genitourinary: No dysuria, increased frequency, urgency. No urinary retention. Musculoskeletal: No myalgias. No muscle weakness, no gait dysfunction, no fr equent falls. No back pain. No neck pain. Integumentary: No wounds, no lesions. No rash or pruritus. No unusual bruising. No change in hair or nails. Neurologic: No aphasia. No facial droop. No change in mentation. No head injury. No headache. No paralysis. No paresthesia. Reports seizures. Psychiatric: No depression. No anxiety. No mood swings. Endocrine: No abnormal blood sugars. No weight change. No excessive sweating or thirst. No cold intolerance. SOCIAL HISTORY Patient is a smoker of 3 cigarettes per week which she states she smokes for anxiety. She uses THC/CBD cream for anxiety. She denies any alcohol use, illicit drug use. She is single. FAMILY HISTORY Father from a lung tumor. Mother is alive at age 84 with history of DVT with factor V deficiency. Patient has 2 sisters and one has Jimmy Danlos syndrome vascular type. Patient has one brother this past from an aneurysm and one brother has Jimmy Danlos vascular type. Patient has 3 children with no major medical problems. PHYSICAL EXAMINATION Gen: This is a 54-year-old female. She is resting in the ICU bed and appears to be comfortable and in no acute distress. Patient is noted to be quite anxious. HEENT: Head is atraumatic, normocephalic. Pupils equal, round. Sclerae is anicteric. NECK: Supple. No JVD. No lymphadenopathy. No thyromegaly. LUNGS: Clear to auscultation. No wheezes or rhonchi. No intercostal retractions. No accessory muscle usage. HEART: Regular rate and rhythm. Systolic and diastolic murmur. ABDOMEN: Soft. Bowel sounds are present. No masses. No tenderness. EXTREMITIES: No pedal edema. No calf tenderness. Dorsalis pedis +2 bilaterally. NEUROLOGICAL: Patient is awake, alert and oriented x3. Cranial nerves 2 through 12 are grossly intact. ASSESSMENT AND PLAN 1. Hypertensive emergency. Patient has been weaned off nicardipine drip and will be transferred to the cardiac stepdown unit, continue cardiac monitoring, consults with security supervisor and cardiology appreciated. Tinea amlodipine 10 mg daily, Coreg 25 mg twice daily, Catapres 0.4 mg 3 times daily, hydralazine 100 mg 3 times daily, Aldactone 25 mg daily. 2. Chest pain, acute coronary syndrome ruled out by cardiology. 3. History of seizure activity. Patient complains of seizures but no witnessed seizures since admission. 4. Generalized anxiety disorder. Patient uses THC and CBD cream. Patient will be started on Xanax 0.25 mg twice daily as needed. 5. Adrenal insufficiency. Continue hydrocortisone 15 mg twice daily 6. Hypoparathyroidism. 7. Hypothyroidism. Continue levothyroxine 176 g daily 8. Thoracic aneurysm, stable, controlled blood pressure. 9. GI prophylaxis. Protonix. 10. DVT prophylaxis. SAMMI hose. Patient will be admitted to the hospital for a minimum of 2 night stay. DISCHARGE PLAN Home Impression and plan of care have been directed as dictated by the signing physician. Bridget Ordoñez nurse practitioner acting as scribe for signing physician. Past Medical History Past Medical History: Atrial Fibrillation, Deep Vein Thrombosis (DVT), Hypertension, Neurologic Disorder, Pneumonia, Renal Disease, Seizure Disorder, Thyroid Disorder Additional Past Medical History / Comment(s): adrenal insufficiency; Jimmy Danlos Syndrome - Vascular Type, ACTH,recent afib 2018, shingles november 2018, blood clots october 2018, seizures- left temporal lobe atonic seizures. Has some left sided weakness from surgery last october, stage 3 kidney failure, 3 blood clots, groin,arm and leg History of Any Multi-Drug Resistant Organisms: None Reported Past Surgical History: Back Surgery, Hysterectomy Additional Past Surgical History / Comment(s): abdominal sugery; Aortic grafting, pt stated she was told she had a mass on her pancreas, ets ventrical repair- october 2018, 7 arm surgeries for cysts carpal tunnel, broken bones. Past Anesthesia/Blood Transfusion Reactions: Previous Problems w/ Anesthesia, Family History of Problems w/ Anesthesia Additional Past Anesthesia/Blood Transfusion Reaction / Comment(s): pt states d/t severe adrenal insufficency, ACTH and EDS vascular must receive steroids prior to anesthesia, during october 2018 surgery at [facility] needed to be resusciated twice d/t "blood pressure tanking" was in a coma for 2 weeks and remained on life support for 1 week coma, wakes up combative. mom doesn't come out of anesthesia well. son comes out combative Past Psychological History: Anxiety, Panic Disorder Smoking Status: Former smoker Past Alcohol Use History: None Reported Past Drug Use History: Marijuana - Past Family History Brother(s) Family Medical History: Cancer Additional Family Medical History / Comment(s): She does have a brother with a history of aneurysm as well. History of skin cancer. - brain aneursym Mother Family Medical History: Blood Disorder Additional Family Medical History / Comment(s): factor V Father Additional Family Medical History / Comment(s): lungs filled with cyst and tumors- family Family Medical History: Unable to Obtain Medications and Allergies Home Medications Medication Instructions Recorded Confirmed Type Aspirin [Adult Low Dose Aspirin EC] 81 mg PO BID 10/04/19 12/02/20 History Carvedilol [Coreg] 25 mg PO BID PRN 10/04/19 12/02/20 History hydrALAZINE HCL [Apresoline] 100 mg PO TID PRN 10/04/19 12/02/20 History Hydrocortisone 30 mg PO DAILY 10/13/19 12/02/20 History Hydrocortisone [Cortef] 5 - 10 mg PO DAILY PRN 01/03/20 12/02/20 History diphenhydrAMINE HCL [Benadryl] 25 - 50 mg PO Q6H PRN 01/03/20 12/02/20 History Calcium Carbonate [Calcium] 600 mg PO DAILY 12/02/20 12/02/20 History Cholecalciferol (Vitamin D3) 125 mcg PO BID 12/02/20 12/02/20 History [Vitamin D3 (125 MCG = 5,000 IU)] Levothyroxine Sodium [Euthyrox] 175 mcg PO DAILY 12/02/20 12/02/20 History Melatonin 10 mg PO HS PRN 12/02/20 12/02/20 History amLODIPine [Norvasc] 10 mg PO BID 12/02/20 12/02/20 History cloNIDine HCL [Catapres] 0.4 mg PO TID 12/02/20 12/02/20 History Allergies Allergy/AdvReac Type Severity Reaction Status Date / Time adhesive Allergy Itching Verified 12/02/20 15:46 ibuprofen [From Motrin] Allergy doesnt Verified 12/02/20 15:46 take d/t kidney issues Physical Exam Vitals: Vital Signs Temp Pulse Resp BP Pulse Ox 12/03/20 11:00 58 L 21 124/69 97 12/03/20 10:00 69 14 140/70 96 12/03/20 09:00 64 18 183/122 96 12/03/20 08:00 99.2 F 54 L 13 157/77 96 12/03/20 07:00 54 L 16 161/71 95 12/03/20 06:00 52 L 16 108/51 93 L 12/03/20 05:00 53 L 14 141/76 96 12/03/20 04:00 98 F 53 L 14 116/61 97 12/03/20 03:00 51 L 16 92/49 95 12/03/20 02:00 56 L 13 148/81 94 L 12/03/20 01:00 59 L 26 H 121/92 98 12/03/20 00:00 98.6 F 61 26 H 188/130 95 12/02/20 23:33 73 46 H 96 12/02/20 23:00 58 L 18 155/83 97 12/02/20 22:00 58 L 18 145/82 98 12/02/20 21:00 56 L 20 146/88 97 12/02/20 20:01 58 L 18 132/83 99 12/02/20 19:23 58 L 18 157/62 97 12/02/20 18:36 98.1 F 56 L 18 150/78 97 12/02/20 17:45 60 18 153/81 97 12/02/20 15:42 97.4 F L 60 20 233/90 98 Intake and Output 12/02/20 12/03/20 12/03/20 22:59 06:59 14:59 Intake Total 184.167 800 500 Output Total 700 600 Balance 184.167 100 -100 Intake: IV 300 Sodium Chloride 0.9% 1, 300 000 ml @ 75 mls/hr IV . [id number] JORDAN Rx#:[id number] Intake, IV Titration 184.167 800 200 Amount Sodium Chloride 0.9% 1, 600 000 ml @ 75 mls/hr IV . [id number] JORDAN Rx#:[id number] niCARdipine 20 mg In 184.167 200 200 Sodium Chloride 0.9% 192 ml @ 5 MG/HR 50 mls/hr IV .Q4H JORDAN Rx#:[id number] Output: Urine 700 600 Other: Weight 56.699 kg 57 kg Results CBC & Chem 7: 12/03/20 03:05 12/03/20 03:05 Labs: Abnormal Lab Results - Last 24 Hours (Table) 12/02/20 12/02/20 12/03/20 Range/Units 16:09 16:09 03:05 WBC 11.8 H 11.6 H (3.8-10.6) k/uL Hct 46.2 H (34.0-46.0) % Neutrophils # 9.8 H (1.3-7.7) k/uL Sodium (137-145) mmol/L Creatinine 1.19 H (0.52-1.04) mg/dL Glucose 160 H (74-99) mg/dL Calcium 12.1 H (8.4-10.2) mg/dL Alkaline Phosphatase 178 H (38-126) U/L 12/03/20 Range/Units 03:05 WBC (3.8-10.6) k/uL Hct (34.0-46.0) % Neutrophils # (1.3-7.7) k/uL Sodium 136 L (137-145) mmol/L Creatinine (0.52-1.04) mg/dL Glucose 106 H (74-99) mg/dL Calcium 10.7 H (8.4-10.2) mg/dL Alkaline Phosphatase 128 H (38-126) U/L Thrombosis Risk Factor Assmnt - Choose All That Apply Each Factor Represents 1 point: Age 41-60 years, History of prior major surgery (<1month) Thrombosis Risk Factor Assessment Total Risk Factor Score: 2 Thrombosis Risk Factor Assessment Level: Low Risk
[2020-12-03] MEDS: ALPRAZolam 0.25 MG TAB PO PRN ×2 (17:54→20:33)
[2020-12-03 20:08] VITALS: RESP 16
[2020-12-04] MEDS: LEVOTHYROXINE 88 MCG TAB PO SCH (05:30)
[2020-12-04] MEDS: carvediloL 12.5 MG TAB PO SCH (06:39)
[2020-12-04 07:01] LABS: Appearance,Urine Clear (Clear); Bilirubin,Urine 1+ (Negative); Blood,Urine Negative (Negative); Color,Urine Dark Yellow; Glucose,Urine (UA) Negative (Negative); Hyaline Casts,Urine 168 /lpf (0-2); Ketones,Urine Trace (Negative); Leukocyte Esterase,Urine Negative (Negative); Mucus,Urine Occasional /hpf; Nitrite,Urine Negative (Negative); PH, Urine 5.5 (5.0-8.0); Protein,Urine 1+ (Negative); RBC,Urine 3 /hpf (0-5); Specific Gravity,Urine 1.028 (1.001-1.035); Squamous Epithelial Cell,Urine 2 /hpf (0-4); WBC,Urine 3 /hpf (0-5)
[2020-12-04 08:15] VITALS: BP 112/57; PULSE 57; TEMP 98.1
[2020-12-04] MEDS ORDERED: PANTOPRAZOLE 40 MG TABLET PO SCH (08:30)
[2020-12-04] MEDS: hydrALAZINE HCL 50 MG TAB PO SCH (08:41)
[2020-12-04] MEDS: cloNIDine HCL 0.2 MG TAB PO SCH (08:41)
[2020-12-04] MEDS: amLODIPine 10 MG TAB PO SCH (08:41)
[2020-12-04] MEDS: HYDROmorphone 1 MG/ML 1 ML SYRINGE IVP PRN (08:50)
[2020-12-04] MEDS: CHOLECALCIFEROL 25 MCG (1000 IU) TABLET PO SCH (09:12)
[2020-12-04] MEDS: ASPIRIN 325 MG TAB PO SCH (09:13)
[2020-12-04] MEDS: SPIRONOLACTONE 25 MG TAB PO SCH (09:13)
[2020-12-04] MEDS: HYDROCORTISONE 10 MG TAB PO SCH (09:13)
[2020-12-04] MEDS: CALCIUM CARBONATE 500 MG CHEWABLE PO SCH (09:13)
--- NOTE | 2020-12-04 12:27 | P.PN ---
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 She also states 16 years ago she had an myocardial infarction, however she was told her cardiac catheterization was normal, no stents placed per her knowledge. She follows at [facility] for all her care. We have been asked to see in consultation for hypertensive emergency. Patient is seen and examined in the intensive care unit. Patient was admitted on 12/02. She presented to the emergency department with complaints of midsternal chest pain and found to be hypertensive. Her chest pain started 4 days ago and worsening. It was non- radiating. She denies any aggravating or alleviating factors. She denies associated shortness of breath, lightheadedness, diaphoresis, nausea, or palpitations. She denies symptoms of orthopnea or PND. She states she was very anxious about her aortic dissection and decided to present to emergency department. She states she is compliant with all her medication at home and adheres to a healthy diet at home. She does smoke marijuana .She is a former cigarette smoker. Patient was bradycardic so initial blood pressure managed with a nitro infusion and then started on Cardene. She was admitted to the intensive care unit. Patient states her brother, sister and daughter all have similar medical problems as her, she is unsure of what she or they have been diagnosed with in terms of genetic illnesses. DIAGNOSTICS EKG reveals sinus bradycardia HR 56, LVH, nonspecific ST-T wave changes Telemetry tracings indicate sinus mechanism in the 60s Thoracic CT- dissection of the lower thoracic aorta and entire abdominal aorta extending into the common iliac arteries also evident on the old computed tomography scan of 01/04/2020. Upper abdominal aortic aneurysm not changed. No pulmonary embolism. A right renal atrophy Laboratory reviewed, WBC 11.6, hemoglobin 14.4, platelets 269, sodium 136, potassium 4.4, BUN 13, serum creatinine 1.02, alkaline phosphatase 128 troponin negative x 3. Current home cardiac medications include hydralazine 100 mg 3 times a day, hydrocortisone 30mg daily, carvedilol 25 mg twice a day, aspirin 81 mg, amlodipine 10 mg, clonidine 0.4 mg 3 times a day 12/04/2020 Patient examined this morning at the bedside. Patient denies shortness of breath. She currently denies chest pain or pressure. Blood pressure has improved today with a systolic ranging from the 90s to low 100s. Echo Cardizem completed revealed ejection fraction 60-65%. PHYSICAL EXAM: VITAL SIGNS: Reviewed. GENERAL: Well-developed in no acute distress. NECK: Supple. No JVD or thyromegaly LUNGS: Respirations even and unlabored. Lungs essentially clear to auscultation bilaterally. HEART: Regular rate and rhythm. S1 and S2 heard. EXTREMITIES: Normal range of motion. No clubbing or cyanosis. Peripheral pulses intact. 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 PLAN: Continue current cardiac medications Patient is stable from a cardiac standpoint Nurse practitioner note has been reviewed by physician. Signing provider agrees with the documented findings, assessment, and plan of care. Objective - Vital Signs Vital signs: Vital Signs Temp 98.1 F 12/04/20 08:14 Pulse 57 L 12/04/20 08:14 Resp 16 12/04/20 08:14 BP 112/57 12/04/20 08:14 Pulse Ox 97 12/04/20 04:00 Intake & Output 12/03/20 12/04/20 12/04/20 18:59 06:59 18:59 Intake Total 650 250 240 Output Total 850 Balance -200 250 240 Weight 63.5 kg Intake: IV 450 Sodium Chloride 0.9% 1, 450 000 ml @ 75 mls/hr IV . [id number] JORDAN Rx#:[id number] Intake, IV Titration 200 Amount niCARdipine 20 mg In 200 Sodium Chloride 0.9% 192 ml @ 5 MG/HR 50 mls/hr IV .Q4H JORDAN Rx#:[id number] Oral 250 240 Output: Urine 850 Other: Voiding Method External Catheter External Catheter Toilet # Voids 1 - Labs CBC & Chem 7: 12/03/20 03:05 12/03/20 03:05 Labs: Abnormal Lab Results - Last 24 Hours (Table) 08/31/21 Range/Units 06:00 Urine Protein 1+ H (Negative) Urine Ketones Trace H (Negative) Urine Bilirubin 1+ H (Negative) Hyaline Casts 168 H (0-2) /lpf Urine Mucus Occasional H (None) /hpf
--- NOTE | 2020-12-04 12:44 | US ---
EXAMINATION TYPE: US kidneys/renal and bladder DATE OF EXAM: 12/04/2020 COMPARISON: CT, US CLINICAL HISTORY: kidney stone. Inpatient stated has hematuria x 3 days, pelvic and flank pain; right renal atrophy per CT; prior renal stones. EXAM MEASUREMENTS: Right Kidney: 6.0 x 4.3 x 2.5 cm Left Kidney: 10.8 x 4.9 x 4.9 cm Post Void Residual Volume: not assessed as has external bladder catheter present Right Kidney: multiple small echogenic foci without obstruction ; thin renal cortex and renal atrophy is noted. Left Kidney: couple of small hyperechoic calcifications also seen . No obstruction is evident Bladder: not seen IMPRESSION: 1. Nonobstructing bilateral renal stones.
--- NOTE | 2020-12-04 14:26 | PN ---
PROGRESS NOTE DATE OF SERVICE: 12/04/2020 This is a 54-year-old female whom we saw yesterday in consultation in the intensive care unit. She was admitted with a diagnosis of hypertensive urgency/hypertensive emergency. The patient was easily switched from her IV medication which was nicardipine over to oral medications. She was on a number of different blood pressure medications. She has a history of aortic aneurysm, status post surgical repair, adrenal insufficiency, Jimmy-Danlos syndrome, atrial fibrillation, seizure disorder, hypertension and hypothyroidism. Currently the patient is doing well. She is not on any IV medications. She is not receiving any supplemental oxygen. PHYSICAL EXAMINATION: VITAL SIGNS: Current vital signs are reviewed. Temperature 98.1, heart rate 57, respiratory rate 16, blood pressure 112/57, mean 75, room-air saturation 97%. GENERAL APPEARANCE: She appears in no acute distress. HEENT: Examination is grossly unremarkable. NECK: Supple. Cardiovascular examination reveals regular rhythm and rate. Heart rate 57 beats per minute. S1, S2 normal. No murmur. LUNGS: Lungs reveal mostly clear breath sounds. No wheezes, rhonchi or crackles. ABDOMEN: Soft. Bowel sounds are heard. EXTREMITIES: Intact. No cyanosis, clubbing or edema. SKIN: Without rash. NEUROLOGIC: Neurologic examination is nonfocal. LABS: Reviewed. Nothing from today as yet. ASSESSMENT: 1. Acute hypertensive urgency/hypertensive emergency, resolved. 2. History of aortic aneurysm, status post surgical repair. 3. History of adrenal insufficiency. 4. History of Jimmy-Danlos syndrome. 5. History of atrial fibrillation. 6. History of seizure disorder. 7. History of hypertension. 8. History of hypothyroidism. 9. History of pituitary tumor. PLAN: The patient is being considered for possible discharge today. Additional recommendations and suggestions are forthcoming. Prognosis is guarded. She was weaned off of her IV nicardipine. She was placed back on her oral blood pressure medications, which included amlodipine, clonidine, Coreg and hydralazine. No additional recommendations are made at this time. MMODL / IJN: [id number] /
--- NOTE | 2020-12-04 15:44 | P.DS ---
Providers Date of admission: 12/02/20 18:26 Expected date of discharge: 12/04/20 Attending physician: Eleno Landaverde Consults: 12/02/20 18:26 Consult Physician Urgent Consulting Provider: Harley Vera Consult Reason/Comments: ICU Do you want consulting provider notified?: Already Contacted Consult Physician Urgent Consulting Provider: [facility] Consult Reason/Comments: hypertensive emergency Do you want consulting provider notified?: Yes Primary care physician: [facility] Course: HISTORY OF PRESENT ILLNESS This is a 54-year-old female patient of Dr. 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 Patient states that she started having chest pain yesterday and she noted her blood pressure was high, she has been taking her medications as prescribed. Patient does receive much of her care at [facility]. She then started vomiting blood. She also relates that she had seizures while she was in the ER and one today will she was having her echocardiogram. She denies any chest pain at the time of evaluation. There've been no witnessed seizures by staff. Patient presented to [facility] emergency center. Patient presented with blood pressure 233/90, afebrile, heart rate in the 50s and 60s. Blood pressure has been as high as 183/122 this morning. EKG was sinus bradycardia, left ventricular hypertrophy and nonspecific ST-T wave changes. CT angiogram of the aorta revealed dissection of the lower thoracic aorta and entire abdominal aorta extending into the common iliac arteries also evident on old exam from December 2019. Upper abdominal aortic aneurysm unchanged. No evidence of pulmonary embolism. Right renal atrophy. Chest x-ray reveals c hronic changes without acute pulmonary process. Patient was admitted into the intensive care unit and was started on nicardipine drip which has subsequently been weaned off. Consult in place with disability advocate and cardiology. 12/04: Patient has been seen by cardiology and acute coronary syndrome has been ruled out, hypertensive emergency has been resolved. Cardiology has signed off. She has been afebrile, heart rate 57, blood pressure 112/57, pulse ox 97% on room air. Patient is concern for kidney stones and urinalysis was obtained which revealed trace ketones, 1+ bilirubin and cast. Renal ultrasound was revealed nonobstructing bilateral renal stones. Commode chair was ordered for the patient as patient requires bedside commode due to limited mobility. Patient will be discharged home today in stable condition. ASSESSMENT AND PLAN 1. Hypertensive emergency. 2. Chest pain, acute coronary syndrome ruled out by cardiology. 3. History of seizure activity. 4. Generalized anxiety disorder. 5. Adrenal insufficiency. 6. Hypoparathyroidism. 7. Hypothyroidism. 8. Thoracic aneurysm, stable, controlled blood pressure. DISCHARGE PLAN Home Impression and plan of care have been directed as dictated by the signing physician. Bridget Ordoñez nurse practitioner acting as scribe for signing physician. Patient Condition at Discharge: Stable Plan - Discharge Summary Discharge Rx Participant: No New Discharge Prescriptions: New Spironolactone [Aldactone] 25 mg PO DAILY #30 tab Continue hydrALAZINE HCL [Apresoline] 100 mg PO TID PRN PRN Reason: HIGH BLOOD PRESSURE Aspirin [Adult Low Dose Aspirin EC] 81 mg PO BID Carvedilol [Coreg] 25 mg PO BID PRN PRN Reason: Bradycardia Hydrocortisone 30 mg PO DAILY Hydrocortisone [Cortef] 5 - 10 mg PO DAILY PRN PRN Reason: stress diphenhydrAMINE HCL [Benadryl] 25 - 50 mg PO Q6H PRN PRN Reason: Allergy Symptoms Melatonin 10 mg PO HS PRN PRN Reason: Insomnia amLODIPine [Norvasc] 10 mg PO BID Cholecalciferol (Vitamin D3) [Vitamin D3 (125 MCG = 5,000 IU)] 125 mcg PO BID Calcium Carbonate [Calcium] 600 mg PO DAILY Levothyroxine Sodium [Euthyrox] 175 mcg PO DAILY Changed cloNIDine HCL [Catapres] 0.3 mg PO TID #0 Discharge Medication List Aspirin [Adult Low Dose Aspirin EC] 81 mg PO BID 10/04/19 [History] Carvedilol [Coreg] 25 mg PO BID PRN 10/04/19 [History] hydrALAZINE HCL [Apresoline] 100 mg PO TID PRN 10/04/19 [History] Hydrocortisone 30 mg PO DAILY 10/13/19 [History] Hydrocortisone [Cortef] 5 - 10 mg PO DAILY PRN 01/03/20 [History] diphenhydrAMINE HCL [Benadryl] 25 - 50 mg PO Q6H PRN 01/03/20 [History] Calcium Carbonate [Calcium] 600 mg PO DAILY 12/02/20 [History] Cholecalciferol (Vitamin D3) [Vitamin D3 (125 MCG = 5,000 IU)] 125 mcg PO BID 12/02/20 [History] Levothyroxine Sodium [Euthyrox] 175 mcg PO DAILY 12/02/20 [History] Melatonin 10 mg PO HS PRN 12/02/20 [History] amLODIPine [Norvasc] 10 mg PO BID 12/02/20 [History] Spironolactone [Aldactone] 25 mg PO DAILY #30 tab 12/04/20 [Rx] cloNIDine HCL [Catapres] 0.3 mg PO TID #0 12/04/20 [Rx] Follow up Appointment(s)/Referral(s): Eleno Landaverde MD [Primary Care Provider] - 1-2 days (left message on [employer]'s answering machine ) [employer] [NON-STAFF] - (For a commode or any other medical equipment needs.) Patient Instructions/Handouts: Heart Healthy Diet (ED) Discharge/Stand Alone Forms: Who Do I Call? Discharge Disposition: HOME SELF-CARE
== END 2020-12-04 12:04 | disposition home or self-care (01) | DRG 304 ==
LOC: EC 15:41 → 2SICU 18:26 → 3SCARD 12-03 18:27
PROVIDERS: ADMIT Internal Medicine Geriatric Medicine; ATTEND Internal Medicine Geriatric Medicine
DX: I16.1 Hypertensive emergency (principal); I71.01 Dissection of thoracic aorta; E27.40 Unspecified adrenocortical insufficiency; I48.20 Chronic atrial fibrillation, unspecified; Q79.60 Ehlers-Danlos syndrome, unspecified; B35.9 Dermatophytosis, unspecified; I11.9 Hypertensive heart disease without heart failure; E03.9 Hypothyroidism, unspecified; R07.9 Chest pain, unspecified; I16.0 Hypertensive urgency; R00.1 Bradycardia, unspecified; R07.2 Precordial pain; I71.2 Thoracic aortic aneurysm, without rupture; D49.7 Neoplasm of unspecified behavior of endocrine glands and other parts of nervous system; Z87.19 Personal history of other diseases of the digestive system; N18.30 Chronic kidney disease, stage 3 unspecified; E05.90 Thyrotoxicosis, unspecified without thyrotoxic crisis or storm; E20.9 Hypoparathyroidism, unspecified; F12.90 Cannabis use, unspecified, uncomplicated; F17.210 Nicotine dependence, cigarettes, uncomplicated; F41.0 Panic disorder [episodic paroxysmal anxiety]; F41.1 Generalized anxiety disorder; G40.409 Other generalized epilepsy and epileptic syndromes, not intractable, without status epilepticus; I25.2 Old myocardial infarction; I48.0 Paroxysmal atrial fibrillation; N20.0 Calculus of kidney; Z79.82 Long term (current) use of aspirin; Z79.890 Hormone replacement therapy; Z79.899 Other long term (current) drug therapy; Z86.79 Personal history of other diseases of the circulatory system; Z90.710 Acquired absence of both cervix and uterus; Z87.81 Personal history of (healed) traumatic fracture; Z88.6 Allergy status to analgesic agent; Z88.8 Allergy status to other drugs, medicaments and biological substances; Z87.01 Personal history of pneumonia (recurrent)
CPT/HCPCS: 36415; 71045; 71275; 74174; 76770; 80053; 81001; 83690; 83735; 83880; 84484; 85025; 85610; 85730; 93005; 93306; 96365; 96366; 96367; 96375; 96376; 99291

== ENCOUNTER 2021-10-03 07:40 | Inpatient (IN) | payer MEDICARE, OTHER ==
[2021-10-03] MEDS ORDERED: SODIUM CHLORIDE 0.9% 1,000 ML IV STA (07:54)
[2021-10-03] MEDS ORDERED: SODIUM CHLORIDE 0.9% 500 ML 500 ML IV STA (07:54)
[2021-10-03] MEDS ORDERED: hydrALAZINE HCL 20 MG/ML 1 ML VIAL IVP STA ×2 (07:59→15:55)
[2021-10-03 08:08] LABS: Basophils # (A) 0.2 k/uL (0-0.2); Basophils % (A) 1 %; Eosinophils # (A) 0.2 k/uL (0-0.7); Eosinophils % (A) 1 %; HCT 44.9 % (34.0-46.0); HGB 14.3 gm/dL (11.4-16.0); Lymphocytes # (A) 2.4 k/uL (1.0-4.8); Lymphocytes % (A) 15 %; MCH 33.9 pg (25.0-35.0); MCHC 31.8 g/dL (31.0-37.0); MCV 106.5 fL (80.0-100.0); Macrocytosis Moderate; Mean Platelet Volume 7.3; Monocytes # (A) 1.1 k/uL (0-1.0); Monocytes % (A) 7 %; Neutrophils # (A) 11.5 k/uL (1.3-7.7); Neutrophils % (A) 73 %; Platelet Count 288 k/uL (150-450); RBC 4.22 m/uL (3.80-5.40); RDW 13.2 % (11.5-15.5); WBC 15.7 k/uL (3.8-10.6)
[2021-10-03] MEDS ORDERED: KETOROLAC 15 MG/ML 1 ML VIAL IVP STA (08:14)
--- NOTE | 2021-10-03 08:19 | ED ---
General Adult HPI - General Chief complaint: Altered Mental Status Stated complaint: seizure Time Seen by Provider: 10/03/21 07:40 Source: patient, EMS, RN notes reviewed, old records reviewed Mode of arrival: EMS Limitations: no limitations - History of Present Illness Initial comments: 55-year-old female with a history of multiple medical issues including adrenal insufficiency hypoparathyroidism hypothyroidism paroxysmal atrial fibrillation hypertension and prior episodes of hypertensive emergency who was brought in by EMS today after having what appear to be 2 seizures at home witnessed by friends her family last 1-2 minutes. She had 1 episode lasting about a minute from the medics had arrived. This lasted perhaps 30-60 seconds. She was found have a blood pressure 201/100 she was awake alert oriented 3 she admitted that she normally has some cognitive problems. No fevers chills sweats she complains of a headache. Additional information patient's a history of a pituitary tumor. He was seen at [facility] yesterday and diagnosed with a urinary tract infection. She's not sure what medication she is on. She apparently has chronic bradycardia also. - Related Data Home Medications Medication Instructions Recorded Confirmed amLODIPine [Norvasc] 10 mg PO BID 12/02/20 10/03/21 Acetaminophen Tab [Tylenol Tab] 1,000 mg PO Q6HR PRN 10/03/21 10/03/21 Aspirin/Acetaminophen/Caffeine 2 tab PO DAILY PRN 10/03/21 10/03/21 [Excedrin Migraine Caplet] cloNIDine HCL [Catapres] 0.2 mg PO TID 10/03/21 10/03/21 Allergies Allergy/AdvReac Type Severity Reaction Status Date / Time adhesive Allergy Itching Verified 10/03/21 09:33 ibuprofen [From Motrin] Allergy doesnt Verified 10/03/21 09:33 take d/t kidney issues Review of Systems ROS Statement: Those systems with pertinent positive or pertinent negative responses have been documented in the HPI. ROS Other: All systems not noted in ROS Statement are negative. Past Medical History Past Medical History: Atrial Fibrillation, Deep Vein Thrombosis (DVT), Hypertension, Neurologic Disorder, Pneumonia, Renal Disease, Seizure Disorder, Thyroid Disorder Additional Past Medical History / Comment(s): adrenal insufficiency; Jimmy Danlos Syndrome - Vascular Type, ACTH,recent afib 2018, shingles november 2018, blood clots october 2018, seizures- left temporal lobe atonic seizures. Has some left sided weakness from surgery last october, stage 3 kidney failure, 3 blood clots, groin,arm and leg History of Any Multi-Drug Resistant Organisms: None Reported Past Surgical History: Back Surgery, Hysterectomy Additional Past Surgical History / Comment(s): abdominal sugery; Aortic grafting, pt stated she was told she had a mass on her pancreas, ets ventrical repair- october 2018, 7 arm surgeries for cysts carpal tunnel, broken bones. Past Anesthesia/Blood Transfusion Reactions: Previous Problems w/ Anesthesia, Family History of Problems w/ Anesthesia Additional Past Anesthesia/Blood Transfusion Reaction / Comment(s): pt states d/t severe adrenal insufficency, ACTH and EDS vascular must receive steroids prior to anesthesia, during october 2018 surgery at [facility] needed to be resusciated twice d/t "blood pressure tanking" was in a coma for 2 weeks and remained on life support for 1 week coma, wakes up combative. mom doesn't come out of anesthesia well. son comes out combative Past Psychological History: Anxiety, Panic Disorder Smoking Status: Former smoker Past Alcohol Use History: None Reported Past Drug Use History: Marijuana - Past Family History Brother(s) Family Medical History: Cancer Additional Family Medical History / Comment(s): She does have a brother with a history of aneurysm as well. History of skin cancer. - brain aneursym Mother Family Medical History: Blood Disorder Additional Family Medical History / Comment(s): factor V Father Additional Family Medical History / Comment(s): lungs filled with cyst and tumors- family Family Medical History: Unable to Obtain General Exam - General Exam Comments Initial Comments: This is a well-developed well-nourished awake alert oriented 3 female Limitations: no limitations General appearance: alert, anxious Head exam: Present: atraumatic, normocephalic, normal inspection Eye exam: Present: normal appearance, PERRL, EOMI. Absent: scleral icterus, conjunctival injection, periorbital swelling ENT exam: Present: mucous membranes dry Neck exam: Present: normal inspection. Absent: tenderness, meningismus, lymphadenopathy Respiratory exam: Present: normal lung sounds bilaterally. Absent: respiratory distress, wheezes, rales, rhonchi, stridor Cardiovascular Exam: Present: normal rhythm, bradycardia, normal heart sounds. Absent: systolic murmur, diastolic murmur, rubs, gallop, clicks GI/Abdominal exam: Present: soft, normal bowel sounds. Absent: distended, tenderness, guarding, rebound, rigid Extremities exam: Present: normal inspection, full ROM, normal capillary refill. Absent: tenderness, pedal edema, joint swelling, calf tenderness Back exam: Present: normal inspection Neurological exam: Present: alert, oriented X3, CN II-XII intact Psychiatric exam: Present: normal affect, normal mood Skin exam: Present: warm, dry, intact, normal color. Absent: rash Course Vital Signs 10/03/21 10/03/21 10/03/21 07:42 08:11 09:22 Temperature 97.7 F Pulse Rate 50 L 46 L 48 L Respiratory 19 18 16 Rate Blood Pressure 218/104 191/108 184/96 O2 Sat by Pulse 99 100 99 Oximetry 10/03/21 10/03/21 10/03/21 10:45 11:41 12:50 Temperature Pulse Rate 51 L 60 51 L Respiratory 15 17 15 Rate Blood Pressure 168/83 199/115 165/89 O2 Sat by Pulse 100 99 100 Oximetry - Reevaluation(s) Reevaluation #1: 10/03/21 08:19 During the evaluation the patient did have what appear to be tonic-clonic activity lasting approximately 60 seconds with eyes rolling back and both arms coming up into a flexed position. During the episode auscultation heart sounds was difficult. Medical Decision Making - Medical Decision Making I did discuss the findings with the patient and did reevaluate patient several occasions. Dr. Landaverde was in the emergency department and did also see the patient. Patient be admitted. Cardiology and neurology consultation. Patient's had no further episodes thus far. - Lab Data Result diagrams: 10/03/21 07:45 10/03/21 08:20 Lab Results 10/03/21 10/03/21 10/03/21 Range/Units 07:45 07:45 07:58 WBC 15.7 H (3.8-10.6) k/uL RBC 4.22 (3.80-5.40) m/uL Hgb 14.3 (11.4-16.0) gm/dL Hct 44.9 (34.0-46.0) % MCV 106.5 H (80.0-100.0) fL MCH 33.9 (25.0-35.0) pg MCHC 31.8 (31.0-37.0) g/dL RDW 13.2 (11.5-15.5) % Plt Count 288 (150-450) k/uL MPV 7.3 Neutrophils % 73 % Lymphocytes % 15 % Monocytes % 7 % Eosinophils % 1 % Basophils % 1 % Neutrophils # 11.5 H (1.3-7.7) k/uL Lymphocytes # 2.4 (1.0-4.8) k/uL Monocytes # 1.1 H (0-1.0) k/uL Eosinophils # 0.2 (0-0.7) k/uL Basophils # 0.2 (0-0.2) k/uL Macrocytosis Moderate D-Dimer (<0.60) mg/L FEU Sodium (137-145) mmol/L Potassium (3.5-5.1) mmol/L Chloride (98-107) mmol/L Carbon Dioxide (22-30) mmol/L Anion Gap mmol/L BUN (7-17) mg/dL Creatinine (0.52-1.04) mg/dL Est GFR (CKD-EPI)AfAm (>60 ml/min/1.73 sqM) Est GFR (CKD-EPI)NonAf (>60 ml/min/1.73 sqM) Glucose (74-99) mg/dL Calcium (8.4-10.2) mg/dL Magnesium (1.6-2.3) mg/dL Total Bilirubin (0.2-1.3) mg/dL AST (14-36) U/L ALT (4-34) U/L Alkaline Phosphatase (38-126) U/L Creatine Kinase (30-135) U/L Troponin I (0.000-0.034) ng/mL NT-Pro-B Natriuret Pep 2040 pg/mL Total Protein (6.3-8.2) g/dL Albumin (3.5-5.0) g/dL TSH (0.465-4.680) mIU/L Free T4 (0.78-2.19) ng/dL Urine Color Light Yellow Urine Appearance Clear (Clear) Urine pH 6.5 (5.0-8.0) Ur Specific [place] 1.009 (1.001-1.035) Urine Protein Negative (Negative) Urine Glucose (UA) Negative (Negative) Urine Ketones Negative (Negative) Urine Blood Trace H (Negative) Urine Nitrite Negative (Negative) Urine Bilirubin Negative (Negative) Urine Urobilinogen <2.0 (<2.0) mg/dL Ur Leukocyte Esterase Negative (Negative) Urine RBC 6 H (0-5) /hpf Urine WBC 1 (0-5) /hpf Ur Squamous Epith Cells 1 (0-4) /hpf Urine Bacteria Rare H (None) /hpf Hyaline Casts 3 H (0-2) /lpf Urine Mucus Rare H (None) /hpf Serum Alcohol mg/dL 10/03/21 10/03/21 10/03/21 Range/Units 08:20 08:20 08:20 WBC (3.8-10.6) k/uL RBC (3.80-5.40) m/uL Hgb (11.4-16.0) gm/dL Hct (34.0-46.0) % MCV (80.0-100.0) fL MCH (25.0-35.0) pg MCHC (31.0-37.0) g/dL RDW (11.5-15.5) % Plt Count (150-450) k/uL MPV Neutrophils % % Lymphocytes % % Monocytes % % Eosinophils % % Basophils % % Neutrophils # (1.3-7.7) k/uL Lymphocytes # (1.0-4.8) k/uL Monocytes # (0-1.0) k/uL Eosinophils # (0-0.7) k/uL Basophils # (0-0.2) k/uL Macrocytosis D-Dimer 2.91 H (<0.60) mg/L FEU Sodium 139 (137-145) mmol/L Potassium 4.5 (3.5-5.1) mmol/L Chloride 105 (98-107) mmol/L Carbon Dioxide 22 (22-30) mmol/L Anion Gap 12 mmol/L BUN 24 H (7-17) mg/dL Creatinine 1.80 H (0.52-1.04) mg/dL Est GFR (CKD-EPI)AfAm 36 (>60 ml/min/1.73 sqM) Est GFR (CKD-EPI)NonAf 31 (>60 ml/min/1.73 sqM) Glucose 105 H (74-99) mg/dL Calcium 10.5 H (8.4-10.2) mg/dL Magnesium 1.9 (1.6-2.3) mg/dL Total Bilirubin 0.5 (0.2-1.3) mg/dL AST 28 (14-36) U/L ALT 28 (4-34) U/L Alkaline Phosphatase 127 H (38-126) U/L Creatine Kinase 166 H (30-135) U/L Troponin I <0.012 (0.000-0.034) ng/mL NT-Pro-B Natriuret Pep pg/mL Total Protein 7.1 (6.3-8.2) g/dL Albumin 4.5 (3.5-5.0) g/dL TSH >100.000 H (0.465-4.680) mIU/L Free T4 0.41 L (0.78-2.19) ng/dL Urine Color Urine Appearance (Clear) Urine pH (5.0-8.0) Ur Specific [place] (1.001-1.035) Urine Protein (Negative) Urine Glucose (UA) (Negative) Urine Ketones (Negative) Urine Blood (Negative) Urine Nitrite (Negative) Urine Bilirubin (Negative) Urine Urobilinogen (<2.0) mg/dL Ur Leukocyte Esterase (Negative) Urine RBC (0-5) /hpf Urine WBC (0-5) /hpf Ur Squamous Epith Cells (0-4) /hpf Urine Bacteria (None) /hpf Hyaline Casts (0-2) /lpf Urine Mucus (None) /hpf Serum Alcohol <10 mg/dL - Radiology Data Radiology results: report reviewed (Imaging reviewed no acute findings), image reviewed Disposition Clinical Impression: Seizure, Bradycardia, Cardiac dysrhythmia, Hypothyroidism Disposition: ADMITTED IP TO THIS [facility] Condition: Stable Decision Date: 10/03/21 Decision Time: 11:30
--- NOTE | 2021-10-03 08:27 | CT ---
EXAMINATION TYPE: CT brain wo con DATE OF EXAM: 10/03/2021 COMPARISON: CT dated 01/03/2020 HISTORY: Altered mental status CT DLP: 1106.4 mGycm Automated exposure control for dose reduction was used. TECHNIQUE: CT scan of the brain is performed without IV contrast administration. FINDINGS: Artifactual images. Bilateral cerebral white matter hypodensities, likely representing minimal chroni c microvascular ischemic changes. No acute intracranial hemorrhage. No gross acute cortical infarct. No midline shift, herniation or ve ntriculomegaly. Unremarkable basal cisterns, sella and CP angles. No gross space-occupying lesion, vasogenic edema or mass effect. Unremarkable orbits. Mucosal thickening of the right sphenoid sinus compartment. Clear mastoid air ce lls. Unremarkable calvarial bones. IMPRESSION: No acute intracranial abnormality or gross space-occupying lesion by this nonenhanced CT scan. Incide ntal findings as described above.
[2021-10-03 08:50] LABS: ALT 28 U/L (4-34); AST 28 U/L (14-36); African American GFR (CKD) 36 (>60 ml/min/1.73 sqM); Albumin 4.5 g/dL (3.5-5.0); Alcohol <10 mg/dL; Alkaline Phosphatase 127 U/L (38-126); Anion Gap 12 mmol/L; Blood Urea Nitrogen 24 mg/dL (7-17); Calcium 10.5 mg/dL (8.4-10.2); Carbon Dioxide 22 mmol/L (22-30); Chloride 105 mmol/L (98-107); Creatine Kinase 166 U/L (30-135); Glucose 105 mg/dL (74-99); Magnesium 1.9 mg/dL (1.6-2.3); Non-African American GFR(CKD) 31 (>60 ml/min/1.73 sqM); Potassium 4.5 mmol/L (3.5-5.1); Sodium 139 mmol/L (137-145); Total Bilirubin 0.5 mg/dL (0.2-1.3); Total Protein 7.1 g/dL (6.3-8.2)
--- NOTE | 2021-10-03 09:17 | XR ---
EXAMINATION TYPE: XR chest 1V portable DATE OF EXAM: 10/03/2021 COMPARISON: X-ray dated 12/03/2020 HISTORY: Seizure TECHNIQUE: Single frontal view of the chest is obtained. FINDINGS: Thoracic aortic stent, appreciated previously. Sternotomy wire sutures. Increased cardiac size, pleas e correlate with echocardiographic results. Questionable mild COPD changes. Grossly unremarkable lungs otherwise. No sizable pleural effusion or definite pneumothorax. Suspected chronic healed fracture of the right humeral neck. IMPRESSION: As above.
[2021-10-03] MEDS ORDERED: ASPIRIN-ACET-CAFF 250-250-65MG 1 EACH TAB PO PRN (09:40)
[2021-10-03 09:42] LABS: Appearance,Urine Clear (Clear); Bacteria,Urine Rare /hpf; Bilirubin,Urine Negative (Negative); Blood,Urine Trace (Negative); Color,Urine Light Yellow; Glucose,Urine (UA) Negative (Negative); Hyaline Casts,Urine 3 /lpf (0-2); Ketones,Urine Negative (Negative); Leukocyte Esterase,Urine Negative (Negative); Mucus,Urine Rare /hpf; Nitrite,Urine Negative (Negative); PH, Urine 6.5 (5.0-8.0); Protein,Urine Negative (Negative); RBC,Urine 6 /hpf (0-5); Specific Gravity,Urine 1.009 (1.001-1.035); Squamous Epithelial Cell,Urine 1 /hpf (0-4); Urobilinogen,Urine <2.0 mg/dL (<2.0); WBC,Urine 1 /hpf (0-5)
[2021-10-03 09:53] LABS: T4, Free (Free Thyroxine) 0.41 ng/dL (0.78-2.19)
[2021-10-03] MEDS: amLODIPine 10 MG TAB PO SCH ×2 (10:47→21:33)
[2021-10-03] MEDS: HYDROCORTISONE SUCCINATE 100 MG/2 ML VIAL IV SCH ×2 (10:47→19:34)
[2021-10-03] MEDS: cloNIDine HCL 0.2 MG TAB PO SCH ×3 (10:47→21:32)
--- NOTE | 2021-10-03 12:04 | P.HPIM ---
History of Present Illness H&P Date: 10/03/21 HISTORY OF PRESENT ILLNESS This is a 55-year-old female patient of Dr. 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 Patient has not had recent follow-up in the office. Patient gives history that she was seen at [facility] for thyroid tumor about 6 months ago and was placed on Cortef. She has also been seen recently at [facility] for urinary tract infection placed on Keflex which she had finished at that time, she also had significantly elevated blood pressure. She was also seen in [place] about 3 days ago where her boyfriend took her because of her blood pressure being at 230 systolic. She said she received IV medications but no new prescriptions. No seizure activity at that time. Patient apparently has run out of medications and Today, patient's mother called a relative to check on the patient who then called 911. Patient was having severe headache and had a seizure. She also complains of a cough with sputum production that was a few weeks ago but none now. She states she's had a fever. Patient apparently has run out of medications but not received refills. Patient apparently had 2 seizures witnessed by her family and then 1 episode witnessed by EMS. Patient presented to [facility] emergency center. Blood pressure initially 218/104, afebrile, heart rate 50, pulse ox 99%. EKG is sinus bradycardia with no acute ST changes. Chest x-ray increased cardiac size, correlate with echocardiogram, questionable mild COPD. Suspect chronic healed fracture of the right humeral neck. CAT scan of the brain revealed no acute intracranial abnormality or gross space- occupying lesion. WBC 15.7, Hemoccult and 14.3, platelet count 288. D-dimer 2.91. Electrolytes normal. BUN 24 creatinine 1.8. Blood sugar 105. Calcium 10.5. Alkaline phosphatase 127. CK 166. Troponin negative on one drop. ProBNP 2040. Triglycerides 194, cholesterol 203, LDL 81, HDL 83. TSH greater than 100 and free T4 0.41. Urinalysis clear with blood trace, RBC 6, bacteria rare. Serum alcohol less than 10. Patient is seen today in the emergency center waiting for a bed on the cardiac stepdown unit. VQ scan will be ordered, patient resumed on home medications, consults with cardiology for urgent hypertension and chest pain and neurology for seizure activity. REVIEW OF SYSTEMS Constitutional: No fever, no chills, no night sweats. No weight change. No weakness, fatigue or lethargy. No daytime sleepiness. EENT: No headache. No blurred vision or double vision, no loss of vision. No loss of Hearing, no ringing in the ears, no dizziness. No nasal drainage or congestion. No epistaxis. No sore throat. Lungs: No shortness of breath, cough, no sputum production. No wheezing. Cardiovascular: Resolved chest pain, no lower extremity edema. No palpitations. No paroxysmal nocturnal dyspnea. No orthopnea. No lightheadedness or dizziness. No syncopal episodes. Abdominal: No abdominal pain. No nausea, vomiting. No diarrhea. No constipation. No bloody or tarry stools.. No loss of appetite. Genitourinary: No dysuria, increased frequency, urgency. No urinary retention. Musculoskeletal: No myalgias. No muscle weakness, no gait dysfunction, no frequent falls. No back pain. No neck pain. Integumentary: No wounds, no lesions. No rash or pruritus. No unusual bruising. No change in hair or nails. Neurologic: No aphasia. No facial droop. Noted change in mentation. No head injury. No headache. No paralysis. No paresthesia. Report/witnessed seizures. Psychiatric: No depression. No anxiety. No mood swings. Endocrine: No abnormal blood sugars. No weight change. No excessive sweating or thirst. No cold intolerance. SOCIAL HISTORY Patient is a smoker of 3 cigarettes per week which she states she smokes for anxiety. She uses THC/CBD cream for anxiety. She denies any alcohol use, illicit drug use. She is single. FAMILY HISTORY Father from a lung tumor. Mother is alive at age 84 with history of DVT with factor V deficiency and myasthenia gravis. Patient has 2 sisters and one has Jimmy Danlos syndrome vascular type. Patient has one brother this past from an aneurysm and one brother has Jimmy Danlos vascular type. Patient has 3 children with no major medical problems. PHYSICAL EXAMINATION Gen: This is a 55-year-old female. She is resting on the ER stretcher and intermittent confusion noted. No acute distress. Family member at bedside.. HEENT: Head is atraumatic, normocephalic. Pupils equal, round. Sclerae is anicteric. NECK: Supple. No JVD. No lymphadenopathy. No thyromegaly. LUNGS: Clear to auscultation. No wheezes or rhonchi. No intercostal retractions. No accessory muscle usage. HEART: Regular rate and rhythm. Systolic and diastolic murmur. ABDOMEN: Soft. Bowel sounds are present. No masses. No tenderness. EXTREMITIES: No pedal edema. No calf tenderness. Dorsalis pedis +2 bilaterally. NEUROLOGICAL: Patient is awake, alert and oriented x3 but also confused. Patient did have witnessed staring type seizure during evaluation. Cranial nerves 2 through 12 are grossly intact. ASSESSMENT AND PLAN 1. Hypertensive urgency. Patient started back on amlodipine 10 mg twice daily, clonidine 0.2 mg 3 times daily, add hydralazine 50 mg twice daily. Patient was also previously on Aldactone 25 mg daily and also on Coreg 25 mg twice daily which will not be resumed due to bradycardia. 2. Headache most likely secondary to hypertension. 3. History of seizure activity. 3 witnessed seizures today. Consult with neurology, EEG ordered. 4. Elevated d-dimer. 5. Adrenal insufficiency. Patient will be started on Solu-Cortef 100 mg IV every 8 hours. 6. Hypoparathyroidism with parathyroid tumor, follows at [facility]. 7. Hypothyroidism. Patient has not been taking levothyroxine. TSH and free T4 ordered 8. Thoracic aneurysm, stable, requires controlled blood pressure. 9. Generalized anxiety disorder. 10. GI prophylaxis. Protonix. 11. DVT prophylaxis. SAMMI ford. Patient will be admitted to the hospital for a minimum of 2 night stay. DISCHARGE PLAN Home Impression and plan of care have been directed as dictated by the signing physician. Bridget Ordoñez nurse practitioner acting as scribe for signing physician. Past Medical History Past Medical History: Atrial Fibrillation, Deep Vein Thrombosis (DVT), Hypertension, Neurologic Disorder, Pneumonia, Renal Disease, Seizure Disorder, Thyroid Disorder Additional Past Medical History / Comment(s): adrenal insufficiency; Jimmy Danlos Syndrome - Vascular Type, ACTH,recent afib 2018, shingles november 2018, blood clots october 2018, seizures- left temporal lobe atonic seizures. Has some left sided weakness from surgery last october, stage 3 kidney failure, 3 blood clots, groin,arm and leg History of Any Multi-Drug Resistant Organisms: None Reported Past Surgical History: Back Surgery, Hysterectomy Additional Past Surgical History / Comment(s): abdominal sugery; Aortic grafti ng, pt stated she was told she had a mass on her pancreas, ets ventrical repair- october 2018, 7 arm surgeries for cysts carpal tunnel, broken bones. Past Anesthesia/Blood Transfusion Reactions: Previous Problems w/ Anesthesia, Family History of Problems w/ Anesthesia Additional Past Anesthesia/Blood Transfusion Reaction / Comment(s): pt states d/t severe adrenal insufficency, ACTH and EDS vascular must receive steroids prior to anesthesia, during october 2018 surgery at [facility] needed to be resusciated twice d/t "blood pressure tanking" was in a coma for 2 weeks and remained on life support for 1 week coma, wakes up combative. mom doesn't come out of anesthesia well. son comes out combative Past Psychological History: Anxiety, Panic Disorder Smoking Status: Former smoker Past Alcohol Use History: None Reported Past Drug Use History: Marijuana - Past Family History Brother(s) Family Medical History: Cancer Additional Family Medical History / Comment(s): She does have a brother with a history of aneurysm as well. History of skin cancer. - brain aneursym Mother Family Medical History: Blood Disorder Additional Family Medical History / Comment(s): factor V Father Additional Family Medical History / Comment(s): lungs filled with cyst and tumors- family Family Medical History: Unable to Obtain Medications and Allergies Home Medications Medication Instructions Recorded Confirmed Type amLODIPine [Norvasc] 10 mg PO BID 12/02/20 10/03/21 History Acetaminophen Tab [Tylenol Tab] 1,000 mg PO Q6HR PRN 10/03/21 10/03/21 History Aspirin/Acetaminophen/Caffeine 2 tab PO DAILY PRN 10/03/21 10/03/21 History [Excedrin Migraine Caplet] cloNIDine HCL [Catapres] 0.2 mg PO TID 10/03/21 10/03/21 History Allergies Allergy/AdvReac Type Severity Reaction Status Date / Time adhesive Allergy Itching Verified 10/03/21 09:33 ibuprofen [From Motrin] Allergy doesnt Verified 10/03/21 09:33 take d/t kidney issues Physical Exam Vitals: Vital Signs Temp Pulse Resp BP Pulse Ox 10/03/21 09:22 48 L 16 184/96 99 10/03/21 08:11 97.7 F 46 L 18 191/108 100 10/03/21 07:42 50 L 19 218/104 99 Intake and Output 10/02/21 10/03/21 10/03/21 22:59 06:59 14:59 Other: Weight 63.503 kg Results CBC & Chem 7: 10/04/21 10:19 10/04/21 10:19 Labs: Abnormal Lab Results - Last 24 Hours (Table) 10/03/21 10/03/21 10/03/21 Range/Units 07:45 08:20 08:20 WBC 15.7 H (3.8-10.6) k/uL MCV 106.5 H (80.0-100.0) fL Neutrophils # 11.5 H (1.3-7.7) k/uL Monocytes # 1.1 H (0-1.0) k/uL D-Dimer 2.91 H (<0.60) mg/L FEU BUN 24 H (7-17) mg/dL Creatinine 1.80 H (0.52-1.04) mg/dL Glucose 105 H (74-99) mg/dL Calcium 10.5 H (8.4-10.2) mg/dL Alkaline Phosphatase 127 H (38-126) U/L Creatine Kinase 166 H (30-135) U/L TSH >100.000 H (0.465-4.680) mIU/L
[2021-10-03] MEDS: hydrALAZINE HCL 50 MG TAB PO SCH ×2 (12:57→21:33)
[2021-10-03 14:14] LABS: T4, Free (Free Thyroxine) 0.46 ng/dL (0.78-2.19)
[2021-10-03 15:26] LABS: Glucose,Whole Blood 145 mg/dL (70-110)
[2021-10-03] MEDS ORDERED: LORazepam 2 MG/ML INJ IV ONE (16:02)
--- NOTE | 2021-10-03 19:20 | US ---
EXAMINATION TYPE: US carotid duplex BILAT DATE OF EXAM: 10/03/2021 COMPARISON: NONE CLINICAL HISTORY: Speech difficulty. Speech difficulty, confusion. EXAM MEASUREMENTS: RIGHT: Peak Systolic Velocity (PSV) cm/sec ----- Right CCA: 40.3 ----- Right ICA: 66.7 ----- Right ECA: 82.5 ICA/CCA ratio: 1.66 RIGHT: End Diastole cm/sec ----- Right CCA: 13.0 ----- Right ICA: 28.6 ----- Right ECA: 13.6 LEFT: Peak Systolic Velocity (PSV) cm/sec ----- Left CCA: 41.6 ----- Left ICA: 53.7 ----- Left ECA: 79.7 ICA/CCA ratio: 1.29 LEFT: End Diastole cm/sec ----- Left CCA: 14.3 ----- Left ICA: 17.4 ----- Left ECA: 26.4 VERTEBRALS (direction of flow): Right Vertebral: Antegrade Left Vertebral: Antegrade Rhythm: Normal No significant stenosis seen. Difficult exam, patient was uncooperative and confused. IMPRESSION: Less than 50% stenosis of the bilateral carotid bifurcations. Criteria for Assigning % of Stenosis / Diameter reduction (Estimation based on the indirect measurements of the internal carotid artery velocities (ICA PSV). 1. Normal (no stenosis)=ICA PSV < 125 cm/s: ratio < 2.0: ICA EDV<40 cm/s. 2. Less than 50% stenosis=ICA PSV < 125 cm/s: ratio < 2.0: ICA EDV<40 cm/s. 3. 50 to 69% stenosis=ICA PSV of 125 to 230 cm/s: ration 2.0 ? 4.0: ICA EDV 40-100 cm/s. 4. Greater than 70% stenosis to near occlusion= ICA PSV > 230 cm/s: ratio > 4.0: ICA EDV > 100 cm/s. 5. Near occlusion= ICA PSV velocities may be low or undetectable: variable ratio and ICA EDV. 6. Total occlusion=unable to detect flow.
[2021-10-03] MEDS: ASPIRIN 81 MG PO SCH (19:34)
[2021-10-03] MEDS: BUTALB/APAP/CAFF 50-325-40MG TAB PO PRN (21:32)
[2021-10-03] MEDS: LACOSAMIDE 50 MG TABLET PO SCH (21:32)
[2021-10-04] MEDS: HYDROCORTISONE SUCCINATE 100 MG/2 ML VIAL IV SCH ×3 (03:31→17:21)
[2021-10-04] MEDS: BUTALB/APAP/CAFF 50-325-40MG TAB PO PRN ×3 (04:51→18:28)
[2021-10-04] MEDS: LEVOTHYROXINE 50 MCG TAB PO SCH (06:23)
[2021-10-04] MEDS: PANTOPRAZOLE 40 MG TABLET PO SCH (06:23)
[2021-10-04] MEDS: hydrALAZINE HCL 50 MG TAB PO SCH ×2 (07:46→20:33)
[2021-10-04] MEDS: ASPIRIN 81 MG PO SCH (07:46)
[2021-10-04] MEDS: amLODIPine 10 MG TAB PO SCH (07:46)
[2021-10-04] MEDS: cloNIDine HCL 0.2 MG TAB PO SCH ×3 (07:47→20:33)
[2021-10-04] MEDS: LACOSAMIDE 50 MG TABLET PO SCH ×2 (07:47→20:33)
[2021-10-04] MEDS ORDERED: amLODIPine 10 MG TAB PO SCH (09:00)
[2021-10-04 09:12] LABS: Chol/HDL Ratio 2.44 Ratio
[2021-10-04 10:35] LABS: HCT 38.8 % (34.0-46.0); HGB 12.5 gm/dL (11.4-16.0); MCH 33.5 pg (25.0-35.0); MCHC 32.3 g/dL (31.0-37.0); MCV 103.8 fL (80.0-100.0); Macrocytosis Slight; Mean Platelet Volume 7.4; Platelet Count 298 k/uL (150-450); RBC 3.73 m/uL (3.80-5.40); RDW 13.5 % (11.5-15.5); WBC 11.7 k/uL (3.8-10.6)
[2021-10-04 10:50] LABS: Albumin 4.5 g/dL (3.5-5.0); Calcium 10.4 mg/dL (8.4-10.2); Potassium 4.5 mmol/L (3.5-5.1); Total Bilirubin 0.4 mg/dL (0.2-1.3); Total Protein 7.4 g/dL (6.3-8.2)
--- NOTE | 2021-10-04 11:21 | P.PN ---
Subjective Progress Note Date: 10/04/21 HISTORY OF PRESENT ILLNESS This is a 55-year-old female patient of Dr. 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 Patient has not had recent follow-up in the office. Patient gives history that she was seen at [facility] for thyroid tumor about 6 months ago and was placed on Cortef. She has also been seen recently at [facility] for urinary tract infection placed on Keflex which she had finished at that time, she also had significantly elevated blood pressure. She was also seen in [place] about 3 days ago where her boyfriend took her because of her blood pressure bein g at 230 systolic. She said she received IV medications but no new prescriptions. No seizure activity at that time. Patient apparently has run out of medications and Today, patient's mother called a relative to check on the patient who then called 911. Patient was having severe headache and had a seizure. She also complains of a cough with sputum production that was a few weeks ago but none now. She states she's had a fever. Patient apparently has run out of medications but not received refills. Patient apparently had 2 seizures witnessed by her family and then 1 episode witnessed by EMS. Patient presented to [facility] emergency center. Blood pressure initially 218/104, afebrile, heart rate 50, pulse ox 99%. EKG is sinus bradycardia with no acute ST changes. Chest x-ray increased cardiac size, correlate with echocardiogram, questionable mild COPD. Suspect chronic healed fracture of the right humeral neck. CAT scan of the brain revealed no acute intracranial abnormality or gross space- occupying lesion. WBC 15.7, Hemoccult and 14.3, platelet count 288. D-dimer 2.91. Electrolytes normal. BUN 24 creatinine 1.8. Blood sugar 105. Calcium 10.5. Alkaline phosphatase 127. CK 166. Troponin negative on one drop. ProBNP 2040. Triglycerides 194, cholesterol 203, LDL 81, HDL 83. TSH greater than 100 and free T4 0.41. Urinalysis clear with blood trace, RBC 6, bacteria rare. Serum alcohol less than 10. Patient is seen today in the emergency center waiting for a bed on the cardiac stepdown unit. VQ scan will be ordered, patient resumed on home medications, consults with cardiology for urgent hypertension and chest pain and neurology for seizure activity. 10/04: Patient barely underwent VQ scan this morning just returned to her room, report is not available. Ultrasound of the carotid arteries revealed 50% stenosis of the bilateral carotid bifurcations. Patient is complaining of a headache this morning for which appears that was given. Blood pressure is improved today. Patient states that for about 6 hours yesterday she didn't know who her sisters were but thinks her mental status is improved this morning. No further seizure activity. Consults in place with cardiology and neurology. Neurology has started the patient on Vimpat 50 mg twice daily. IV fluids discontinued patient also started on levothyroxine which she apparently has not been taking at home. REVIEW OF SYSTEMS Constitutional: No fever, no chills, no night sweats. No weight change. No weakness, generalized fatigue or lethargy. No daytime sleepiness. EENT: Reports headache. No blurred vision or double vision, no loss of vision. No loss of Hearing, no ringing in the ears, no dizziness. No nasal drainage or congestion. No epistaxis. No sore throat. Lungs: No shortness of breath, cough, no sputum production. No wheezing. Cardiovascular: Resolved chest pain, no lower extremity edema. No palpitations. No paroxysmal nocturnal dyspnea. No orthopnea. No lightheadedness or dizziness. No syncopal episodes. Abdominal: No abdominal pain. No nausea, vomiting. No diarrhea. No constipation. No bloody or tarry stools.. No loss of appetite. Genitourinary: No dysuria, increased frequency, urgency. No urinary retention. Musculoskeletal: No myalgias. No muscle weakness, no gait dysfunction, no frequent falls. No back pain. No neck pain. Integumentary: No wounds, no lesions. No rash or pruritus. No unusual bruis ing. No change in hair or nails. Neurologic: No aphasia. No facial droop. Noted change in mentation-intermittent confusion. No head injury. No headache. No paralysis. No paresthesia. Report/witnessed seizures. Psychiatric: No depression. No anxiety. No mood swings. Endocrine: No abnormal blood sugars. No weight change. No excessive sweating or thirst. No cold intolerance. PHYSICAL EXAMINATION Gen: This is a 55-year-old female. She is resting on the ER stretcher and intermittent confusion noted. No acute distress. Family member at bedside.. HEENT: Head is atraumatic, normocephalic. Pupils equal, round. Sclerae is anicteric. NECK: Supple. No JVD. No lymphadenopathy. No thyromegaly. LUNGS: Clear to auscultation. No wheezes or rhonchi. No intercostal retractions. No accessory muscle usage. HEART: Regular rate and rhythm. Systolic and diastolic murmur. ABDOMEN: Soft. Bowel sounds are present. No masses. No tenderness. EXTREMITIES: No pedal edema. No calf tenderness. Dorsalis pedis +2 bilaterally. NEUROLOGICAL: Patient is awake, alert and oriented x3 but also confused. Patient did have witnessed staring type seizure during evaluation. Cranial nerves 2 through 12 are grossly intact. ASSESSMENT AND PLAN 1. Hypertensive urgency. Patient started back on amlodipine 10 mg daily, clonidine 0.2 mg 3 times daily, hydralazine 50 mg twice daily. Patient was also previously on Aldactone 25 mg daily and also on Coreg 25 mg twice daily which will not be resumed due to bradycardia. 2. Headache most likely secondary to hypertension. Continue Fioricet 1 every 6 hours as needed. 3. History of seizure activity. 3 witnessed seizures today. Consult with neurology, EEG ordered. Patient has been started on Vimpat 50 mg twice daily 4. Elevated d-dimer. 5. Adrenal insufficiency. Patient will be started on Solu-Cortef 100 mg IV every 8 hours. 6. Hypoparathyroidism with parathyroid tumor, follows at [facility]. 7. Hypothyroidism. Patient has not been taking levothyroxine. TSH and free T4 ordered and came back elevated. Patient started on levothyroxine 50 g daily. 8. Thoracic aneurysm, stable, requires controlled blood pressure. 9. Generalized anxiety disorder. 10. GI prophylaxis. Protonix. 11. DVT prophylaxis. SAMMI ford. DISCHARGE PLAN Home in the next 24 hours Impression and plan of care have been directed as dictated by the signing physician. Bridget Ordoñez nurse practitioner acting as scribe for signing physician. Objective - Vital Signs Vital signs: Vital Signs Temp 98.7 F 10/04/21 07:45 Pulse 82 10/04/21 07:45 Resp 16 10/04/21 07:45 BP 174/72 10/04/21 07:45 Pulse Ox 99 10/04/21 07:45 FiO2 Intake & Output 10/03/21 10/04/21 10/04/21 18:59 06:59 18:59 Intake Total 477 Balance 477 Weight 63.503 kg Intake: Oral 477 Other: # Voids 1 - Labs CBC & Chem 7: 10/04/21 10:19 10/04/21 10:19 Labs: Abnormal Lab Results - Last 24 Hours (Table) 10/03/21 10/03/21 10/03/21 Range/Units 07:58 08:20 08:20 D-Dimer 2.91 H (<0.60) mg/L FEU BUN 24 H (7-17) mg/dL Creatinine 1.80 H (0.52-1.04) mg/dL Glucose 105 H (74-99) mg/dL POC Glucose (mg/dL) (70-110) mg/dL Calcium 10.5 H (8.4-10.2) mg/dL Alkaline Phosphatase 127 H (38-126) U/L Creatine Kinase 166 H (30-135) U/L TSH >100.000 H (0.465-4.680) mIU/L Free T4 0.41 L (0.78-2.19) ng/dL Urine Blood Trace H (Negative) Urine RBC 6 H (0-5) /hpf Urine Bacteria Rare H (None) /hpf Hyaline Casts 3 H (0-2) /lpf Urine Mucus Rare H (None) /hpf 10/03/21 10/03/21 Range/Units 12:21 15:16 D-Dimer (<0.60) mg/L FEU BUN (7-17) mg/dL Creatinine (0.52-1.04) mg/dL Glucose (74-99) mg/dL POC Glucose (mg/dL) 145 H (70-110) mg/dL Calcium (8.4-10.2) mg/dL Alkaline Phosphatase (38-126) U/L Creatine Kinase (30-135) U/L TSH >100.000 H (0.465-4.680) mIU/L Free T4 0.46 L (0.78-2.19) ng/dL Urine Blood (Negative) Urine RBC (0-5) /hpf Urine Bacteria (None) /hpf Hyaline Casts (0-2) /lpf Urine Mucus (None) /hpf
--- NOTE | 2021-10-04 11:54 | P.CRDCN ---
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 She has been having diffculty following up with physicians and getting her medications refilled secondary to cost and insurance issues. She used to follow at [facility] for all her care, now has not follow up in over 2 months. We have been asked to see in consultation for hypertensive urgency. Patient presented to the emergency department with complaints of seizure at home and uncontrolled blood pressure. She states she ran out of her medications about 1-2 weeks ago. She initially went to [facility] 3 days ago and evaluated for the same thing, she states she was not sent home with PO medications for her Blood pressure but was treated with IV medications there. Patient apparently had 2 seizures witnessed by her family and then 1 episode witnessed by EMS yesterday. She denies any chest pain, shortness of breath, lightheadedness, diaphoresis, nausea, or palpitations. She states she was very anxious about her aortic dissection and presented to the ER initially because of her uncontrolled BP. DIAGNOSTICS EKG reveals sinus bradycardia HR 48, LVH, nonspecific ST-T wave changes Telemetry tracings indicate sinus mechanism in the 60s Brain CT revealed no acute intracranial abnormality. Echocardiogram 11/2020 revealed EF of 60-65%, trace pulmonic regurgitation, physiologic, aortic root dilated at 4.1 cm Laboratory reviewed, troponin negative, sodium 136, potassium 4.5, BUN 26, serum creatinine 1.5, repeat 2039, hypothyroidism with TSH of greater than 154 0.4 Current home cardiac medications include clonidine 0.2 mg 3 times a day, amlodipine 10 mg twice a day REVIEW OF SYSTEMS At the time of my exam: CONSTITUTIONAL: Denies fever or chills. CARDIOVASCULAR: Denies chest pain, Denies shortness of breath, orthopnea, PND or palpitations. RESPIRATORY: Denies cough. GASTROINTESTINAL: Denies abdominal pain, diarrhea, constipation, nausea or vomiting. MUSCULOSKELETAL: Denies myalgias. NEUROLOGIC: Denies numbness, tingling, headacbe or weakness. ENDOCRINE: Denies fatigue, weight change, polydipsia or polyurina. GENITOURINARY: Denies burning, hematuria or urgency with micturation. HEMATOLOGIC: Denies history of anemia or bleeding. PHYSICAL EXAMINATION Blood pressure 124/69 heart rate 58 afebrile and maintaining oxygen saturation 97% on room air. CONSTITUTIONAL: No apparent distress. HEENT: Head is normocephalic. Pupils are equal, round. Sclerae anicteric. Mucous membranes of the mouth are moist. No JVD. No carotid bruit. CHEST EXAMINATION: Lungs are clear to auscultation. No chest wall tenderness is noted on palpation or with deep breathing. HEART EXAMINATION: Regular rate and rhythm. S1, S2 heard. Systolic and Diastolic murmuc noted at apex and base. ABDOMEN: Soft, nontender. Positive bowel sounds. EXTREMITIES: 2+ peripheral pulses, no lower extremity edema and no calf tenderness. SKIN: warm, dry NEUROLOGIC EXAMINATION: Patient is awake, alert and oriented x3. ASSESSMENT Hypertensive Urgency, patient ran out of her medications about 2 weeks ago. 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 PLAN Restart patients home medications as tolerated Amlodipine 10mg daily Continue hydralazine 50mg BID Continue clonidine 0.2mg TID Hold off on starting beta oneal with bradycardia on admission Further recommendations based on clinical course Thank you kindly for this consultation. Nurse Practitioner note has been reviewed, I agree with a documented findings and plan of care. Patient was seen and examined. Past Medical History Past Medical History: Atrial Fibrillation, Deep Vein Thrombosis (DVT), Hypertension, Neurologic Disorder, Pneumonia, Renal Disease, Seizure Disorder, Thyroid Disorder Additional Past Medical History / Comment(s): adrenal insufficiency; Jimmy Danlos Syndrome - Vascular Type, ACTH,recent afib 2018, shingles november 2018, blood clots october 2018, seizures- left temporal lobe atonic seizures. Has some left sided weakness from surgery last october, stage 3 kidney failure, 3 blood clots, groin,arm and leg History of Any Multi-Drug Resistant Organisms: None Reported Past Surgical History: Back Surgery, Hysterectomy Additional Past Surgical History / Comment(s): abdominal sugery; Aortic grafting, pt stated she was told she had a mass on her pancreas, ets ventrical repair- october 2018, 7 arm surgeries for cysts carpal tunnel, broken bones. Past Anesthesia/Blood Transfusion Reactions: Previous Problems w/ Anesthesia, Family History of Problems w/ Anesthesia Additional Past Anesthesia/Blood Transfusion Reaction / Comment(s): pt states d/t severe adrenal insufficency, ACTH and EDS vascular must receive steroids prior to anesthesia, during october 2018 surgery at [facility] needed to be resusciated twice d/t "blood pressure tanking" was in a coma for 2 weeks and remained on life support for 1 week coma, wakes up combative. mom doesn't come out of anesthesia well. son comes out combative Past Psychological History: Anxiety, Panic Disorder Smoking Status: Former smoker Past Alcohol Use History: None Reported Past Drug Use History: Marijuana - Past Family History Brother(s) Family Medical History: Cancer Additional Family Medical History / Comment(s): She does have a brother with a history of aneurysm as well. History of skin cancer. - brain aneursym Mother Family Medical History: Blood Disorder Additional Family Medical History / Comment(s): factor V Father Additional Family Medical History / Comment(s): lungs filled with cyst and tumors- family Family Medical History: Unable to Obtain Medications and Allergies Home Medications Medication Instructions Recorded Confirmed Type amLODIPine [Norvasc] 10 mg PO BID 12/02/20 10/03/21 History Acetaminophen Tab [Tylenol Tab] 1,000 mg PO Q6HR PRN 10/03/21 10/03/21 History Aspirin/Acetaminophen/Caffeine 2 tab PO DAILY PRN 10/03/21 10/03/21 History [Excedrin Migraine Caplet] cloNIDine HCL [Catapres] 0.2 mg PO TID 10/03/21 10/03/21 History Allergies Allergy/AdvReac Type Severity Reaction Status Date / Time adhesive Allergy Itching Verified 10/03/21 09:33 ibuprofen [From Motrin] Allergy doesnt Verified 10/03/21 09:33 take d/t kidney issues Physical Exam Vitals: Vital Signs Temp Pulse Pulse Resp BP BP Pulse Ox 10/04/21 04:52 131/70 10/04/21 03:47 98.3 F 60 16 110/61 98 10/04/21 00:00 98.2 F 69 20 125/64 99 10/03/21 22:00 158/85 10/03/21 21:00 68 135/91 10/03/21 20:00 60 143/92 10/03/21 19:00 61 18 148/94 10/03/21 17:55 73 16 138/81 97 10/03/21 16:01 62 19 160/104 99 10/03/21 15:36 60 16 176/105 97 10/03/21 13:00 165/89 10/03/21 12:50 51 L 15 165/89 100 10/03/21 12:20 98.2 F 69 16 125/64 99 10/03/21 12:00 199/115 10/03/21 11:41 60 17 199/115 99 10/03/21 11:00 53 L 23 168/83 100 10/03/21 10:45 51 L 15 168/83 100 10/03/21 10:00 48 L 13 202/104 100 10/03/21 09:22 48 L 16 184/96 99 10/03/21 09:00 48 L 24 190/105 100 10/03/21 08:11 97.7 F 46 L 18 191/108 100 10/03/21 08:00 44 L 9 L 218/104 100 10/03/21 07:57 45 L 15 218/104 100 10/03/21 07:42 50 L 19 218/104 99 Intake and Output 10/03/21 10/04/21 10/04/21 22:59 06:59 14:59 Intake Total 477 Balance 477 Intake: Oral 477 Other: # Voids 1 Results 10/04/21 10:19 10/04/21 10:19 Cardiac Enzymes 10/03/21 10/03/21 Range/Units 08:20 08:20 AST 28 (14-36) U/L Troponin I <0.012 (0.000-0.034) ng/mL CBC 10/03/21 Range/Units 07:45 WBC 15.7 H (3.8-10.6) k/uL RBC 4.22 (3.80-5.40) m/uL Hgb 14.3 (11.4-16.0) gm/dL Hct 44.9 (34.0-46.0) % Plt Count 288 (150-450) k/uL Comprehensive Metabolic Panel 10/03/21 Range/Units 08:20 Sodium 139 (137-145) mmol/L Potassium 4.5 (3.5-5.1) mmol/L Chloride 105 (98-107) mmol/L Carbon Dioxide 22 (22-30) mmol/L BUN 24 H (7-17) mg/dL Creatinine 1.80 H (0.52-1.04) mg/dL Glucose 105 H (74-99) mg/dL Calcium 10.5 H (8.4-10.2) mg/dL AST 28 (14-36) U/L ALT 28 (4-34) U/L Alkaline Phosphatase 127 H (38-126) U/L Total Protein 7.1 (6.3-8.2) g/dL Albumin 4.5 (3.5-5.0) g/dL Current Medications Generic Name Dose Route Start Last Admin Trade Name Freq PRN Reason Stop Dose Admin Acetaminophen/Butalbital/Caffeine 1 each 10/03/21 21:23 10/04/21 04:51 Butalb/Apap/Caff 50-325-40mg Tab PO 1 each Q6HR PRN Administration Headache Amlodipine Besylate 10 mg 10/03/21 09:45 10/03/21 21:33 Amlodipine 10 Mg Tab PO 10 mg BID JORDAN Administration Aspirin 81 mg 10/03/21 18:15 10/03/21 19:34 Aspirin 81 Mg PO Not Given DAILY JORDAN Clonidine 0.2 mg 10/03/21 09:45 10/03/21 21:32 Clonidine Hcl 0.2 Mg Tab PO 0.2 mg TID JORDAN Administration Hydralazine HCl 50 mg 10/03/21 12:00 10/03/21 21:33 Hydralazine Hcl 50 Mg Tab PO 50 mg BID JORDAN Administration Hydrocortisone Sodium Succinate 100 mg 10/03/21 10:00 10/04/21 03:31 Hydrocortisone Succinate 100 Mg/2 Ml Vial IV 100 mg Q8H JORDAN Administration Lacosamide 50 mg 10/03/21 21:00 10/03/21 21:32 Lacosamide 50 Mg Tablet PO 50 mg BID JORDAN Administration Levothyroxine Sodium 50 mcg 10/04/21 06:30 10/04/21 06:23 Levothyroxine 50 Mcg Tab PO 50 mcg DAILY@0630 JORDAN Administration Pantoprazole Sodium 40 mg 10/04/21 07:30 10/04/21 06:23 Pantoprazole 40 Mg Tablet PO 40 mg [id number] JORDAN Administration Intake and Output 10/03/21 10/04/21 10/04/21 22:59 06:59 14:59 Intake Total 477 Balance 477 Intake: Oral 477 Other: # Voids 1 10/03/21 07:45 10/03/21 08:20
[2021-10-04 12:13] LABS: Glucose,Whole Blood 137 mg/dL (70-110)
[2021-10-04] MEDS: INSULIN ASPART (NovoLOG) 100 UNIT/ML VIAL SQ SCH ×3 (12:24→21:32)
--- NOTE | 2021-10-04 13:03 | NM ---
EXAMINATION TYPE: NM pul perfusion DATE OF EXAM: 10/04/2021 COMPARISON: Radiograph correlation 10/03/2021 HISTORY: 55-year-old female with elevated d-dimer, shortness of breath Technique: Following IV administration of 5.2 mCi Tc 99m MAA. Images obtained post injection. FINDINGS: No discrete perfusion abnormality is seen. Homogeneous uptake throughout the bilateral lungs. IMPRESSION: Very low probability for pulmonary embolus.
--- NOTE | 2021-10-04 14:44 | P.CNNES ---
History of Present Illness Consult date: 10/03/21 Requesting physician: Bridget Ordoñez Reason for Consult: Seizure History of Present Illness: Patient is a 55-year-old female with history of seizure disorder for last 11 years came to the hospital by ambulance today at 7:40 AM for recurrent seizures. Patient was seen in the ER. As per EMS flow sheet, when they arrived, patient was alert oriented 2-3 and complaining of headache. Family at the scene reported that patient had 2 seizures this morning lasting about 2 minutes. Patient was assisted to her feet and then she started to have a seizure. The seizure lasted 30 seconds. Patient was assisted back into the couch until her seizure ended. Patient did not bite her tongue or lost control of urine. Patient reported she has some confusion at times. Patient reported that she had pituitary tumor and it causes her seizures. Her vitals at the scene was blood pressure 219/106, pulse rate 49, respiration 22 saturation 100%. Blood sugar 99. Repeat blood pressure was 211/98. Vital signs on arrival blood pressure 218/104, pulse of 50 and temperature 97.7. Her most recent blood pressure is 160/104. CT head revealed no acute intracranial abnormality or Grosse space-occupying lesion. Chest x-ray showed increased cardiac size, questionable mild COPD changes. EKG shows sinus bradycardia. Possible right ventricular conduction delay. Patient at present not taking any seizure medication. She is on clonidine 0.2 mg 3 times a day, Excedrin, amlodipine 10 mg twice a day. Patient states that 6 years ago she was taking medication but most medications were fighting her adrenal insufficiency. She says that she has "whole list of seizure medication" that she has tried. She was on Keppra before. She gets 6-7 seizures per day. It happens most of the days of the week. She says that she has 3 different type of seizures, some are adrenal seizures, some of her parathyroid seizures and some are epileptic seizures. She could not tell me the clinical features of each of them. She started telling about her adrenal seizure, in which "her heart stops working", but then she became frustrated, could not answer further. She gets very easily frustrated, starts crying, becomes upset. She says that sometimes she gets one seizure a day, sometimes up to 30 a day. At the most she may have no seizures for 6 days. She says that she does not want to deal with medications. She admits to taking CBD oil. It appears patient has not been taking her blood pressure medication for a long time. When I asked if she is taking medications, she states "not really", "not a lot". Patient states that she has to pay for medications out of pocket and she does not have money, and she has to feed her grandson. She prefers feeding her grandson rather than spending money on the medications. She however admits for taking aspirin 81 mg daily. Patient's blood test shows WBC 15.7 hemoglobin 14.3, elevated MCV 106.5 and platelets 288. D-dimer is elevated 2.91. Lateral lites are normal, BUN 24 creatinine 1.80. Hepatic panel normal, CK 166, troponin negative. TSH is > 100.0, free T4 is low 0.41. UA negative, but alcohol level negative. Patient has been seen by Dr. Laws on 01/04/2020, who has mentioned patient has history of epilepsy, anxiety, adrenal insufficiency, hypoparathyroidism, atrial fibrillation, hypertension, hyperthyroidism and aortic aneurysm who also came to the hospital at that time with numerous seizures. She had about 40 seizures in the previous 5 days. She has been seizure-free for years prior. Stress provokes her seizure. Patient was not taking any antiepileptic medication at that time, and not following up with neurologist. According to his note, it was mentioned patient had some staring episodes. She was diagnosed with seizures at age 8 but she was in [place]. 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 It was repor kalyan patient also had workup at [facility] in the epilepsy monitoring unit, and she was told that focus of seizures are coming from different regions of the brain. She describes her seizures as she gets an aura where she feels dizzy and has difficulty getting her words out or stumbling her words when she stiffens up. The episode lasts about 1-2 minutes. She does not lose consciousness. Her seizures at that time was felt to be related to electrolyte imbalance. She had hypocalcemia, hypomagnesemia, hypoparathyroidism, adrenal insufficiency. She also has Jimmy-Danlos syndrome. I was called by boilerhouse mechanic, the patient in the ED had 3 seizures within 25 minutes. A-team was called. She had 4 seizures prior, so total of 7 seizures since she came to the ER. I recommended Ativan 1 mg IV 1 dose and Keppra 1000 mg IV stat. Nurse informed me that patient was told she cannot take Keppra due to her adrenal insufficiency. I came to see patient in the ER. Patient had declined EEG. She says that she already has epilepsy, and what other information you would get out of EEG. Review of Systems Patient complains of headache. Complains of word finding difficulty, blurred vision, patient would not answer to most of the review of systems. Past Medical History Past Medical History: Atrial Fibrillation, Deep Vein Thrombosis (DVT), Hypertension, Neurologic Disorder, Pneumonia, Renal Disease, Seizure Disorder, Thyroid Disorder Additional Past Medical History / Comment(s): adrenal insufficiency; Jimmy Danlos Syndrome - Vascular Type, ACTH,recent afib 2018, shingles november 2018, blood clots october 2018, seizures- left temporal lobe atonic seizures. Has some left sided weakness from surgery last october, stage 3 kidney failure, 3 blood clots, groin,arm and leg History of Any Multi-Drug Resistant Organisms: None Reported Past Surgical History: Back Surgery, Hysterectomy Additional Past Surgical History / Comment(s): abdominal sugery; Aortic grafting, pt stated she was told she had a mass on her pancreas, ets ventrical repair- october 2018, 7 arm surgeries for cysts carpal tunnel, broken bones. Past Anesthesia/Blood Transfusion Reactions: Previous Problems w/ Anesthesia, Family History of Problems w/ Anesthesia Additional Past Anesthesia/Blood Transfusion Reaction / Comment(s): pt states d/t severe adrenal insufficency, ACTH and EDS vascular must receive steroids prior to anesthesia, during october 2018 surgery at [facility] needed to be resusciated twice d/t "blood pressure tanking" was in a coma for 2 weeks and remained on life support for 1 week coma, wakes up combative. mom doesn't come out of anesthesia well. son comes out combative Past Psychological History: Anxiety, Panic Disorder Smoking Status: Former smoker Past Alcohol Use History: None Reported Past Drug Use History: Marijuana - Past Family History Brother(s) Family Medical History: Cancer Additional Family Medical History / Comment(s): She does have a brother with a history of aneurysm as well. History of skin cancer. - brain aneursym Mother Family Medical History: Blood Disorder Additional Family Medical History / Comment(s): factor V Father Additional Family Medical History / Comment(s): lungs filled with cyst and tumors- family Family Medical History: Unable to Obtain Medications and Allergies Home Medications Medication Instructions Recorded Confirmed Type amLODIPine [Norvasc] 10 mg PO BID 12/02/20 10/03/21 History Acetaminophen Tab [Tylenol Tab] 1,000 mg PO Q6HR PRN 10/03/21 10/03/21 History Aspirin/Acetaminophen/Caffeine 2 tab PO DAILY PRN 10/03/21 10/03/21 History [Excedrin Migraine Caplet] cloNIDine HCL [Catapres] 0.2 mg PO TID 10/03/21 10/03/21 History Allergies Allergy/AdvReac Type Severity Reaction Status Date / Time adhesive Allergy Itching Verified 10/03/21 09:33 ibuprofen [From Motrin] Allergy doesnt Verified 10/03/21 09:33 take d/t kidney issues Physical Examination - Vital Signs Vital Signs: Vital Signs Temp Pulse Resp BP Pulse Ox 10/03/21 16:01 62 19 160/104 99 10/03/21 15:36 60 16 176/105 97 10/03/21 12:50 51 L 15 165/89 100 10/03/21 11:41 60 17 199/115 99 10/03/21 10:45 51 L 15 168/83 100 10/03/21 09:22 48 L 16 184/96 99 10/03/21 08:11 97.7 F 46 L 18 191/108 100 10/03/21 07:42 50 L 19 218/104 99 Intake and Output 10/03/21 10/03/21 10/03/21 06:59 14:59 22:59 Other: Weight 63.503 kg Patient is a middle aged female, appears somewhat emotional, frequently cries, gets very easily upset/frustrated. Sometimes she says that she wants to go home now. Patient is alert awake. Patient could not tell what month or year is it. She could not tell what city and state and then she begins to cry and becomes frustrated. Patient was able to name simple objects like ear, pen , glasses, but could not name complex objects like ear lobe, knuckles. She could repeat. Speech and language functions are normal, except for word finding problem. Attention, concentration is limited and fund of knowledge is difficult to assess because of her cooperation. On cranial nerve examination, pupils are equal, round and reacting to light, visual valentine reveal right homonymous hemianopia. Her extraocular muscles are intact with no nystagmus. Face is symmetric, tongue protrudes to the midline. Palatal elevation and sensation normal, hearing and shoulder shrug normal, facial sensation normal. Shoulder shrug normal. On muscle strength testing, there is no pronator drift and the strength is normal in arms and legs distally and proximally. Deep tendon reflexes are symmetric, 1 in the upper limbs at biceps and brachioradialis, 2 at the knees, 1 at ankles and plantars are downgoing bilaterally. Sensory to touch is equal with no neglect on double simultaneous stimulation. Cerebellar function showed no ataxia for [id number] testing. No dysdiadochokinesia. Tone and bulk of muscles normal. Gait deferred. On general examination, there is no carotid bruit or murmur, S1-S2 audible. Abdomen is soft nontender. No organomegaly, bowel sounds present. Chest is clear. Peripheral pulses are present. No edema. Results - Laboratory Findings CBC and BMP: 10/04/21 10:19 10/04/21 10:19 Abnormal Lab Findings: Abnormal Labs 10/03/21 10/03/21 10/03/21 07:45 07:58 08:20 WBC 15.7 H MCV 106.5 H Neutrophils # 11.5 H Monocytes # 1.1 H D-Dimer 2.91 H BUN Creatinine Glucose POC Glucose (mg/dL) Calcium Alkaline Phosphatase Creatine Kinase TSH Free T4 Urine Blood Trace H Urine RBC 6 H Urine Bacteria Rare H Hyaline Casts 3 H Urine Mucus Rare H 10/03/21 10/03/21 10/03/21 08:20 12:21 15:16 WBC MCV Neutrophils # Monocytes # D-Dimer BUN 24 H Creatinine 1.80 H Glucose 105 H POC Glucose (mg/dL) 145 H Calcium 10.5 H Alkaline Phosphatase 127 H Creatine Kinase 166 H TSH >100.000 H >100.000 H Free T4 0.41 L 0.46 L Urine Blood Urine RBC Urine Bacteria Hyaline Casts Urine Mucus Assessment and Plan Assessment: * Seizure disorder, came with multiple breakthrough seizures. Patient however tells us that she gets 6-7 seizures every day, most of the days of the week. She is not taking any seizure medication. Her current seizures could be related to hypertensive emergency, with mild encephalopathy. Rule out PRES syndrome. * Visual disturbance with right homonymous hemianopia, possible PRES. Rule out stroke/TIA. * Hypercalcemia * Hypothyroidism * Renal insufficiency * Macrocytosis * Medication noncompliance. Patient has stopped taking her seizure medications, blood pressure medication for "long time". Plan: * I had a very prolonged discussion with the patient. She does not want to take Keppra as she has side effects from it. We discussed about Lamictal versus Vimpat. Patient would agree for a medication, then becomes upset. After prolonged discussion, patient tells me that she does have prescription coverage and left it to the treating physicians to try any medication. She does not believe that she has tried Vimpat. We will therefore try Vimpat 50 mg twice a day. Possible side effects were discussed. May have to increase dose, if she continues to have seizures. * Aggressive control of blood pressure. * Carotid Doppler to rule out stenosis * Fasting lipid panel, hemoglobin A1c * Consider MRI. * EEG was ordered in the ER. computer hardware technician came, but patient declined. * Admit to telemetry bed. * Regarding hypothyroidism, and hypercalcemia will defer to IM. * Neurology will follow. Thank you for the consult. Time with Patient: Greater than 30 (Spent over 75 minutes in reviewing records, coordinating care with the nursing staff and patient care.)
[2021-10-04 16:54] LABS: Glucose,Whole Blood 142 mg/dL (70-110)
[2021-10-04 21:06] LABS: Glucose,Whole Blood 168 mg/dL (70-110)
[2021-10-05] MEDS: BUTALB/APAP/CAFF 50-325-40MG TAB PO PRN ×3 (04:19→21:54)
[2021-10-05] MEDS: HYDROCORTISONE SUCCINATE 100 MG/2 ML VIAL IV SCH ×3 (04:20→17:11)
[2021-10-05 06:20] LABS: Glucose,Whole Blood 117 mg/dL (70-110)
[2021-10-05] MEDS: LEVOTHYROXINE 50 MCG TAB PO SCH (06:22)
[2021-10-05] MEDS: PANTOPRAZOLE 40 MG TABLET PO SCH (06:22)
[2021-10-05] MEDS: INSULIN ASPART (NovoLOG) 100 UNIT/ML VIAL SQ SCH ×4 (06:23→21:51)
[2021-10-05] MEDS: ASPIRIN 81 MG PO SCH (08:25)
[2021-10-05] MEDS: cloNIDine HCL 0.2 MG TAB PO SCH ×3 (08:25→21:48)
[2021-10-05] MEDS: LACOSAMIDE 50 MG TABLET PO SCH ×2 (08:25→21:49)
[2021-10-05] MEDS: hydrALAZINE HCL 50 MG TAB PO SCH ×2 (08:25→21:48)
[2021-10-05] MEDS: amLODIPine 10 MG TAB PO SCH (08:25)
--- NOTE | 2021-10-05 11:42 | P.PN ---
Subjective Progress Note Date: 10/05/21 I am seeing the patient for the first time during this admission. Please refer to Dr. Bolton's notes for further details. It seems the patient came in because of multiple breakthrough seizures and having visual disturbance and had uncontrolled hypertension. The patient has medication non-compliance and stopped taking her medications long time ago. Per nurse no further seizures and her blood pressure is drastically improved compared to presentation. She continues to complain of visual disturbance and headache but it seems she is inconsistent providing history. Upon talking to her initially she stated having severe headache but with time he was laughing, talking without difficulty and was not complaining of headache. Per nurse, having difficulty getting MRI clearance since has stents in past and pending [facility] record. Objective - Vital Signs Vital signs: Vital Signs Temp 98.5 F 10/05/21 10:19 Pulse 77 10/05/21 10:19 Resp 16 10/05/21 10:19 BP 139/76 10/05/21 10:19 Pulse Ox 99 10/05/21 10:19 FiO2 Intake & Output 10/04/21 10/05/21 10/05/21 18:59 06:59 18:59 Intake Total 410 240 118 Balance 410 240 118 Intake: Oral 410 240 118 Other: # Voids 2 1 1 - Exam GENERAL: The patient is lying in bed. Complaining of headache but later laughing and talking without any head pain. PSYCH: Is tangenital. NEUROLOGICAL: Limited because of her coperation. Her exam is inconsistent Higher mental function: The patient is awake, alert, oriented to self. She correctly stated she is in the hospital. Could not tell me time or month. She seem, place and time. Patient is following simple commands. It is hard to assess language Cranial nerves: Could not assess visual field since stated could not see but was able to see pain upon showing her and was slow in responding it was pen and then later stated "I had this when I was in school" then later correctly named pen. No facial weakness. No dysarthira. Motor: The strength is 5 over 5 throughout. Normal tone and bulk. Cerebellum: Hard to assess. Sensation: Decrease to touch over the right side. - Labs CBC & Chem 7: 10/04/21 10:19 10/04/21 10:19 Labs: Abnormal Lab Results - Last 24 Hours (Table) 10/04/21 10/04/21 10/04/21 Range/Units 12:11 16:48 20:49 POC Glucose (mg/dL) 137 H 142 H 168 H (70-110) mg/dL 10/05/21 Range/Units 05:53 POC Glucose (mg/dL) 117 H (70-110) mg/dL Assessment and Plan Assessment: * Seizure disorder, came with multiple breakthrough seizures. Patient however tells us that she gets 6-7 seizures every day, most of the days of the week. She is not taking any seizure medication. Her current seizures could be related to hypertensive emergency, with mild encephalopathy. Rule out PRES syndrome.---currently seizures are controlled. * Visual disturbance with right homonymous hemianopia, possible PRES. Rule out stroke/TIA. * Hypothyroidism and is uncontrolled (TSH >100 and free T4 0.41) * Hypercalcemia * History of Ehler's Danlos syndrome * Adrenal insufficiency * History of atrial fibrillation * History of DVT * Renal insufficiency * Macrocytosis * Medication noncompliance. Patient has stopped taking her seizure medications, blood pressure medication for "long time". 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 Bolton). No further seizures according to nurse * I cancelled MRI Brain w/o and instead changed to MRI Brain w/ and w/o especially with reported ?pituitary mass. Pending clearance and more info of stent to pursue MRI. If unable will obtain repeat CT head today. * Patient declined EEG. * Carotid duplex was reported as less than 50% stenosis bilateral carotid bifurcation. * Regarding hypothyroidism, hypercalcemia and her hypertension will defer to IM. * Lipid panel triglycerides 194, cholesterol is 203, LDLs 81 and HDL is 83. I started the patient on Lipitor 20 mg at bedtime and will defer modification of medication to primary team. * Consulted Psychiatry team since patient has medications non-compliance and is tangential on examination. * Upon discharge, patient needs to follow-up with neurologist as outpatient within 1-2 weeks. The plan is discussed with patient and her nurse. Pete Laws M.D. Neuro-Hospitalist Time with Patient: Less than 30
--- NOTE | 2021-10-05 11:52 | P.PN ---
Subjective Progress Note Date: 10/05/21 PROGRESS NOTE The patient is a 55-year-old female with known history of hypertension, seizure disorder, repair of aortic aneurysm who presented with hypertension and recurrent seizures. She has been noncompliant with her medication. She had no further seizure but she is complaining of visual disturbance. Her blood pressure is under better control after reinitiating treatment. There is no arrhythmia. No symptoms of chest pain or dyspnea. Medications: Amlodipine 10 mg daily, aspirin once a day, Lipitor 20 mg daily, clonidine 0.2 mg 3 times a day, hydralazine 50 mg twice a day, Vimpat 100 mg twice a day, levothyroxine PHYSICAL EXAMINATION: Blood pressure 139/70 heart rate 70 LUNGS: Clear to auscultation HEART: Regular rate and rhythm, S1, S2. No S3. systolic ejection murmur 2/6 at the base ABDOMEN: Soft, nontender, no organomegaly EXTREMETIES: No edema IMPRESSION: 1. Controlled hypertension secondary to noncompliance, better now 2. History of seizure 3. Chronic kidney injury 4. History of thoracic aortic dissection status post repair PLAN: 1. Continue present antihypertensive regimen 2. The importance of compliance was discussed with the patient 3. Follow her renal functions 4. We will see her on an as needed basis, please feel free to call us for any question. Objective - Vital Signs Vital signs: Vital Signs Temp 98.5 F 10/05/21 10:19 Pulse 77 10/05/21 10:19 Resp 16 10/05/21 10:19 BP 139/76 10/05/21 10:19 Pulse Ox 99 10/05/21 10:19 FiO2 Intake & Output 10/04/21 10/05/21 10/05/21 18:59 06:59 18:59 Intake Total 410 240 118 Balance 410 240 118 Intake: Oral 410 240 118 Other: # Voids 2 1 1 - Labs CBC & Chem 7: 10/04/21 10:19 10/04/21 10:19 Labs: Abnormal Lab Results - Last 24 Hours (Table) 10/04/21 10/04/21 10/04/21 Range/Units 12:11 16:48 20:49 POC Glucose (mg/dL) 137 H 142 H 168 H (70-110) mg/dL 10/05/21 Range/Units 05:53 POC Glucose (mg/dL) 117 H (70-110) mg/dL
[2021-10-05 11:53] LABS: Glucose,Whole Blood 129 mg/dL (70-110)
--- NOTE | 2021-10-05 15:56 | P.PN ---
Subjective Progress Note Date: 10/05/21 HISTORY OF PRESENT ILLNESS This is a 55-year-old female patient of Dr. 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 Patient has not had recent follow-up in the office. Patient gives history that she was seen at [facility] for thyroid tumor about 6 months ago and was placed on Cortef. She has also been seen recently at [facility] for urinary tract infection placed on Keflex which she had finished at that time, she also had significantly elevated blood pressure. She was also seen in [place] about 3 days ago where her boyfriend took her because of her blood pressure be ing at 230 systolic. She said she received IV medications but no new prescriptions. No seizure activity at that time. Patient apparently has run out of medications and Today, patient's mother called a relative to check on the patient who then called 911. Patient was having severe headache and had a seizure. She also complains of a cough with sputum production that was a few weeks ago but none now. She states she's had a fever. Patient apparently has run out of medications but not received refills. Patient apparently had 2 seizures witnessed by her family and then 1 episode witnessed by EMS. Patient presented to [facility] emergency center. Blood pressure initially 218/104, afebrile, heart rate 50, pulse ox 99%. EKG is sinus bradycardia with no acute ST changes. Chest x-ray increased cardiac size, correlate with echocardiogram, questionable mild COPD. Suspect chronic healed fracture of the right humeral neck. CAT scan of the brain revealed no acute intracranial abnormality or gross space- occupying lesion. WBC 15.7, Hemoccult and 14.3, platelet count 288. D-dimer 2.91. Electrolytes normal. BUN 24 creatinine 1.8. Blood sugar 105. Calcium 10.5. Alkaline phosphatase 127. CK 166. Troponin negative on one drop. ProBNP 2040. Triglycerides 194, cholesterol 203, LDL 81, HDL 83. TSH greater than 100 and free T4 0.41. Urinalysis clear with blood trace, RBC 6, bacteria rare. Serum alcohol less than 10. Patient is seen today in the emergency center waiting for a bed on the cardiac stepdown unit. VQ scan will be ordered, patient resumed on home medications, consults with cardiology for urgent hypertension and chest pain and neurology for seizure activity. 10/04: Patient barely underwent VQ scan this morning just returned to her room, report is not available. Ultrasound of the carotid arteries revealed 50% stenosis of the bilateral carotid bifurcations. Patient is complaining of a headache this morning for which appears that was given. Blood pressure is improved today. Patient states that for about 6 hours yesterday she didn't know who her sisters were but thinks her mental status is improved this morning. No further seizure activity. Consults in place with cardiology and neurology. Neurology has started the patient on Vimpat 50 mg twice daily. IV fluids discontinued patient also started on levothyroxine which she apparently has not been taking at home. 10/05: Patient is very tearful today, significantly depressed, not sleeping, wakes up with a headache every hour each nightly, however she is taking Fioricet either late in the evening, with caffeine psych has been consulted, repeat to atrial fibrillation UTI, compliance to thyroid medication has been advised to the patient, as her TSH is over 100,000, melatonin was started today, might need ,to Elavil, for chronic headaches, and sleep dysfunction however psych is already in place, we would request their input. 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 No weight change. No weakness, generalized fatigue or lethargy. No daytime sleepiness. EENT: Reports headache. No blurred vision or double vision, no loss of vision. No loss of Hearing, no ringing in the ears, no dizziness. No nasal drainage or congestion. No epistaxis. No sore throat. Lungs: No shortness of breath, cough, no sputum production. No wheezing. Cardiovascular: Resolved chest pain, no lower extremity edema. No palpitations. No paroxysmal nocturnal dyspnea. No orthopnea. No lightheadedness or dizziness. No syncopal episodes. Abdominal: No abdominal pain. No nausea, vomiting. No diarrhea. No constipation. No bloody or tarry stools.. No loss of appetite. Genitourinary: No dysuria, increased frequency, urgency. No urinary retention. Musculoskeletal: No myalgias. No muscle weakness, no gait dysfunction, no frequent falls. No back pain. No neck pain. Integumentary: No wounds, no lesions. No rash or pruritus. No unusual bruising. No change in hair or nails. Neurologic: No aphasia. No facial droop. Noted change in mentation-intermittent confusion. No head injury. No headache. No paralysis. No paresthesia. Report/witnessed seizures. Psychiatric: No depression. No anxiety. No mood swings. Endocrine: No abnormal blood sugars. No weight change. No excessive sweating or thirst. No cold intolerance. PHYSICAL EXAMINATION Gen: This is a 55-year-old female. She is resting on the ER stretcher and intermittent confusion noted. No acute distress. Family member at bedside.. HEENT: Head is atraumatic, normocephalic. Pupils equal, round. Sclerae is anicteric. NECK: Supple. No JVD. No lymphadenopathy. No thyromegaly. LUNGS: Clear to auscultation. No wheezes or rhonchi. No intercostal retr actions. No accessory muscle usage. HEART: Regular rate and rhythm. Systolic and diastolic murmur. ABDOMEN: Soft. Bowel sounds are present. No masses. No tenderness. EXTREMITIES: No pedal edema. No calf tenderness. Dorsalis pedis +2 bilaterally. NEUROLOGICAL: Patient is awake, alert and oriented x3 but also confused. Patient did have witnessed staring type seizure during evaluation. Cranial nerves 2 through 12 are grossly intact. ASSESSMENT AND PLAN 1. Hypertensive urgency. Patient started back on amlodipine 10 mg daily, clonidine 0.2 mg 3 times daily, hydralazine 50 mg twice daily. Patient was also previously on Aldactone 25 mg daily and also on Coreg 25 mg twice daily which will not be resumed due to bradycardia. 2. Headache most likely secondary to hypertension and nonstress test, broken sleep, chronic daily headaches, we will hold off Fioricet after 2 PM, start melatonin, 5 mg at bedtime, patient might need Elavil, controlled headaches and restore some sleep, however psych is going to see the patient. Continue Fioricet 1 every 6 hours as needed. Last dose will be before 2 PM 3. History of seizure activity. 3 witnessed seizures today. Consult with neurology, EEG ordered. Patient has been started on Vimpat 50 mg twice daily 4. Elevated d-dimer. 5. Adrenal insufficiency. Patient will be started on Solu-Cortef 100 mg IV every 8 hours. Decreased to 50 mg, every 8 hours, and sensation to Cortef 20/10 outpatient endocrinology to follow 6. Hyperparathyroidism with parathyroid tumor, follows at [facility]. However patient has uncontrolled hypothyroidism, and this needs to be corrected, compliance to levothyroxine 7. Hypothyroidism. Patient has not been taking levothyroxine. TSH and free T4 ordered and came back elevated. Patient started on levothyroxine 50 g daily based on her weight, will increase to 100 g will be dosed currently, her TSH is over 100,000. 8. Thoracic aneurysm, stable, requires controlled blood pressure. 9. Generalized anxiety disorder. 10. GI prophylaxis. Protonix. 11. DVT prophylaxis. SAMMI hose. DISCHARGE PLAN Home in the next 24 hours Impression and plan of care have been directed as dictated by the signing physician. Bridget Ordoñez nurse practitioner acting as scribe for signing physician. Current Medications Acetaminophen/Butalbital/Caffeine (Butalb/Apap/Caff 50-325-40mg Tab) 1 each PO Q6HR PRN PRN Reason: Headache Last Admin: 10/05/21 12:46 Dose: 1 each Amlodipine Besylate (Amlodipine 10 Mg Tab) 10 mg PO DAILY [facility]LY [facility], [facility] Last Admin: 10/05/21 08:25 Dose: 10 mg Aspirin (Aspirin 81 Mg) 81 mg PO DAILY JORDAN Last Admin: 10/05/21 08:25 Dose: 81 mg Atorvastatin Calcium (Atorvastatin 20 Mg Tab) 20 mg PO HS [facility], [facility]1983 Clonidine (Clonidine Hcl 0.2 Mg Tab) 0.2 mg PO TID [facility], [facility] Last Admin: 10/05/21 08:25 Dose: 0.2 mg Hydralazine HCl (Hydralazine Hcl 50 Mg Tab) 50 mg PO BID JORDAN Last Admin: 10/05/21 08:25 Dose: 50 mg Hydrocortisone Sodium Succinate (Hydrocortisone Succinate 100 Mg/2 Ml Vial) 100 mg IV Q8H JORDAN Last Admin: 10/05/21 10:58 Dose: 100 mg Insulin Aspart (Insulin Aspart (Novolog) 100 Unit/Ml Vial) 0 unit SQ ACHS JORDAN; Protocol Last Admin: 10/05/21 12:09 Dose: Not Given Lacosamide (Lacosamide 50 Mg Tablet) 100 mg PO BID [facility] Last Admin: 10/05/21 08:25 Dose: 100 mg Levothyroxine Sodium (Levothyroxine 50 Mcg Tab) 50 mcg PO DAILY@0630 [facility], [facility] Last Admin: 10/05/21 06:22 Dose: 50 mcg Melatonin (Melatonin 5 Mg Tablet) 10 mg PO [facility] Pantoprazole Sodium (Pantoprazole 40 Mg Tablet) 40 mg PO AC-BRKFST FOR[facility], [facility] Last Admin: 10/05/21 06:22 Dose: 40 mg Laboratory Results - Last 24 Hours 10/04/21 10/04/21 10/05/21 16:48 20:49 05:53 POC Glucose (mg/dL) 142 H 168 H 117 H POC Glu Data Review Specialist ID Carley Rice Jeremy Witmer, Jeremy 10/05/21 11:48 POC Glucose (mg/dL) 129 H POC Glu Data Review Specialist ID Carley Rice Vital Signs - 24 hr 10/04/21 10/04/21 10/04/21 16:00 19:47 23:46 Temperature 98.5 F 98.3 F 98.0 F Pulse Rate [ 67 77 53 L Pulse Oximetery ] Respiratory 16 18 16 Rate Blood Pressure 141/78 133/76 108/61 [Left Arm Supine] O2 Sat by Pulse 99 98 98 Oximetry 10/05/21 10/05/21 10/05/21 04:00 10:19 12:02 Temperature 97.8 F 98.5 F 98.4 F Pulse Rate [ 59 L 77 61 Pulse Oximetery ] Respiratory 16 16 Rate Blood Pressure 120/64 139/76 121/58 [Left Arm Supine] O2 Sat by Pulse 100 99 98 Oximetry 10/05/21 15:27 Temperature Pulse Rate [ Pulse Oximetery ] Respiratory Rate Blood Pressure [Left Arm Supine] O2 Sat by Pulse 95 Oximetry Objective - Vital Signs Vital signs: Vital Signs Temp 98.4 F 10/05/21 12:02 Pulse 61 10/05/21 12:02 Resp 16 10/05/21 10:19 BP 121/58 10/05/21 12:02 Pulse Ox 95 10/05/21 15:27 FiO2 Intake & Output 10/04/21 10/05/21 10/05/21 18:59 06:59 18:59 Intake Total 410 240 118 Balance 410 240 118 Intake: Oral 410 240 118 Other: # Voids 2 1 1 - Labs CBC & Chem 7: 10/04/21 10:19 10/04/21 10:19 Labs: Abnormal Lab Results - Last 24 Hours (Table) 10/04/21 10/04/21 10/05/21 Range/Units 16:48 20:49 05:53 POC Glucose (mg/dL) 142 H 168 H 117 H (70-110) mg/dL 10/05/21 Range/Units 11:48 POC Glucose (mg/dL) 129 H (70-110) mg/dL
--- NOTE | 2021-10-05 16:01 | P.PN ---
Subjective Progress Note Date: 10/04/21 Patient was seen for a follow-up. Patient's significant other also present today. I was informed by the nurse Edie Bowens at 12:51 PM, who noticed patient to have a 30 second episode where she could not talk, the patient was attempted to talk to the nurse but was not able to formulate any sound. The patient was focused on her while having the episode. No tremors were noted. After this event, the patient was noted to be agitated. She informed the nurse at this was her seizure and she has "30 different types". After hearing this report, I ordered an urgent EEG. The electronic warfare technician came over to start the EEG, but patient became very upset, arguing that she already has known epilepsy, that originates from the left temporal region, and she does not want an EEG. I tried to persuade her to have it done, but patient became even more upset, and started calling patient advocate. At this point, EEG was canceled, to honor patient's wishes. I later in the evening came and saw patient Patient states that she has been having headaches for the last 3 weeks. She would cry and then laughs. Sometimes becomes emotional. One time became slightly upset on her significant other as well. She says that she did check her blood pressure at home previously and was normal. However in the ER it was extremely elevated. Patient's telemetry monitoring showing sinus rhythm with a heart rate in 70s. I spoke to patient's significant other, who concurs that she gets seizures about 5-6 seizures a day, sometimes 2 a day and sometimes she could go for a few weeks without a seizure. EEG was again attempted today Objective - Vital Signs Vital signs: Vital Signs Temp 99.2 F 10/04/21 12:30 Pulse 87 10/04/21 12:30 Resp 18 10/04/21 12:30 BP 128/81 10/04/21 12:30 Pulse Ox 98 10/04/21 12:30 FiO2 Intake & Output 10/03/21 10/04/21 10/04/21 18:59 06:59 18:59 Intake Total 477 410 Balance 477 410 Weight 63.503 kg Intake: Oral 477 410 Other: # Voids 1 2 - Exam Patient is a middle aged female, in no acute distress. She is slightly emotional at times, sometimes laughs. Patient is now fully oriented, knows that October 07 is coming soon, and the year is 2021 and that she is in [facility] in [facility]. Speech and language functions are normal. Patient can name and repeat all objects very well. Yesterday she could not name knuckles or the ear lobes (only the fingers and ears respectively), but today she was able to name detailed objects. She can repeat. Cranial nerves examination revealed completely intact visual valentine. No more homonymous hemianopia. Face is symmetric and tongue protrudes the midline. Muscle strength is normal. No ataxia for [id number] testing bilaterally. Sensations are decreased in the right side of the body and she neglects right side on double simultaneous stimulation (including face arm and leg). - Labs CBC & Chem 7: 10/04/21 10:19 10/04/21 10:19 Labs: Abnormal Lab Results - Last 24 Hours (Table) 10/03/21 10/04/21 10/04/21 Range/Units 12:21 10:19 10:19 WBC 11.7 H (3.8-10.6) k/uL RBC 3.73 L (3.80-5.40) m/uL MCV 103.8 H (80.0-100.0) fL Sodium 136 L (137-145) mmol/L Carbon Dioxide 21 L (22-30) mmol/L BUN 26 H (7-17) mg/dL Creatinine 1.55 H (0.52-1.04) mg/dL Glucose 162 H (74-99) mg/dL POC Glucose (mg/dL) (70-110) mg/dL Calcium 10.4 H (8.4-10.2) mg/dL Triglycerides 194.00 H (0.00-149.00) mg/dL Cholesterol 203.00 H (0.00-200.00) mg/dL HDL Cholesterol 83.20 H (40.00-60.00) mg/dL 10/04/21 10/04/21 Range/Units 12:11 16:48 WBC (3.8-10.6) k/uL RBC (3.80-5.40) m/uL MCV (80.0-100.0) fL Sodium (137-145) mmol/L Carbon Dioxide (22-30) mmol/L BUN (7-17) mg/dL Creatinine (0.52-1.04) mg/dL Glucose (74-99) mg/dL POC Glucose (mg/dL) 137 H 142 H (70-110) mg/dL Calcium (8.4-10.2) mg/dL Triglycerides (0.00-149.00) mg/dL Cholesterol (0.00-200.00) mg/dL HDL Cholesterol (40.00-60.00) mg/dL Assessment and Plan Assessment: * Seizure disorder, came with multiple breakthrough seizures. Patient however tells us that she gets 6-7 seizures every day, most of the days of the week. She is not taking any seizure medication. Her current seizures could be related to hypertensive emergency, with mild encephalopathy. Rule out PRES syndrome. * Persistent right-sided sensory neglect. Patient also had Visual disturbance with right homonymous hemianopia initially noted in the ER yesterday, which now has resolved. Uncertain if related to possible PRES, postictal state foc al cerebral dysfunction. Rule out stroke/TIA. * Cephalgia, possibly due to seizure versus uncontrolled hypertension. * Hypercalcemia * Hypothyroidism * Renal insufficiency * Macrocytosis * History of aortic dissection, status post repair in the past. * Medication noncompliance. Patient has stopped taking her seizure medications, blood pressure medication for "long time". Plan: * Patient is tolerating Vimpat well. We will increase dose to 100 mg twice a day, because of her recent breakthrough seizure. * Aggressive control of blood pressure. Cardiology on board. * MRI of the brain rule out CVA. * Carotid Doppler revealed less than 50% stenosis of bilateral ICA. Antegrade f low in both vertebral arteries. * Fasting lipid panel with cholesterol 203, LDL 81, HDL 83 and triglycerides 194. Start statins * Hemoglobin A1c 5.4 normal. * EEG was reordered. electronic warfare technician came, but patient again declined. * Regarding severe hypothyroidism, and hypercalcemia will defer to IM. * Dr. Pete Laws Will resume neurology service on the morning.
--- NOTE | 2021-10-05 16:35 | CT ---
EXAMINATION TYPE: CT brain wo con DATE OF EXAM: 10/05/2021 COMPARISON: 01/03/2020 HISTORY: headache CT DLP: 1157.4 mGycm Automated exposure control for dose reduction was used. Exam performed with no contrast. Ventricles have normal size. There is no mass effect nor midline shift. No sign of intracranial hemor rhage. No evidence of cerebral edema. The calvarium is intact. Skull base is intact. There is normal aeration of the mastoid sinuses. IMPRESSION: Negative unenhanced head CT scan. No change.
[2021-10-05 16:52] LABS: Glucose,Whole Blood 170 mg/dL (70-110)
[2021-10-05 17:37] LABS: Appearance,Urine Clear (Clear); Bilirubin,Urine Negative (Negative); Blood,Urine Negative (Negative); Color,Urine Light Yellow; Glucose,Urine (UA) Negative (Negative); Ketones,Urine Negative (Negative); Leukocyte Esterase,Urine Negative (Negative); Nitrite,Urine Negative (Negative); PH, Urine 6.5 (5.0-8.0); Protein,Urine Negative (Negative); Specific Gravity,Urine 1.008 (1.001-1.035); Urobilinogen,Urine <2.0 mg/dL (<2.0)
[2021-10-05 20:36] LABS: Glucose,Whole Blood 137 mg/dL (70-110)
[2021-10-05] MEDS: MELATONIN 5 MG TABLET PO SCH (21:48)
[2021-10-05] MEDS: ATORVASTATIN 20 MG TAB PO SCH (21:48)
[2021-10-06] MEDS: HYDROCORTISONE SUCCINATE 100 MG/2 ML VIAL IV SCH ×2 (01:04→09:18)
[2021-10-06 05:51] LABS: African American GFR (CKD) 45 (>60 ml/min/1.73 sqM); Anion Gap 9 mmol/L; Blood Urea Nitrogen 30 mg/dL (7-17); Calcium 9.9 mg/dL (8.4-10.2); Carbon Dioxide 23 mmol/L (22-30); Chloride 106 mmol/L (98-107); Glucose 104 mg/dL (74-99); Non-African American GFR(CKD) 39 (>60 ml/min/1.73 sqM); Potassium 4.5 mmol/L (3.5-5.1); Sodium 138 mmol/L (137-145)
[2021-10-06] MEDS: LEVOTHYROXINE 100 MCG TAB PO SCH (06:17)
[2021-10-06] MEDS: BUTALB/APAP/CAFF 50-325-40MG TAB PO PRN (06:21)
[2021-10-06 07:23] LABS: Glucose,Whole Blood 114 mg/dL (70-110)
[2021-10-06] MEDS: INSULIN ASPART (NovoLOG) 100 UNIT/ML VIAL SQ SCH ×4 (07:52→19:32)
[2021-10-06] MEDS: cloNIDine HCL 0.2 MG TAB PO SCH ×3 (09:18→21:59)
[2021-10-06] MEDS: PANTOPRAZOLE 40 MG TABLET PO SCH (09:19)
[2021-10-06] MEDS: LACOSAMIDE 50 MG TABLET PO SCH ×2 (09:19→20:22)
[2021-10-06] MEDS: hydrALAZINE HCL 50 MG TAB PO SCH ×2 (09:19→20:22)
[2021-10-06] MEDS: amLODIPine 10 MG TAB PO SCH (09:19)
[2021-10-06] MEDS: ASPIRIN 81 MG PO SCH (09:19)
[2021-10-06] MEDS ORDERED: MD COMMUNICATION TO PHARMACY 1 EACH MISC PO PRN (10:37)
--- NOTE | 2021-10-06 10:46 | P.PN ---
Subjective Progress Note Date: 10/06/21 HISTORY OF PRESENT ILLNESS This is a 55-year-old female patient of Dr. 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 Patient has not had recent follow-up in the office. Patient gives history that she was seen at [facility] for thyroid tumor about 6 months ago and was placed on Cortef. She has also been seen recently at [facility] for urinary tract infection placed on Keflex which she had finished at that time, she also had significantly elevated blood pressure. She was also seen in [place] about 3 days ago where her boyfriend took her because of her blood pressure be ing at 230 systolic. She said she received IV medications but no new prescriptions. No seizure activity at that time. Patient apparently has run out of medications and Today, patient's mother called a relative to check on the patient who then called 911. Patient was having severe headache and had a seizure. She also complains of a cough with sputum production that was a few weeks ago but none now. She states she's had a fever. Patient apparently has run out of medications but not received refills. Patient apparently had 2 seizures witnessed by her family and then 1 episode witnessed by EMS. Patient presented to [facility] emergency center. Blood pressure initially 218/104, afebrile, heart rate 50, pulse ox 99%. EKG is sinus bradycardia with no acute ST changes. Chest x-ray increased cardiac size, correlate with echocardiogram, questionable mild COPD. Suspect chronic healed fracture of the right humeral neck. CAT scan of the brain revealed no acute intracranial abnormality or gross space- occupying lesion. WBC 15.7, Hemoccult and 14.3, platelet count 288. D-dimer 2.91. Electrolytes normal. BUN 24 creatinine 1.8. Blood sugar 105. Calcium 10.5. Alkaline phosphatase 127. CK 166. Troponin negative on one drop. ProBNP 2040. Triglycerides 194, cholesterol 203, LDL 81, HDL 83. TSH greater than 100 and free T4 0.41. Urinalysis clear with blood trace, RBC 6, bacteria rare. Serum alcohol less than 10. Patient is seen today in the emergency center waiting for a bed on the cardiac stepdown unit. VQ scan will be ordered, patient resumed on home medications, consults with cardiology for urgent hypertension and chest pain and neurology for seizure activity. 10/04: Patient barely underwent VQ scan this morning just returned to her room, report is not available. Ultrasound of the carotid arteries revealed 50% stenosis of the bilateral carotid bifurcations. Patient is complaining of a headache this morning for which appears that was given. Blood pressure is improved today. Patient states that for about 6 hours yesterday she didn't know who her sisters were but thinks her mental status is improved this morning. No further seizure activity. Consults in place with cardiology and neurology. Neurology has started the patient on Vimpat 50 mg twice daily. IV fluids discontinued patient also started on levothyroxine which she apparently has not been taking at home. 10/05: Patient is very tearful today, significantly depressed, not sleeping, wakes up with a headache every hour each nightly, however she is taking Fioricet either late in the evening, with caffeine psych has been consulted, repeat to atrial fibrillation UTI, compliance to thyroid medication has been advised to the patient, as her TSH is over 100,000, melatonin was started today, might need ,to Elavil, for chronic headaches, and sleep dysfunction however psych is already in place, we would request their input. 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, and has difficulty in coping with the care of parents and her grandchildren patient is nonsuicidal, 10/06: Patient seems overwhelmed a lot of the nursing staff, including the neurol ogist, was mentioning that he is having seizures, however patient refused to notify the nurses for any event of seizures, patient is not sleeping, temperamental,labile mood, then we'll apologize, tearful, nonsuicidal, wants to argue with physicians, including myself regarding her uncontrolled caffeine use, as the patient's not sleeping, and is very anxious, blood pressures uncontrolled We will discontinue Fioricet at this time, secondary to complications related to caffeine , start Elavil 25 mg at bedtime for her headaches, and insomnia, on melatonin 10 mg, however did not sleep at all last night. Try to get Ubrelvy is nonformulary, to replace the Fioricet discuss with pharmacy, we will try DHEA, 1 mg IM when necessary. Unable to get Toradol, creatinine 1.5 no opiates needed for the headache Awaiting psychiatric evaluation, patient does not want to get the MRI done in the hospital, and wants to get it done then returned as inpatient V/Q scan, low probability for PE . She does not want to go home AMA, and we will stated, to complete the imaging studies here awaiting psychiatry. Discontinue hydrocortisone, secondary to adrenal vargas and mood instability. Blood pressure stable, REVIEW OF SYSTEMS Constitutional: No fever, no chills, no night sweats. No weight change. No weakness, generalized fatigue or lethargy. No daytime sleepiness. EENT: Reports headache. No blurred vision or double vision, no loss of vision. No loss of Hearing, no ringing in the ears, no dizziness. No nasal drainage or congestion. No epistaxis. No sore throat. Lungs: No shortness of breath, cough, no sputum production. No wheezing. Cardiovascular: Resolved chest pain, no lower extremity edema. No palpitations. No paroxysmal nocturnal dyspnea. No orthopnea. No lightheadedness or dizziness. No syncopal episodes. Abdominal: No abdominal pain. No nausea, vomiting. No diarrhea. No constipation. No bloody or tarry stools.. No loss of appetite. Genitourinary: No dysuria, increased frequency, urgency. No urinary retention. Musculoskeletal: No myalgias. No muscle weakness, no gait dysfunction, no frequent falls. No back pain. No neck pain. Integumentary: No wounds, no lesions. No rash or pruritus. No unusual bruising. No change in hair or nails. Neurologic: No aphasia. No facial droop. Noted change in mentation-intermittent confusion. No head injury. No headache. No paralysis. No paresthesia. Report/witnessed seizures. Psychiatric: No depression. No anxiety. No mood swings. Endocrine: No abnormal blood sugars. No weight change. No excessive sweating or thirst. No cold intolerance. PHYSICAL EXAMINATION Gen: This is a 55-year-old female. She is resting on the ER stretcher and intermittent confusion noted. No acute distress. Family member at bedside.. HEENT: Head is atraumatic, normocephalic. Pupils equal, round. Sclerae is anicteric. NECK: Supple. No JVD. No lymphadenopathy. No thyromegaly. LUNGS: Clear to auscultation. No wheezes or rhonchi. No intercostal retractions. No accessory muscle usage. HEART: Regular rate and rhythm. Systolic and diastolic murmur. ABDOMEN: Soft. Bowel sounds are present. No masses. No tenderness. EXTREMITIES: No pedal edema. No calf tenderness. Dorsalis pedis +2 bilaterally. NEUROLOGICAL: Patient is awake, alert and oriented x3 but also confused. Patient did have witnessed staring type seizure during evaluation. Cranial nerves 2 through 12 are grossly intact. ASSESSMENT AND PLAN 1. Hypertensive urgency. Patient started back on amlodipine 10 mg daily, clonidine 0.2 mg 3 times daily, hydralazine 50 mg twice daily. Patient was also previously on Aldactone 25 mg daily and also on Coreg 25 mg twice daily which will not be resumed due to bradycardia. 2. Headache most likely secondary to hypertension and nonstress test, broken sleep, chronic daily headaches, we will hold off Fioricet after 2 PM, start melatonin, 5 mg at bedtime, patient might need Elavil, controlled headaches and restore some sleep, however psych is going to see the patient. Continue Fioricet 1 every 6 hours as needed. Last dose will be before 2 PM 3. History of seizure activity. 3 witnessed seizures today. Consult with neurology, EEG ordered. Patient has been started on Vimpat 50 mg twice daily 4. Elevated d-dimer. 5. Adrenal insufficiency. Patient will be started on Solu-Cortef 100 mg IV every 8 hours. Decreased to 50 mg, every 8 hours dietary education and adrenal and rash, we will discontinue secondary to aggression , and mood instability at this time monitor for outpatient endocrinology to follow 6. Hyperparathyroidism with parathyroid tumor, follows at [facility]. However patient has uncontrolled hypothyroidism, and this needs to be corrected, compliance to levothyroxine 7. Hypothyroidism. Patient has not been taking levothyroxine. TSH and free T4 ordered and came back elevated. Patient started on levothyroxine 50 g daily based on her weight, will increase to 100 g will be dosed currently, her TSH is over 100,000. 8. Thoracic aneurysm, stable, requires controlled blood pressure. 9. Generalized anxiety disorder. 10 caffeine related medical illness, patient's requested to cut down on caffeine continue Fioricet, Ubrelvy or dhe for the headache, migraine insomnia chronic headaches 11. Chronic sleep dysfunction, with poor medical decision making, agitation, restlessness, related to too much caffeine use awaiting psychiatry, melatonin started, ineffective, we will start Elavil 25 mg at bedtime, 10. GI prophylaxis. Protonix. 11. DVT prophylaxis. SAMMI ford. DISCHARGE PLAN Be determined, an MRI Active Medications Generic Name Dose Route Start Last Admin Trade Name Freq PRN Reason Stop Dose Admin Amitriptyline HCl 25 mg 10/06/21 21:00 Amitriptyline Hcl 25 Mg Tab PO HS JORDAN Amlodipine Besylate 10 mg 10/05/21 09:00 10/06/21 09:19 Amlodipine 10 Mg Tab PO 10 mg DAILY JORDAN Administration Aspirin 81 mg 10/03/21 18:15 10/06/21 09:19 Aspirin 81 Mg PO 81 mg DAILY JORDAN Administration Atorvastatin Calcium 20 mg 10/05/21 21:00 10/05/21 21:48 Atorvastatin 20 Mg Tab PO 20 mg HS JORDAN Administration Clonidine 0.2 mg 10/03/21 09:45 10/06/21 09:18 Clonidine Hcl 0.2 Mg Tab PO 0.2 mg TID JORDAN Administration Hydralazine HCl 50 mg 10/03/21 12:00 10/06/21 09:19 Hydralazine Hcl 50 Mg Tab PO 50 mg BID JORDAN Administration Hydrocortisone Sodium Succinate 50 mg 10/05/21 16:00 10/06/21 09:18 Hydrocortisone Succinate 100 Mg/2 Ml Vial IV 50 mg Q8HR JORDAN Administration Insulin Aspart 0 unit 10/04/21 12:30 10/06/21 07:52 Insulin Aspart (Novolog) 100 Unit/Ml Vial SQ Not Given ACHS [facility] Protocol Lacosamide 100 mg 10/04/21 21:00 10/06/21 09:19 Lacosamide 50 Mg Tablet PO 100 mg BID JORDAN Administration Levothyroxine Sodium 100 mcg 10/06/21 06:30 10/06/21 06:17 Levothyroxine 100 Mcg Tab PO 100 mcg DAILY@0630 JORDAN Administration Melatonin 10 mg 10/05/21 21:00 10/05/21 21:48 Melatonin 5 Mg Tablet PO 10 mg HS JORDAN Administration Miscellaneous Information 1 each 10/06/21 10:37 Communication To Pharmacy 1 Each Misc PO ONCE PRN See Comments Pantoprazole Sodium 40 mg 10/04/21 07:30 10/06/21 09:19 Pantoprazole 40 Mg Tablet PO 40 mg [id number] JORDAN Administration Laboratory Results - Last 24 Hours 10/05/21 10/05/21 10/05/21 11:48 16:47 17:29 Sodium Potassium Chloride Carbon Dioxide Anion Gap BUN Creatinine Est GFR (CKD-EPI)AfAm Est GFR (CKD-EPI)NonAf Glucose POC Glucose (mg/dL) 129 H 170 H POC Glu Child Support Agent ID Carley Rice Diana Calcium Urine Color Light Yellow Urine Appearance Clear Urine pH 6.5 Ur Specific [place] 1.008 Urine Protein Negative Urine Glucose (UA) Negative Urine Ketones Negative Urine Blood Negative Urine Nitrite Negative Urine Bilirubin Negative Urine Urobilinogen <2.0 Ur Leukocyte Esterase Negative 10/05/21 10/06/21 10/06/21 20:23 04:58 07:22 Sodium 138 Potassium 4.5 Chloride 106 Carbon Dioxide 23 Anion Gap 9 BUN 30 H Creatinine 1.50 H Est GFR (CKD-EPI)AfAm 45 Est GFR (CKD-EPI)NonAf 39 Glucose 104 H POC Glucose (mg/dL) 137 H 114 H POC Glu Child Support Agent ID Charlotte Perera Kyra Calcium 9.9 Urine Color Urine Appearance Urine pH Ur Specific [place] Urine Protein Urine Glucose (UA) Urine Ketones Urine Blood Urine Nitrite Urine Bilirubin Urine Urobilinogen Ur Leukocyte Esterase Vital Signs - 24 hr 10/05/21 10/05/21 10/05/21 12:02 15:27 17:09 Temperature 98.4 F Pulse Rate [ 61 80 Pulse Oximetery ] Respiratory Rate Blood Pressure 121/58 134/68 [Left Arm Supine] O2 Sat by Pulse 98 95 98 Oximetry 10/05/21 10/06/21 20:00 05:08 Temperature 98.2 F 98.3 F Pulse Rate [ 68 60 Pulse Oximetery ] Respiratory 18 18 Rate Blood Pressure 147/87 151/84 [Left Arm Supine] O2 Sat by Pulse 97 96 Oximetry Objective - Vital Signs Vital signs: Vital Signs Temp 98.3 F 10/06/21 05:08 Pulse 60 10/06/21 05:08 Resp 18 10/06/21 05:08 BP 151/84 10/06/21 05:08 Pulse Ox 96 10/06/21 05:08 FiO2 Intake & Output 10/05/21 10/06/2122 18:59 06:59 18:59 Intake Total 118 500 Balance 118 500 Weight 68.5 kg Intake: Oral 118 500 Other: # Voids 1 2 - Labs CBC & Chem 7: 10/04/21 10:19 10/06/21 04:58 Labs: Abnormal Lab Results - Last 24 Hours (Table) 10/05/21 10/05/21 10/05/21 Range/Units 11:48 16:47 20:23 BUN (7-17) mg/dL Creatinine (0.52-1.04) mg/dL Glucose (74-99) mg/dL POC Glucose (mg/dL) 129 H 170 H 137 H (70-110) mg/dL 10/06/21 10/06/21 Range/Units 04:58 07:22 BUN 30 H (7-17) mg/dL Creatinine 1.50 H (0.52-1.04) mg/dL Glucose 104 H (74-99) mg/dL POC Glucose (mg/dL) 114 H (70-110) mg/dL
[2021-10-06] MEDS ORDERED: DIHYDROERGOTAMINE MESYLATE 1 MG/ML 1 ML AMP IM PRN (12:00)
[2021-10-06 12:05] LABS: Glucose,Whole Blood 109 mg/dL (70-110)
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
--- NOTE | 2021-10-06 13:20 | P.PN ---
Subjective Progress Note Date: 10/06/21 Per the patient's nurse she notified her nurse that overnight she had multiple seizures but has not notified any nurses after any of her seizure episodes but notifying the nurse today. The nurse has notified her to press the button if she feels she is about to have a seizure but per nurse she notified she will do that. Per the nurse no reported seizure overnight by her coworker or today they are able to witness. She notified me that she wants to leave the hospital and come back later for those test and upon notifying her that the in order to do that she has to sign AMA form but she refused and she asked me why she needs to sign an AMA form and refused to leave. Objective - Vital Signs Vital signs: Vital Signs Temp 98.8 F 10/06/21 12:05 Pulse 60 10/06/21 05:08 Resp 18 10/06/21 12:05 BP 135/73 10/06/21 12:05 Pulse Ox 99 10/06/21 12:05 FiO2 Intake & Output 10/05/21 10/06/21 10/06/21 18:59 06:59 18:59 Intake Total 118 500 Balance 118 500 Weight 68.5 kg Intake: Oral 118 500 Other: # Voids 1 2 - Exam GENERAL: The patient is lying in bed. Complaining of headache but later laughing and talking without any head pain. PSYCH: Is tangenital. NEUROLOGICAL: Limited because of her coperation. Her exam is inconsistent Higher mental function: The patient is awake, alert, oriented to self. She correctly stated she is in the hospital. Could not tell me time or month. She seem, place and time. Patient is following simple commands. It is hard to assess language Cranial nerves: Could not assess visual field since stated could not see but was able to see pain upon showing her and was slow in responding it was pen and then later stated "I had this when I was in school" then later correctly named pen. No facial weakness. No dysarthira. Motor: The strength is 5 over 5 throughout. Normal tone and bulk. Cerebellum: Hard to assess. Sensation: Decrease to touch over the right side. - Labs CBC & Chem 7: 10/04/21 10:19 10/06/21 04:58 Labs: Abnormal Lab Results - Last 24 Hours (Table) 0710/05/21 10/06/21 Range/Units 16:47 20:23 04:58 BUN 30 H (7-17) mg/dL Creatinine 1.50 H (0.52-1.04) mg/dL Glucose 104 H (74-99) mg/dL POC Glucose (mg/dL) 170 H 137 H (70-110) mg/dL 10/06/21 Range/Units 07:22 BUN (7-17) mg/dL Creatinine (0.52-1.04) mg/dL Glucose (74-99) mg/dL POC Glucose (mg/dL) 114 H (70-110) mg/dL Assessment and Plan Assessment: * Seizure disorder, came with multiple breakthrough seizures. Patient however tells us that she gets 6-7 seizures every day, most of the days of the week. She is not taking any seizure medication. Her current seizures could be related to hypertensive emergency, with mild encephalopathy. Rule out PRES syndrome * Visual disturbance possible PRES. Rule out stroke/TIA. * Hypothyroidism and is uncontrolled (TSH >100 and free T4 0.41) * Hypercalcemia * History of Ehler's Danlos syndrome * Adrenal insufficiency * History of atrial fibrillation * History of DVT * Renal insufficiency * Macrocytosis * Medication noncompliance. Patient has stopped taking her seizure medications, blood pressure medication for "long time". 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 Bolton). No further seizures according to nurse * Pending MRI Brain w/ and w/o especially with reported ?pituitary mass. Pending clearance and more info of stent to pursue MRI. * Patient had a repeat CT of the head yesterday and it was unchanged. * Patient declined EEG. * Carotid duplex was reported as less than 50% stenosis bilateral carotid bifurcation. * Regarding hypothyroidism, hypercalcemia and her hypertension will defer to IM. * Lipid panel triglycerides 194, cholesterol is 203, LDLs 81 and HDL is 83. I started the patient on Lipitor 20 mg at bedtime and will defer modification of medication to primary team. * Consulted Psychiatry team since patient has medications non-compliance and is tangential on examination. * Upon discharge, patient needs to follow-up with neurologist as outpatient within 1-2 weeks. Patient is requesting to leave and to come back later for work-up. I notified she needs to sign AMA form and she is not happy with that. Patient's is reporting to the nurse that she is having seizures but there is no visible seizure being seen by her nursing staff. She was notified to use a push button if she has any aura prior to the seizure or after she feels like she had a seizure. The plan is discussed with her nurse and primary team. Pete Laws M.D. Neuro-Hospitalist Time with Patient: Less than 30
[2021-10-06 17:08] LABS: Glucose,Whole Blood 91 mg/dL (70-110)
[2021-10-06 19:30] LABS: Glucose,Whole Blood 128 mg/dL (70-110)
[2021-10-06] MEDS: AMITRIPTYLINE HCL 50 MG TAB PO SCH (20:21)
[2021-10-06] MEDS: MELATONIN 5 MG TABLET PO SCH (20:22)
[2021-10-06] MEDS: ATORVASTATIN 20 MG TAB PO SCH (20:22)
[2021-10-06] MEDS ORDERED: AMITRIPTYLINE HCL 25 MG TAB PO SCH (21:00)
[2021-10-07] MEDS: amLODIPine 10 MG TAB PO SCH (04:47)
[2021-10-07] MEDS: cloNIDine HCL 0.2 MG TAB PO SCH ×3 (04:47→20:03)
[2021-10-07] MEDS: LEVOTHYROXINE 100 MCG TAB PO SCH (05:29)
[2021-10-07 06:57] LABS: Glucose,Whole Blood 98 mg/dL (70-110)
[2021-10-07] MEDS: INSULIN ASPART (NovoLOG) 100 UNIT/ML VIAL SQ SCH ×4 (07:13→21:06)
[2021-10-07] MEDS: PANTOPRAZOLE 40 MG TABLET PO SCH (09:12)
[2021-10-07] MEDS: hydrALAZINE HCL 50 MG TAB PO SCH ×2 (09:12→20:03)
[2021-10-07] MEDS: LACOSAMIDE 50 MG TABLET PO SCH ×2 (09:12→20:03)
[2021-10-07] MEDS: ASPIRIN 81 MG PO SCH (09:12)
[2021-10-07 10:55] LABS: Glucose,Whole Blood 115 mg/dL (70-110)
--- NOTE | 2021-10-07 12:27 | P.PN ---
Subjective Progress Note Date: 10/07/21 The patient is seen at bedside and feels she is doing better. Feels seizures are controlled today. Objective - Vital Signs Vital signs: Vital Signs Temp 99.6 F 10/07/21 11:17 Pulse 109 H 10/07/21 11:17 Resp 20 10/07/21 11:17 BP 137/90 10/07/21 11:17 Pulse Ox 96 10/07/21 11:17 FiO2 Intake & Output 10/06/21 10/07/21 10/07/21 18:59 06:59 18:59 Intake Total 1620 400 Balance 1620 400 Weight 68 kg Intake: Oral 1620 400 Other: Voiding Method Toilet Toilet # Voids 3 3 - Exam GENERAL: The patient is lying in bed. Complaining of headache but later laughing and talking without any head pain. PSYCH: Is tangenital. NEUROLOGICAL: Limited because of her coperation. Her exam is inconsistent Higher mental function: The patient is awake, alert, oriented to self. She correctly stated she is in the hospital. Could not tell me time or month. She seem, place and time. Patient is following simple commands. It is hard to asse ss language Cranial nerves: Could not assess visual field since stated could not see but was able to see pain upon showing her and was slow in responding it was pen and then later stated "I had this when I was in school" then later correctly named pen. No facial weakness. No dysarthira. Motor: The strength is 5 over 5 throughout. Normal tone and bulk. Cerebellum: Hard to assess. Sensation: Decrease to touch over the right side. - Labs CBC & Chem 7: 10/04/21 10:19 10/06/21 04:58 Labs: Abnormal Lab Results - Last 24 Hours (Table) 10/06/21 10/07/21 Range/Units 19:25 10:52 POC Glucose (mg/dL) 128 H 115 H (70-110) mg/dL Assessment and Plan Assessment: * Seizure disorder, came with multiple breakthrough seizures. Patient however tells us that she gets 6-7 seizures every day, most of the days of the week. She is not taking any seizure medication. Her current seizures could be related to hypertensive emergency, with mild encephalopathy. Rule out PRES syndrome * Visual disturbance possible PRES. Rule out stroke/TIA. * Hypothyroidism and is uncontrolled (TSH >100 and free T4 0.41) * Hypercalcemia * History of Ehler's Danlos syndrome * Adrenal insufficiency * History of atrial fibrillation * History of DVT * Renal insufficiency * Macrocytosis * Medication noncompliance. Patient has stopped taking her seizure medications, blood pressure medication for "long time". 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 Bolton). No further seizures according to nurse * Pending MRI Brain w/ and w/o especially with reported ?pituitary mass. Pending clearance and more info of stent to pursue MRI. * Patient had a repeat CT of the head yesterday and it was unchanged. * Patient declined EEG. * Carotid duplex was reported as less than 50% stenosis bilateral carotid bifurcation. * Regarding hypothyroidism, hypercalcemia and her hypertension will defer to IM. * Lipid panel triglycerides 194, cholesterol is 203, LDLs 81 and HDL is 83. I started the patient on Lipitor 20 mg at bedtime and will defer modification of medication to primary team. * Consulted Psychiatry team since patient has medications non-compliance and is tangential on examination. * Upon discharge, patient needs to follow-up with neurologist as outpatient within 1-2 weeks. If the patient wishes to leave and come back then she needs to sign AMA form from neurological perspective. The plan is discussed with her nurse. Pete Laws M.D. Neuro-Hospitalist Time with Patient: Less than 30
--- NOTE | 2021-10-07 12:31 | P.PN ---
Subjective Progress Note Date: 10/07/21 HISTORY OF PRESENT ILLNESS This is a 55-year-old female patient of Dr. 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 Patient has not had recent follow-up in the office. Patient gives history that she was seen at [facility] for thyroid tumor about 6 months ago and was placed on Cortef. She has also been seen recently at [facility] for urinary tract infection placed on Keflex which she had finished at that time, she also had significantly elevated blood pressure. She was also seen in [place] about 3 days ago where her boyfriend took her because of her blood pressure be ing at 230 systolic. She said she received IV medications but no new prescriptions. No seizure activity at that time. Patient apparently has run out of medications and Today, patient's mother called a relative to check on the patient who then called 911. Patient was having severe headache and had a seizure. She also complains of a cough with sputum production that was a few weeks ago but none now. She states she's had a fever. Patient apparently has run out of medications but not received refills. Patient apparently had 2 seizures witnessed by her family and then 1 episode witnessed by EMS. Patient presented to [facility] emergency center. Blood pressure initially 218/104, afebrile, heart rate 50, pulse ox 99%. EKG is sinus bradycardia with no acute ST changes. Chest x-ray increased cardiac size, correlate with echocardiogram, questionable mild COPD. Suspect chronic healed fracture of the right humeral neck. CAT scan of the brain revealed no acute intracranial abnormality or gross space- occupying lesion. WBC 15.7, Hemoccult and 14.3, platelet count 288. D-dimer 2.91. Electrolytes normal. BUN 24 creatinine 1.8. Blood sugar 105. Calcium 10.5. Alkaline phosphatase 127. CK 166. Troponin negative on one drop. ProBNP 2040. Triglycerides 194, cholesterol 203, LDL 81, HDL 83. TSH greater than 100 and free T4 0.41. Urinalysis clear with blood trace, RBC 6, bacteria rare. Serum alcohol less than 10. Patient is seen today in the emergency center waiting for a bed on the cardiac stepdown unit. VQ scan will be ordered, patient resumed on home medications, consults with cardiology for urgent hypertension and chest pain and neurology for seizure activity. 10/04: Patient barely underwent VQ scan this morning just returned to her room, report is not available. Ultrasound of the carotid arteries revealed 50% stenosis of the bilateral carotid bifurcations. Patient is complaining of a headache this morning for which appears that was given. Blood pressure is improved today. Patient states that for about 6 hours yesterday she didn't know who her sisters were but thinks her mental status is improved this morning. No further seizure activity. Consults in place with cardiology and neurology. Neurology has started the patient on Vimpat 50 mg twice daily. IV fluids discontinued patient also started on levothyroxine which she apparently has not been taking at home. 10/05: Patient is very tearful today, significantly depressed, not sleeping, wakes up with a headache every hour each nightly, however she is taking Fioricet either late in the evening, with caffeine psych has been consulted, repeat to atrial fibrillation UTI, compliance to thyroid medication has been advised to the patient, as her TSH is over 100,000, melatonin was started today, might need ,to Elavil, for chronic headaches, and sleep dysfunction however psych is already in place, we would request their input. 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, and has difficulty in coping with the care of parents and her grandchildren patient is nonsuicidal, 10/06: Patient seems overwhelmed a lot of the nursing staff, including the neurol ogist, was mentioning that he is having seizures, however patient refused to notify the nurses for any event of seizures, patient is not sleeping, temperamental,labile mood, then we'll apologize, tearful, nonsuicidal, wants to argue with physicians, including myself regarding her uncontrolled caffeine use, as the patient's not sleeping, and is very anxious, blood pressures uncontrolled We will discontinue Fioricet at this time, secondary to complications related to caffeine , start Elavil 25 mg at bedtime for her headaches, and insomnia, on melatonin 10 mg, however did not sleep at all last night. Try to get Ubrelvy is nonformulary, to replace the Fioricet discuss with pharmacy, we will try DHEA, 1 mg IM when necessary. Unable to get Toradol, creatinine 1.5 no opiates needed for the headache Awaiting psychiatric evaluation, patient does not want to get the MRI done in the hospital, and wants to get it done then returned as inpatient V/Q scan, low probability for PE . She does not want to go home AMA, and we will stated, to complete the imaging studies here awaiting psychiatry. Discontinue hydrocortisone, secondary to adrenal vargas and mood instability. Blood pressure stable, 10/07, patient seen with the today at the bedside with her consent, patient was given Elavil and was initiated at 50 mg for insomnia and migraines, patient is less emotional today, however she tends to contradict herself quite often. Patient did not sleep, so wakes up in between wtill irritable and kebede , still sipping on coffee all day long, otherwise patient should be caffeine free for prescriptions, patient mentions that she's got fever or runny nose, not significant cough, for the past 24 hours. We have ordered coronavirus PCR testing influenza testing, UA passing, patient has headache which is chronic, no neck pain. T-max 99.4 vitals are stable, MRI still needs to be done in am , will check for B12 for macrocytosis along with RBC folate. REVIEW OF SYSTEMS Constitutional: No fever, no chills, no night sweats. No weight change. No weakness, generalized fatigue or lethargy. No daytime sleepiness. EENT: Reports headache. No blurred vision or double vision, no loss of vision. No loss of Hearing, no ringing in the ears, no dizziness. No nasal drainage or congestion. No epistaxis. No sore throat. Lungs: No shortness of breath, cough, no sputum production. No wheezing. Cardiovascular: Resolved chest pain, no lower extremity edema. No palpitations. No paroxysmal nocturnal dyspnea. No orthopnea. No lightheadedness or dizzi ness. No syncopal episodes. Abdominal: No abdominal pain. No nausea, vomiting. No diarrhea. No c onstipation. No bloody or tarry stools.. No loss of appetite. Genitourinary: No dysuria, increased frequency, urgency. No urinary retention. Musculoskeletal: No myalgias. No muscle weakness, no gait dysfunction, no frequent falls. No back pain. No neck pain. Integumentary: No wounds, no lesions. No rash or pruritus. No unusual bruising. No change in hair or nails. Neurologic: No aphasia. No facial droop. Noted change in mentation-intermittent confusion. No head injury. No headache. No paralysis. No paresthesia. Report/witnessed seizures. Psychiatric: No depression. No anxiety. No mood swings. Endocrine: No abnormal blood sugars. No weight change. No excessive sweating or thirst. No cold intolerance. PHYSICAL EXAMINATION Gen: This is a 55-year-old female. She is resting on the ER stretcher and intermittent confusion noted. No acute distress. Family member at bedside.. HEENT: Head is atraumatic, normocephalic. Pupils equal, round. Sclerae is anicteric. NECK: Supple. No JVD. No lymphadenopathy. No thyromegaly. LUNGS: Clear to auscultation. No wheezes or rhonchi. No intercostal retractions. No accessory muscle usage. HEART: Regular rate and rhythm. Systolic and diastolic murmur. ABDOMEN: Soft. Bowel sounds are present. No masses. No tenderness. EXTREMITIES: No pedal edema. No calf tenderness. Dorsalis pedis +2 bilate rally. NEUROLOGICAL: Patient is awake, alert and oriented x3 but also confused. Patient did have witnessed staring type seizure during evaluation. Cranial nerves 2 through 12 are grossly intact. ASSESSMENT AND PLAN 1. Hypertensive urgency. Patient started back on amlodipine 10 mg daily, clonidine 0.2 mg 3 times daily, hydralazine 50 mg twice daily. Patient was also previously on Aldactone 25 mg daily and also on Coreg 25 mg twice daily which will not be resumed due to bradycardia. 2. Headache most likely secondary to hypertension and nonstress test, broken sleep, chronic daily headaches, we will hold off Fioricet after 2 PM, start melatonin, 5 mg at bedtime, patient might need Elavil, controlled headaches and restore some sleep, however psych is going to see the patient. Continue Fioricet 1 every 6 hours as needed. Last dose will be before 2 PM 3. History of seizure activity. 3 witnessed seizures today. Consult with neurology, EEG ordered. Patient has been started on Vimpat 50 mg twice daily 4. Elevated d-dimer. 5. Adrenal insufficiency . Patient will be started on Solu-Cortef 100 mg IV every 8 hours. Decreased to 50 mg, every 8 hours dietary education and adrenal and rash, we will discontinue secondary to aggression , and mood instability and irritability at this time monitor for outpatient endocrinology to follow however has uncontrolled hypothyroidismwith noncompliance to medication 6. Hyperparathyroidism with parathyroid tumor, follows at [facility]. However patient has uncontrolled hypothyroidism, and this needs to be corrected, compliance to levothyroxine 7. Hypothyroidism. Patient has not been taking levothyroxine. TSH and free T4 ordered and came back elevated. Patient started on levothyroxine 50 g daily based on her weight, will increase to 100 g will be dosed currently weight at 1.6 mcg/kg, her TSH is over 100,000. 8. Thoracic aneurysm, stable, requires controlled blood pressure. 9. Generalized anxiety disorder. 10 caffeine related medical illness, patient's requested to cut down on caffeine continue Fioricet, Ubrelvy or dhe for the headache, migraine insomnia chronic headaches 11. Chronic sleep dysfunction, with poor medical decision making, agitation, restlessness, related to too much caffeine use awaiting psychiatry, melatonin started, ineffective, we will start Elavil 25 mg at bedtime, 22. Low-grade temperature, check for coronavirus PCR, date of onset of symptoms October 06 influenza test, UA nor antibiotic this time, workup initiated 13. Macrocytosis, check for vitamin B12, RBC folate 10. GI prophylaxis. Protonix. 11. DVT prophylaxis. SAMMI ford. DISCHARGE PLAN Be determined, an MRI Current Medications Amitriptyline HCl (Amitriptyline Hcl 50 Mg Tab) 50 mg PO HS [facility] Last Admin: 10/06/21 20:21 Dose: 50 mg Amlodipine Besylate (Amlodipine 10 Mg Tab) 10 mg PO DAILY [facility] Last Admin: 10/07/21 04:47 Dose: 10 mg Aspirin (Aspirin 81 Mg) 81 mg PO DAILY [facility] Last Admin: 10/07/21 09:12 Dose: 81 mg Atorvastatin Calcium (Atorvastatin 20 Mg Tab) 20 mg PO HS [facility] Last Admin: 10/06/21 20:22 Dose: 20 mg Clonidine (Clonidine Hcl 0.2 Mg Tab) 0.2 mg PO TID [facility] Last Admin: 10/07/21 04:47 Dose: 0.2 mg Hydralazine HCl (Hydralazine Hcl 50 Mg Tab) 50 mg PO BID [facility] Last Admin: 10/07/21 09:12 Dose: 50 mg Insulin Aspart (Insulin Aspart (Novolog) 100 Unit/Ml Vial) 0 unit SQ ACHS [facility]; Protocol Last Admin: 10/07/21 11:59 Dose: Not Given Lacosamide (Lacosamide 50 Mg Tablet) 100 mg PO BID [facility] Last Admin: 10/07/21 09:12 Dose: 100 mg Levothyroxine Sodium (Levothyroxine 100 Mcg Tab) 100 mcg PO DAILY@0630 [facility] Last Admin: 10/07/21 05:29 Dose: 100 mcg Melatonin (Melatonin 5 Mg Tablet) 10 mg PO [facility] Last Admin: 10/06/21 20:22 Dose: 10 mg Pantoprazole Sodium (Pantoprazole 40 Mg Tablet) 40 mg PO AC-[id number] [facility] Last Admin: 10/07/21 09:12 Dose: 40 mg Laboratory Results - Last 24 Hours 10/06/21 10/06/21 10/07/21 17:07 19:25 06:56 POC Glucose (mg/dL) 91 128 H 98 POC Glu Timber Killer ID Sue Gutierres Karen Patterson, Jennifer 10/07/21 10:52 POC Glucose (mg/dL) 115 H POC Glu Timber Killer ID Leidy Arellano Vital Signs - 24 hr 10/06/21 10/06/21 10/07/21 19:55 19:57 04:28 Temperature 98.9 F 100.1 F H Pulse Rate [ 85 110 H Pulse Oximetery ] Respiratory 18 18 20 Rate Blood Pressure 137/82 175/97 [Left Arm Supine] O2 Sat by Pulse 99 98 Oximetry 10/07/21 10/07/21 10/07/21 05:44 08:22 11:17 Temperature 99.4 F 99.6 F Pulse Rate [ 90 109 H Pulse Oximetery ] Respiratory 20 Rate Blood Pressure 144/92 137/90 [Left Arm Supine] O2 Sat by Pulse 96 Oximetry Objective - Vital Signs Vital signs: Vital Signs Temp 99.6 F 10/07/21 11:17 Pulse 109 H 10/07/21 11:17 Resp 20 10/07/21 11:17 BP 137/90 10/07/21 11:17 Pulse Ox 96 10/07/21 11:17 FiO2 Intake & Output 10/06/21 10/07/21 10/07/21 18:59 06:59 18:59 Intake Total 1620 400 Balance 1620 400 Weight 68 kg Intake: Oral 1620 400 Other: Voiding Method Toilet Toilet # Voids 3 3 - Labs CBC & Chem 7: 10/04/21 10:19 10/06/21 04:58 Labs: Abnormal Lab Results - Last 24 Hours (Table) 10/06/21 10/07/21 Range/Units 19:25 10:52 POC Glucose (mg/dL) 128 H 115 H (70-110) mg/dL
--- NOTE | 2021-10-07 13:17 | XR ---
EXAMINATION TYPE: XR chest 2V DATE OF EXAM: 10/07/2021 1:06 PM COMPARISON: Chest radiographs from 10/03/2021. TECHNIQUE: XR chest 2V Frontal and lateral views of the chest. CLINICAL INDICATION:Female, 55 years old with history of fever cough; FINDINGS: Lungs/Pleura: There is no evidence of pleural effusion, focal consolidation, or pneumothorax. Surgic al clips project over the lung apex. Pulmonary vascularity: Unremarkable. Heart/mediastinum: Cardiomediastinal silhouette is unremarkable. Aortic repair changes as well as kerrie vular repair changes. Musculoskeletal: No acute osseous pathology. Remote right proximal humerus fracture. IMPRESSION: No acute cardiopulmonary disease/process.
--- NOTE | 2021-10-07 13:23 | P.PN ---
Progress Note - Text Progress Note Date: 10/07/21 Interval history: Patient was seen in follow-up of psychiatric consultation for "tangential, medication noncompliance". Patient was found calmly laying in bed with her fianc at bedside. She appears in better mood today, is not irritable and argumentative. She reports better mood and appears better rested, which she attributes to stopping the steroids yesterday, however she continues to report fragmented sleep. Her appetite is improved, she ate breakfast this morning. At this time patient denies any suicidal or homicidal ideations intent or plan. She denies any auditory or visual hallucinations. She denies any side effects from the medications and has been compliant with meds. Mental status exam: General Appearance: Patient appears to be stated age, hair brushed back into ponytail, is laying in bed with fiance at bedside. Orientation: Alert, and oriented to person, place, time and situation. Behavior: Patient is lying in bed without any agitated behavior, is much calmer today. Speech: Patient's speech is fluent and nonpressured. Mood/Affect: Patient reports their mood is "much better", affect is congruent Suicidality/Homicidality: Patient denies having any suicidal or homicidal ideation intent or plan. Perceptions: Patient denies any visual hallucinations and denies any auditory hallucinations. Though content: Continues to report multiple somatic complaints Thought process: Circumstantial, somatisizes Memory and concentration: Grossly intact for the purposes of this session. Judgment and insight: Fair Assessment: Unspecified depressive disorder, likely MDD recurrent moderate Generalized anxiety disorder History of anxiolytic dependence Cluster B traits Rule out trauma or stressor related disorder Rule out caffeine dependence PLAN: -At this time patient DOES NOT meet criteria for inpatient psychiatric admission. -Would recommend the following medication changes/additions: Continue Elavil 50 mg QHS for depression/anxiety/pain/sleep. -She appears to utilize poor coping mechanisms to deal with life stressors. She appears to respond best to gentle feedback, supportive listening, and allowing patient to vent her frustrations. Recommend follow-up with therapist. -reinforcing metal worker to provide patient with outpatient mental health/psychiatry resources (such as [facility]) for appropriate follow up upon discharge -Patient would benefit from regular psychotherapy to manage anxiety, depression, and coping with life stressors -Psychiatry will sign-off. -Please contact with any questions.
[2021-10-07 13:51] LABS: Appearance,Urine Cloudy (Clear); Bacteria,Urine Rare /hpf; Bilirubin,Urine Negative (Negative); Blood,Urine Negative (Negative); Color,Urine Yellow; Glucose,Urine (UA) Negative (Negative); Ketones,Urine Negative (Negative); Leukocyte Esterase,Urine Small (Negative); Mucus,Urine Rare /hpf; Nitrite,Urine Negative (Negative); Protein,Urine Trace (Negative); RBC,Urine 4 /hpf (0-5); Specific Gravity,Urine 1.016 (1.001-1.035); Squamous Epithelial Cell,Urine 10 /hpf (0-4); Urobilinogen,Urine <2.0 mg/dL (<2.0); WBC,Urine 3 /hpf (0-5)
[2021-10-07] MEDS: ACETAMINOPHEN TAB 325 MG TAB PO PRN ×2 (16:02→20:03)
[2021-10-07 17:23] LABS: Glucose,Whole Blood 142 mg/dL (70-110)
[2021-10-07] MEDS: ATORVASTATIN 20 MG TAB PO SCH (20:02)
[2021-10-07] MEDS: AMITRIPTYLINE HCL 50 MG TAB PO SCH (20:02)
[2021-10-07] MEDS: MELATONIN 5 MG TABLET PO SCH (20:02)
[2021-10-07 20:15] LABS: Glucose,Whole Blood 104 mg/dL (70-110)
[2021-10-08] MEDS: ACETAMINOPHEN TAB 325 MG TAB PO PRN ×2 (03:38→10:59)
[2021-10-08] MEDS: LEVOTHYROXINE 100 MCG TAB PO SCH (06:28)
[2021-10-08 07:23] LABS: Glucose,Whole Blood 94 mg/dL (70-110)
[2021-10-08] MEDS: INSULIN ASPART (NovoLOG) 100 UNIT/ML VIAL SQ SCH ×2 (07:27→12:35)
[2021-10-08] MEDS: PANTOPRAZOLE 40 MG TABLET PO SCH (07:54)
[2021-10-08] MEDS: amLODIPine 10 MG TAB PO SCH (07:55)
[2021-10-08] MEDS: LACOSAMIDE 50 MG TABLET PO SCH (07:55)
[2021-10-08] MEDS: hydrALAZINE HCL 50 MG TAB PO SCH (07:55)
[2021-10-08] MEDS: ASPIRIN 81 MG PO SCH (07:55)
[2021-10-08] MEDS: cloNIDine HCL 0.2 MG TAB PO SCH (07:55)
--- NOTE | 2021-10-08 08:49 | P.DS ---
Providers Date of admission: 10/03/21 11:44 Expected date of discharge: 10/08/21 Attending physician: Eleno Landaverde Consults: 10/03/21 11:44 Consult Physician Routine Consulting Provider: Raymond Bolton Consult Reason/Comments: SEIZURE Do you want consulting provider notified?: Yes 10/05/21 11:31 Consult Physician Routine Consulting Provider: Blaise Goddard Consult Reason/Comments: Tangential, medication non-compliance Do you want consulting provider notified?: Yes [facility] Course: HISTORY OF PRESENT ILLNESS This is a 55-year-old female patient of Dr. 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 Patient has not had recent follow-up in the office. Patient gives history that she was seen at [facility] for thyroid tumor about 6 months ago and was placed on Cortef. She has also been seen recently at [facility] for urinary tract infection placed on Keflex which she had finished at that time, she also had significantly elevated blood pressure. She was also seen in [place] about 3 days ago where her boyfriend took her because of her blood pressure being at 230 systolic. She said she received IV medications but no new prescriptions. No seizure activity at that time. Patient apparently has run out of medications and Today, patient's mother called a relative to check on the patient who then called 911. Patient was having severe headache and had a seizure. She also complains of a cough with sputum production that was a few weeks ago but none now. She states she's had a fever. Patient apparently has run out of medications but not received refills. Patient apparently had 2 seizures witnessed by her family and then 1 episode witnessed by EMS. Patient presented to [facility] emergency center. Blood pressure initially 218/104, afebrile, heart rate 50, pulse ox 99%. EKG is sinus bradycardia with no acute ST changes. Chest x-ray increased cardiac size, correlate with echocardiogram, questionable mild COPD. Suspect chronic healed fracture of the right humeral neck. CAT scan of the brain revealed no acute intracranial abnormality or gross space- occupying lesion. WBC 15.7, Hemoccult and 14.3, platelet count 288. D-dimer 2.91. Electrolytes normal. BUN 24 creatinine 1.8. Blood sugar 105. Calcium 10.5. Alkaline phosphatase 127. CK 166. Troponin negative on one drop. ProBNP 2040. Triglycerides 194, cholesterol 203, LDL 81, HDL 83. TSH greater than 100 and free T4 0.41. Urinalysis clear with blood trace, RBC 6, bacteria rare. Serum alcohol less than 10. Patient is seen today in the emergency center waiting for a bed on the cardiac stepdown unit. VQ scan will be ordered, patient resumed on home medications, consults with cardiology for urgent hypertension and chest pain and neurology for seizure activity. 10/04: Patient barely underwent VQ scan this morning just returned to her room, report is not available. Ultrasound of the carotid arteries revealed 50% stenosis of the bilateral carotid bifurcations. Patient is complaining of a headache this morning for which appears that was given. Blood pressure is improved today. Patient states that for about 6 hours yesterday she didn't know who her sisters were but thinks her mental status is improved this morning. No further seizure activity. Consults in place with cardiology and neurology. Neurology has started the patient on Vimpat 50 mg twice daily. IV fluids discontinued patient also started on levothyroxine which she apparently has not been taking at home. 10/05: Patient is very tearful today, significantly depressed, not sleeping, wakes up with a headache every hour each nightly, however she is taking Fioricet either late in the evening, with caffeine psych has been consulted, repeat to atrial fibrillation UTI, compliance to thyroid medication has been advised to the patient, as her TSH is over 100,000, melatonin was started today, might need ,to Elavil, for chronic headaches, and sleep dysfunction however psych is already in place, we would request their input. 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, and has difficulty in coping with the care of parents and her grandchildren patient is nonsuicidal, 10/06: Patient seems overwhelmed a lot of the nursing staff, including the neurologist, was mentioning that he is having seizures, however patient refused to notify the nurses for any event of seizures, patient is not sleeping, temperamental,labile mood, then we'll apologize, tearful, nonsuicidal, wants to argue with physicians, including myself regarding her uncontrolled caffeine use, as the patient's not sleeping, and is very anxious, blood pressures uncontrolled We will discontinue Fioricet at this time, secondary to complications related to caffeine , start Elavil 25 mg at bedtime for her headaches, and insomnia, on melatonin 10 mg, however did not sleep at all last night. Try to get Ubrelvy is nonformulary, to replace the Fioricet discuss with pharmacy, we will try DHEA, 1 mg IM when necessary. Unable to get Toradol, creatinine 1.5 no opiates needed for the headache Awaiting psychiatric evaluation, patient does not want to get the MRI done in the hospital, and wants to get it done then returned as inpatient V/Q scan, low probability for PE . She does not want to go home AMA, and we will stated, to complete the imaging studies here awaiting psychiatry. Discontinue hydrocortisone, secondary to adre nal vargas and mood instability. Blood pressure stable, 10/07, patient seen with the today at the bedside with her consent, patient was given Elavil and was initiated at 50 mg for insomnia and migraines, patient is less emotional today, however she tends to contradict herself quite often. Patient did not sleep, so wakes up in between wtill irritable and kebede , still sipping on coffee all day long, otherwise patient should be caffeine free for prescriptions, patient mentions that she's got fever or runny nose, not significant cough, for the past 24 hours. We have ordered coronavirus PCR testing influenza testing, UA passing, patient has headache which is chronic, no neck pain. T-max 99.4 vitals are stable, MRI still needs to be done in am , will check for B12 for macrocytosis along with RBC folate. 10/08: chest x-ray was negative. Coronavirus PCR, influenza A and influenza B negative. Urinalysis revealed small amount of leukoesterase, 10 epithelial cells. Capillary blood glucose running between 94 and 142. Temperature max 101. Heart rate 92, blood pressure 161/96 and pulse ox 90% on room air. No source of infection can be identified. WBC 11.7. Patient is complaining of mild earache and throat ache. Hydralazine increased to 75 mg twice daily. Patient continues to be followed by neurology and it appears we continue to wait for MRI as documents are requested from [facility] regarding stents. Patient continues to be followed by psychiatry with recommendations for Elavil 50 mg at bedtime, follow up counseling with the therapist, outpatient resources for mental health and psychiatry is signed off.a patient states that she is feeling quite well today. No further seizures. No deficits. We have been waiting for clearance from [facility] Re: Stenting in order to provide the MRI. Discussed case with neurology and patient may follow-up outpatient with [facility] for an MRI. Plan is to continue patient on Vimpat for seizure activity. Patient has refused EEG. Patient has agreed to plan and also agrees to be compliant with medications. Patient will be discharged home today in stable condition. Patient will have follow-up in the office in the next 3 days. DISCHARGE DIAGNOSES 1. Hypertensive urgency. 2. Headache most likely secondary to hypertension and nonstress test, broken sleep, chronic daily headaches,. 3. History of seizure activity. 4. Elevated d-dimer. 5. Adrenal insufficiency. 6. Hyperparathyroidism with parathyroid tumor, follows at [facility]. 7. Hypothyroidism. 8. Thoracic aneurysm, stable, requires controlled blood pressure. 9. Generalized anxiety disorder. 10 caffeine related medical illness 11. Chronic sleep dysfunction, with poor medical decision making, agitation, restlessness, related to too much caffeine use 12. Low-grade temperature 13. Macrocytosis, check for vitamin B12, RBC folate DISCHARGE PLAN Home Greater than 35 minutes was utilized and coordinating patient's discharge. Impression and plan of care have been directed as dictated by the signing physician. Bridget Ordoñez nurse practitioner acting as scribe for signing physician. Patient Condition at Discharge: Stable Plan - Discharge Summary Discharge Rx Participant: No New Discharge Prescriptions: New Aspirin 81 mg PO DAILY tab Amitriptyline HCl [Elavil] 50 mg PO HS #30 tab Atorvastatin [Lipitor] 20 mg PO HS #30 tab Levothyroxine Sodium [Synthroid] 100 mcg PO DAILY@0630 #30 tab Lacosamide [Vimpat] 100 mg PO BID #120 tab amLODIPine [Norvasc] 10 mg PO DAILY tab hydrALAZINE HCL [Apresoline] 75 mg PO BID #180 tab Melatonin 10 mg PO HS tab Continue Acetaminophen Tab [Tylenol] 1,000 mg PO Q6HR PRN PRN Reason: Pain Aspirin/Acetaminophen/Caffeine [Excedrin Migraine Caplet] 2 tab PO DAILY PRN PRN Reason: Migraine Headache Changed cloNIDine HCL [Catapres] 0.2 mg PO TID #90 tab Discontinued amLODIPine [Norvasc] 10 mg PO BID Discharge Medication List Acetaminophen Tab [Tylenol] 1,000 mg PO Q6HR PRN 10/03/21 [History] Aspirin/Acetaminophen/Caffeine [Excedrin Migraine Caplet] 2 tab PO DAILY PRN 10/03/21 [History] Amitriptyline HCl [Elavil] 50 mg PO HS #30 tab 10/08/21 [Rx] Aspirin 81 mg PO DAILY tab 10/08/21 [Rx] Atorvastatin [Lipitor] 20 mg PO HS #30 tab 10/08/21 [Rx] Lacosamide [Vimpat] 100 mg PO BID #120 tab 10/08/21 [Rx] Levothyroxine Sodium [Synthroid] 100 mcg PO DAILY@0630 #30 tab 10/08/21 [Rx] Melatonin 10 mg PO HS tab 10/08/21 [Rx] amLODIPine [Norvasc] 10 mg PO DAILY tab 10/08/21 [Rx] cloNIDine HCL [Catapres] 0.2 mg PO TID #90 tab 10/08/21 [Rx] hydrALAZINE HCL [Apresoline] 75 mg PO BID #180 tab 10/08/21 [Rx] Follow up Appointment(s)/Referral(s): Eleno Landaverde MD [Primary Care Provider] - 3 Days (new patient.they want patient to call and schedule appt.) Discharge Disposition: HOME SELF-CARE
--- NOTE | 2021-10-08 09:15 | P.PN ---
Subjective Progress Note Date: 10/08/21 The patient is seen at bedside and states she is doing better. Denies any further seizures. She denies of any further new neurological deficits. She is feeling much better today compared to prior. Still we do not have clearance from [facility] for stenting to proceed with MRI. Objective - Vital Signs Vital signs: Vital Signs Temp 99.7 F H 10/08/21 07:53 Pulse 92 10/08/21 07:53 Resp 18 10/08/21 04:44 BP 161/96 10/08/21 07:53 Pulse Ox 98 10/08/21 07:53 FiO2 Intake & Output 10/07/21 10/08/21 10/08/21 18:59 06:59 18:59 Intake Total 1000 Balance 1000 Weight 70 kg Intake: Oral 1000 Other: Voiding Method Toilet Toilet # Voids 2 - Exam GENERAL: The patient is lying in bed. Denies of acute distress. PSYCH: Is tangenital. NEUROLOGICAL: Limited because of her coperation. Her exam is inconsistent Higher mental function: The patient is awake, alert, oriented to self. She correctly stated she is in the hospital. Could not tell me time or month. She seem, place and time. Patient is following simple commands. It is hard to assess language Cranial nerves: Could not assess visual field seems normal throughout. No facial weakness. No dysarthira. Motor: The strength is 5 over 5 throughout. Normal tone and bulk. Cerebellum:Normal (with encouragement it was normal but initially she is performing testing slow) Sensation: Decrease to touch over the right side (stated this is old) - Labs CBC & Chem 7: 10/04/21 10:19 10/06/21 04:58 Labs: Abnormal Lab Results - Last 24 Hours (Table) 10/07/21 10/07/21 10/07/21 Range/Units 10:52 13:25 17:22 POC Glucose (mg/dL) 115 H 142 H (70-110) mg/dL Urine Appearance Cloudy H (Clear) Urine Protein Trace H (Negative) Ur Leukocyte Esterase Small H (Negative) Ur Squamous Epith Cells 10 H (0-4) /hpf Urine Bacteria Rare H (None) /hpf Urine Mucus Rare H (None) /hpf Assessment and Plan Assessment: * Seizure disorder, came with multiple breakthrough seizures. Patient however tells us that she gets 6-7 seizures every day, most of the days of the week. She is not taking any seizure medication. Her current seizures could be related to hypertensive emergency, with mild encephalopathy. Rule out PRES syndrome * Visual disturbance possible PRES---feels doing better. * Hypothyroidism and is uncontrolled (TSH >100 and free T4 0.41) * Hypercalcemia * History of Ehler's Danlos syndrome * Adrenal insufficiency * History of atrial fibrillation * History of DVT * Renal insufficiency * Macrocytosis * Medication noncompliance. Patient has stopped taking her seizure medications, blood pressure medication for "long time". 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 Bolton). No further seizures accordin g to nurse * Pending MRI Brain w/ and w/o especially with reported ?pituitary mass. Pending clearance and more info of stent to pursue MRI. * Patient had a repeat CT of the head and it was unchanged. * Patient declined EEG. * Carotid duplex was reported as less than 50% stenosis bilateral carotid bi furcation. * Regarding hypothyroidism, hypercalcemia and her hypertension will defer to IM. * Lipid panel triglycerides 194, cholesterol is 203, LDLs 81 and HDL is 83. I started the patient on Lipitor 20 mg at bedtime and will defer modification of medication to primary team. * Psychiatry team is consulted since patient has medications non-compliance and is tangential on examination. * Upon discharge, patient needs to follow-up with neurologist as outpatient within 1-2 weeks. She wants to go home and is complaining to nursing staff that she wants to complain about her treatment by physicians. I don't understand why patient is complaining, she presented to our facility of uncontrolled blood pressure, complaining of different neurological issues and has not been compliant taking medications. She was told if she wanted to leave in past she can go AMA but refuses but wants to leave. Since the patient has not been having further seizures and feels is doing better. She is clear for discharge. She was notified to follow-up with [facility] regarding MRI brain. Continue taking Vimpat 100mg bid. To follow-up with a neurologist as outpatient within 1-2 weeks. Pete Laws M.D. Neuro-Hospitalist Time with Patient: Less than 30
[2021-10-08 10:59] LABS: HCT 38.8 % (34.0-46.0); HGB 12.8 gm/dL (11.4-16.0); MCH 34.3 pg (25.0-35.0); Macrocytosis Slight; Mean Platelet Volume 7.3; Platelet Count 245 k/uL (150-450); RBC 3.74 m/uL (3.80-5.40); RDW 13.3 % (11.5-15.5); WBC 11.7 k/uL (3.8-10.6)
[2021-10-08 11:39] VITALS: BP 158/88; PULSE 89; RESP 20; TEMP 100.5
[2021-10-08 11:46] LABS: Glucose,Whole Blood 92 mg/dL (70-110)
[2021-10-08] MEDS ORDERED: hydrALAZINE HCL 25 MG TAB PO SCH (21:00)
== END 2021-10-08 12:59 | disposition home or self-care (01) | DRG 305 ==
LOC: EC 07:40 → 3SCARD 11:44 → 5NMEDONC 10-05 18:31
PROVIDERS: ADMIT Internal Medicine Geriatric Medicine; ATTEND Internal Medicine Geriatric Medicine
DX: I16.0 Hypertensive urgency (principal); E27.40 Unspecified adrenocortical insufficiency; F33.1 Major depressive disorder, recurrent, moderate; N17.9 Acute kidney failure, unspecified; Q79.60 Ehlers-Danlos syndrome, unspecified; R41.4 Neurologic neglect syndrome; D49.7 Neoplasm of unspecified behavior of endocrine glands and other parts of nervous system; D75.89 Other specified diseases of blood and blood-forming organs; E03.9 Hypothyroidism, unspecified; E20.9 Hypoparathyroidism, unspecified; F17.210 Nicotine dependence, cigarettes, uncomplicated; F41.0 Panic disorder [episodic paroxysmal anxiety]; F41.1 Generalized anxiety disorder; G40.409 Other generalized epilepsy and epileptic syndromes, not intractable, without status epilepticus; G43.909 Migraine, unspecified, not intractable, without status migrainosus; G47.00 Insomnia, unspecified; H53.461 Homonymous bilateral field defects, right side; I12.9 Hypertensive chronic kidney disease with stage 1 through stage 4 chronic kidney disease, or unspecified chronic kidney disease; N18.9 Chronic kidney disease, unspecified; F15.10 Other stimulant abuse, uncomplicated; I48.0 Paroxysmal atrial fibrillation; Z87.440 Personal history of urinary (tract) infections; Z20.822 Contact with and (suspected) exposure to COVID-19; R79.1 Abnormal coagulation profile; R45.1 Restlessness and agitation; Z56.0 Unemployment, unspecified; Z63.5 Disruption of family by separation and divorce; T42.76XA Underdosing of unspecified antiepileptic and sedative-hypnotic drugs, initial encounter; T46.5X6A Underdosing of other antihypertensive drugs, initial encounter; Z91.128 Patient's intentional underdosing of medication regimen for other reason; Z88.6 Allergy status to analgesic agent; R00.1 Bradycardia, unspecified; Z86.79 Personal history of other diseases of the circulatory system; Z79.82 Long term (current) use of aspirin; Z79.899 Other long term (current) drug therapy; Z86.718 Personal history of other venous thrombosis and embolism; Z91.19 Patient's noncompliance with other medical treatment and regimen; Z83.2 Family history of diseases of the blood and blood-forming organs and certain disorders involving the immune mechanism
CPT/HCPCS: 36415; 70450; 71045; 71046; 78580; 80048; 80053; 80061; 80320; 81001; 81003; 82550; 83036; 83735; 83880; 84439; 84443; 84484; 85025; 85027; 85379; 87502; 87635; 93005; 93880; 94760; 96361; 96374; 96375; 99285